=== PATIENT | male | born 1950 | race Caucasian/White ===

== ENCOUNTER 2016-09-02 15:41 | Inpatient (IN) | payer MEDICARE, OTHER ==
[~2016-09-02] VITALS: Ht 167.6 cm; Wt 62.1 kg
[2016-09-02] MEDS ORDERED: ENALAPRILAT 1.25 MG INJ IV ONE (16:00)
[2016-09-02] MEDS ORDERED: PIPER-TAZO 3.375 GM IV (PMX) 100 ML IVPB ONE (16:00)
[2016-09-02] MEDS ORDERED: NITROGLYCERIN (SL) 0.4 MG TAB SL ONE (16:00)
[2016-09-02] MEDS ORDERED: VANCOMYCIN 1 GM (PMX) 250 ML IVPB ONE (16:00)
[2016-09-02] MEDS ORDERED: ASPIRIN 81 MG TAB PO ONE (16:00)
[2016-09-02 16:36] LABS: ADD SCAN DIFF NO
[2016-09-02 16:38] LABS: ABNORMAL IP MESSAGE 1; HEMOGLOBIN 11.3 g/dl (14.0-18.0); MEAN CORPUSCULAR HGB CONC 32.3 g/dl (32.0-37.0); MEAN CORPUSCULAR VOLUME 92.8 fl (82.0-101.0); MEAN PLATELET VOLUME 9.8 fl (7.4-10.4); PLATELET COUNT 254 10^3/UL (140-415); RED BLOOD COUNT 3.77 10^6/ul (4.70-6.10); RED CELL DISTRIBUTION WIDTH 15.6 % (11.5-14.5); WHITE BLOOD COUNT 17.2 10^3/ul (4.8-10.8)
[2016-09-02 16:49] LABS: ALBUMIN 3.6 g/dl (3.3-4.9); INR 1.01; PROTIME 13.3 Sec (12.2-14.2)
[2016-09-02 16:50] LABS: POTASSIUM 3.6 mmol/L (3.5-5.1)
[2016-09-02 16:52] LABS: ALBUMIN/GLOBULIN RATIO 0.87; CREATININE 2.8 mg/dl (0.61-1.24); TOTAL PROTEIN 7.7 g/dl (6.1-8.1)
[2016-09-02 16:53] LABS: CALCIUM 9.2 mg/dl (8.4-10.2)
[2016-09-02 17:04] LABS: TROPONIN-I 0.038 ng/ml (0.00-0.12)
--- NOTE | 2016-09-02 17:07 | RADRPT ---
PROCEDURE: XR Chest. CLINICAL INDICATION: Shortness of breath. Sepsis. TECHNIQUE: Single frontal view. COMPARISON: None. FINDINGS: There is mild right basilar atelectasis. There is a moderate left pleural effusion and left basilar atelectasis. There is a density in the left midlung zone laterally measuring 7.1 x 4.0 cm in crani al caudal and transverse dimensions. The lungs are otherwise clear. The heart size is normal. There is calcification in the aorta consistent with atherosclerosis. There is no right pleural effusion. There is no pneumothorax. IMPRESSION: 1. Mild right basilar atelectasis. 2. Moderate left pleural effusion and left basilar atelectasis. 3. Density in the left midlung zone laterally which may be due to loculated fluid or a mass. Corre lation with CT scan of the chest should be considered. 4. Atherosclerosis. 5. Otherwise unremarkable study. RPTAT: QQ .Derek Gómez MD, MD Date Time Electronically viewed and signed by .Derek Gómez MD, on 09/02/2016 17:06 .R/
[2016-09-02 17:09] LABS: PARTIAL THROMBOPLASTIN TIME 121.2 Sec (25.0-35.0)
[2016-09-02 17:35] LABS: LYMPHOCYTES # 0.3 10^3/ul (0.8-2.9); MONOCYTE # 0.2 10^3/ul (0.3-0.9); NEUTROPHIL # 16.2 10^3/ul (1.6-7.5); PLATELET ESTIMATE PLT APPEAR ADEQUATE
[2016-09-02] MEDS ORDERED: CLON0.2T5 PO (17:35)
--- NOTE | 2016-09-02 17:46 | CONS ---
Date/Time of Note Date/Time of Note DATE: 09/02/16 TIME: 17:41 Assessment/Plan Assessment/Plan Chief Complaint/Hosp Course 66M w/ paraplegia and ESRD on HD and s/p LUE AVG and RIJ PC, now HD via LUE AVG w/o issues and has not used RIJ PC; now w/ possible sepsis and possible infected RIJ PC Plan: -Appreciate ED management -Will remove RIJ PC -Cont HD via LUE AVG -Cont IV abx -D/w Dr Trujillo and Dr. Lopez Thank you and please call with questions Problems: Consultation Date/Type/Reason Admit Date/Time Date of Consultation: Sep 02, 2016 Reason for Consultation Sepsis, possible infected RIJ PC Referring Provider: MALIA TRUJILLO MD Hx of Present Illness 66M w/ paraplegia and ESRD on HD via RIJ PC and s/p LUE AVG, both done in 2015 at outside instituition has been successfully dialyzed via LUE AVG for past couple of months but did not return to outpatient clinic for removal of PC. He now was sent to ER by HD center for persistent chills and possible sepsis. Here WBC 17. He is on chronic oxygen but now requiring BiPAP for increased SOB. His RIJ PC may be infected. He denies CP, N/V, changes in bowel habits. 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 Past Surgical History Permacath LUE AVG Social History Denies smoking, alcohol and drugs Smoking Status: Unknown if ever smoked Exam/Review of Systems Vital Signs Vitals Vital Signs Date Time Temp Pulse Resp B/P Pulse Ox O2 Delivery O2 Flow Rate FiO2 09/02/16 16:19 124 100 100 09/02/16 15:57 Simple Mask 2.0 09/02/16 15:47 99.5 20 156/134 Exam Gen: AAOx3, SOB on BiPAP Neck: supple, RIJ PC c/d/i, no evidence of overt infection at skin exit site Heart: tachycardic Lungs: Coarse w/ wheeze Extr: LUE AVG w/ good thrill throughout, no edema Results Result Diagram: 09/02/16 1615 Results 24 hrs Laboratory Tests Test 4/3/17 16:15 White Blood Count 17.2 H Red Blood Count 3.77 L Hemoglobin 11.3 L Hematocrit 35.0 L Mean Corpuscular Volume 92.8 Mean Corpuscular Hemoglobin 30.0 Mean Corpuscular Hemoglobin Concent 32.3 Red Cell Distribution Width 15.6 H Platelet Count 254 Mean Platelet Volume 9.8 Neutrophils % 94.0 H Band Neutrophils % 3.0 Lymphocytes % 2.0 L Monocytes % 1.0 Neutrophils # 16.2 H Lymphocytes # 0.3 L Monocytes # 0.2 L Platelet Estimate PLT APPEAR ADEQUATE Prothrombin Time 13.3 Prothrombin Time Ratio 1.0 INR International Normalized Ratio 1.01 Activated Partial Thromboplast Time 121.2 *H Sodium Level 139 Potassium Level 3.6 Chloride Level 97 Carbon Dioxide Level 26 Anion Gap 20 H Blood Urea Nitrogen 32 H Creatinine 2.80 H Glucose Level 113 Lactic Acid Level 1.8 Calcium Level 9.2 Total Bilirubin 0.0 L Direct Bilirubin 0.00 Indirect Bilirubin 0.0 Aspartate Amino Transf (AST/SGOT) 23 Alanine Aminotransferase (ALT/SGPT) 21 Alkaline Phosphatase 139 H Troponin I 0.038 Total Protein 7.7 Albumin 3.6 Globulin 4.10 H Albumin/Globulin Ratio 0.87 Lipase 107 Medications Medications Current Medications Vancomycin HCl (Vancocin) 250 ml @ 125 mls/hr ONCE ONCE IVPB ; Start 09/02/16 at 16:00; Stop 09/02/16 at 17:59 SHIRA FORD MD Sep 02, 2016 17:46
[2016-09-02] MEDS ORDERED: LIDOCAINE 1% (MDV) 20 ML INJ ONE (17:53)
[2016-09-02] MEDS ORDERED: LIDOCAINE 1% (MPF) 30 ML INJ INJ PRN (18:00)
--- NOTE | 2016-09-02 18:24 | ERA ---
ER Documentation Chief Complaint Date/Time DATE: 09/02/16 TIME: 18:09 Chief Complaint SOB AFTER 3.5 HRS OF DIALYSIS, ON OXYGEN AT HOME. HPI 66-year-old man brought in by EMS for shortness of breath and fever 1 day, symptoms got worse after hemodialysis. Patient states he has difficulty breathing and recent cough, denies chest pain, no vomiting or diarrhea, no abdominal pain. ROS All systems reviewed and are negative except as per history of present illness. Medications Home Meds Reported Medications Clonidine Hcl* (Clonidine Hcl*) 0.2 Mg Tablet, 0.2 MG PO BID Y for HTN, TAB 09/02/16 Allergies Allergies: Coded Allergies: baclofen (Unverified Allergy, Mild, HALLUCINATIONS, 09/02/16) PMhx/Soc End-stage kidney disease hemodialysis dependent, hypertension, congestive heart failure, diabetes mellitus, bilateral lower extremity paraplegia, anemia History of Surgery: Yes (TUMOR REMOVAL) Anesthesia Reaction: No Hx Neurological Disorder: No Hx Respiratory Disorders: Yes (OXYGEN DEPENDENT AT HOME) Hx Cardiac Disorders: Yes (HTN, CHF, MITRAL REGURGITATION) Hx Psychiatric Problems: No Hx Miscellaneous Medical Probl: Yes (DM, ESRD, PARAPLEGIA, IRON DEFICIENCY ANEMIA) Hx Alcohol Use: No Hx Substance Use: No Hx Tobacco Use: No Smoking Status: Unknown if ever smoked FmHx Family History: diabetes Physical Exam Vitals Vital Signs Date Time Temp Pulse Resp B/P Pulse Ox O2 Delivery O2 Flow Rate FiO2 09/02/16 16:19 124 100 100 09/02/16 15:57 Simple Mask 2.0 09/02/16 15:47 99.5 119 20 156/134 99 Physical Exam GENERAL: Well-developed, dyspneic, febrile HEENT: Dry mucous membranes, pink conjunctiva, no cervical spine tenderness or step-off deformities, no goiter, no jaundice or icterus, extraocular movements intact without pain. No submandibular induration, and no pharyngeal erythema NEURO: Alert and oriented 3, cranial nerves II through XII intact bilaterally, pupils equal round reactive to light, no focal deficits or facial asymmetry, bilateral lower extremity paralysis CARDIAC: Tachycardic and regular no murmurs rubs or gallops LUNGS: Crackles throughout with poor breath sounds bilaterally, tachypneic and dyspneic ABDOMEN: Soft nontender, no guarding, no rigidity, no rebound, no psoas sign no obturator sign. Normoactive bowel sounds SKIN: Warm and dry to touch, no abrasions, contusions, or hematomas, no lacerations, no ecchymosis, no target lesions, and without ulcers EXTREMITIES: No clubbing cyanosis or edema, calves are bilaterally symmetrical, no Homans sign, no popliteal cord sign. Distal pulses equal and bilateral PSYCH: Normal affect without agitation or irritability Result Diagram: 09/02/16 1615 09/02/16 1615 Results 24 hrs Laboratory Tests Test 09/02/16 16:15 White Blood Count 17.210^3/ul Red Blood Count 3.7710^6/ul Hemoglobin 11.3g/dl Hematocrit 35.0% Mean Corpuscular Volume 92.8fl Mean Corpuscular Hemoglobin 30.0pg Mean Corpuscular Hemoglobin Concent 32.3g/dl Red Cell Distribution Width 15.6% Platelet Count 09558^3/UL Mean Platelet Volume 9.8fl Neutrophils % 94.0% Band Neutrophils % 3.0% Lymphocytes % 2.0% Monocytes % 1.0% Neutrophils # 16.210^3/ul Lymphocytes # 0.310^3/ul Monocytes # 0.210^3/ul Platelet Estimate PLT APPEAR ADEQUATE Prothrombin Time 13.3Sec Prothrombin Time Ratio 1.0 INR International Normalized Ratio 1.01 Activated Partial Thromboplast Time 121.2Sec Sodium Level 139mmol/L Potassium Level 3.6mmol/L Chloride Level 97mmol/L Carbon Dioxide Level 26mmol/L Anion Gap 20 Blood Urea Nitrogen 32mg/dl Creatinine 2.80mg/dl Glucose Level 113mg/dl Lactic Acid Level 1.8mmol/L Calcium Level 9.2mg/dl Total Bilirubin 0.0mg/dl Direct Bilirubin 0.00mg/dl Indirect Bilirubin 0.0mg/dl Aspartate Amino Transf (AST/SGOT) 23IU/L Alanine Aminotransferase (ALT/SGPT) 21IU/L Alkaline Phosphatase 139IU/L Troponin I 0.038ng/ml Total Protein 7.7g/dl Albumin 3.6g/dl Globulin 4.10g/dl Albumin/Globulin Ratio 0.87 Lipase 107U/L Current Medications Medications (Trade) Dose Ordered Sig/Elder Route PRN Reason Start Time Stop Time Status Last Admin Dose Admin Aspirin (Aspirin) 162 mg ONCE ONCE PO 09/02/16 16:00 09/02/16 16:04 DC 09/02/16 16:48 Enalaprilat (Vasotec Iv) 1.25 mg ONCE ONCE IV 09/02/16 16:00 09/02/16 16:04 DC Nitroglycerin 2 tab 2 tab ONCE ONCE SL 09/02/16 16:00 09/02/16 16:04 DC 09/02/16 16:48 Vancomycin HCl 250 ml @ 125 mls/hr ONCE ONCE IVPB 09/02/16 16:00 09/02/16 17:59 DC Piperacillin Sod/ Tazobactam Sod (Zosyn 3.375gm/ 100 ml (Pmx)) 100 ml @ 200 mls/hr ONCE ONCE IVPB 09/02/16 16:00 09/02/16 16:29 DC 09/02/16 16:49 Lidocaine (Xylocaine 1% (Mpf)) 30 ml ONCE PRN INJ PAIN 09/02/16 18:00 Lidocaine (Xylocaine 1% (Mdv) 20 ml) 20 ml STK-MED ONCE .ROUTE 09/02/16 17:53 09/02/16 17:54 DC Procedures/MDM IV line was established patient was placed on monitor and storage bin tender rhythm strip revealed a sinus tachycardia at about 120 bpm with upright P and T waves. Patient was febrile and hypertensive as well. Blood cultures have been ordered results are pending I will follow-up EKG performed, read by me revealed a sinus tachycardia at 117 bpm, normal axis, narrow QRS complex, no concerning ST elevations or depressions noted. One view chest x-ray performed, read by me there is a hemodialysis catheter in the right subclavian and a large left pleural effusion and right middle lobe infiltrate overall concerning for bilateral pneumonia, no pneumothorax, no end of the diaphragm. Patient could not breathe and I immediately ordered BiPAP therapy which resulted in rapid improvement in symptoms although patient remains symptomatic and will require inpatient management. Impaired I administered aspirin 162 mg p.o. for cardioprotective measures, nitroglycerin 0.4 mg sublingual 2 for hypertension. I administered Pipracil and tazobactam 3.375 g IV and vancomycin 1 g IV. CBC reveals a white count of 17 and leukocytosis, electrolytes reveal chronic kidney injury with a BUN/creatinine of 32/2.8, liver function tests normal, troponin negative. Lactic acid low at 1.8. Patient's infectious symptoms have not stabilized and the patient is at risk of rapid decompensation. The patient will be admitted for careful hydration, antibiotic therapy, and infectious source control. Severe Sepsis Assessment: Infectious Source: Bilateral pneumonia End organ damage indicated by: Acute Resp Failure (sat < 92% w/o oxygen) Relationship Consultant > 2.0 Severe Sepsis Managment: Blood Cultures X 2 before broad spectrum antibiotics initiated within 3 hours of recognition. 30 ml/kg NS bolus not done as patient has end-stage kidney disease and just released received hemodialysis, all IV fluid administration will be deferred to nephrology Initial Lactate: 1.8 Repeat Lactate not indicated as initial < 2.0 Critical Care: Time: 50 minutes, this was time separate from other procedures Treatments/Evaluations: Emergent fluid management, while maintaining close respiratory support. Immediate broad spectrum antibiotic therapy. Simultaneous assessment for possible sources in order to direct therapy. Consideration for invasive and chemical support to prevent respiratory or cardiac collapse. Septic Shock Assessment (1 hour post 30 ml/kg fluid bolus): Hypotension (SBP < 90 or 40 mmHg drop, MAP < 65): No Lactic acid > 4.0 No Perfusion Reassessment for Septic Shock: Temp afebrile, Pulse 100, RR 20, BP 140/80 Heart Exam: Tachycardic Lung Exam: Positive crackles throughout Capillary Refill: Less than 2 second Peripheral Pulses: Radially present Skin: [place] and hot to touch Hypotensive Treatment (not required for isolated lactic acid elevation): Comfort Care: No Central LIne: Not indicated Vasopressor started: None I considered further perfusion assessment with CVP measurement, SCVO2, bedside ultrasound volume assessment, passive leg raise, trial of further fluid bolus. And preceded with IV antibiotics and BiPAP therapy Accepting Care Team: Current data and ongoing care discussed. Time: Time of admission Primary Provider: Hospital Consulting: Nephrology Outstanding Data: none Patient admitted to telemetry setting Departure Diagnosis: Primary Impression: Bilateral pneumonia Qualified Code: J18.9 - Pneumonia of both lower lobes due to infectious organism Additional Impressions: Sepsis Qualified Code: A41.9 - Sepsis, due to unspecified organism CHF (congestive heart failure) Qualified Code: I50.21 - Acute systolic congestive heart failure Hypertension Qualified Code: I10 - Essential hypertension End stage kidney disease Condition: Serious GRACE BATES MD Sep 02, 2016 18:19
--- NOTE | 2016-09-02 18:35 | OPR ---
Date/Time of Note Date/Time of Note DATE: 09/02/16 TIME: 18:28 Operative Report Procedure Date: Sep 02, 2016 Preoperative Diagnosis ESRD, spesis, possibly infected RIJ PC Postoperative Diagnosis Same Operation Performed Removal of RIJ Permacath Surgeon: SHIRA FORD MD Anesthesia: other (Local) Estimated Blood Loss: minimal Specimens RIJ Permacath tip for culture Complications: None Pt Condition Post Procedure: stable Disposition: other (Floor) Indications 66M w/ ESRD s/p LUE AVG 03/2016 along with Right IJ Permacath, LUE AVG successfully used for HD without issue; did not have permacath removal as planned previously; now presents with symptoms of sepsis. Discussed with model and pattern supervisor regarding possible catheter infection. Plan is to removal permacath. Indications, risks and benefits of procedure were discussed with patient and family, who agreed to proceed. Procedure Description The patient was properly identified in ER. The right chest was prepped in standard fashion. Lidocaine 1% was injected in the skin and subcutaneous tissues around the catheter. Using blunt dissection and gentle traction, the cuff was dissected free from surrounding scar tissue. There was no gross purulence. The catheter was then removed with the tip fully intact. The tip was sent for culture. Manual compression was applied for hemostasis. Dry dressings were then placed. The patient tolerated the procedure well without any issues. SHIRA FORD MD Sep 02, 2016 18:35
[2016-09-02 19:24] LABS: AADO2 Arterial 245.1 mmHg (7.0-24.0); Allen Test ACCEPTAB; Arterial Base Excess 6.2 mmol/L (-3.0-3); Arterial COHb 0.2 % (0.0-3.0); Arterial Fraction of Oxyhgb 98.7 % (93.0-99.0); Arterial HCO3 29.6 mmol/L (22.0-26.0); Arterial MetHb 0.4 % (0.0-1.5); Arterial Total Hemglobin 10.3 g/dl (12.0-18.0); Blood Gas IEPAP 18/5; MODE MASK - BIPAP
--- NOTE | 2016-09-02 19:52 | HP ---
Date/Time of Note Date/Time of Note DATE: 09/02/16 TIME: 19:51 Assessment/Plan VTE Prophylaxis VTE Prophylaxis Intervention: contraindicated (Paraplegic on HD) Assessment/Plan Assessment/Plan 1) Sepsis/Chills and Leukocytosis (WBCs = 17.7) - (Lactic Acid max 1.8), likely due to infected Permacath (as CXR and UA look good) which has been removed and sent for culture along with blood and urine cultures. - Admit to Telemetry - IV ABX - Permacath removed by Nephro - Continue HD per Nephro - Nephro,MALIA EID MD, consulted through ER - Thanks for your help. - Continue IV Abx 2) ESRD on HD 3) HTN 4) Paraplegia HPI/ROS Admit Date/Time Admit Date/Time 09/02/16 1858 Hx of Present Illness CC: 66M w/ paraplegia and ESRD on HD and s/p LUE AVG and RIJ PC, now HD via LUE AVG w/o issues and has not used RIJ PC; now w/ possible sepsis and possible infected RIJ PC HPI: This is a 66 year old male with ESRD since 03/2016 secondary to HTN, states he does not have DM.) who, during his regular dialysis treatment today, he became acutely SOB, along with shaking chills, sweating and phlegm. His oxygen sats dropped into the 80s and he was placed on O2 via mask with improvement in his sats, but unable to maintain, so was put on nasal BiPAP, and by the time I am called to see him, he has been off of BiPAP for almost an hour and is now maintaining his sats. He is a paraplegic x 19 years since a benign tumor was removed from his back. He has hypertensive kidney disease as the cause of his ESRD, on HD since 03/2016. He was supposed to have his Permacath removed since his AV fistula, (Left upper extremity) is ready, but he did not return to the outpatient clinic for removal. He was sent her from Dialysis for possible sepsis, and the Permacath was removed by Nephrology in the ER. No fever , chest pain, cough or abdominal pain. No urinary tract symptoms. Had pneumonia 3 to 4 months ago (only episode). ROS General: Admits: Chills, Sweating Denies: Fever, Poor Appetite, Generalized Body Aches Eyes: Admits: Denies: Blurry Vision, Double Vision HENT: Admits: Denies: Ear Pain/Pressure, Runny/Stuffy Nose, Sore Throat Cardiovascular: Admits: Leg Swelling Denies: Chest Pain, Palpitations Pulmonary: Admits: Shortness of Breath (see HPI), Phlegm Denies: Cough, Wheeze Gastrointestinal: Admits: Denies: Abdominal Pain, Nausea, Vomiting, Diarrhea, Blood in Stool, Black-Colored Stool Urogenital: Admits: Denies: Burning with Urination, Urinary Frequency, Blood in Urine Musculoskeletal: Admits: Denies: Joint Pain, Joint Swelling, Muscle Pain Neurological: Admits: Denies: Headache, Dizziness, Numbness, Tingling, Shooting Pains Integumentary: Admits: Denies: Rash, Itch Endocrine: Admits: Denies: Excessive Thirst, Excessive Hunger, Intolerant to Cold , Intolerant to Heat Psychiatric: Admits: Denies: Anxiety, Depression PMH/Family/Social Past Medical History CHF; HTN; ESRD on HD since 03/2016; Mitral Regurg; Iron Deficiency Anemia; Pneumonia (x 1) 05/2016 (3 to 4 months ago) Past Surgical History Permacath LUE AVG ; Spinal Tumor Removal (benign), 1997; Colonoscopy Social History Alcohol Use: none Smoking Status: Never smoker Drug Use: none Exam/Review of Systems Vital Signs Vitals Vital Signs Date Time Temp Pulse Resp B/P Pulse Ox O2 Delivery O2 Flow Rate FiO2 09/02/16 19:15 75 26 92/54 100 BIPAP 09/02/16 16:19 100 09/02/16 15:57 2.0 09/02/16 15:47 99.5 Exam Exam General: 66 year old male , alert and oriented, in no acute distress. VSS Eyes: Sclera White, EOMI HENT: Normocephalic/Atraumatic, External Ears/Nose Normal, Moist Mucus Membranes Neck: Supple, Trachea Midline Cardiovascular: Normal Rate, Normal Rhythm, Normal S1 and S2, No Murmur, No Extra Sounds, Radial pulse +2/4. No pedal edema. Pulmonary: Coarse breath sounds throughout, Normal Respiratory Effort, No Rales , Rhonchi or Wheezes Gastrointestinal: Normoactive Bowel Sounds, Soft, Non-Tender/Non-Distended, No Hepatosplenomegaly Appreciated, No Pulsatile Masses Urogenital: Deferred Musculoskeletal: Normal Muscle Bulk and Tone Neurological: CN II - XII Grossly Intact, Non-Focal, Speech Normal. Paraplegia. Integumentary: Normal Moisture and Temperature, Good Turgor, No Jaundice Psychiatric: Appropriate mood and affect. Good eye contact. Labs Result Diagram: 09/02/16 1615 09/02/16 1615 Medications Medications Current Medications Lidocaine (Xylocaine 1% (Mpf)) 30 ml ONCE PRN INJ PAIN; Start 09/02/16 at 18:00 Procedures Procedures Test 09/02/16 16:15 White Blood Count 17.2 H Red Blood Count 3.77 L Hemoglobin 11.3 L Hematocrit 35.0 L Mean Corpuscular Volume 92.8 Mean Corpuscular Hemoglobin 30.0 Mean Corpuscular Hemoglobin Concent 32.3 Red Cell Distribution Width 15.6 H Platelet Count 254 Mean Platelet Volume 9.8 Neutrophils % 94.0 H Band Neutrophils % 3.0 Lymphocytes % 2.0 L Monocytes % 1.0 Neutrophils # 16.2 H Lymphocytes # 0.3 L Monocytes # 0.2 L Platelet Estimate PLT APPEAR ADEQUATE Prothrombin Time 13.3 Prothrombin Time Ratio 1.0 INR International Normalized Ratio 1.01 Activated Partial Thromboplast Time 121.2 *H Sodium Level 139 Potassium Level 3.6 Chloride Level 97 Carbon Dioxide Level 26 Anion Gap 20 H Blood Urea Nitrogen 32 H Creatinine 2.80 H Glucose Level 113 Lactic Acid Level 1.8 Calcium Level 9.2 Total Bilirubin 0.0 L Direct Bilirubin 0.00 Indirect Bilirubin 0.0 Aspartate Amino Transf (AST/SGOT) 23 Alanine Aminotransferase (ALT/SGPT) 21 Alkaline Phosphatase 139 H Troponin I 0.038 Total Protein 7.7 Albumin 3.6 Globulin 4.10 H Albumin/Globulin Ratio 0.87 Lipase 107 RADIOLOGY: PROCEDURE: XR Chest. CLINICAL INDICATION: Shortness of breath. Sepsis. TECHNIQUE: Single frontal view. COMPARISON: None. IMPRESSION: 1. Mild right basilar atelectasis. 2. Moderate left pleural effusion and left basilar atelectasis. 3. Density in the left midlung zone laterally which may be due to loculated fluid or a mass. Correlation with CT scan of the chest should be considered. 4. Atherosclerosis. 5. Otherwise unremarkable study. KAYLA WILL DO Sep 02, 2016 19:52 Total Bilirubin 0.0 L Direct Bilirubin 0.00 Indirect Bilirubin 0.0 Aspartate Amino Transf (AST/SGOT) 23 Alanine Aminotransferase (ALT/SGPT) 21 Alkaline Phosphatase 139 H Troponin I 0.038 Total Protein 7.7 Albumin 3.6 Globulin 4.10 H Albumin/Globulin Ratio 0.87 Lipase 107 KAYLA WILL DO Sep 02, 2016 19:52
[2016-09-03] VITALS (8 sets, daily range): BP systolic 100–128; BP diastolic 56–68; PULSE 73–88; RESP 18–20; Ht 167.6 cm; Wt 62.1 kg
[2016-09-03] MEDS ORDERED: AMIKACIN IV PER PHARMACY XX SCH (13:30)
--- NOTE | 2016-09-03 13:48 | CONS ---
DATE OF ADMISSION: 09/03/2016 DATE OF CONSULTATION: 09/03/2016 TYPE OF CONSULTATION: Infectious Disease. REASON FOR CONSULTATION: Antibiotic management. HISTORY OF PRESENT ILLNESS: Iglesia Sands is a 66-year-old male with history of paraplegia and end- stage renal disease, comes in with possible infected right internal jugular PermCath. His past prob lems include: 1. End-stage renal disease since 03/2016. 2. Hypertension. 3. Paraplegia. 4. Status post PermCath placement. Acutely, the patient comes in with shortness of breath, shaking chills, sweats and sputum production . His O2 saturations dropped into the 80s. He was placed on oxygen via mask. He was put on nasal BiPAP. He is paraplegic for 19 years secondary to a benign tumor in the back. He was supposed to h ave his PermCath removed since his AV fistula in the left upper extremity is ready, but he did not r eturn to the outpatient clinic for its removal. He was sent here from dialysis for possible sepsis. The PermCath was removed by nephrology in the emergency room. The patient has a history of pneumo manuela 3 or 4 months ago. PAST MEDICAL HISTORY: Operations as outlined. FAMILY HISTORY: Noncontributory. SOCIAL HISTORY: He does not smoke, drink or abuse drugs. ALLERGIES: NONE TO PENICILLIN, SULFA OR FOODS. MEDICATIONS: Per chart. REVIEW OF SYSTEMS: As per HPI. PHYSICAL EXAMINATION: GENERAL: The patient is a well-developed, well-nourished male who is alert, responsive, in no acute distress. VITAL SIGNS: Stable. He is afebrile. SKIN: Without generalized rash. HEENT: Within normal limits. NECK: Supple. LYMPH NODES: None palpable. CHEST: Decreased breath sounds at the bases. HEART: Without murmur or gallop. ABDOMEN: Soft, nontender without organosplenomegaly or masses. EXTREMITIES: Without cyanosis, clubbing, or edema. RECTAL AND GENITAL: Deferred. NEUROLOGIC: No focal neurological abnormalities. ANCILLARY LABORATORY DATA: White count is 17.2, H and H 11.3 and 35, platelet count 254,000. BUN a nd creatinine 32/2.8, glucose of 113. Chest x-ray showed mild right basilar atelectasis, moderate left pleural effusion, left basilar atel ectasis, density in the left mid lung zone may be due to loculated fluid or mass, CT scan of the [address] st should be considered. Atherosclerosis, otherwise unremarkable study. Microbiology is growing gram-negative rods from 2 sets of blood cultures. PLAN: He was given vancomycin and Zosyn. I am going to repeat blood cultures x2 and give him 1 dos e of amikacin, pharmacy to dose after dialysis. I will dictate my findings to Dr. Trujillo and to [facility] hospitalist. Dictated By: FLAKO PARSON MD, JD/HERMILA Conf#: [id number] DID#: [id number]
[2016-09-03] MEDS: ALBUTEROL/IPRATROPIUM (NEB) 3 ML AMP HHN SCH ×2 (13:55→19:54)
[2016-09-03] MEDS ORDERED: ONDANSETRON 4 MG INJ IV PRN (14:00)
[2016-09-03] MEDS ORDERED: hydrALAzine 20 MG INJ IV PRN (14:00)
[2016-09-03] MEDS: PIPER-TAZO 2.25 GM (PMX) 50 ML IVPB SCH (15:25)
[2016-09-03] MEDS ORDERED: AMIKACIN 500 MG in SOD CHLORIDE 0.9% 100 ML IVPB SCH (15:30)
--- NOTE | 2016-09-03 15:42 | CONS ---
Date/Time of Note Date/Time of Note DATE: 09/03/16 TIME: 15:38 Assessment/Plan Assessment/Plan Additional Assessment/Plan Chest x-ray was reviewed from yesterday which is showing severe bilateral pneumonia more pronounced in the left lower lobe area. Assessment recommendations; next 1. Patient admitted for bilateral pneumonia possibly with empyema. 2. History of end-stage renal disease on hemodialysis. 3. History of paraplegia. Continue current antibiotics. Obtain a CT scan of chest without contrast. Further recommendations to be made once CT chest is done. Consultation Date/Type/Reason Admit Date/Time 09/02/161857 Date of Consultation: Sep 03, 2016 Type of Consultation: Pulmonary Reason for Consultation Pulmonary consultations requested for evaluation of pneumonia. History presenting; patient is a very pleasant 66-year-old male who was admitted yesterday [facility] with complaints of shortness of breath, chest congestion and low-grade fever. Upon evaluation chest x-ray was done which is showing significant bilateral pneumonia. The patient is feeling a little better since admission still complains of chest congestion shortness of breath and sputum production. Denies any further fever chills. Denies any chest pain. Any hemoptysis. He was fine until 3 or 4 days ago when the symptoms gradually started. Past medical history; next 1. Patient with history of end-stage renal disease on hemodialysis. 2. History of paraplegia due to spinal tumor. 3. History of pneumonia in April of last year. Medications; were reviewed. Allergies; are to baclofen. Social history; patient has no history of any smoking. He does have remote history of alcohol consumption. Family history; patient is he has 4 children. Various family members have history of diabetes, hypertension and coronary artery disease in the family. 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 Review of systems; denies any headache, visual changes. Any sinus symptoms, postnasal drip. Denies any chest pain. Complains of cough with production of sputum. Denies hemoptysis. Denies any further fever chills. Denies any abdominal pain, nausea vomiting. Has fair appetite. Denies any seizures. General exam; elderly male, currently in no distress awake and alert. Social History Alcohol Use: none Smoking Status: Never smoker Drug Use: none Exam/Review of Systems Vital Signs Vitals Vital Signs Date Time Temp Pulse Resp B/P Pulse Ox O2 Delivery O2 Flow Rate FiO2 09/03/16 13:55 83 22 97 Nasal Cannula 2.0 09/03/16 12:19 98.2 118/62 09/02/16 19:10 100 Exam HEENT exam is; supple neck, no JVD. No lymphadenopathy. Midline trachea. No thyromegaly. Pharynx is clear. Patient has fair dentition. Pupils are midsize and reactive to light. Chest exam is; diminished breath on lung bases bilaterally upper lobes are clear. S1-S2 audible, no murmurs. Regular rhythm. Abdomen examination; soft, nontender. No organomegaly. Bowel is audible. No scrotal or penile edema. Extremity exam is; patient has paraplegia. No peripheral edema. INTERMOD[employer] CUST[employer]ER SERVICE examination; cranial nerves are grossly intact, patient has paraplegia. Results Result Diagram: 09/02/16 1615 09/02/16 1615 Results 24 hrs Laboratory Tests Test 09/02/16 16:15 09/02/16 18:45 09/02/16 19:20 09/02/16 20:10 White Blood Count 17.2 H Red Blood Count 3.77 L Hemoglobin 11.3 L Hematocrit 35.0 L Mean Corpuscular Volume 92.8 Mean Corpuscular Hemoglobin 30.0 Mean Corpuscular Hemoglobin Concent 32.3 Red Cell Distribution Width 15.6 H Platelet Count 254 Mean Platelet Volume 9.8 Neutrophils % 94.0 H Band Neutrophils % 3.0 Lymphocytes % 2.0 L Monocytes % 1.0 Neutrophils # 16.2 H Lymphocytes # 0.3 L Monocytes # 0.2 L Platelet Estimate PLT APPEAR ADEQUATE Prothrombin Time 13.3 Prothrombin Time Ratio 1.0 INR International Normalized Ratio 1.01 Activated Partial Thromboplast Time 121.2 *H Sodium Level 139 Potassium Level 3.6 Chloride Level 97 Carbon Dioxide Level 26 Anion Gap 20 H Blood Urea Nitrogen 32 H Creatinine 2.80 H Glucose Level 113 Lactic Acid Level 1.8 1.2 1.5 Calcium Level 9.2 Total Bilirubin 0.0 L Direct Bilirubin 0.00 Indirect Bilirubin 0.0 Aspartate Amino Transf (AST/SGOT) 23 Alanine Aminotransferase (ALT/SGPT) 21 Alkaline Phosphatase 139 H Troponin I 0.038 Total Protein 7.7 Albumin 3.6 Globulin 4.10 H Albumin/Globulin Ratio 0.87 Lipase 107 Blood Gas Specimen Source Blood arterial Arterial Blood Date Drawn 09/02/2016 7:18:16 PM Arterial Blood pH (Temp corrected) 7.507 H Arterial Blood pCO2 (Temp correct) 38.2 Arterial Blood pO2 (Temp corrected) 429.7 H Arterial Blood HCO3 29.6 H Arterial Blood Base Excess 6.2 H Arterial Blood Oxygen Saturation 99.3 H Juan Test ACCEPTAB Arterial Blood Gas Puncture Site Right Radial Arterial Blood Carboxyhemoglobin 0.2 Arterial Blood Methemoglobin 0.4 Blood Gas A-a O2 Differential 245.1 H Oxyhemoglobin Percent 98.7 Total Hemoglobin 10.3 L Blood Gas Temperature 37.0 Blood Gas Respiration Rate 16.0 Blood Gas Actual Respiration Rate 32 Blood Gas Modality MASK - BIPAP FiO2 100.0 Blood Gas IPAP/EPAP Ratio 18/5 Blood Gas Notified Whom MG Blood Gas Notified Time 09/02/2016 7:23:56 PM Medications Medications Current Medications Lidocaine (Xylocaine 1% (Mpf)) 30 ml ONCE PRN INJ PAIN; Start 09/02/16 at 18:00 Amikacin Sulfate (Amikacin Iv Per Pharmacy) AMIKACIN PER PHARMACY NOTE XX ; Start 09/03/16 at 13:30 Ondansetron HCl (Zofran Inj) 4 mg Q6H PRN IV NAUSEA AND/OR VOMITING; Start 09/03 at 14:00 Morphine Sulfate (morphine) 2 mg Q4H PRN IV Pain; Start 09/03/16 at 14:00 Hydralazine HCl (Apresoline) 10 mg Q6H PRN IV SBP>160; Start 09/03/16 at 14:00 Heparin Sodium (Porcine) (Heparin (5000 Units/0.5 ml)) 5,000 unit BID SC ; Start 09/03/16 at 21:00 Famotidine 20 mg 20 mg Q24H PO ; Start 09/03/16 at 21:00 Piperacillin Sod/ Tazobactam Sod 50 ml @ 100 mls/hr Q8 IVPB Last administered on 09/03/16t 15:25; Admin Dose 100 MLS/HR; Start 09/03/16 at 14:21 Amikacin Sulfate/ Sodium Chloride (Amikacin/NS) 102 ml @ 102 mls/hr NOW IVPB ; Start 09/03/16 at 15:30; Stop 09/03/16 at 23:00 NELSON VICTOR Sep 03, 2016 15:42
[2016-09-03 16:22] LABS: ADD SCAN DIFF NO
[2016-09-03 16:36] LABS: BASOPHILS % 0.3 % (0.0-2.0); EOSINOPHILS # 0.1 10^3/ul (0.0-0.5); EOSINOPHILS % 0.4 % (0.0-7.0); HEMATOCRIT 29.5 % (42.0-52.0); HEMOGLOBIN 9.4 g/dl (14.0-18.0); LYMPHOCYTES # 0.7 10^3/ul (0.8-2.9); LYMPHOCYTES % 5.7 % (15.0-51.0); MEAN CORPUSCULAR HGB CONC 31.9 g/dl (32.0-37.0); MEAN CORPUSCULAR VOLUME 94.2 fl (82.0-101.0); MEAN PLATELET VOLUME 9.8 fl (7.4-10.4); MONOCYTE # 0.9 10^3/ul (0.3-0.9); MONOCYTES % 7.4 % (0.0-11.0); NEUTROPHIL # 10.3 10^3/ul (1.6-7.5); NEUTROPHILS % 85.7 % (39.0-77.0); PLATELET COUNT 255 10^3/UL (140-415); RED BLOOD COUNT 3.13 10^6/ul (4.70-6.10); RED CELL DISTRIBUTION WIDTH 15.8 % (11.5-14.5)
--- NOTE | 2016-09-03 16:42 | PN ---
DATE: 09/03/2016 SUBJECTIVE DATA: Complains of dyspnea. Complains of chest congestion. OBJECTIVE DATA: VITAL SIGNS: Temperature 98.2, pulse rate 80, respiratory rate 22, blood pressure 119/62, oxygen saturation 97% on low-flow O2. GENERAL: This is a 66-year-old male lying in bed in mild to moderate respiratory distress with oxygen via nasal cannula on. HEENT: Normocephalic and atraumatic. Eyes: Anicteric sclerae. Conjunctivae clear. ENT: Nasal septum is midline. Oral mucosa is dry. NECK: Supple. JVD noticed. RESPIRATORY: Bilaterally diminished breath sounds. Use of accessory muscles of respiration. Scattered rhonchi with occasional wheezing. CARDIAC: Regular rate and rhythm. S1, S2 heard. ABDOMEN: Soft, nontender and nondistended. Bowel sounds positive in all 4 quadrants. GENITOURINARY: No penoscrotal edema. EXTREMITIES: No cyanosis, no clubbing, no edema. Peripheral pulses palpable. NEUROLOGIC: The patient is awake, alert and oriented. Has paraplegia. LABORATORY AND DIAGNOSTIC DATA: WBC 17.2, hemoglobin 11.3, hematocrit 35.0, platelet count 254. Sodium 139, potassium 3.6, chloride 97, carbon dioxide 26, anion gap 20, BUN 32, creatinine 2.87, glucose 130, calcium 9.2. Blood culture x2 positive for gram-negative rods. ASSESSMENT AND PLAN: 1. Acute respiratory failure. Hypoxic. Most probably secondary to underlying healthcare-associated pneumonia as well as pulmonary vascular congestion. Continue supplemental oxygen. Continue inhaled bronchodilators. Pulmonary to evaluate the patient. 2. Health care associated pneumonia. Continue inhaled bronchodilators. Continue antibiotics. 3. Sepsis with underlying gram-negative bacteremia. Most probably secondary to underlying pneumonia versus from line sepsis from the right chest wall dialysis catheter that the patient had. Status post removal of dialysis catheter. Continue antibiotics as per infectious diseases. No evidence of any septic shock. 4. Essential hypertension. The patient will be started on p.r.n. antihypertensives. The patient's blood pressure has been slightly on the lower side. 5. End-stage renal disease on hemodialysis. Hemodialysis as per nephrology. The patient already has a left upper extremity AV fistula in place. 6. Paraplegia. Continue on daily catheterization as needed. 7. Fluid, electrolytes and nutrition. Renal diet. 8. Deep venous thrombosis prophylaxis. Subcutaneous heparin. 9. Gastrointestinal prophylaxis. Histamine 2 receptor blockers. PLAN: Continue inhaled bronchodilators. Continue supplemental oxygen. Obtain pulmonary consult. Obtain infectious disease consult. The plan of care was explained to the patient with the help of a catering sales manager. Case discussed with Dr. Henderson. SHARLA HENDERSON MD, AM/HERMILA Conf#: [id number] DID#: [id number] MTDD
[2016-09-03 17:04] LABS: POTASSIUM 3.3 mmol/L (3.5-5.1)
[2016-09-03 17:06] LABS: CREATININE 4.27 mg/dl (0.61-1.24)
[2016-09-03 17:07] LABS: CALCIUM 8.7 mg/dl (8.4-10.2); MAGNESIUM 2.3 mg/dl (1.7-2.5); PHOSPHORUS 4.5 mg/dl (2.5-4.9)
[2016-09-03 17:17] LABS: CK-MB 2.17 ng/ml (0.0-2.4)
[2016-09-03 17:18] LABS: TROPONIN-I 0.035 ng/ml (0.00-0.12)
[2016-09-03] MEDS ORDERED: POTASSIUM CHLORIDE 250 ML IVPB ONE (17:30)
[2016-09-03 17:34] LABS: ADD UMIC YES; URINE BILIRUBIN (Dip) NEGATIVE (NEGATIVE); URINE BLOOD (Dip) 3+ (NEGATIVE); URINE COLOR YELLOW (YELLOW); URINE GLUCOSE (Dip) NEGATIVE (NEGATIVE); URINE KETONES (Dip) NEGATIVE (NEGATIVE); URINE LEUKOCYTE ESTERASE (Dip) 2+ (NEGATIVE); URINE NITRITE (Dip) NEGATIVE (NEGATIVE); URINE TOTAL PROTEIN (Dip) 2+ (NEGATIVE); URINE UROBILINOGEN (Dip) 0.2 E.U./dL (0.1-1.0)
[2016-09-03 17:46] LABS: BACTERIA,URINE MANY; SQUAMOUS EPITHELIAL CELL,UR RARE; URINE RBCS 25-50 /HPF (0)
[2016-09-03] MEDS ORDERED: PIPER-TAZO 3.375 GM IV (PMX) 100 ML IVPB SCH (18:00)
--- NOTE | 2016-09-03 18:38 | RADRPT ---
Echocardiogram Report Patient Name: URBANO DUNN Gender: Male Date: 1950 Study Date: 03-Sep-2016 Director Music: [facility] Location: [id number] Ref. Physician: SHARLA MEZA Quality: Good Procedures: Transthoracic echocardiogram with complete 2D, M-Mode, and doppler examination. Indications: Evaluate Left Ventricular function. 2D/M Mode Doppler Measurement Value Normal Ranges Measurement Value Normal Ranges LVIDd 2D 4.7 3.5 - 5.6 cm AV Peak Victor M 1.4 m/sec LVIDs 2D 3.0 2.1 - 4.1 cm AV Peak PG 8.0 mmHg FS 2D 35.5 % LVOT Peak Victor M 1.3 m/sec LVPWd 2D 1.4 0.6 - 1.1 cm LVOT Peak PG 7.0 mmHg IVSd 2D 1.4 0.6 - 1.1 cm MV Peak Victor M 2.1 m/sec IVS/LVPW 2D 1.0 MV Peak PG 18.0 mmHg AoR Diam 2D 2.8 2.0 - 3.7 cm MV Mean Victor M 1.2 m/sec LA/Ao 2D 2 0 - 1 MV Mean PG 7.0 mmHg EDV 2D 106.0 cm3 MV VTI 58.1 cm ESV 2D 28.4 cm3 MR Peak PG 164.0 mmHg LA Dimen 2D 4.7 2.3 - 4.0 cm MR Peak Victor M 6.4 m/sec TR Peak Victor M 2.6 m/sec TR Peak PG 27.0 mmHg Findings Left Ventricle: Normal left ventricular systolic function. Normal left ventricular cavity size. Mild concentric left ventricular hypertrophy. Abnormal Diastolic Function. Right Ventricle: Normal right ventricular size. Normal right ventricular systolic function. Left Atrium: There is mild enlargement of left atrium. Right Atrium: The right atrium is normal in size. Mitral Valve: Moderate mitral valve regurgitation. Aortic Valve: Trace aortic valve regurgitation. Tricuspid Valve: Estimated peak PA systolic pressure 36 mmHg. There is mild tricuspid regurgitation. Pericardium: Normal pericardium with no significant pericardial effusion. Aorta: Normal aortic root. IVC: The IVC is not well visualized. Conclusions 1.Normal left ventricular systolic function. Normal left ventricular cavity size. Mild concentric left ventricular hypertrophy. Abnormal Diastolic Function. 2.Moderate mitral valve regurgitation. 3.Trace aortic valve regurgitation. 4.Estimated peak PA systolic pressure 36 mmHg. There is mild tricuspid regurgitation. Electronically Signed By: Tristan Real 03-Sep-2016 18:38:39 -0700 Patient Name: URBANO DUNN Study Date: 03-Sep-2016 [id number]
[2016-09-03] MEDS: FAMOTIDINE 20 MG TAB PO SCH (21:31)
[2016-09-03] MEDS: HEPARIN 5,000 UNIT/0.5 ML VIAL SC SCH (21:33)
[2016-09-03] MEDS: ALBUTEROL/IPRATROPIUM (NEB) 3 ML AMP HHN PRN (22:20)
--- NOTE | 2016-09-03 22:39 | CONS ---
Date/Time of Note Date/Time of Note DATE: 09/03/16 TIME: 22:30 Assessment/Plan Assessment/Plan Additional Assessment/Plan HD in AM AB Rx per ID Consultation Date/Type/Reason Admit Date/Time Sep 03, 2016 at 08:14 Initial Consult Date 09/03/16 Type of Consultation: renal Referring Provider: MALIA EID MD 24 HR Interval Summary Free Text/Dictation Pt is paraplegic & confined to bed Denies fever with chills Exam/Review of Systems Vital Signs Vitals Vital Signs Date Time Temp Pulse Resp B/P Pulse Ox O2 Delivery O2 Flow Rate FiO2 09/03/16 20:23 75 09/03/16 20:00 98.6 18 100/56 97 09/03/16 19:57 2.0 09/03/16 19:57 Nasal Cannula 09/02/16 19:10 100 Exam Constitutional: alert, oriented, well developed Psych: nl mood/affect, no complaints Head: atraumatic, normocephalic Eyes: EOMI, PERRL, nl conjunctiva, nl lids, nl sclera ENMT: nl external ears & nose, nl lips & teeth, nl nasal mucosa & septum Neck: non-tender, supple Respiratory: clear to auscultation, normal air movement, other (rt chest wall permacath removed already) Cardiovascular: nl pulses, regular rate and rhythm Gastrointestinal: nl liver, spleen, non-tender, soft Musculoskeletal: muscle weakness (both lower ext), nl extremities to inspection , nl gait and stance, other (Lt arm avf working) Extremities: normal pulses Neurological: 911 EMERGENCY DISPATCHER II-XII intact, nl mental status, nl speech, nl strength, other (Paraplegic) Skin: nl turgor, No rash or lesions Lymph: nl lymph nodes Results Result Diagram: 09/03/16 1540 09/03/16 1540 Results 24 hrs Laboratory Tests Test 09/03/16 14:45 09/03/16 15:40 Urine Color YELLOW Urine Clarity CLOUDY H Urine pH 6.5 Urine Specific [place] 1.010 Urine Ketones NEGATIVE Urine Nitrite NEGATIVE Urine Bilirubin NEGATIVE Urine Urobilinogen 0.2 E.U./dL Urine Leukocyte Esterase 2+ H Urine Microscopic RBC 25-50 Urine Microscopic WBC >200 Urine Squamous Epithelial Cells RARE Urine Bacteria MANY Urine Hemoglobin 3+ H Urine Glucose NEGATIVE Urine Total Protein 2+ H White Blood Count 12.0 #H Red Blood Count 3.13 L Hemoglobin 9.4 L Hematocrit 29.5 L Mean Corpuscular Volume 94.2 Mean Corpuscular Hemoglobin 30.0 Mean Corpuscular Hemoglobin Concent 31.9 L Red Cell Distribution Width 15.8 H Platelet Count 255 Mean Platelet Volume 9.8 Neutrophils % 85.7 H Lymphocytes % 5.7 L Monocytes % 7.4 Eosinophils % 0.4 Basophils % 0.3 Nucleated Red Blood Cells % 0.0 Neutrophils # 10.3 H Lymphocytes # 0.7 L Monocytes # 0.9 Eosinophils # 0.1 Basophils # 0.0 Nucleated Red Blood Cells # 0.0 Sodium Level 138 Potassium Level 3.3 L Chloride Level 98 Carbon Dioxide Level 25 Anion Gap 18 H Blood Urea Nitrogen 47 #H Creatinine 4.27 #H Glucose Level 124 Hemoglobin A1c 4.8 Calcium Level 8.7 Phosphorus Level 4.5 Magnesium Level 2.3 Creatine Kinase 139 Creatine Kinase Index 1.6 Creatinine Kinase MB (Mass) 2.17 Troponin I 0.035 Thyroid Stimulating Hormone (TSH) 0.660 Free Thyroxine 1.29 Medications Medications Current Medications Lidocaine (Xylocaine 1% (Mpf)) 30 ml ONCE PRN INJ PAIN; Start 09/02/16 at 18:00 Amikacin Sulfate (Amikacin Iv Per Pharmacy) AMIKACIN PER PHARMACY NOTE XX ; Start 09/03/16 at 13:30 Ondansetron HCl (Zofran Inj) 4 mg Q6H PRN IV NAUSEA AND/OR VOMITING; Start 09/03 at 14:00 Morphine Sulfate (morphine) 2 mg Q4H PRN IV Pain; Start 09/03/16 at 14:00 Hydralazine HCl (Apresoline) 10 mg Q6H PRN IV SBP>160; Start 09/03/16 at 14:00 Heparin Sodium (Porcine) (Heparin (5000 Units/0.5 ml)) 5,000 unit BID SC Last administered on 09/03/16 21:33; Admin Dose 5,000 UNIT; Start 09/03/16 at 21:00 Famotidine 20 mg 20 mg Q24H PO Last administered on 09/03/16 21:31; Admin Dose 20 MG; Start 09/03/16 at 21:00 Piperacillin Sod/ Tazobactam Sod 50 ml @ 100 mls/hr Q8 IVPB Last administered on 09/03/16 15:25; Admin Dose 100 MLS/HR; Start 09/03/16 at 14:21 Amikacin Sulfate/ Sodium Chloride (Amikacin/NS) 102 ml @ 102 mls/hr NOW IVPB Last administered on 09/03/16 17:27; Admin Dose 102 MLS/HR; Start 09/03/16 at 15: 30; Stop 09/03/16 at 23:00 TJ CLANCY MD Sep 03, 2016 22:39
[2016-09-04] VITALS (20 sets, daily range): BP systolic 91–122; BP diastolic 51–65; PULSE 68–96; RESP 18–20
[2016-09-04] MEDS: PIPER-TAZO 2.25 GM (PMX) 50 ML IVPB SCH ×4 (00:40→22:22)
--- NOTE | 2016-09-04 01:31 | RADRPT ---
PROCEDURE: CT Chest without contrast. CLINICAL INDICATION: Pneumonia. TECHNIQUE: CT scan of the chest without contrast was performed on a multidetector high-resolution CT scanner. Coronal and sagittal reformatted images were obtained from the axial source images. The total exam CTDI equals 10.26 mGy and the total exam DLP equals 356.32 mGy-cm. COMPARISON: Plain film chest dated 09/02/2016. FINDINGS: Left lateral and posterior empyema, measuring up to about 15 mm in thickness. Atelectasis versus pn eumonias in the left lung. Findings may represent round atelectasis. The mediastinum is unremarkable without evidence for mass or lymphadenopathy. The vascular structur es of the mediastinum are normal in course and caliber. Aortic vascular calcifications and coronary artery calcifications are present. The heart size is enlarged, with a small amount of nonspecific pericardial fluid. The axillary regions, subpectoral regions, and supraclavicular regions are all unremarkable. The steward rrounding chest wall is unremarkable. Imaging obtained through the upper abdomen reveals a small li deric cysts in the liver. Partially visualized abdominal viscera otherwise unremarkable. The surrou nding osseous structures are remarkable for degenerative spondylosis of the spine. No osteolytic or osteoblastic lesion is detected. IMPRESSION: 1. Left lateral and posterior empyema measuring up to 15 mm in thickness, with adjacent regions of pneumonia versus dense atelectasis. 2. Mild enlargement the heart, with small amount of nonspecific pericardial fluid. RPTAT: [facility] Physician Rosita Date Time Electronically viewed and signed by Physician Rosita on 09/04/2016 01:31 RS/
[2016-09-04 06:43] LABS: ADD SCAN DIFF NO
[2016-09-04 06:46] LABS: BASOPHILS % 0.2 % (0.0-2.0); EOSINOPHILS % 0.2 % (0.0-7.0); HEMATOCRIT 28.3 % (42.0-52.0); HEMOGLOBIN 8.6 g/dl (14.0-18.0); LYMPHOCYTES # 0.9 10^3/ul (0.8-2.9); LYMPHOCYTES % 7.6 % (15.0-51.0); MEAN CORPUSCULAR HEMOGLOBIN 29.4 pg (29.0-33.0); MEAN CORPUSCULAR HGB CONC 30.4 g/dl (32.0-37.0); MEAN CORPUSCULAR VOLUME 96.6 fl (82.0-101.0); MEAN PLATELET VOLUME 9.8 fl (7.4-10.4); MONOCYTE # 1.2 10^3/ul (0.3-0.9); MONOCYTES % 10.2 % (0.0-11.0); NEUTROPHIL # 9.8 10^3/ul (1.6-7.5); NEUTROPHILS % 81.4 % (39.0-77.0); PLATELET COUNT 227 10^3/UL (140-415); RED BLOOD COUNT 2.93 10^6/ul (4.70-6.10); RED CELL DISTRIBUTION WIDTH 15.9 % (11.5-14.5); WHITE BLOOD COUNT 12.1 10^3/ul (4.8-10.8)
[2016-09-04 06:59] LABS: POTASSIUM 4.1 mmol/L (3.5-5.1)
[2016-09-04 07:02] LABS: CREATININE 4.63 mg/dl (0.61-1.24); MAGNESIUM 2.4 mg/dl (1.7-2.5); PHOSPHORUS 4.8 mg/dl (2.5-4.9)
[2016-09-04 07:03] LABS: CALCIUM 8.2 mg/dl (8.4-10.2)
[2016-09-04 07:11] LABS: TROPONIN-I 0.044 ng/ml (0.00-0.12)
[2016-09-04] MEDS: ALBUTEROL/IPRATROPIUM (NEB) 3 ML AMP HHN SCH ×3 (08:00→19:52)
[2016-09-04] MEDS: HEPARIN 5,000 UNIT/0.5 ML VIAL SC SCH ×2 (11:00→20:08)
--- NOTE | 2016-09-04 11:39 | PN ---
Date/Time of Note Date/Time of Note DATE: 09/04/16 TIME: 11:38 Assessment/Plan VTE Prophylaxis VTE Prophylaxis Intervention: heparin Lines/Catheters IV Catheter Type [facility]from [facility] [facility] Urinary Cath still in place: No Assessment/Plan Chief Complaint/Hosp Course 1. Acute respiratory failure. Hypoxic. Most probably secondary to underlying healthcare-associated pneumonia as well as pulmonary vascular congestion. Continue supplemental oxygen. Continue inhaled bronchodilators. The patient being followed by Pulmonary. 2. Healthcare associated pneumonia with left lateral and posterior empyema. Continue antibiotics as per infectious diseases. Pulmonary following the patient. Will await further recommendations from pulmonology. 3. Sepsis with underlying gram-negative bacteremia. No evidence of septic shock. Continue antibiotics as per infectious diseases. 4. Essential hypertension. Low pressure well controlled. The patient will be continued on p.r.n. antihypertensives. 5. End-stage renal disease on hemodialysis. Hemodialysis as per nephrology. The patient already has a left upper extremity AV fistula in place. 6. Paraplegia. Continue daily catheterization as needed. 7. Fluid, electrolytes and nutrition. Renal diet. 8. Deep venous thrombosis prophylaxis. Subcutaneous heparin. 9. Gastrointestinal prophylaxis. Histamine 2 receptor blockers. PLAN: Continue inhaled bronchodilators. Continue supplemental oxygen. Continue antibiotics as per infectious diseases. Await further recommendations from consultants. Case discussed with Dr. Stratton. Problems: Subjective 24 Hr Interval Summary Free Text/Dictation Patient verbalizes that he is feeling better. Remains afebrile. Exam/Review of Systems Vital Signs Vitals Vital Signs Date Time Temp Pulse Resp B/P Pulse Ox O2 Delivery O2 Flow Rate FiO2 09/04/16 10:30 112/55 09/04/16 08:41 69 09/04/16 08:00 20 09/04/16 07:46 97.7 100 09/04/16 01:49 3.0 09/04/16 01:00 Nasal Cannula 09/03/16 22:20 100 Intake and Output 09/03/16 09/03/16 09/04/16 15:00 23:00 07:00 Intake Total 350 ml 950 ml Output Total 300 ml Balance 50 ml 950 ml Exam GENERAL: This is a 66-year-old male lying in bed in mild respiratory distress with oxygen via nasal cannula on. HEENT: Normocephalic and atraumatic. Eyes: Anicteric sclerae. Conjunctivae clear. ENT: Nasal septum is midline. Oral mucosa is dry. NECK: Supple. JVD noticed. RESPIRATORY: Bilaterally diminished breath sounds. Minimal use of accessory muscles of respiration. Scattered rhonchi with occasional wheezing. CARDIAC: Regular rate and rhythm. S1, S2 heard. ABDOMEN: Soft, nontender and nondistended. Bowel sounds positive in all 4 quadrants. GENITOURINARY: No penoscrotal edema. EXTREMITIES: No cyanosis, no clubbing, no edema. Peripheral pulses palpable. NEUROLOGIC: The patient is awake, alert and oriented. Has paraplegia. Results Result Diagram: 09/04/16 0615 09/04/16 0615 Results 24 hrs Laboratory Tests Test 09/03/16 14:45 09/03/16 15:40 09/04/16 06:15 Urine Color YELLOW Urine Clarity CLOUDY H Urine pH 6.5 Urine Specific [place] 1.010 Urine Ketones NEGATIVE Urine Nitrite NEGATIVE Urine Bilirubin NEGATIVE Urine Urobilinogen 0.2 E.U./dL Urine Leukocyte Esterase 2+ H Urine Microscopic RBC 25-50 Urine Microscopic WBC >200 Urine Squamous Epithelial Cells RARE Urine Bacteria MANY Urine Hemoglobin 3+ H Urine Glucose NEGATIVE Urine Total Protein 2+ H White Blood Count 12.0 #H 12.1 H Red Blood Count 3.13 L 2.93 L Hemoglobin 9.4 L 8.6 L Hematocrit 29.5 L 28.3 L Mean Corpuscular Volume 94.2 96.6 Mean Corpuscular Hemoglobin 30.0 29.4 Mean Corpuscular Hemoglobin Concent 31.9 L 30.4 L Red Cell Distribution Width 15.8 H 15.9 H Platelet Count 255 227 Mean Platelet Volume 9.8 9.8 Neutrophils % 85.7 H 81.4 H Lymphocytes % 5.7 L 7.6 L Monocytes % 7.4 10.2 Eosinophils % 0.4 0.2 Basophils % 0.3 0.2 Nucleated Red Blood Cells % 0.0 0.0 Neutrophils # 10.3 H 9.8 H Lymphocytes # 0.7 L 0.9 Monocytes # 0.9 1.2 H Eosinophils # 0.1 0.0 Basophils # 0.0 0.0 Nucleated Red Blood Cells # 0.0 0.0 Sodium Level 138 136 Potassium Level 3.3 L 4.1 Chloride Level 98 103 Carbon Dioxide Level 25 23 Anion Gap 18 H 14 Blood Urea Nitrogen 47 #H 56 H Creatinine 4.27 #H 4.63 H Glucose Level 124 109 Hemoglobin A1c 4.8 Calcium Level 8.7 8.2 L Phosphorus Level 4.5 4.8 Magnesium Level 2.3 2.4 Creatine Kinase 139 Creatine Kinase Index 1.6 Creatinine Kinase MB (Mass) 2.17 Troponin I 0.035 0.044 Thyroid Stimulating Hormone (TSH) 0.660 Free Thyroxine 1.29 Triglycerides Level 101 Cholesterol Level 80 L LDL Cholesterol, Calculated 34 HDL Cholesterol 26 L Cholesterol/HDL Ratio 3.0 Medications Medications Current Medications Lidocaine (Xylocaine 1% (Mpf)) 30 ml ONCE PRN INJ PAIN; Start 09/02/16 at 18:00 Amikacin Sulfate (Amikacin Iv Per Pharmacy) AMIKACIN PER PHARMACY NOTE XX ; Start 09/03/16 at 13:30 Ondansetron HCl (Zofran Inj) 4 mg Q6H PRN IV NAUSEA AND/OR VOMITING; Start 09/03 at 14:00 Morphine Sulfate (morphine) 2 mg Q4H PRN IV Pain; Start 09/03/16 at 14:00 Hydralazine HCl (Apresoline) 10 mg Q6H PRN IV SBP>160; Start 09/03/16 at 14:00 Heparin Sodium (Porcine) (Heparin (5000 Units/0.5 ml)) 5,000 unit BID SC Last administered on 09/04/16 11:00; Admin Dose 5,000 UNIT; Start 09/03/16 at 21:00 Famotidine 20 mg 20 mg Q24H PO Last administered on 09/03/16 21:31; Admin Dose 20 MG; Start 09/03/16 at 21:00 Piperacillin Sod/ Tazobactam Sod (Zosyn 2.25gm/ 50ml (Pmx)) 50 ml @ 100 mls/hr Q8 IVPB Last administered on 09/04/16 05:21; Admin Dose 100 MLS/HR; Start at 14:21 SHARLA MEZA NP Sep 04, 2016 11:39
--- NOTE | 2016-09-04 12:24 | RADRPT ---
PROCEDURE: CHEST 1VW CLINICAL INDICATION: Shortness of breath TECHNIQUE: Single frontal view of the chest was obtained COMPARISON: 09/02/2016 FINDINGS: Interval removal of tunnel dialysis catheter The cardiac size is normal. Aortic vascular calcifications are demonstrated. There is no pulmonary vascular congestion. Stable moderate loculated effusion seen in the left chest with associated atelectasis. Mild degenerative changes of the visualized osseous structures are visualized. IMPRESSION: 1. Removal of dialysis catheter. 2. Atherosclerosis. 3.Stable moderate loculated effusion seen in the left chest with associated atelectasis. RPTAT:PP .Bola Ellis MD, Date Time Electronically viewed and signed by .Bola Ellis MD, on 09/04/2016 12:23 .V/
[2016-09-04] MEDS: SOD CHLORIDE 0.9% IVPB SCH (15:10)
[2016-09-04] MEDS: AMIKACIN IVPB SCH (15:10)
--- NOTE | 2016-09-04 16:50 | PN ---
DATE: 09/04/2016 SUBJECTIVE: No events overnight. No fevers. The patient is alert, lying comfortably in bed. Chacorta es pain. LABORATORY: WBC today 12.1, H and H 8.6 and 28.3, platelets 227, neutrophils 81.4. INDWELLING: He has left upper extremity AV fistula. MICROBIOLOGY: Blood culture growing Klebsiella pneumoniae intermittently sensitive to Ancef. Urine culture also growing gram-negative rods. ANTIMICROBIALS: The patient is on: 1. Amikacin. 2. Zosyn. PHYSICAL EXAMINATION: GENERAL: This is a well-nourished, well-developed elderly man who is awake, in no distress. HEENT: Head atraumatic, normocephalic. Sclerae anicteric. Buccal mucosa dry. NECK: Supple, trachea midline. CHEST: Rise symmetrical. Breath sounds diminished at the bases. HEART: S1, S2. ABDOMEN: Soft, bowel tones present. EXTREMITIES: Without cyanosis. ASSESSMENT: 1. Klebsiella pneumoniae bacteremia, likely secondary to urinary tract infection. 2. Urinary tract infection. 3. Neurogenic bladder secondary to paraplegia. 4. End-stage renal disease, hemodialysis dependent. 5. Status post-acute respiratory failure. 6. Left lateral and posterior empyema with adjacent regions of pneumonia. PLAN: Remains stable on appropriate antimicrobials pending urine culture. He is being seen by pulm onary team and cardiology team. A 2D echo revealed no evidence of vegetations. We are going to rep eat blood cultures and follow recommendations of consultants. Dictated By: CELIA CRAWFORD [employer]AT BASKET MAKER for FLAKO ROBERTSON/HERMILA Conf#: [id number] DID#: [id number]
[2016-09-04] MEDS: FAMOTIDINE 20 MG TAB PO SCH (20:06)
--- NOTE | 2016-09-04 20:32 | CONS ---
Date/Time of Note Date/Time of Note DATE: 09/04/16 TIME: 20:31 Assessment/Plan Assessment/Plan Additional Assessment/Plan 1. Klebsiella pneumoniae bacteremia and urinary tract infection. 2. End-stage renal disease, hemodialysis dependent. 3. Left lateral and posterior empyema with adjacent regions of pneumonia. 4. Anemia, Chronic Disease, ESRD 5. Mineral Bone disease, ESRD S/p HD, Cont Maintenance HD schedule, MWF Renal Diet IV ABx dosed to ESRD DAVID with HD treatment. Consultation Date/Type/Reason Admit Date/Time Sep 03, 2016 at 08:14 Initial Consult Date 09/03/16 Type of Consultation: renal 24 HR Interval Summary Free Text/Dictation S/p HD no complication. Exam/Review of Systems Vital Signs Vitals Vital Signs Date Time Temp Pulse Resp B/P Pulse Ox O2 Delivery O2 Flow Rate FiO2 09/04/16 20:00 98.4 72 20 103/53 100 09/04/16 19:52 3.0 09/04/16 19:52 Nasal Cannula 09/03/16 22:20 100 Intake and Output 09/03/16 09/03/16 09/04/16 14:59 22:59 06:59 Intake Total 350 ml 950 ml Output Total 300 ml Balance 50 ml 950 ml Exam Constitutional: No distress ENMT: mucosa pink and moist Neck: No jvd Respiratory: crackles/rales, diminished breath sounds, No labored breathing Cardiovascular: regular rate and rhythm, No edema Gastrointestinal: non-tender, soft Results Result Diagram: 09/04/16 0615 09/04/16 0615 Results 24 hrs Laboratory Tests Test 09/04/16 06:15 White Blood Count 12.1 H Red Blood Count 2.93 L Hemoglobin 8.6 L Hematocrit 28.3 L Mean Corpuscular Volume 96.6 Mean Corpuscular Hemoglobin 29.4 Mean Corpuscular Hemoglobin Concent 30.4 L Red Cell Distribution Width 15.9 H Platelet Count 227 Mean Platelet Volume 9.8 Neutrophils % 81.4 H Lymphocytes % 7.6 L Monocytes % 10.2 Eosinophils % 0.2 Basophils % 0.2 Nucleated Red Blood Cells % 0.0 Neutrophils # 9.8 H Lymphocytes # 0.9 Monocytes # 1.2 H Eosinophils # 0.0 Basophils # 0.0 Nucleated Red Blood Cells # 0.0 Sodium Level 136 Potassium Level 4.1 Chloride Level 103 Carbon Dioxide Level 23 Anion Gap 14 Blood Urea Nitrogen 56 H Creatinine 4.63 H Glucose Level 109 Calcium Level 8.2 L Phosphorus Level 4.8 Magnesium Level 2.4 Troponin I 0.044 Triglycerides Level 101 Cholesterol Level 80 L LDL Cholesterol, Calculated 34 HDL Cholesterol 26 L Cholesterol/HDL Ratio 3.0 Medications Medications Current Medications Lidocaine (Xylocaine 1% (Mpf)) 30 ml ONCE PRN INJ PAIN; Start 09/02/16 at 18:00 Amikacin Sulfate (Amikacin Iv Per Pharmacy) AMIKACIN PER PHARMACY NOTE XX ; Start 09/03/16 at 13:30 Ondansetron HCl (Zofran Inj) 4 mg Q6H PRN IV NAUSEA AND/OR VOMITING; Start 09/03 at 14:00 Morphine Sulfate (morphine) 2 mg Q4H PRN IV Pain; Start 09/03/16 at 14:00 Hydralazine HCl (Apresoline) 10 mg Q6H PRN IV SBP>160; Start 09/03/16 at 14:00 Heparin Sodium (Porcine) (Heparin (5000 Units/0.5 ml)) 5,000 unit BID SC Last administered on 09/04/16 20:08; Admin Dose 5,000 UNIT; Start 09/03/16 at 21:00 Famotidine 20 mg 20 mg Q24H PO Last administered on 09/04/16 20:06; Admin Dose 20 MG; Start 09/03/16 at 21:00 Piperacillin Sod/ Tazobactam Sod (Zosyn 2.25gm/ 50ml (Pmx)) 50 ml @ 100 mls/hr Q8 IVPB Last administered on 09/04/16 14:06; Admin Dose 100 MLS/HR; Start at 14:21 Procedures Procedures PROCEDURE: CHEST 1VW CLINICAL INDICATION: Shortness of breath TECHNIQUE: Single frontal view of the chest was obtained COMPARISON: 09/02/2016 FINDINGS: Interval removal of tunnel dialysis catheter The cardiac size is normal. Aortic vascular calcifications are demonstrated. There is no pulmonary vascular congestion. Stable moderate loculated effusion seen in the left chest with associated atelectasis. Mild degenerative changes of the visualized osseous structures are visualized. IMPRESSION: 1. Removal of dialysis catheter. 2. Atherosclerosis. 3.Stable moderate loculated effusion seen in the left chest with associated atelectasis. RPTAT:PP .Bola Ellis MD, MD Date Time Electronically viewed and signed by .Bola Ellis MD, MD on 09/04/2016 12:23 MALIA EDI MD Sep 04, 2016 20:32
[2016-09-05] VITALS (12 sets, daily range): BP systolic 97–113; BP diastolic 54–64; PULSE 68–81; RESP 16–19
[2016-09-05] MEDS: PIPER-TAZO 2.25 GM (PMX) 50 ML IVPB SCH ×3 (05:16→21:38)
[2016-09-05 07:41] LABS: ADD SCAN DIFF NO
[2016-09-05 07:52] LABS: BASOPHILS % 0.5 % (0.0-2.0); EOSINOPHILS # 0.2 10^3/ul (0.0-0.5); EOSINOPHILS % 2.3 % (0.0-7.0); HEMOGLOBIN 9.9 g/dl (14.0-18.0); LYMPHOCYTES # 1.4 10^3/ul (0.8-2.9); LYMPHOCYTES % 16.3 % (15.0-51.0); MEAN CORPUSCULAR HEMOGLOBIN 29.7 pg (29.0-33.0); MEAN CORPUSCULAR HGB CONC 30.9 g/dl (32.0-37.0); MEAN CORPUSCULAR VOLUME 96.1 fl (82.0-101.0); MEAN PLATELET VOLUME 9.9 fl (7.4-10.4); MONOCYTE # 1.1 10^3/ul (0.3-0.9); MONOCYTES % 12.7 % (0.0-11.0); NEUTROPHIL # 5.9 10^3/ul (1.6-7.5); NEUTROPHILS % 67.7 % (39.0-77.0); PLATELET COUNT 278 10^3/UL (140-415); RED BLOOD COUNT 3.33 10^6/ul (4.70-6.10); RED CELL DISTRIBUTION WIDTH 15.6 % (11.5-14.5); WHITE BLOOD COUNT 8.7 10^3/ul (4.8-10.8)
[2016-09-05] MEDS: ALBUTEROL/IPRATROPIUM (NEB) 3 ML AMP HHN SCH ×3 (08:00→21:08)
[2016-09-05 08:04] LABS: MAGNESIUM 2.3 mg/dl (1.7-2.5); PHOSPHORUS 5.2 mg/dl (2.5-4.9)
[2016-09-05 08:11] LABS: CALCIUM 8.4 mg/dl (8.4-10.2); CREATININE 4.09 mg/dl (0.61-1.24); POTASSIUM 3.7 mmol/L (3.5-5.1)
[2016-09-05] MEDS: HEPARIN 5,000 UNIT/0.5 ML VIAL SC SCH ×2 (09:27→21:44)
--- NOTE | 2016-09-05 10:01 | CONS ---
Date/Time of Note Date/Time of Note DATE: 09/05/16 TIME: 10:01 Assessment/Plan Assessment/Plan Additional Assessment/Plan 1. Klebsiella pneumoniae bacteremia and urinary tract infection. 2. End-stage renal disease, hemodialysis dependent. 3. Left lateral and posterior empyema with adjacent regions of pneumonia. 4. Anemia, Chronic Disease, ESRD 5. Mineral Bone disease, ESRD Cont Maintenance HD schedule, MWF HD tomorrow UF as tolerated Renal Diet Resume Phos Binder Consultation Date/Type/Reason Admit Date/Time Sep 03, 2016 at 08:14 Initial Consult Date 09/03/16 Type of Consultation: renal Reason for Consultation esrd 24 HR Interval Summary Free Text/Dictation No new complaints, SOB improved. Last HD yesterday Exam/Review of Systems Vital Signs Vitals Vital Signs Date Time Temp Pulse Resp B/P Pulse Ox O2 Delivery O2 Flow Rate FiO2 09/05/16 08:37 3.0 09/05/16 08:37 72 16 Nasal Cannula 09/05/16 07:49 98.2 107/64 97 09/03/16 22:20 100 Intake and Output 09/04/16 09/04/16 09/05/16 15:00 23:00 07:00 Intake Total 500 ml 700 ml 650 ml Output Total 3500 ml Balance -3000 ml 700 ml 650 ml Exam Constitutional: No distress ENMT: mucosa pink and moist Neck: No jvd Respiratory: crackles/rales, No labored breathing, No wheezing Cardiovascular: regular rate and rhythm, No edema Gastrointestinal: non-tender Extremities: No pitting pedal edema Neurological: INVESTIGATION LIEUTENANT II-XII intact, nl mental status Skin: No diaphoresis Results Result Diagram: 09/05/16 0706 09/05/16 0706 Results 24 hrs Laboratory Tests Test 09/05/16 07:06 White Blood Count 8.7 # Red Blood Count 3.33 L Hemoglobin 9.9 L Hematocrit 32.0 L Mean Corpuscular Volume 96.1 Mean Corpuscular Hemoglobin 29.7 Mean Corpuscular Hemoglobin Concent 30.9 L Red Cell Distribution Width 15.6 H Platelet Count 278 # Mean Platelet Volume 9.9 Neutrophils % 67.7 Lymphocytes % 16.3 Monocytes % 12.7 H Eosinophils % 2.3 Basophils % 0.5 Nucleated Red Blood Cells % 0.0 Neutrophils # 5.9 Lymphocytes # 1.4 Monocytes # 1.1 H Eosinophils # 0.2 Basophils # 0.0 Nucleated Red Blood Cells # 0.0 Sodium Level 141 Potassium Level 3.7 Chloride Level 105 Carbon Dioxide Level 25 Anion Gap 15 Blood Urea Nitrogen 46 H Creatinine 4.09 H Glucose Level 94 Calcium Level 8.4 Phosphorus Level 5.2 H Magnesium Level 2.3 Medications Medications Current Medications Lidocaine (Xylocaine 1% (Mpf)) 30 ml ONCE PRN INJ PAIN; Start 09/02/16 at 18:00 Amikacin Sulfate (Amikacin Iv Per Pharmacy) AMIKACIN PER PHARMACY NOTE XX ; Start 09/03/16 at 13:30 Ondansetron HCl (Zofran Inj) 4 mg Q6H PRN IV NAUSEA AND/OR VOMITING; Start 09/03 at 14:00 Morphine Sulfate (morphine) 2 mg Q4H PRN IV Pain; Start 09/03/16 at 14:00 Hydralazine HCl (Apresoline) 10 mg Q6H PRN IV SBP>160; Start 09/03/16 at 14:00 Heparin Sodium (Porcine) (Heparin (5000 Units/0.5 ml)) 5,000 unit BID SC Last administered on 09/05/16 09:27; Admin Dose 5,000 UNIT; Start 09/03/16 at 21:00 Famotidine 20 mg 20 mg Q24H PO Last administered on 09/04/16 20:06; Admin Dose 20 MG; Start 09/03/16 at 21:00 Piperacillin Sod/ Tazobactam Sod (Zosyn 2.25gm/ 50ml (Pmx)) 50 ml @ 100 mls/hr Q8 IVPB Last administered on 09/05/16 05:16; Admin Dose 100 MLS/HR; Start at 14:21 MALIA EID MD Sep 05, 2016 10:01
[2016-09-05] MEDS: SEVELAMER CARBONATE 0.8 GM PKT PO SCH ×2 (12:47→18:13)
--- NOTE | 2016-09-05 12:52 | CONS ---
Date/Time of Note Date/Time of Note DATE: 09/05/16 TIME: 12:49 Consult Date/Type/Reason Admit Date/Time Sep 03, 2016 at 08:14 Initial Consult Date 09/03/16 Type of Consultation: pulmonary Subjective Patient stable this morning no new events Objective Vital Signs Date Time Temp Pulse Resp B/P Pulse Ox O2 Delivery O2 Flow Rate FiO2 09/05/16 12:06 98.3 77 18 113/64 98 09/05/16 08:37 3.0 09/05/16 08:37 Nasal Cannula 09/03/16 22:20 100 Intake and Output 09/04/16 09/04/16 09/05/16 15:00 23:00 07:00 Intake Total 500 ml 700 ml 650 ml Output Total 3500 ml Balance -3000 ml 700 ml 650 ml Exam GENERAL: Chronically ill appearing gentleman comfortable at rest VITAL SIGNS: per chart NECK: Supple. No JVD or lymphadenopathy. CARDIAC EXAM: S1, S2. No added sounds or murmurs. CHEST: Diminished air entry left base ABDOMEN: Soft, nontender. No guarding or rebound. EXTREMITIES: No cyanosis, clubbing or edema. NEUROLOGIC: Paraplegia Results/Medications Result Diagram: 09/05/16 0706 09/05/16 0706 Results 24 hrs Laboratory Tests Test 09/05/16 07:06 White Blood Count 8.7 # Red Blood Count 3.33 L Hemoglobin 9.9 L Hematocrit 32.0 L Mean Corpuscular Volume 96.1 Mean Corpuscular Hemoglobin 29.7 Mean Corpuscular Hemoglobin Concent 30.9 L Red Cell Distribution Width 15.6 H Platelet Count 278 # Mean Platelet Volume 9.9 Neutrophils % 67.7 Lymphocytes % 16.3 Monocytes % 12.7 H Eosinophils % 2.3 Basophils % 0.5 Nucleated Red Blood Cells % 0.0 Neutrophils # 5.9 Lymphocytes # 1.4 Monocytes # 1.1 H Eosinophils # 0.2 Basophils # 0.0 Nucleated Red Blood Cells # 0.0 Sodium Level 141 Potassium Level 3.7 Chloride Level 105 Carbon Dioxide Level 25 Anion Gap 15 Blood Urea Nitrogen 46 H Creatinine 4.09 H Glucose Level 94 Calcium Level 8.4 Phosphorus Level 5.2 H Magnesium Level 2.3 Medications Current Medications Lidocaine (Xylocaine 1% (Mpf)) 30 ml ONCE PRN INJ PAIN; Start 09/02/16 at 18:00 Amikacin Sulfate (Amikacin Iv Per Pharmacy) AMIKACIN PER PHARMACY NOTE XX ; Start 09/03/16 at 13:30 Ondansetron HCl (Zofran Inj) 4 mg Q6H PRN IV NAUSEA AND/OR VOMITING; Start 09/03 at 14:00 Morphine Sulfate (morphine) 2 mg Q4H PRN IV Pain; Start 09/03/16 at 14:00 Hydralazine HCl (Apresoline) 10 mg Q6H PRN IV SBP>160; Start 09/03/16 at 14:00 Heparin Sodium (Porcine) (Heparin (5000 Units/0.5 ml)) 5,000 unit BID SC Last administered on 09/05/16 09:27; Admin Dose 5,000 UNIT; Start 09/03/16 at 21:00 Famotidine 20 mg 20 mg Q24H PO Last administered on 09/04/16 20:06; Admin Dose 20 MG; Start 09/03/16 at 21:00 Piperacillin Sod/ Tazobactam Sod (Zosyn 2.25gm/ 50ml (Pmx)) 50 ml @ 100 mls/hr Q8 IVPB Last administered on 09/05/16 05:16; Admin Dose 100 MLS/HR; Start at 14:21 Epoetin Eligio (Epogen (Esrd)) 3,000 units MoWeFr@17 IV ; Start 09/06/16 at 17:00 Assessment/Plan Chief Complaint/Hosp Course Assessment 1. Possible healthcare associated pneumonia with empyema 2. End-stage renal failure on hemodialysis 3. History of paraplegia Plan 1. Continue current antibiotics improved leukocytosis noted 2. Continue hemodialysis per nephrology 3. Thoracic surgery evaluation for possible decortication Problems: SANDI HOLLEY MD, [facility] Sep 05, 2016 12:52
--- NOTE | 2016-09-05 16:06 | PN ---
DATE: 09/05/2016 SUBJECTIVE: No acute changes. The patient is alert, lying comfortably in bed. Denies pain, discom fort. No fevers. MICROBIOLOGY: Blood culture on admission grew Klebsiella pneumoniae. Repeat blood culture negative . Urine culture growing E. coli ESBL. ANTIMICROBIALS: The patient is on: 1. Amikacin. 2. Zosyn. PHYSICAL EXAMINATION: GENERAL: This is well-developed, elderly man who is in no distress. HEENT: Head atraumatic, normocephalic. Sclerae anicteric. Buccal mucosa pink. NECK: Supple, trachea midline. CHEST: Rise symmetrical. Breath sounds clear. HEART: S1, S2. ABDOMEN: Soft, bowel sounds present. EXTREMITIES: Without cyanosis. ASSESSMENT: 1. Status post bacteremia, the patient had an old catheter removed. 2. Urinary tract infection with urine culture growing Escherichia coli extended-spectrum beta-lacta irasema, susceptible to amikacin. 3. Healthcare-associated pneumonia with empyema, pulmonary on case. 4. End-stage renal disease, hemodialysis dependent. 5. Left upper extremity arteriovenous fistula. 6. Neurogenic bladder secondary to paraplegia. PLAN: The patient remains stable. Continue present care. Continue on current antibiotics. Follow recommendations of consultants. Dictated By: CELIA CRAWFORD CURTAIN INSPECTOR for FLAKO ROBERTSON/HERMILA Conf#: [id number] DID#: [id number]
--- NOTE | 2016-09-05 16:53 | PN ---
Date/Time of Note Date/Time of Note DATE: 09/05/16 TIME: 16:50 Assessment/Plan VTE Prophylaxis VTE Prophylaxis Intervention: heparin Lines/Catheters IV Catheter Type (from [facility]): [facility] Urinary Cath still in place: No Assessment/Plan Chief Complaint/Hosp Course 1. Acute respiratory failure. Hypoxic. Most probably secondary to underlying healthcare-associated pneumonia as well as pulmonary vascular congestion. Continue supplemental oxygen. Continue inhaled bronchodilators. The patient being followed by Pulmonary. 2. Healthcare associated pneumonia with left lateral and posterior empyema. Continue antibiotics as per infectious diseases. Pulmonary following the patient. Will await further recommendations from pulmonology. 3. Sepsis with underlying gram-negative bacteremia. No evidence of septic shock. Continue antibiotics as per infectious diseases. 4. Urinary tract infection with E. coli ESBL. Contact precautions. Antibiotics as per infectious diseases 5. Essential hypertension. Blood pressure pressure well controlled. The patient will be continued on p.r.n. antihypertensives. 6. End-stage renal disease on hemodialysis. Hemodialysis as per nephrology. The patient already has a left upper extremity AV fistula in place. 7. Paraplegia. Continue daily catheterization as needed. 8. Fluid, electrolytes and nutrition. Renal diet. 9. Deep venous thrombosis prophylaxis. Subcutaneous heparin. 10. Gastrointestinal prophylaxis. Histamine 2 receptor blockers. PLAN: Continue inhaled bronchodilators. Continue supplemental oxygen. Continue antibiotics as per infectious diseases. Thoracic surgery consult called for possible surgical intervention for empyema. The plan of care was explained to the patient with the help of a social services analyst. Case discussed with Dr. Stratton. Problems: Subjective 24 Hr Interval Summary Free Text/Dictation Dyspnea improved Exam/Review of Systems Vital Signs Vitals Vital Signs Date Time Temp Pulse Resp B/P Pulse Ox O2 Delivery O2 Flow Rate FiO2 09/05/16 16:00 81 09/05/16 15:36 98.1 16 109/59 99 09/05/16 14:51 3.0 09/05/16 14:51 Nasal Cannula 09/03/16 22:20 100 Intake and Output 09/04/16 09/04/16 09/05/16 15:00 23:00 07:00 Intake Total 500 ml 700 ml 650 ml Output Total 3500 ml Balance -3000 ml 700 ml 650 ml Exam GENERAL: This is a 66-year-old male lying in bed in mild respiratory distress with oxygen via nasal cannula on. HEENT: Normocephalic and atraumatic. Eyes: Anicteric sclerae. Conjunctivae clear. ENT: Nasal septum is midline. Oral mucosa is dry. NECK: Supple. No JVD noticed. RESPIRATORY: Bilaterally diminished breath sounds. Minimal use of accessory muscles of respiration. Scattered rhonchi with occasional wheezing. CARDIAC: Regular rate and rhythm. S1, S2 heard. ABDOMEN: Soft, nontender and nondistended. Bowel sounds positive in all 4 quadrants. GENITOURINARY: No penoscrotal edema. EXTREMITIES: No cyanosis, no clubbing, no edema. Peripheral pulses palpable. NEUROLOGIC: The patient is awake, alert and oriented. Has paraplegia. Results Result Diagram: 09/05/16 0706 09/05/16 0706 Results 24 hrs Laboratory Tests Test 09/05/16 07:06 White Blood Count 8.7 # Red Blood Count 3.33 L Hemoglobin 9.9 L Hematocrit 32.0 L Mean Corpuscular Volume 96.1 Mean Corpuscular Hemoglobin 29.7 Mean Corpuscular Hemoglobin Concent 30.9 L Red Cell Distribution Width 15.6 H Platelet Count 278 # Mean Platelet Volume 9.9 Neutrophils % 67.7 Lymphocytes % 16.3 Monocytes % 12.7 H Eosinophils % 2.3 Basophils % 0.5 Nucleated Red Blood Cells % 0.0 Neutrophils # 5.9 Lymphocytes # 1.4 Monocytes # 1.1 H Eosinophils # 0.2 Basophils # 0.0 Nucleated Red Blood Cells # 0.0 Sodium Level 141 Potassium Level 3.7 Chloride Level 105 Carbon Dioxide Level 25 Anion Gap 15 Blood Urea Nitrogen 46 H Creatinine 4.09 H Glucose Level 94 Calcium Level 8.4 Phosphorus Level 5.2 H Magnesium Level 2.3 Medications Medications Current Medications Lidocaine (Xylocaine 1% (Mpf)) 30 ml ONCE PRN INJ PAIN; Start 09/02/16 at 18:00 Amikacin Sulfate (Amikacin Iv Per Pharmacy) AMIKACIN PER PHARMACY NOTE XX ; Start 09/03/16 at 13:30 Ondansetron HCl (Zofran Inj) 4 mg Q6H PRN IV NAUSEA AND/OR VOMITING; Start 09/03 at 14:00 Morphine Sulfate (morphine) 2 mg Q4H PRN IV Pain; Start 09/03/16 at 14:00 Hydralazine HCl (Apresoline) 10 mg Q6H PRN IV SBP>160; Start 09/03/16 at 14:00 Heparin Sodium (Porcine) (Heparin (5000 Units/0.5 ml)) 5,000 unit BID SC Last administered on 09/05/16 09:27; Admin Dose 5,000 UNIT; Start 09/03/16 at 21:00 Famotidine 20 mg 20 mg Q24H PO Last administered on 09/04/16 20:06; Admin Dose 20 MG; Start 09/03/16 at 21:00 Piperacillin Sod/ Tazobactam Sod (Zosyn 2.25gm/ 50ml (Pmx)) 50 ml @ 100 mls/hr Q8 IVPB Last administered on 09/05/16 14:10; Admin Dose 100 MLS/HR; Start at 14:21 Epoetin Eligio (Epogen (Esrd)) 3,000 units MoWeFr@17 IV ; Start 09/06/16 at 17:00 SHARLA MEZA NP Sep 05, 2016 16:53
--- NOTE | 2016-09-05 20:45 | CONS ---
DATE OF ADMISSION: 09/03/2016 DATE OF CONSULTATION: REASON FOR CONSULTATION: Pleural effusion. HISTORY OF PRESENT ILLNESS: This is a 66-year-old male with history of end-stage renal disease seco ndary to hypertension. The patient is currently on dialysis per hemodialysis. Patient was admitted because of sepsis, chills, and leukocytosis. His workup has included a chest CT which showed left lateral and posterior fluid collection up to 15 mm thickness with adjacent regions of pneumonia vers us atelectasis. The patient's latest vital signs are temperature of 98.3, no tachycardia with heart rate of 81. Blood pressure is 109/59 and white count which is down to 8.7 with a hemoglobin of 9 a nd no left shift. PAST MEDICAL HISTORY: Significant for hypertension, hyperlipidemia, end-stage renal disease, anemia . PAST SURGICAL HISTORY: Dialysis access, spinal tumor removal, colonoscopy. ALLERGIES: NONE. SOCIAL HISTORY: No smoking, drinking or drug use. REVIEW OF SYSTEMS: No upper or lower GI bleeding, nausea, vomiting, constipation, diarrhea. No hem aturia or dysuria. No skin changes, rashes, moles. No chest pain, palpitation. Positive for shortn ess of breath. MEDICATIONS: List reviewed. PHYSICAL EXAMINATION: VITAL SIGNS: Blood pressure is 109/59. Pulse is 80, respirations 16. Saturation is 99% on 3 liter s of oxygen. Temperature is 98.3. CARDIOVASCULAR: Regular rate and rhythm, normal S1, S2. No murmurs, gallops or rubs. LUNGS: Clear to auscultation and palpation on the left and diminished breath sounds on the right. ABDOMEN: Soft, nontender, nondistended. EXTREMITIES: Warm. No clubbing, cyanosis, or edema. LABORATORY VALUES: Described as above. IMPRESSION: Right pleural effusion, possibly empyema, but the patient is clinically improving. Michael l continue antibiotics. Will need video-assisted thoracic surgery and decortication when cleared by cardiology. Will discuss with the referring physicians. Dictated By: FRANKY CORADO/HERMILA Conf#: [id number] DID#: [id number]
[2016-09-05] MEDS: FAMOTIDINE 20 MG TAB PO SCH (21:38)
[2016-09-06] VITALS (17 sets, daily range): BP systolic 102–125; BP diastolic 59–70; PULSE 65–89; RESP 16–19
[2016-09-06] MEDS: PIPER-TAZO 2.25 GM (PMX) 50 ML IVPB SCH ×3 (05:32→21:29)
[2016-09-06] MEDS: ALBUTEROL/IPRATROPIUM (NEB) 3 ML AMP HHN SCH ×3 (07:57→20:05)
[2016-09-06 08:18] LABS: ADD SCAN DIFF NO
[2016-09-06 08:26] LABS: BASOPHILS % 0.4 % (0.0-2.0); EOSINOPHILS # 0.3 10^3/ul (0.0-0.5); EOSINOPHILS % 2.8 % (0.0-7.0); HEMATOCRIT 31.4 % (42.0-52.0); HEMOGLOBIN 9.6 g/dl (14.0-18.0); LYMPHOCYTES # 1.5 10^3/ul (0.8-2.9); LYMPHOCYTES % 15.4 % (15.0-51.0); MEAN CORPUSCULAR HEMOGLOBIN 29.3 pg (29.0-33.0); MEAN CORPUSCULAR HGB CONC 30.6 g/dl (32.0-37.0); MEAN CORPUSCULAR VOLUME 95.7 fl (82.0-101.0); MEAN PLATELET VOLUME 9.5 fl (7.4-10.4); MONOCYTE # 0.6 10^3/ul (0.3-0.9); MONOCYTES % 6.6 % (0.0-11.0); NEUTROPHIL # 7.1 10^3/ul (1.6-7.5); NEUTROPHILS % 74.4 % (39.0-77.0); PLATELET COUNT 277 10^3/UL (140-415); RED BLOOD COUNT 3.28 10^6/ul (4.70-6.10); RED CELL DISTRIBUTION WIDTH 15.5 % (11.5-14.5); WHITE BLOOD COUNT 9.5 10^3/ul (4.8-10.8)
[2016-09-06] MEDS: SEVELAMER CARBONATE 0.8 GM PKT PO SCH ×3 (08:35→17:59)
[2016-09-06 08:46] LABS: CALCIUM 8.3 mg/dl (8.4-10.2); CREATININE 5.27 mg/dl (0.61-1.24); POTASSIUM 4.1 mmol/L (3.5-5.1)
[2016-09-06 08:51] LABS: MAGNESIUM 2.2 mg/dl (1.7-2.5); PHOSPHORUS 6.3 mg/dl (2.5-4.9)
[2016-09-06] MEDS: HEPARIN 5,000 UNIT/0.5 ML VIAL SC SCH ×2 (10:00→21:33)
--- NOTE | 2016-09-06 13:56 | CONS ---
Date/Time of Note Date/Time of Note DATE: 09/06/16 TIME: 13:56 Assessment/Plan Assessment/Plan Additional Assessment/Plan 1. Klebsiella pneumoniae bacteremia and urinary tract infection. 2. End-stage renal disease, hemodialysis dependent. 3. Left lateral and posterior empyema with adjacent regions of pneumonia. 4. Anemia, Chronic Disease, ESRD 5. Mineral Bone disease, ESRD Cont Maintenance HD schedule, MWF HD today UF as tolerated Renal Diet Resume Phos Binder Consultation Date/Type/Reason Admit Date/Time Sep 03, 2016 at 08:14 Initial Consult Date 09/03/16 Type of Consultation: Renal Reason for Consultation ESRD 24 HR Interval Summary Free Text/Dictation No new complaints Exam/Review of Systems Vital Signs Vitals Vital Signs Date Time Temp Pulse Resp B/P Pulse Ox O2 Delivery O2 Flow Rate FiO2 09/06/16 12:33 70 09/06/16 11:21 98.0 16 114/62 100 09/06/16 00:52 3.0 09/05/16 21:08 Nasal Cannula 09/03/16 22:20 100 Intake and Output 09/05/16 09/05/16 09/06/16 15:00 23:00 07:00 Intake Total 900 ml 450 ml Output Total 75 ml Balance 825 ml 450 ml Exam Constitutional: alert, oriented, No distress ENMT: mucosa pink and moist Neck: No jvd Respiratory: No labored breathing Cardiovascular: regular rate and rhythm, No edema Gastrointestinal: non-tender, soft Skin: No diaphoresis Results Result Diagram: 09/06/16 0730 09/06/16 0730 Results 24 hrs Laboratory Tests Test 09/06/16 07:30 White Blood Count 9.5 Red Blood Count 3.28 L Hemoglobin 9.6 L Hematocrit 31.4 L Mean Corpuscular Volume 95.7 Mean Corpuscular Hemoglobin 29.3 Mean Corpuscular Hemoglobin Concent 30.6 L Red Cell Distribution Width 15.5 H Platelet Count 277 Mean Platelet Volume 9.5 Neutrophils % 74.4 Lymphocytes % 15.4 Monocytes % 6.6 Eosinophils % 2.8 Basophils % 0.4 Nucleated Red Blood Cells % 0.0 Neutrophils # 7.1 Lymphocytes # 1.5 Monocytes # 0.6 Eosinophils # 0.3 Basophils # 0.0 Nucleated Red Blood Cells # 0.0 Sodium Level 136 Potassium Level 4.1 Chloride Level 102 Carbon Dioxide Level 22 Anion Gap 16 Blood Urea Nitrogen 67 H Creatinine 5.27 H Glucose Level 90 Calcium Level 8.3 L Phosphorus Level 6.3 H Magnesium Level 2.2 Medications Medications Current Medications Lidocaine (Xylocaine 1% (Mpf)) 30 ml ONCE PRN INJ PAIN; Start 09/02/16 at 18:00 Amikacin Sulfate (Amikacin Iv Per Pharmacy) AMIKACIN PER PHARMACY NOTE XX ; Start 09/03/16 at 13:30 Ondansetron HCl (Zofran Inj) 4 mg Q6H PRN IV NAUSEA AND/OR VOMITING; Start 09/03 at 14:00 Morphine Sulfate (morphine) 2 mg Q4H PRN IV Pain; Start 09/03/16 at 14:00 Hydralazine HCl (Apresoline) 10 mg Q6H PRN IV SBP>160; Start 09/03/16 at 14:00 Heparin Sodium (Porcine) (Heparin (5000 Units/0.5 ml)) 5,000 unit BID SC Last administered on 09/06/16 10:00; Admin Dose 5,000 UNIT; Start 09/03/16 at 21:00 Famotidine 20 mg 20 mg Q24H PO Last administered on 09/05/16 21:38; Admin Dose 20 MG; Start 09/03/16 at 21:00 Piperacillin Sod/ Tazobactam Sod (Zosyn 2.25gm/ 50ml (Pmx)) 50 ml @ 100 mls/hr Q8 IVPB Last administered on 09/06/16 05:32; Admin Dose 100 MLS/HR; Start at 14:21 Epoetin Eligio (Epogen (Esrd)) 3,000 units MoWeFr@17 IV ; Start 09/06/16 at 17:00 MALIA EID MD Sep 06, 2016 13:56
--- NOTE | 2016-09-06 14:15 | PN ---
Date/Time of Note Date/Time of Note DATE: 09/06/16 TIME: 14:09 Assessment/Plan VTE Prophylaxis VTE Prophylaxis Intervention: heparin Lines/Catheters IV Catheter Type (from [facility] Saline Lock Urinary Cath still in place: No Assessment/Plan Chief Complaint/Hosp Course 1. Acute respiratory failure. Hypoxic. Most probably secondary to underlying healthcare-associated pneumonia as well as pulmonary vascular congestion. Continue supplemental oxygen. Continue inhaled bronchodilators. The patient being followed by Pulmonary. 2. Healthcare associated pneumonia with left lateral and posterior empyema. Continue antibiotics as per infectious diseases. Pulmonary following the patient. Thoracic Surgery recommending VATS with pulmonary decortication if the patient is not improving with antibiotics. 3. Sepsis with underlying gram-negative bacteremia. No evidence of septic shock. Continue antibiotics as per infectious diseases. 4. Urinary tract infection with E. coli ESBL. Contact precautions. Antibiotics as per infectious diseases 5. Essential hypertension. Blood pressure pressure well controlled. The patient will be continued on p.r.n. antihypertensives. 6. End-stage renal disease on hemodialysis. Hemodialysis as per nephrology. The patient already has a left upper extremity AV fistula in place. 7. Paraplegia. Continue daily catheterization as needed. 8. Fluid, electrolytes and nutrition. Renal diet. 9. Deep venous thrombosis prophylaxis. Subcutaneous heparin. 10. Gastrointestinal prophylaxis. Histamine 2 receptor blockers. PLAN: Continue inhaled bronchodilators. Continue supplemental oxygen. Continue antibiotics as per infectious diseases. Thoracic surgery evaluate the patient and recommended a VATS with decortication if the patient is not clinically improved. Thoracic Surgery asked for cardiology clearance for any surgical procedure. Cardiology consult called. . Case discussed with Dr. Stratton. Problems: Subjective 24 Hr Interval Summary Free Text/Dictation "Feeling better." Exam/Review of Systems Vital Signs Vitals Vital Signs Date Time Temp Pulse Resp B/P Pulse Ox O2 Delivery O2 Flow Rate FiO2 09/06/16 12:33 70 09/06/16 11:21 98.0 16 114/62 100 09/06/16 00:52 3.0 09/05/16 21:08 Nasal Cannula 09/03/16 22:20 100 Intake and Output 09/05/16 09/05/16 09/06/16 15:00 23:00 07:00 Intake Total 900 ml 450 ml Output Total 75 ml Balance 825 ml 450 ml Exam GENERAL: This is a 66-year-old male lying in bed in mild respiratory distress with oxygen via nasal cannula on. HEENT: Normocephalic and atraumatic. Eyes: Anicteric sclerae. Conjunctivae clear. ENT: Nasal septum is midline. Oral mucosa is dry. NECK: Supple. No JVD noticed. RESPIRATORY: Bilaterally diminished breath sounds. No use of accessory muscles of respiration. Scattered rhonchi. No wheezing. CARDIAC: Regular rate and rhythm. S1, S2 heard. ABDOMEN: Soft, nontender and nondistended. Bowel sounds positive in all 4 quadrants. GENITOURINARY: No penoscrotal edema. EXTREMITIES: No cyanosis, no clubbing, no edema. Peripheral pulses palpable. NEUROLOGIC: The patient is awake, alert and oriented. Has paraplegia. Results Result Diagram: 09/06/16 0730 09/06/16 0730 Results 24 hrs Laboratory Tests Test 09/06/16 07:30 White Blood Count 9.5 Red Blood Count 3.28 L Hemoglobin 9.6 L Hematocrit 31.4 L Mean Corpuscular Volume 95.7 Mean Corpuscular Hemoglobin 29.3 Mean Corpuscular Hemoglobin Concent 30.6 L Red Cell Distribution Width 15.5 H Platelet Count 277 Mean Platelet Volume 9.5 Neutrophils % 74.4 Lymphocytes % 15.4 Monocytes % 6.6 Eosinophils % 2.8 Basophils % 0.4 Nucleated Red Blood Cells % 0.0 Neutrophils # 7.1 Lymphocytes # 1.5 Monocytes # 0.6 Eosinophils # 0.3 Basophils # 0.0 Nucleated Red Blood Cells # 0.0 Sodium Level 136 Potassium Level 4.1 Chloride Level 102 Carbon Dioxide Level 22 Anion Gap 16 Blood Urea Nitrogen 67 H Creatinine 5.27 H Glucose Level 90 Calcium Level 8.3 L Phosphorus Level 6.3 H Magnesium Level 2.2 Medications Medications Current Medications Lidocaine (Xylocaine 1% (Mpf)) 30 ml ONCE PRN INJ PAIN; Start 09/02/16 at 18:00 Amikacin Sulfate (Amikacin Iv Per Pharmacy) AMIKACIN PER PHARMACY NOTE XX ; Start 09/03/16 at 13:30 Ondansetron HCl (Zofran Inj) 4 mg Q6H PRN IV NAUSEA AND/OR VOMITING; Start 09/03 at 14:00 Morphine Sulfate (morphine) 2 mg Q4H PRN IV Pain; Start 09/03/16 at 14:00 Hydralazine HCl (Apresoline) 10 mg Q6H PRN IV SBP>160; Start 09/03/16 at 14:00 Heparin Sodium (Porcine) (Heparin (5000 Units/0.5 ml)) 5,000 unit BID SC Last administered on 09/06/16 10:00; Admin Dose 5,000 UNIT; Start 09/03/16 at 21:00 Famotidine 20 mg 20 mg Q24H PO Last administered on 09/05/16 21:38; Admin Dose 20 MG; Start 09/03/16 at 21:00 Piperacillin Sod/ Tazobactam Sod (Zosyn 2.25gm/ 50ml (Pmx)) 50 ml @ 100 mls/hr Q8 IVPB Last administered on 09/06/16 05:32; Admin Dose 100 MLS/HR; Start at 14:21 Epoetin Eligio (Epogen (Esrd)) 3,000 units MoWeFr@17 IV ; Start 09/06/16 at 17:00 SHARLA MEZA NP Sep 06, 2016 14:15
--- NOTE | 2016-09-06 14:37 | CONS ---
Date/Time of Note Date/Time of Note DATE: 09/06/16 TIME: 14:36 Consult Date/Type/Reason Admit Date/Time Sep 03, 2016 at 08:14 Initial Consult Date 09/03/16 Type of Consultation: pulmonary Subjective Patient appears comfortable this morning no new events no respiratory distress Objective Vital Signs Date Time Temp Pulse Resp B/P Pulse Ox O2 Delivery O2 Flow Rate FiO2 09/06/16 14:32 3.0 09/06/16 14:31 72 18 98 Nasal Cannula 09/06/16 11:21 98.0 114/62 09/03/16 22:20 100 Intake and Output 09/05/16 09/05/16 09/06/16 15:00 23:00 07:00 Intake Total 900 ml 450 ml Output Total 75 ml Balance 825 ml 450 ml Exam GENERAL: Elderly gentleman comfortable at rest VITAL SIGNS: per chart NECK: Supple. No JVD or lymphadenopathy. CARDIAC EXAM: S1, S2. No added sounds or murmurs. CHEST: Diminished air entry left lung ABDOMEN: Soft, nontender. No guarding or rebound. EXTREMITIES: No cyanosis, clubbing or edema. NEUROLOGIC: Paraplegia Results/Medications Result Diagram: 09/06/16 0730 09/06/16 0730 Results 24 hrs Laboratory Tests Test 09/06/16 07:30 White Blood Count 9.5 Red Blood Count 3.28 L Hemoglobin 9.6 L Hematocrit 31.4 L Mean Corpuscular Volume 95.7 Mean Corpuscular Hemoglobin 29.3 Mean Corpuscular Hemoglobin Concent 30.6 L Red Cell Distribution Width 15.5 H Platelet Count 277 Mean Platelet Volume 9.5 Neutrophils % 74.4 Lymphocytes % 15.4 Monocytes % 6.6 Eosinophils % 2.8 Basophils % 0.4 Nucleated Red Blood Cells % 0.0 Neutrophils # 7.1 Lymphocytes # 1.5 Monocytes # 0.6 Eosinophils # 0.3 Basophils # 0.0 Nucleated Red Blood Cells # 0.0 Sodium Level 136 Potassium Level 4.1 Chloride Level 102 Carbon Dioxide Level 22 Anion Gap 16 Blood Urea Nitrogen 67 H Creatinine 5.27 H Glucose Level 90 Calcium Level 8.3 L Phosphorus Level 6.3 H Magnesium Level 2.2 Medications Current Medications Lidocaine (Xylocaine 1% (Mpf)) 30 ml ONCE PRN INJ PAIN; Start 09/02/16 at 18:00 Amikacin Sulfate (Amikacin Iv Per Pharmacy) AMIKACIN PER PHARMACY NOTE XX ; Start 09/03/16 at 13:30 Ondansetron HCl (Zofran Inj) 4 mg Q6H PRN IV NAUSEA AND/OR VOMITING; Start 09/03 at 14:00 Morphine Sulfate (morphine) 2 mg Q4H PRN IV Pain; Start 09/03/16 at 14:00 Hydralazine HCl (Apresoline) 10 mg Q6H PRN IV SBP>160; Start 09/03/16 at 14:00 Heparin Sodium (Porcine) (Heparin (5000 Units/0.5 ml)) 5,000 unit BID SC Last administered on 09/06/16 10:00; Admin Dose 5,000 UNIT; Start 09/03/16 at 21:00 Famotidine 20 mg 20 mg Q24H PO Last administered on 09/05/16 21:38; Admin Dose 20 MG; Start 09/03/16 at 21:00 Piperacillin Sod/ Tazobactam Sod (Zosyn 2.25gm/ 50ml (Pmx)) 50 ml @ 100 mls/hr Q8 IVPB Last administered on 09/06/16 05:32; Admin Dose 100 MLS/HR; Start at 14:21 Epoetin Eligio (Epogen (Esrd)) 3,000 units MoWeFr@17 IV ; Start 09/06/16 at 17:00 Assessment/Plan Chief Complaint/Hosp Course Assessment 1. Possible healthcare associated pneumonia with empyema 2. End-stage renal failure on hemodialysis 3. History of paraplegia Plan 1. Continue current antibiotics improved leukocytosis noted 2. Continue hemodialysis per nephrology 3. Thoracic surgery recommendations noted pending cardiology clearance for decortication Problems: SANDI HOLLEY MD, [facility] Sep 06, 2016 14:37
--- NOTE | 2016-09-06 15:32 | CONS ---
Date/Time of Note Date/Time of Note DATE: 09/06/16 TIME: 15:31 Assessment/Plan Assessment/Plan Chief Complaint/Hosp Course SUBJECTIVE: No acute changes. The patient is alert, lying comfortably in bed. Denies pain, discomfort. No fevers. MICROBIOLOGY: Blood culture on admission grew Klebsiella pneumoniae. Repeat blood culture negative. Urine culture growing E. coli ESBL. ANTIMICROBIALS: 1. Amikacin. 2. Zosyn. PHYSICAL EXAMINATION: GENERAL: This is well-developed, elderly man who is in no distress. HEENT: Head atraumatic, normocephalic. Sclerae anicteric. Buccal mucosa pink. NECK: Supple, trachea midline. CHEST: Rise symmetrical. Breath sounds clear. HEART: S1, S2. ABDOMEN: Soft, bowel sounds present. EXTREMITIES: Without cyanosis. ASSESSMENT: 1. Status post bacteremia, the patient had an old catheter removed. 2. Urinary tract infection with urine culture growing Escherichia coli extended -spectrum beta-lactamase, susceptible to amikacin. 3. Healthcare-associated pneumonia with empyema, pulmonary on case. 4. End-stage renal disease, hemodialysis dependent. 5. Left upper extremity arteriovenous fistula. 6. Neurogenic bladder secondary to paraplegia. PLAN: The patient remains stable. Continue present care. Continue on current antibiotics. VATS once cardiology clearance obtained, pulmonary/CTS rec-s [facility] staff Problems: Consultation Date/Type/Reason Admit Date/Time Sep 03, 2016 at 08:14 Initial Consult Date 09/03/16 Type of Consultation: id Exam/Review of Systems Vital Signs Vitals Vital Signs Date Time Temp Pulse Resp B/P Pulse Ox O2 Delivery O2 Flow Rate FiO2 09/06/16 14:32 3.0 09/06/16 14:31 72 18 98 Nasal Cannula 09/06/16 11:21 98.0 114/62 09/03/16 22:20 100 Intake and Output 09/05/16 09/05/16 09/06/16 15:00 23:00 07:00 Intake Total 900 ml 450 ml Output Total 75 ml Balance 825 ml 450 ml Results Result Diagram: 09/06/16 0730 09/06/16 0730 Results 24 hrs Laboratory Tests Test 09/06/16 07:30 White Blood Count 9.5 Red Blood Count 3.28 L Hemoglobin 9.6 L Hematocrit 31.4 L Mean Corpuscular Volume 95.7 Mean Corpuscular Hemoglobin 29.3 Mean Corpuscular Hemoglobin Concent 30.6 L Red Cell Distribution Width 15.5 H Platelet Count 277 Mean Platelet Volume 9.5 Neutrophils % 74.4 Lymphocytes % 15.4 Monocytes % 6.6 Eosinophils % 2.8 Basophils % 0.4 Nucleated Red Blood Cells % 0.0 Neutrophils # 7.1 Lymphocytes # 1.5 Monocytes # 0.6 Eosinophils # 0.3 Basophils # 0.0 Nucleated Red Blood Cells # 0.0 Sodium Level 136 Potassium Level 4.1 Chloride Level 102 Carbon Dioxide Level 22 Anion Gap 16 Blood Urea Nitrogen 67 H Creatinine 5.27 H Glucose Level 90 Calcium Level 8.3 L Phosphorus Level 6.3 H Magnesium Level 2.2 Medications Medications Current Medications Lidocaine (Xylocaine 1% (Mpf)) 30 ml ONCE PRN INJ PAIN; Start 09/02/16 at 18:00 Amikacin Sulfate (Amikacin Iv Per Pharmacy) AMIKACIN PER PHARMACY NOTE XX ; Start 09/03/16 at 13:30 Ondansetron HCl (Zofran Inj) 4 mg Q6H PRN IV NAUSEA AND/OR VOMITING; Start 09/03 at 14:00 Morphine Sulfate (morphine) 2 mg Q4H PRN IV Pain; Start 09/03/16 at 14:00 Hydralazine HCl (Apresoline) 10 mg Q6H PRN IV SBP>160; Start 09/03/16 at 14:00 Heparin Sodium (Porcine) (Heparin (5000 Units/0.5 ml)) 5,000 unit BID SC Last administered on 09/06/16 10:00; Admin Dose 5,000 UNIT; Start 09/03/16 at 21:00 Famotidine 20 mg 20 mg Q24H PO Last administered on 09/05/16 21:38; Admin Dose 20 MG; Start 09/03/16 at 21:00 Piperacillin Sod/ Tazobactam Sod (Zosyn 2.25gm/ 50ml (Pmx)) 50 ml @ 100 mls/hr Q8 IVPB Last administered on 09/06/16 05:32; Admin Dose 100 MLS/HR; Start at 14:21 Epoetin Eligio (Epogen (Esrd)) 3,000 units MoWeFr@17 IV ; Start 4/7/17 at 17:00 CELIA CRAWFORD NP Sep 06, 2016 15:32
--- NOTE | 2016-09-06 17:20 | CONS ---
DATE OF ADMISSION: 09/03/2016 DATE OF CONSULTATION: 09/06/2016 CARDIAC CONSULTATION REASON FOR CONSULTATION: Preoperative evaluation prior to decortication and a video-assisted thoras copic surgery. REQUESTING PHYSICIAN: Dr. Riddhi Ron and Dr. Joon Crespo from the hospitalist service. HISTORY OF PRESENT ILLNESS: Mr. Sands is a 66-year-old male with history of end-stage renal diseas e on hemodialysis, hypertension, and paraplegia who initially presented with complaints of shortness of breath, shaking chills, and diaphoresis. The patient, upon arrival in the ER, was noted to be h ypoxic requiring BiPAP. The patient required admission to the hospital and was diagnosed with bilat eral pneumonia with underlying sepsis and gram-negative bacteremia positive UA. The patient's chest x-ray had revealed right basilar atelectasis, small left pleural effusion. The patient underwent a chest CT on 09/03/2016 revealing left lateral and posterior empyema measuring up to 6 mm in thickne ss with adjacent regions of pneumonia versus dense atelectasis. The patient's electrocardiogram had revealed sinus tachycardia, rate of 117, normal axis, normal intervals, with nonspecific ST-T abnor malities diffusely. The patient, since admit, has undergone hemodialysis with improvement in respir atory status. The patient was placed on broad spectrum antibiotics. The patient, as noted above, b y CT was diagnosed with empyema with surgery following with plans for VATS and decortication. Given these findings, cardiology consultation was requested. PAST MEDICAL HISTORY: As above in HPI. MEDICATIONS CURRENTLY IN HOSPITAL: 1. Amikacin. 2. Heparin 5000 subq b.i.d. 3. Pepcid 20 mg daily. 4. Zosyn IV q. 8. 5. DuoNeb. 6. Zofran p.r.n. 7. Morphine p.r.n. 8. Hydralazine IV push p.r.n. 9. Lidocaine p.r.n. ALLERGIES: Baclofen. SOCIAL HISTORY: No tobacco, ETOH, or illicit drug use. FAMILY HISTORY: No history of sudden cardiac or early CAD. REVIEW OF SYSTEMS: As above in HPI. CONSTITUTIONAL: No fevers, chills. PULMONARY: No current significant respiratory compromise. GASTROINTESTINAL: No vomiting. GENITOURINARY: End-stage renal disease. PSYCHIATRIC: No documented psych history. NEUROLOGIC: Paraplegia. PHYSICAL EXAMINATION: VITAL SIGNS: Temperature 98, blood pressure 114/62, pulse 64, respirations 16, saturation 100%. GENERAL: The patient is alert, awake, in no acute distress. NECK: JVP approximately 9 cm of water. CHEST: Fair air movement throughout. HEART: Regular rate and rhythm. Normal S1, S2, I/ systolic murmur, nondisplaced PMI. ABDOMEN: Positive bowel sounds, soft. EXTREMITIES: No edema, 1+ pulses bilaterally, posterior tibial. LABORATORIES: From today, white count 11.5, hemoglobin 9.6, platelet count 277. Sodium 136, potass ium 4.1, creatinine 5.2, BUN 67, LDL 34, HDL 26. INR of 1. UA positive. ECG: As above in HPI. No further electrocardiograms for my review at this time. IMPRESSION: 1. Preoperative evaluation prior to VATS procedure with, at this time, the patient having a EF done this admission revealing a preserved left ventricular ejection fraction and moderate mitral regurgi tation and having negative troponins x3 since admit. 2. Empyema. 3. End-stage renal disease on hemodialysis. 4. Bacteremia. 5. Urinary tract infection. RECOMMENDATIONS: 1. At this time, would check a followup EKG and additional troponin to ensure the patient has not h ad any recent coronary syndromes, and if these return without significant findings, at that time, th e patient will be without cardiac contraindication to proceeding to the OR for VATS procedure with d ecortication. The patient will be at moderate risk for cardiovascular complications. Postoperative ly, would follow closely for signs and symptoms of cardiovascular complications including but not li mited to the onset of chest pain, shortness of breath, uncontrolled cardiac arrhythmias, congestive heart failure. Additionally, postoperatively would check a 12-lead EKG to assess for any significan t abnormalities. 2. Would continue the patient's broad-spectrum antibiotics at this time and follow up all culture d amisha. 3. Continue the patient's hemodialysis for volume removal. Thank you for allowing me to take part in the care of this patient. I will continue to follow along very closely with you. Further recommendations will be made as the patient progresses through his inpatient hospital clinical course. Dictated By: TRISTEN ACEVEDO/HERMILA Conf#: [id number] DID#: [id number] CC: JOON CRESPO NP; RIDDHI RON MD;*[facility]*
[2016-09-06] MEDS: EPOETIN 3000 UNITS/1 ML INJ (ESRD) IV SCH (18:04)
[2016-09-06] MEDS: SOD CHLORIDE 0.9% IVPB SCH (18:08)
[2016-09-06] MEDS: AMIKACIN IVPB SCH (18:08)
[2016-09-06] MEDS: FAMOTIDINE 20 MG TAB PO SCH (21:29)
[2016-09-07] VITALS (12 sets, daily range): BP systolic 114–126; BP diastolic 60–63; PULSE 64–81; RESP 17–20
[2016-09-07] MEDS: PIPER-TAZO 2.25 GM (PMX) 50 ML IVPB SCH ×3 (06:07→21:15)
[2016-09-07 07:55] LABS: ADD SCAN DIFF NO; BASOPHIL # 0.1 10^3/ul (0.0-0.1); BASOPHILS % 0.6 % (0.0-2.0); EOSINOPHILS # 0.3 10^3/ul (0.0-0.5); EOSINOPHILS % 2.6 % (0.0-7.0); HEMATOCRIT 32.5 % (42.0-52.0); HEMOGLOBIN 9.9 g/dl (14.0-18.0); LYMPHOCYTES # 1.5 10^3/ul (0.8-2.9); LYMPHOCYTES % 14.2 % (15.0-51.0); MEAN CORPUSCULAR HEMOGLOBIN 29.3 pg (29.0-33.0); MEAN CORPUSCULAR HGB CONC 30.5 g/dl (32.0-37.0); MEAN CORPUSCULAR VOLUME 96.2 fl (82.0-101.0); MEAN PLATELET VOLUME 9.6 fl (7.4-10.4); MONOCYTE # 0.7 10^3/ul (0.3-0.9); MONOCYTES % 6.2 % (0.0-11.0); NEUTROPHIL # 8.2 10^3/ul (1.6-7.5); NEUTROPHILS % 75.8 % (39.0-77.0); PLATELET COUNT 306 10^3/UL (140-415); RED BLOOD COUNT 3.38 10^6/ul (4.70-6.10); RED CELL DISTRIBUTION WIDTH 15.3 % (11.5-14.5); WHITE BLOOD COUNT 10.8 10^3/ul (4.8-10.8)
[2016-09-07 07:58] LABS: POTASSIUM 3.5 mmol/L (3.5-5.1)
[2016-09-07 08:00] LABS: CREATININE 4.11 mg/dl (0.61-1.24)
[2016-09-07 08:01] LABS: CALCIUM 8.4 mg/dl (8.4-10.2)
[2016-09-07 08:03] LABS: MAGNESIUM 2.1 mg/dl (1.7-2.5); PHOSPHORUS 5.1 mg/dl (2.5-4.9)
[2016-09-07 08:05] LABS: CREATINE KINASE < 20 IU/L (23-200)
[2016-09-07 08:12] LABS: TROPONIN-I 0.016 ng/ml (0.00-0.12)
[2016-09-07 08:15] LABS: CK-MB 1.04 ng/ml (0.0-2.4)
[2016-09-07] MEDS: SEVELAMER CARBONATE 0.8 GM PKT PO SCH ×3 (08:31→17:48)
[2016-09-07] MEDS: HEPARIN 5,000 UNIT/0.5 ML VIAL SC SCH ×2 (08:32→21:07)
[2016-09-07] MEDS: ALBUTEROL/IPRATROPIUM (NEB) 3 ML AMP HHN SCH ×3 (09:10→19:34)
--- NOTE | 2016-09-07 11:37 | PN ---
Date/Time of Note Date/Time of Note DATE: 09/07/16 TIME: 11:35 Assessment/Plan VTE Prophylaxis VTE Prophylaxis Intervention: heparin Lines/Catheters IV [facility] Saline Lock Urinary Cath still in place: No Assessment/Plan Chief Complaint/Hosp Course 1. Acute respiratory failure. Hypoxic. Most probably secondary to underlying healthcare-associated pneumonia as well as pulmonary vascular congestion. Continue supplemental oxygen. Continue inhaled bronchodilators. The patient being followed by Pulmonary. 2. Healthcare associated pneumonia with left lateral and posterior empyema. Continue antibiotics as per infectious diseases. Pulmonary following the patient. Thoracic Surgery recommending VATS with pulmonary decortication if the patient is not improving with antibiotics. 3. Sepsis with underlying gram-negative bacteremia. No evidence of septic shock. Continue antibiotics as per infectious diseases. 4. Urinary tract infection with E. coli ESBL. Contact precautions. Antibiotics as per infectious diseases 5. Essential hypertension. Blood pressure pressure well controlled. The patient will be continued on p.r.n. antihypertensives. 6. End-stage renal disease on hemodialysis. Hemodialysis as per nephrology. The patient already has a left upper extremity AV fistula in place. 7. Paraplegia. Continue daily catheterization as needed. 8. Fluid, electrolytes and nutrition. Renal diet. 9. Deep venous thrombosis prophylaxis. Subcutaneous heparin. 10. Gastrointestinal prophylaxis. Histamine 2 receptor blockers. PLAN: Continue inhaled bronchodilators. Continue supplemental oxygen. Continue antibiotics as per infectious diseases. Thoracic surgery evaluated the patient and recommended a VATS with decortication if the patient is not clinically improved. Thoracic Surgery asked for cardiology clearance for any surgical procedure. Cardiology consult called. Water Supply Technician cleared the patient for any kind of surgical procedure. Case discussed with Dr. Stratton. Problems: Subjective 24 Hr Interval Summary Free Text/Dictation The patient remains afebrile. Exam/Review of Systems Vital Signs Vitals Vital Signs Date Time Temp Pulse Resp B/P Pulse Ox O2 Delivery O2 Flow Rate FiO2 09/07/16 08:45 64 09/07/16 08:20 Nasal Cannula 2.0 09/07/16 07:39 98.6 18 119/60 96 09/03/16 22:20 100 Intake and Output 09/06/16 09/06/16 09/07/16 15:00 23:00 07:00 Intake Total 1030 ml 350 ml Output Total 2400 ml Balance -1370 ml 350 ml Exam GENERAL: This is a 66-year-old male lying in bed in mild respiratory distress with oxygen via nasal cannula on. HEENT: Normocephalic and atraumatic. Eyes: Anicteric sclerae. Conjunctivae clear. ENT: Nasal septum is midline. Oral mucosa is dry. NECK: Supple. No JVD noticed. RESPIRATORY: Bilaterally diminished breath sounds. No use of accessory muscles of respiration. Scattered rhonchi. No wheezing. CARDIAC: Regular rate and rhythm. S1, S2 heard. ABDOMEN: Soft, nontender and nondistended. Bowel sounds positive in all 4 quadrants. GENITOURINARY: No penoscrotal edema. EXTREMITIES: No cyanosis, no clubbing, no edema. Peripheral pulses palpable. NEUROLOGIC: The patient is awake, alert and oriented. Has paraplegia. Results Result Diagram: 09/07/16 0500 09/07/16 0640 Results 24 hrs Laboratory Tests Test 09/07/16 05:00 09/07/16 06:40 White Blood Count 10.8 Red Blood Count 3.38 L Hemoglobin 9.9 L Hematocrit 32.5 L Mean Corpuscular Volume 96.2 Mean Corpuscular Hemoglobin 29.3 Mean Corpuscular Hemoglobin Concent 30.5 L Red Cell Distribution Width 15.3 H Platelet Count 306 Mean Platelet Volume 9.6 Neutrophils % 75.8 Lymphocytes % 14.2 L Monocytes % 6.2 Eosinophils % 2.6 Basophils % 0.6 Nucleated Red Blood Cells % 0.0 Neutrophils # 8.2 H Lymphocytes # 1.5 Monocytes # 0.7 Eosinophils # 0.3 Basophils # 0.1 Nucleated Red Blood Cells # 0.0 Sodium Level 143 Potassium Level 3.5 Chloride Level 105 Carbon Dioxide Level 22 Anion Gap 20 H Blood Urea Nitrogen 47 #H Creatinine 4.11 #H Glucose Level 91 Calcium Level 8.4 Phosphorus Level 5.1 H Magnesium Level 2.1 Creatine Kinase < 20 L Creatine Kinase Index Creatinine Kinase MB (Mass) 1.04 Troponin I 0.016 Medications Medications Current Medications Lidocaine (Xylocaine 1% (Mpf)) 30 ml ONCE PRN INJ PAIN; Start 09/02/16 at 18:00 Amikacin Sulfate (Amikacin Iv Per Pharmacy) AMIKACIN PER PHARMACY NOTE XX ; Start 09/03/16 at 13:30 Ondansetron HCl (Zofran Inj) 4 mg Q6H PRN IV NAUSEA AND/OR VOMITING; Start 09/03 at 14:00 Morphine Sulfate (morphine) 2 mg Q4H PRN IV Pain; Start 09/03/16 at 14:00 Hydralazine HCl (Apresoline) 10 mg Q6H PRN IV SBP>160; Start 09/03/16 at 14:00 Heparin Sodium (Porcine) (Heparin (5000 Units/0.5 ml)) 5,000 unit BID SC Last administered on 09/07/16 08:32; Admin Dose 5,000 UNIT; Start 09/03/16 at 21:00 Famotidine 20 mg 20 mg Q24H PO Last administered on 09/06/16 21:29; Admin Dose 20 MG; Start 09/03/16 at 21:00 Piperacillin Sod/ Tazobactam Sod (Zosyn 2.25gm/ 50ml (Pmx)) 50 ml @ 100 mls/hr Q8 IVPB Last administered on 09/07/16 06:07; Admin Dose 100 MLS/HR; Start at 14:21 Epoetin Eligio (Epogen (Esrd)) 3,000 units MoWeFr@17 IV Last administered on 18:04; Admin Dose 3,000 UNITS; Start 09/06/16 at 17:00 SHARLA MEZA NP Sep 07, 2016 11:37
--- NOTE | 2016-09-07 16:01 | CONS ---
Date/Time of Note Date/Time of Note DATE: 09/07/16 TIME: 16:01 Assessment/Plan Assessment/Plan Chief Complaint/Hosp Course ID PROGRESS NOTE CURRENT ABX=> Amikacin + Zosyn 24H INTERVAL SUMMARY * Resting comfortably => A/A/O, no fevers, no complaints "OK" PHYSICAL EXAMINATION: GENERAL: VSS, NAD, Afebrile HEENT: Unremarkable NECK: Supple, trachea midline. CHEST: Rise symmetrical, without dyspnea on observation HEART: Pulse RRR ABDOMEN: Soft EXTREMITIES: Warm ID ASSESSMENT 66 yo M w/hx of paraplegia admit with: 1. Status post bacteremia, the patient had an old catheter removed. * Blood culture on admission grew Klebsiella pneumoniae. Repeat blood culture negative. 2. Urinary tract infection with urine culture growing Escherichia coli extended -spectrum beta-lactamase, susceptible to amikacin. 3. Healthcare-associated pneumonia with empyema, pulmonary on case. 4. End-stage renal disease, hemodialysis dependent. 5. Left upper extremity arteriovenous fistula. 6. Neurogenic bladder secondary to paraplegia. MRSA Nares -> INVASIVES: PIV ABX ALLERGY: None to ABX CURRENT ABX: => Amikacin + Zosyn ID RECOMMENDATIONS 1. Continue current ABX => Pending VATS 2. Observe over the weekend on ABX -> Reassess by ID team next week Problems: Consultation Date/Type/Reason Admit Date/Time Sep 03, 2016 at 08:14 Initial Consult Date 09/03/16 Type of Consultation: id Exam/Review of Systems Vital Signs Vitals Vital Signs Date Time Temp Pulse Resp B/P Pulse Ox O2 Delivery O2 Flow Rate FiO2 09/07/16 12:23 81 09/07/16 11:45 98.8 18 123/60 100 09/07/16 08:20 Nasal Cannula 2.0 09/03/16 22:20 100 Intake and Output 09/06/16 09/06/16 09/07/16 15:00 23:00 07:00 Intake Total 1030 ml 350 ml Output Total 2400 ml Balance -1370 ml 350 ml Results Result Diagram: 09/07/16 0500 09/07/16 0640 Results 24 hrs Laboratory Tests Test 09/07/16 05:00 09/07/16 06:40 White Blood Count 10.8 Red Blood Count 3.38 L Hemoglobin 9.9 L Hematocrit 32.5 L Mean Corpuscular Volume 96.2 Mean Corpuscular Hemoglobin 29.3 Mean Corpuscular Hemoglobin Concent 30.5 L Red Cell Distribution Width 15.3 H Platelet Count 306 Mean Platelet Volume 9.6 Neutrophils % 75.8 Lymphocytes % 14.2 L Monocytes % 6.2 Eosinophils % 2.6 Basophils % 0.6 Nucleated Red Blood Cells % 0.0 Neutrophils # 8.2 H Lymphocytes # 1.5 Monocytes # 0.7 Eosinophils # 0.3 Basophils # 0.1 Nucleated Red Blood Cells # 0.0 Sodium Level 143 Potassium Level 3.5 Chloride Level 105 Carbon Dioxide Level 22 Anion Gap 20 H Blood Urea Nitrogen 47 #H Creatinine 4.11 #H Glucose Level 91 Calcium Level 8.4 Phosphorus Level 5.1 H Magnesium Level 2.1 Creatine Kinase < 20 L Creatine Kinase Index Creatinine Kinase MB (Mass) 1.04 Troponin I 0.016 Medications Medications Current Medications Lidocaine (Xylocaine 1% (Mpf)) 30 ml ONCE PRN INJ PAIN; Start 09/02/16 at 18:00 Amikacin Sulfate (Amikacin Iv Per Pharmacy) AMIKACIN PER PHARMACY NOTE XX ; Start 09/03/16 at 13:30 Ondansetron HCl (Zofran Inj) 4 mg Q6H PRN IV NAUSEA AND/OR VOMITING; Start 09/03 at 14:00 Morphine Sulfate (morphine) 2 mg Q4H PRN IV Pain; Start 09/03/16 at 14:00 Hydralazine HCl (Apresoline) 10 mg Q6H PRN IV SBP>160; Start 09/03/16 at 14:00 Heparin Sodium (Porcine) (Heparin (5000 Units/0.5 ml)) 5,000 unit BID SC Last administered on 09/07/16 08:32; Admin Dose 5,000 UNIT; Start 09/03/16 at 21:00 Famotidine 20 mg 20 mg Q24H PO Last administered on 09/06/16 21:29; Admin Dose 20 MG; Start 09/03/16 at 21:00 Piperacillin Sod/ Tazobactam Sod (Zosyn 2.25gm/ 50ml (Pmx)) 50 ml @ 100 mls/hr Q8 IVPB Last administered on 09/07/16 13:01; Admin Dose 100 MLS/HR; Start at 14:21 Epoetin Eligio (Epogen (Esrd)) 3,000 units MoWeFr@17 IV Last administered on t 18:04; Admin Dose 3,000 UNITS; Start 09/06/16 at 17:00 MAUDE WHITING NP Sep 07, 2016 16:01
--- NOTE | 2016-09-07 17:23 | CONS ---
Date/Time of Note Date/Time of Note DATE: 09/07/16 TIME: 17:19 Assessment/Plan Assessment/Plan Chief Complaint/Hosp Course IMPRESSION: 1. Preoperative evaluation prior to VATS procedure with, at this time, the patient having a EF done this admission revealing a preserved left ventricular ejection fraction and moderate mitral regurgitation and having negative troponins x3 since admit. Patient has no cardiac contraindication to proceeding to OR for VATS/decortication at this time at moderate risk. 2. Empyema. 3. End-stage renal disease on hemodialysis. 4. Bacteremia. 5. Urinary tract infection. 6. Paraplegia Recc: -Tele -Continue abx's -Follow volume status closely -check post-op ECG and follow closely for s/sx of CV complications Problems: Consultation Date/Type/Reason Admit Date/Time Sep 03, 2016 at 08:14 Initial Consult Date 09/03/16 Type of Consultation: Cardiology Reason for Consultation Pre-op Referring Provider: Jessica GRIJALVA Exam/Review of Systems Vital Signs Vitals Vital Signs Date Time Temp Pulse Resp B/P Pulse Ox O2 Delivery O2 Flow Rate FiO2 09/07/16 16:20 77 09/07/16 16:10 98.4 18 126/63 99 09/07/16 14:25 2.0 09/07/16 14:25 Nasal Cannula 09/03/16 22:20 100 Intake and Output 09/06/16 09/06/16 09/07/16 15:00 23:00 07:00 Intake Total 1030 ml 350 ml Output Total 2400 ml Balance -1370 ml 350 ml Exam Review of Systems: CONSTITUTIONAL: No fevers, chills. PULMONARY: No sob CARDIOVASCULAR: No chest pain/palpitations GASTROINTESTINAL: No nausea/vomiting. GENITOURINARY: No hematuria/dysuria. MUSCULOSKELETAL: No myagias/arthalgias. PSYCHIATRIC: The patient denies depression. NEUROLOGIC: No weakness Constitutional: alert Psych: no complaints Head: normocephalic ENMT: mucosa pink and moist Neck: jvd (8 cm water), supple Respiratory: diminished breath sounds (at bases/B) Cardiovascular: regular rate and rhythm Gastrointestinal: non-tender, soft Musculoskeletal: muscle tone (normal) Extremities: edema (none) Neurological: focal weakness Results Result Diagram: 09/07/16 0500 09/07/16 0640 Results 24 hrs Laboratory Tests Test 09/07/16 05:00 09/07/16 06:40 White Blood Count 10.8 Red Blood Count 3.38 L Hemoglobin 9.9 L Hematocrit 32.5 L Mean Corpuscular Volume 96.2 Mean Corpuscular Hemoglobin 29.3 Mean Corpuscular Hemoglobin Concent 30.5 L Red Cell Distribution Width 15.3 H Platelet Count 306 Mean Platelet Volume 9.6 Neutrophils % 75.8 Lymphocytes % 14.2 L Monocytes % 6.2 Eosinophils % 2.6 Basophils % 0.6 Nucleated Red Blood Cells % 0.0 Neutrophils # 8.2 H Lymphocytes # 1.5 Monocytes # 0.7 Eosinophils # 0.3 Basophils # 0.1 Nucleated Red Blood Cells # 0.0 Sodium Level 143 Potassium Level 3.5 Chloride Level 105 Carbon Dioxide Level 22 Anion Gap 20 H Blood Urea Nitrogen 47 #H Creatinine 4.11 #H Glucose Level 91 Calcium Level 8.4 Phosphorus Level 5.1 H Magnesium Level 2.1 Creatine Kinase < 20 L Creatine Kinase Index Creatinine Kinase MB (Mass) 1.04 Troponin I 0.016 Medications Medications Current Medications Lidocaine (Xylocaine 1% (Mpf)) 30 ml ONCE PRN INJ PAIN; Start 09/02/16 at 18:00 Amikacin Sulfate (Amikacin Iv Per Pharmacy) AMIKACIN PER PHARMACY NOTE XX ; Start 09/03/16 at 13:30 Ondansetron HCl (Zofran Inj) 4 mg Q6H PRN IV NAUSEA AND/OR VOMITING; Start 09/03 at 14:00 Morphine Sulfate (morphine) 2 mg Q4H PRN IV Pain; Start 09/03/16 at 14:00 Hydralazine HCl (Apresoline) 10 mg Q6H PRN IV SBP>160; Start 09/03/16 at 14:00 Heparin Sodium (Porcine) (Heparin (5000 Units/0.5 ml)) 5,000 unit BID SC Last administered on 09/07/16 08:32; Admin Dose 5,000 UNIT; Start 09/03/16 at 21:00 Famotidine 20 mg 20 mg Q24H PO Last administered on 09/06/16 21:29; Admin Dose 20 MG; Start 09/03/16 at 21:00 Piperacillin Sod/ Tazobactam Sod (Zosyn 2.25gm/ 50ml (Pmx)) 50 ml @ 100 mls/hr Q8 IVPB Last administered on 09/07/16 13:01; Admin Dose 100 MLS/HR; Start at 14:21 Epoetin Eligio (Epogen (Esrd)) 3,000 units MoWeFr@17 IV Last administered on 18:04; Admin Dose 3,000 UNITS; Start 09/06/16 at 17:00 TRISTEN SHAVER Sep 07, 2016 17:23
--- NOTE | 2016-09-07 17:43 | CONS ---
Date/Time of Note Date/Time of Note DATE: 09/07/16 TIME: 17:39 Consult Date/Type/Reason Admit Date/Time Sep 03, 2016 at 08:14 Initial Consult Date 09/03/16 Type of Consultation: Pulm Ordering Provider: Jessica GRIJALVA Subjective No events. Objective Vital Signs Date Time Temp Pulse Resp B/P Pulse Ox O2 Delivery O2 Flow Rate FiO2 09/07/16 16:20 77 09/07/16 16:10 98.4 18 126/63 99 09/07/16 14:25 2.0 09/07/16 14:25 Nasal Cannula 09/03/16 22:20 100 Intake and Output 09/06/16 09/06/16 09/07/16 15:00 23:00 07:00 Intake Total 1030 ml 350 ml Output Total 2400 ml Balance -1370 ml 350 ml Exam HEENT: Neck supple; no JVD; no LAD CVS: RRR, S1 and S2 CHEST: Decreased BS left base ABD: Soft, NT, + BS EXT: No c/c/e Results/Medications Result Diagram: 09/07/16 0500 09/07/16 0640 Results 24 hrs Laboratory Tests Test 09/07/16 05:00 09/07/16 06:40 White Blood Count 10.8 Red Blood Count 3.38 L Hemoglobin 9.9 L Hematocrit 32.5 L Mean Corpuscular Volume 96.2 Mean Corpuscular Hemoglobin 29.3 Mean Corpuscular Hemoglobin Concent 30.5 L Red Cell Distribution Width 15.3 H Platelet Count 306 Mean Platelet Volume 9.6 Neutrophils % 75.8 Lymphocytes % 14.2 L Monocytes % 6.2 Eosinophils % 2.6 Basophils % 0.6 Nucleated Red Blood Cells % 0.0 Neutrophils # 8.2 H Lymphocytes # 1.5 Monocytes # 0.7 Eosinophils # 0.3 Basophils # 0.1 Nucleated Red Blood Cells # 0.0 Sodium Level 143 Potassium Level 3.5 Chloride Level 105 Carbon Dioxide Level 22 Anion Gap 20 H Blood Urea Nitrogen 47 #H Creatinine 4.11 #H Glucose Level 91 Calcium Level 8.4 Phosphorus Level 5.1 H Magnesium Level 2.1 Creatine Kinase < 20 L Creatine Kinase Index Creatinine Kinase MB (Mass) 1.04 Troponin I 0.016 Medications Current Medications Lidocaine (Xylocaine 1% (Mpf)) 30 ml ONCE PRN INJ PAIN; Start 09/02/16 at 18:00 Amikacin Sulfate (Amikacin Iv Per Pharmacy) AMIKACIN PER PHARMACY NOTE XX ; Start 09/03/16 at 13:30 Ondansetron HCl (Zofran Inj) 4 mg Q6H PRN IV NAUSEA AND/OR VOMITING; Start 09/03 at 14:00 Morphine Sulfate (morphine) 2 mg Q4H PRN IV Pain; Start 09/03/16 at 14:00 Hydralazine HCl (Apresoline) 10 mg Q6H PRN IV SBP>160; Start 09/03/16 at 14:00 Heparin Sodium (Porcine) (Heparin (5000 Units/0.5 ml)) 5,000 unit BID SC Last administered on 09/07/16 08:32; Admin Dose 5,000 UNIT; Start 09/03/16 at 21:00 Famotidine 20 mg 20 mg Q24H PO Last administered on 09/06/16 21:29; Admin Dose 20 MG; Start 09/03/16 at 21:00 Piperacillin Sod/ Tazobactam Sod (Zosyn 2.25gm/ 50ml (Pmx)) 50 ml @ 100 mls/hr Q8 IVPB Last administered on 09/07/16 13:01; Admin Dose 100 MLS/HR; Start at 14:21 Epoetin Eligio (Epogen (Esrd)) 3,000 units MoWeFr@17 IV Last administered on 18:04; Admin Dose 3,000 UNITS; Start 09/06/16 at 17:00 Assessment/Plan Additional Assessment/Plan IMP: 1. Chronic Loculated Left Effusion: clinical improved and small in size RECS: 1. I would suggest against thoracoscopic decortication in view of the size and patients clinical stability and baseline limited functional status 2. Favor longer course of abx ATILIO GUY MD Sep 07, 2016 17:42
--- NOTE | 2016-09-07 19:24 | CONS ---
Date/Time of Note Date/Time of Note DATE: 09/07/16 TIME: 19:20 Assessment/Plan Assessment/Plan Chief Complaint/Hosp Course Pt on appropriate AB Rx for [facility] HD Scheduled for Problems: Additional Assessment/Plan Will schedule next HD On Friday Consultation Date/Type/Reason Admit Date/Time Sep 03, 2016 at 08:14 Initial Consult Date 09/03/16 Type of Consultation: renal Referring Provider: Jessica GRIJALVA 24 HR Interval Summary Free Text/Dictation Pt with paraplegia, confined to bed Constitutional: improved Exam/Review of Systems Vital Signs Vitals Vital Signs Date Time Temp Pulse Resp B/P Pulse Ox O2 Delivery O2 Flow Rate FiO2 09/07/16 16:20 77 09/07/16 16:10 98.4 18 126/63 99 09/07/16 14:25 2.0 09/07/16 14:25 Nasal Cannula 09/03/16 22:20 100 Intake and Output 09/06/16 09/06/16 09/07/16 15:00 23:00 07:00 Intake Total 1030 ml 350 ml Output Total 2400 ml Balance -1370 ml 350 ml Exam Constitutional: alert, oriented Psych: no complaints Head: normocephalic Eyes: nl conjunctiva ENMT: nl external ears & nose Neck: supple Respiratory: clear to auscultation Cardiovascular: regular rate and rhythm Gastrointestinal: soft Neurological: COAL CHEMIST II-XII intact, other (paraplegic) Results Result Diagram: 09/07/16 0500 09/07/16 0640 Results 24 hrs Laboratory Tests Test 09/07/16 05:00 09/07/16 06:40 White Blood Count 10.8 Red Blood Count 3.38 L Hemoglobin 9.9 L Hematocrit 32.5 L Mean Corpuscular Volume 96.2 Mean Corpuscular Hemoglobin 29.3 Mean Corpuscular Hemoglobin Concent 30.5 L Red Cell Distribution Width 15.3 H Platelet Count 306 Mean Platelet Volume 9.6 Neutrophils % 75.8 Lymphocytes % 14.2 L Monocytes % 6.2 Eosinophils % 2.6 Basophils % 0.6 Nucleated Red Blood Cells % 0.0 Neutrophils # 8.2 H Lymphocytes # 1.5 Monocytes # 0.7 Eosinophils # 0.3 Basophils # 0.1 Nucleated Red Blood Cells # 0.0 Sodium Level 143 Potassium Level 3.5 Chloride Level 105 Carbon Dioxide Level 22 Anion Gap 20 H Blood Urea Nitrogen 47 #H Creatinine 4.11 #H Glucose Level 91 Calcium Level 8.4 Phosphorus Level 5.1 H Magnesium Level 2.1 Creatine Kinase < 20 L Creatine Kinase Index Creatinine Kinase MB (Mass) 1.04 Troponin I 0.016 Medications Medications Current Medications Lidocaine (Xylocaine 1% (Mpf)) 30 ml ONCE PRN INJ PAIN; Start 09/02/16 at 18:00 Amikacin Sulfate (Amikacin Iv Per Pharmacy) AMIKACIN PER PHARMACY NOTE XX ; Start 09/03/16 at 13:30 Ondansetron HCl (Zofran Inj) 4 mg Q6H PRN IV NAUSEA AND/OR VOMITING; Start 09/03 at 14:00 Morphine Sulfate (morphine) 2 mg Q4H PRN IV Pain; Start 09/03/16 at 14:00 Hydralazine HCl (Apresoline) 10 mg Q6H PRN IV SBP>160; Start 09/03/16 at 14:00 Heparin Sodium (Porcine) (Heparin (5000 Units/0.5 ml)) 5,000 unit BID SC Last administered on 09/07/16 08:32; Admin Dose 5,000 UNIT; Start 09/03/16 at 21:00 Famotidine 20 mg 20 mg Q24H PO Last administered on 09/06/16 21:29; Admin Dose 20 MG; Start 09/03/16 at 21:00 Piperacillin Sod/ Tazobactam Sod (Zosyn 2.25gm/ 50ml (Pmx)) 50 ml @ 100 mls/hr Q8 IVPB Last administered on 09/07/16 13:01; Admin Dose 100 MLS/HR; Start at 14:21 Epoetin Eligio (Epogen (Esrd)) 3,000 units MoWeFr@17 IV Last administered on 18:04; Admin Dose 3,000 UNITS; Start 09/06/16 at 17:00 TJ CLANCY MD Sep 07, 2016 19:24
[2016-09-07] MEDS: FAMOTIDINE 20 MG TAB PO SCH (20:57)
[2016-09-08] VITALS (12 sets, daily range): BP systolic 124–145; BP diastolic 62–79; PULSE 73–85; RESP 18–20
[2016-09-08] MEDS: PIPER-TAZO 2.25 GM (PMX) 50 ML IVPB SCH ×3 (05:08→21:04)
[2016-09-08] MEDS: SEVELAMER CARBONATE 0.8 GM PKT PO SCH ×3 (08:35→17:17)
[2016-09-08] MEDS: HEPARIN 5,000 UNIT/0.5 ML VIAL SC SCH ×2 (08:36→21:04)
[2016-09-08] MEDS: ALBUTEROL/IPRATROPIUM (NEB) 3 ML AMP HHN SCH ×3 (08:44→20:36)
[2016-09-08] MEDS: FAMOTIDINE 20 MG TAB PO SCH ×2 (09:38→20:59)
[2016-09-08 10:30] LABS: ADD UMIC YES; URINE BILIRUBIN (Dip) NEGATIVE (NEGATIVE); URINE BLOOD (Dip) TRACE (NEGATIVE); URINE COLOR LT. YELLOW (YELLOW); URINE GLUCOSE (Dip) NEGATIVE (NEGATIVE); URINE KETONES (Dip) NEGATIVE (NEGATIVE); URINE LEUKOCYTE ESTERASE (Dip) 2+ (NEGATIVE); URINE NITRITE (Dip) NEGATIVE (NEGATIVE); URINE TOTAL PROTEIN (Dip) 1+ (NEGATIVE); URINE UROBILINOGEN (Dip) 0.2 E.U./dL (0.1-1.0)
--- NOTE | 2016-09-08 10:33 | PN ---
Date/Time of Note Date/Time of Note DATE: 09/08/16 TIME: 10:31 Assessment/Plan VTE Prophylaxis VTE Prophylaxis Intervention: heparin Lines/Catheters IV [facility] Saline Lock Urinary Cath still in place: No Assessment/Plan Chief Complaint/Hosp Course 1. Acute respiratory failure. Hypoxic. Most probably secondary to underlying healthcare-associated pneumonia as well as pulmonary vascular congestion. Continue supplemental oxygen. Continue inhaled bronchodilators. The patient being followed by Pulmonary. 2. Healthcare associated pneumonia with left lateral and posterior empyema. Continue antibiotics as per infectious diseases. Pulmonary following the patient. Thoracic Surgery recommending VATS with pulmonary decortication if the patient is not improving with antibiotics. 3. Sepsis with underlying gram-negative bacteremia. No evidence of septic shock. Continue antibiotics as per infectious diseases. 4. Urinary tract infection with E. coli ESBL. Contact precautions. Antibiotics as per infectious diseases 5. Essential hypertension. Blood pressure pressure well controlled. The patient will be continued on p.r.n. antihypertensives. 6. End-stage renal disease on hemodialysis. Hemodialysis as per nephrology. The patient already has a left upper extremity AV fistula in place. 7. Paraplegia. Continue daily catheterization as needed. 8. Fluid, electrolytes and nutrition. Renal diet. 9. Deep venous thrombosis prophylaxis. Subcutaneous heparin. 10. Gastrointestinal prophylaxis. Histamine 2 receptor blockers. PLAN: Continue inhaled bronchodilators. Continue supplemental oxygen. Continue antibiotics as per infectious diseases. Thoracic surgery evaluated the patient and recommended a VATS with decortication if the patient is not clinically improved. Thoracic Surgery asked for cardiology clearance for any surgical procedure. Cardiology consult called. [employer]ist cleared the patient for any kind of surgical procedure. Case discussed with Dr. Stratton. Problems: Subjective 24 Hr Interval Summary Free Text/Dictation The patient remains afebrile. Vital signs stable. Exam/Review of Systems Vital Signs Vitals Vital Signs Date Time Temp Pulse Resp B/P Pulse Ox O2 Delivery O2 Flow Rate FiO2 09/08/16 08:44 2.0 09/08/16 08:44 87 20 98 Nasal Cannula 09/08/16 07:40 97.7 130/69 Intake and Output 09/07/16 09/07/16 09/08/16 15:00 23:00 07:00 Intake Total 50 ml 890 ml 50 ml Balance 50 ml 890 ml 50 ml Exam GENERAL: This is a 66-year-old male lying in bed in mild respiratory distress with oxygen via nasal cannula on. HEENT: Normocephalic and atraumatic. Eyes: Anicteric sclerae. Conjunctivae clear. ENT: Nasal septum is midline. Oral mucosa is dry. NECK: Supple. No JVD noticed. RESPIRATORY: Bilaterally diminished breath sounds. No use of accessory muscles of respiration. Scattered rhonchi. No wheezing. CARDIAC: Regular rate and rhythm. S1, S2 heard. ABDOMEN: Soft, nontender and nondistended. Bowel sounds positive in all 4 quadrants. GENITOURINARY: No penoscrotal edema. EXTREMITIES: No cyanosis, no clubbing, no edema. Peripheral pulses palpable. NEUROLOGIC: The patient is awake, alert and oriented. Has paraplegia. Results Result Diagram: 09/07/16 0500 09/07/16 0640 Medications Medications Current Medications Lidocaine (Xylocaine 1% (Mpf)) 30 ml ONCE PRN INJ PAIN; Start 09/02/16 at 18:00 Amikacin Sulfate (Amikacin Iv Per Pharmacy) AMIKACIN PER PHARMACY NOTE XX ; Start 09/03/16 at 13:30 Ondansetron HCl (Zofran Inj) 4 mg Q6H PRN IV NAUSEA AND/OR VOMITING; Start 09/03 at 14:00 Morphine Sulfate (morphine) 2 mg Q4H PRN IV Pain; Start 09/03/16 at 14:00 Hydralazine HCl (Apresoline) 10 mg Q6H PRN IV SBP>160; Start 09/03/16 at 14:00 Heparin Sodium (Porcine) (Heparin (5000 Units/0.5 ml)) 5,000 unit BID SC Last administered on 09/08/16 08:36; Admin Dose 5,000 UNIT; Start 09/03/16 at 21:00 Famotidine 20 mg 20 mg Q24H PO Last administered on 09/08/16 09:38; Admin Dose 20 MG; Start 09/03/16 at 21:00 Piperacillin Sod/ Tazobactam Sod (Zosyn 2.25gm/ 50ml (Pmx)) 50 ml @ 100 mls/hr Q8 IVPB Last administered on 09/08/16 05:08; Admin Dose 100 MLS/HR; Start at 14:21 Epoetin Eligio (Epogen (Esrd)) 3,000 units MoWeFr@17 IV Last administered on t 18:04; Admin Dose 3,000 UNITS; Start 09/06/16 at 17:00 SHARLA MEZA NP Sep 08, 2016 10:33
[2016-09-08 10:42] LABS: SQUAMOUS EPITHELIAL CELL,UR FEW; URINE RBCS 0-2 /HPF (0)
--- NOTE | 2016-09-08 13:50 | CONS ---
Date/Time of Note Date/Time of Note DATE: 09/08/16 TIME: 13:45 Assessment/Plan Assessment/Plan Chief Complaint/Hosp Course ID PROGRESS NOTE CURRENT ABX=> Amikacin#6+ Zosyn 24H INTERVAL SUMMARY * Resting comfortably, no new issues, no complaints * He is completing ABX for ESBL UTI + GNR KP septicemia PHYSICAL EXAMINATION: GENERAL: VSS, NAD, Afebrile HEENT: Unremarkable NECK: Supple, trachea midline. CHEST: Rise symmetrical, without dyspnea on observation HEART: Pulse RRR ABDOMEN: Soft EXTREMITIES: Warm ID ASSESSMENT 66 yo M w/hx of spine/hip carcinoma w/ paraplegia admit with: 1. Status post bacteremia, the patient had an old catheter removed. * Blood culture on admission grew Klebsiella pneumoniae. Repeat blood culture negative. 2. Urinary tract infection with urine culture growing Escherichia coli extended -spectrum beta-lactamase, susceptible to amikacin. 3. Healthcare-associated pneumonia with empyema, pulmonary on case. 4. End-stage renal disease, hemodialysis dependent. 5. Left upper extremity arteriovenous fistula. 6. Neurogenic bladder MRSA Nares -> pending INVASIVES: PIV ABX ALLERGY: None to ABX CURRENT ABX: => Amikacin + Zosyn ID RECOMMENDATIONS 1. Continue current ABX => Pending VATS 2. Observe over the weekend on ABX -> Reassess by ID team next week Problems: Consultation Date/Type/Reason Admit Date/Time Sep 03, 2016 at 08:14 Initial Consult Date 09/03/16 Type of Consultation: ID Referring Provider: Jessica GRIJALVA Exam/Review of Systems Vital Signs Vitals Vital Signs Date Time Temp Pulse Resp B/P Pulse Ox O2 Delivery O2 Flow Rate FiO2 09/08/16 12:00 78 09/08/16 11:39 98.2 19 128/69 98 09/08/16 08:44 2.0 09/08/16 08:44 Nasal Cannula Intake and Output 09/07/16 09/07/16 09/08/16 15:00 23:00 07:00 Intake Total 50 ml 890 ml 50 ml Balance 50 ml 890 ml 50 ml Results Result Diagram: 09/07/16 0500 09/07/16 0640 Results 24 hrs Laboratory Tests Test 09/08/16 09:30 Urine Color LT. YELLOW Urine Clarity HAZY Urine pH 6.0 Urine Specific Elsa 1.010 Urine Ketones NEGATIVE Urine Nitrite NEGATIVE Urine Bilirubin NEGATIVE Urine Urobilinogen 0.2 E.U./dL Urine Leukocyte Esterase 2+ H Urine Microscopic RBC 0-2 Urine Microscopic WBC 10-25 Urine Squamous Epithelial Cells FEW Urine Hemoglobin TRACE Urine Glucose NEGATIVE Urine Total Protein 1+ H Medications Medications Current Medications Lidocaine (Xylocaine 1% (Mpf)) 30 ml ONCE PRN INJ PAIN; Start 09/02/16 at 18:00 Amikacin Sulfate (Amikacin Iv Per Pharmacy) AMIKACIN PER PHARMACY NOTE XX ; Start 09/03/16 at 13:30 Ondansetron HCl (Zofran Inj) 4 mg Q6H PRN IV NAUSEA AND/OR VOMITING; Start 09/03 at 14:00 Morphine Sulfate (morphine) 2 mg Q4H PRN IV Pain; Start 09/03/16 at 14:00 Hydralazine HCl (Apresoline) 10 mg Q6H PRN IV SBP>160; Start 09/03/16 at 14:00 Heparin Sodium (Porcine) (Heparin (5000 Units/0.5 ml)) 5,000 unit BID SC Last administered on 09/08/16 08:36; Admin Dose 5,000 UNIT; Start 09/03/16 at 21:00 Famotidine 20 mg 20 mg Q24H PO Last administered on 09/08/16 09:38; Admin Dose 20 MG; Start 09/03/16 at 21:00 Piperacillin Sod/ Tazobactam Sod (Zosyn 2.25gm/ 50ml (Pmx)) 50 ml @ 100 mls/hr Q8 IVPB Last administered on 09/08/16 13:18; Admin Dose 100 MLS/HR; Start at 14:21 Epoetin Eligio (Epogen (Esrd)) 3,000 units MoWeFr@17 IV Last administered on 18:04; Admin Dose 3,000 UNITS; Start 09/06/16 at 17:00 MAUDE WHITING NP Sep 08, 2016 13:50
--- NOTE | 2016-09-08 14:13 | PN ---
Date/Time of Note Date/Time of Note DATE: 09/08/16 TIME: 14:11 Assessment/Plan Lines/Catheters IV Catheter Type (from Nrs): Saline Lock Deutsch in Place (from Nrs): No Assessment/Plan Chief Complaint/Hosp Course IMPRESSION : Right pleural effusion, possibly empyema, but the patient is clinically improving. Will continue antibiotics. Will need video-assisted thoracic surgery and decortication .cleared by cardiology. Will discuss with the referring physicians. Problems: Subjective 24 Hr Interval Summary Constitutional: improved Pain Control: mild Exam/Review of Systems Vital Signs Vitals Vital Signs Date Time Temp Pulse Resp B/P Pulse Ox O2 Delivery O2 Flow Rate FiO2 09/08/16 12:00 78 09/08/16 11:39 98.2 19 128/69 98 09/08/16 08:44 2.0 09/08/16 08:44 Nasal Cannula Intake and Output 09/07/16 09/07/16 09/08/16 15:00 23:00 07:00 Intake Total 50 ml 890 ml 50 ml Balance 50 ml 890 ml 50 ml Exam Neck: non-tender, supple Respiratory: clear to auscultation, normal air movement Cardiovascular: nl pulses, regular rate and rhythm Gastrointestinal: nl liver, spleen, non-tender, soft Results Result Diagram: 09/07/16 0500 09/07/16 0640 MALEFRANKY NOEL MD Sep 08, 2016 14:12
--- NOTE | 2016-09-08 14:15 | PN ---
Date/Time of Note Date/Time of Note DATE: 09/08/16 TIME: 14:14 Assessment/Plan Lines/Catheters IV Catheter Type (from Nrsg): Saline Lock Deutsch in Place (from Nrsg): No Assessment/Plan Chief Complaint/Hosp Course Left pleural effusion, possibly empyema, but the patient is clinically improving. Will continue antibiotics. Will need Left video-assisted thoracic surgery and decortication Cleared by cardiology. Will discuss with the referring physicians. Problems: Subjective 24 Hr Interval Summary Constitutional: improved Pain Control: mild Exam/Review of Systems Vital Signs Vitals Vital Signs Date Time Temp Pulse Resp B/P Pulse Ox O2 Delivery O2 Flow Rate FiO2 09/08/16 12:00 78 09/08/16 11:39 98.2 19 128/69 98 09/08/16 08:44 2.0 09/08/16 08:44 Nasal Cannula Intake and Output 09/07/16 09/07/16 09/08/16 15:00 23:00 07:00 Intake Total 50 ml 890 ml 50 ml Balance 50 ml 890 ml 50 ml Exam ENMT: mucosa pink and moist, nl external ears & nose, nl lips & teeth, nl nasal mucosa & septum Neck: non-tender, supple Respiratory: clear to auscultation, normal air movement, No congested cough, No crackles/rales, No diminished breath sounds, No intercostal retraction, No labored breathing, No other, No respirations, No tactile fremitus, No wheezing Gastrointestinal: nl liver, spleen, non-tender, soft Results Result Diagram: 09/07/16 0500 09/07/16 0640 FRANKY PERES MD Sep 08, 2016 14:15
--- NOTE | 2016-09-08 14:47 | CONS ---
Date/Time of Note Date/Time of Note DATE: 09/08/16 TIME: 14:44 Consult Date/Type/Reason Admit Date/Time Sep 03, 2016 at 08:14 Initial Consult Date 09/03/16 Type of Consultation: Pulm Ordering Provider: Jessica GRIJALVA Subjective No events. Doing well. Objective Vital Signs Date Time Temp Pulse Resp B/P Pulse Ox O2 Delivery O2 Flow Rate FiO2 09/08/16 12:00 78 09/08/16 11:39 98.2 19 128/69 98 09/08/16 08:44 2.0 09/08/16 08:44 Nasal Cannula Intake and Output 09/07/16 09/07/16 09/08/16 15:00 23:00 07:00 Intake Total 50 ml 890 ml 50 ml Balance 50 ml 890 ml 50 ml Exam HEENT: Neck supple; no JVD; no LAD CVS: RRR, S1 and S2 CHEST: Decreased BS left base ABD: Soft, NT, + BS EXT: No c/c/e Results/Medications Result Diagram: 09/07/16 0500 09/07/16 0640 Results 24 hrs Laboratory Tests Test 09/08/16 09:30 Urine Color LT. YELLOW Urine Clarity HAZY Urine pH 6.0 Urine Specific [place] 1.010 Urine Ketones NEGATIVE Urine Nitrite NEGATIVE Urine Bilirubin NEGATIVE Urine Urobilinogen 0.2 E.U./dL Urine Leukocyte Esterase 2+ H Urine Microscopic RBC 0-2 Urine Microscopic WBC 10-25 Urine Squamous Epithelial Cells FEW Urine Hemoglobin TRACE Urine Glucose NEGATIVE Urine Total Protein 1+ H Medications Current Medications Lidocaine (Xylocaine 1% (Mpf)) 30 ml ONCE PRN INJ PAIN; Start 09/02/16 at 18:00 Amikacin Sulfate (Amikacin Iv Per Pharmacy) AMIKACIN PER PHARMACY NOTE XX ; Start 09/03/16 at 13:30 Ondansetron HCl (Zofran Inj) 4 mg Q6H PRN IV NAUSEA AND/OR VOMITING; Start 09/03 at 14:00 Morphine Sulfate (morphine) 2 mg Q4H PRN IV Pain; Start 09/03/16 at 14:00 Hydralazine HCl (Apresoline) 10 mg Q6H PRN IV SBP>160; Start 09/03/16 at 14:00 Heparin Sodium (Porcine) (Heparin (5000 Units/0.5 ml)) 5,000 unit BID SC Last administered on 09/08/16 08:36; Admin Dose 5,000 UNIT; Start 09/03/16 at 21:00 Famotidine 20 mg 20 mg Q24H PO Last administered on 09/08/16 09:38; Admin Dose 20 MG; Start 09/03/16 at 21:00 Piperacillin Sod/ Tazobactam Sod (Zosyn 2.25gm/ 50ml (Pmx)) 50 ml @ 100 mls/hr Q8 IVPB Last administered on 09/08/16 13:18; Admin Dose 100 MLS/HR; Start at 14:21 Epoetin Eligio (Epogen (Esrd)) 3,000 units MoWeFr@17 IV Last administered on 18:04; Admin Dose 3,000 UNITS; Start 09/06/16 at 17:00 Assessment/Plan Additional Assessment/Plan IMP: 1. Chronic Loculated Left Effusion: clinical improved and small in size RECS: 1. I would suggest against thoracoscopic decortication in view of the size of the effusion and patient's clinical stability and baseline limited functional status 2. 4 week course of abx ATILIO GUY MD Sep 08, 2016 14:47
--- NOTE | 2016-09-08 14:55 | CONS ---
Date/Time of Note Date/Time of Note DATE: 09/08/16 TIME: 14:52 Assessment/Plan Assessment/Plan Chief Complaint/Hosp Course IMPRESSION: 1. Preoperative evaluation prior to VATS procedure with, at this time, the patient having a EF done this admission revealing a preserved left ventricular ejection fraction and moderate mitral regurgitation and having negative troponins x3 since admit. Patient has no cardiac contraindication to proceeding to OR for VATS/decortication at this time at moderate risk. 2. Empyema. 3. End-stage renal disease on hemodialysis. 4. Bacteremia. 5. Urinary tract infection. 6. Paraplegia Recc: -Tele -Continue abx's -Follow volume status closely -check post-op ECG and follow closely for s/sx of CV complications Problems: Consultation Date/Type/Reason Admit Date/Time Sep 03, 2016 at 08:14 Initial Consult Date 09/03/16 Type of Consultation: Cardiology Reason for Consultation pre-op Referring Provider: Jessica GRIJALVA Exam/Review of Systems Vital Signs Vitals Vital Signs Date Time Temp Pulse Resp B/P Pulse Ox O2 Delivery O2 Flow Rate FiO2 09/08/16 12:00 78 09/08/16 11:39 98.2 19 128/69 98 09/08/16 08:44 2.0 09/08/16 08:44 Nasal Cannula Intake and Output 09/07/16 09/07/16 09/08/16 15:00 23:00 07:00 Intake Total 50 ml 890 ml 50 ml Balance 50 ml 890 ml 50 ml Exam Review of Systems: CONSTITUTIONAL: No fevers, chills. PULMONARY: No sob CARDIOVASCULAR: No chest pain/palpitations GASTROINTESTINAL: No nausea/vomiting. GENITOURINARY: No hematuria/dysuria. MUSCULOSKELETAL: No myagias/arthalgias. PSYCHIATRIC: The patient denies depression. NEUROLOGIC: No weakness Constitutional: alert Psych: no complaints Head: normocephalic ENMT: mucosa pink and moist Neck: jvd (8 cm water), supple Respiratory: diminished breath sounds (at bases/B) Cardiovascular: regular rate and rhythm Gastrointestinal: non-tender, soft Musculoskeletal: muscle tone (normal) Extremities: edema (none) Neurological: other (No focal deficits) Results Result Diagram: 09/07/16 0500 09/07/16 0640 Results 24 hrs Laboratory Tests Test 09/08/16 09:30 Urine Color LT. YELLOW Urine Clarity HAZY Urine pH 6.0 Urine Specific [place] 1.010 Urine Ketones NEGATIVE Urine Nitrite NEGATIVE Urine Bilirubin NEGATIVE Urine Urobilinogen 0.2 E.U./dL Urine Leukocyte Esterase 2+ H Urine Microscopic RBC 0-2 Urine Microscopic WBC 10-25 Urine Squamous Epithelial Cells FEW Urine Hemoglobin TRACE Urine Glucose NEGATIVE Urine Total Protein 1+ H Medications Medications Current Medications Lidocaine (Xylocaine 1% (Mpf)) 30 ml ONCE PRN INJ PAIN; Start 09/02/16 at 18:00 Amikacin Sulfate (Amikacin Iv Per Pharmacy) AMIKACIN PER PHARMACY NOTE XX ; Start 09/03/16 at 13:30 Ondansetron HCl (Zofran Inj) 4 mg Q6H PRN IV NAUSEA AND/OR VOMITING; Start 09/03 at 14:00 Morphine Sulfate (morphine) 2 mg Q4H PRN IV Pain; Start 09/03/16 at 14:00 Hydralazine HCl (Apresoline) 10 mg Q6H PRN IV SBP>160; Start 09/03/16 at 14:00 Heparin Sodium (Porcine) (Heparin (5000 Units/0.5 ml)) 5,000 unit BID SC Last administered on 09/08/16 08:36; Admin Dose 5,000 UNIT; Start 09/03/16 at 21:00 Famotidine 20 mg 20 mg Q24H PO Last administered on 09/08/16 09:38; Admin Dose 20 MG; Start 09/03/16 at 21:00 Piperacillin Sod/ Tazobactam Sod (Zosyn 2.25gm/ 50ml (Pmx)) 50 ml @ 100 mls/hr Q8 IVPB Last administered on 09/08/16 13:18; Admin Dose 100 MLS/HR; Start at 14:21 Epoetin Eligio (Epogen (Esrd)) 3,000 units MoWeFr@17 IV Last administered on 18:04; Admin Dose 3,000 UNITS; Start 09/06/16 at 17:00 TRISTEN SHAVER Sep 08, 2016 14:55
--- NOTE | 2016-09-08 19:33 | CONS ---
Date/Time of Note Date/Time of Note DATE: 09/08/16 TIME: 19:27 Assessment/Plan Assessment/Plan Chief Complaint/Hosp Course Pt on appropriate AB Rx for [facility]Inf HD Scheduled for Problems: Additional Assessment/Plan HD tomorrow, Rpt UA Cont'd Hospitalization Reason: encouraged for increasing mobility Consultation Date/Type/Reason Admit Date/Time Sep 03, 2016 at 08:14 Initial Consult Date 09/03/16 Type of Consultation: renal Referring Provider: Jessica GRIJALVA 24 HR Interval Summary Free Text/Dictation Pt is resting comfortably in bed Constitutional: no complaints Exam/Review of Systems Vital Signs Vitals Vital Signs Date Time Temp Pulse Resp B/P Pulse Ox O2 Delivery O2 Flow Rate FiO2 09/08/16 16:00 81 09/08/16 15:58 98.3 19 134/79 99 09/08/16 08:44 2.0 09/08/16 08:44 Nasal Cannula Intake and Output 09/07/16 09/07/16 09/08/16 15:00 23:00 07:00 Intake Total 50 ml 890 ml 50 ml Balance 50 ml 890 ml 50 ml Exam Constitutional: alert, oriented Psych: no complaints Head: normocephalic Eyes: PERRL ENMT: nl external ears & nose Neck: supple Respiratory: clear to auscultation Cardiovascular: regular rate and rhythm Gastrointestinal: soft Genitourinary - Male: nl penis Musculoskeletal: nl extremities to inspection Neurological: other (Paraplegic) Skin: nl turgor Results Hct, Chemistry stable Result Diagram: 09/07/16 0500 09/07/16 0640 Results 24 hrs Laboratory Tests Test 09/08/16 09:30 Urine Color LT. YELLOW Urine Clarity HAZY Urine pH 6.0 Urine Specific [place] 1.010 Urine Ketones NEGATIVE Urine Nitrite NEGATIVE Urine Bilirubin NEGATIVE Urine Urobilinogen 0.2 E.U./dL Urine Leukocyte Esterase 2+ H Urine Microscopic RBC 0-2 Urine Microscopic WBC 10-25 Urine Squamous Epithelial Cells FEW Urine Hemoglobin TRACE Urine Glucose NEGATIVE Urine Total Protein 1+ H Medications Medications Current Medications Lidocaine (Xylocaine 1% (Mpf)) 30 ml ONCE PRN INJ PAIN; Start 09/02/16 at 18:00 Amikacin Sulfate (Amikacin Iv Per Pharmacy) AMIKACIN PER PHARMACY NOTE XX ; Start 09/03/16 at 13:30 Ondansetron HCl (Zofran Inj) 4 mg Q6H PRN IV NAUSEA AND/OR VOMITING; Start 09/03 at 14:00 Morphine Sulfate (morphine) 2 mg Q4H PRN IV Pain; Start 09/03/16 at 14:00 Hydralazine HCl (Apresoline) 10 mg Q6H PRN IV SBP>160; Start 09/03/16 at 14:00 Heparin Sodium (Porcine) (Heparin (5000 Units/0.5 ml)) 5,000 unit BID SC Last administered on 09/08/16 08:36; Admin Dose 5,000 UNIT; Start 09/03/16 at 21:00 Famotidine 20 mg 20 mg Q24H PO Last administered on 09/08/16 09:38; Admin Dose 20 MG; Start 09/03/16 at 21:00 Piperacillin Sod/ Tazobactam Sod (Zosyn 2.25gm/ 50ml (Pmx)) 50 ml @ 100 mls/hr Q8 IVPB Last administered on 09/08/16 13:18; Admin Dose 100 MLS/HR; Start at 14:21 Epoetin Eligio (Epogen (Esrd)) 3,000 units MoWeFr@17 IV Last administered on 18:04; Admin Dose 3,000 UNITS; Start 09/06/16 at 17:00 TJ CLANCY MD Sep 08, 2016 19:33
[2016-09-09] VITALS (19 sets, daily range): BP systolic 116–146; BP diastolic 57–79; PULSE 72–86; RESP 16–18
[2016-09-09 07:18] LABS: ADD SCAN DIFF NO
[2016-09-09 07:21] LABS: HEMATOCRIT 28.3 % (42.0-52.0); HEMOGLOBIN 9.2 g/dl (14.0-18.0); MEAN CORPUSCULAR HEMOGLOBIN 29.7 pg (29.0-33.0); MEAN CORPUSCULAR HGB CONC 32.5 g/dl (32.0-37.0); MEAN CORPUSCULAR VOLUME 91.3 fl (82.0-101.0); MEAN PLATELET VOLUME 9.5 fl (7.4-10.4); PLATELET COUNT 365 10^3/UL (140-415); RED CELL DISTRIBUTION WIDTH 15.1 % (11.5-14.5)
[2016-09-09 07:48] LABS: CALCIUM 8.9 mg/dl (8.4-10.2); CREATININE 3.35 mg/dl (0.61-1.24)
[2016-09-09 07:49] LABS: MAGNESIUM 2.1 mg/dl (1.7-2.5); PHOSPHORUS 3.1 mg/dl (2.5-4.9)
[2016-09-09 07:52] LABS: POTASSIUM 2.9 mmol/L (3.5-5.1)
[2016-09-09] MEDS: SEVELAMER CARBONATE 0.8 GM PKT PO SCH ×3 (08:00→17:06)
[2016-09-09] MEDS: ALBUTEROL/IPRATROPIUM (NEB) 3 ML AMP HHN SCH ×3 (08:19→19:35)
[2016-09-09] MEDS: PIPER-TAZO 2.25 GM (PMX) 50 ML IVPB SCH ×3 (08:39→21:10)
[2016-09-09] MEDS: HEPARIN 5,000 UNIT/0.5 ML VIAL SC SCH ×2 (08:40→21:09)
[2016-09-09 10:48] LABS: EOSINOPHILS # 0.6 10^3/ul (0.0-0.5); LYMPHOCYTES # 0.9 10^3/ul (0.8-2.9); MONOCYTE # 0.1 10^3/ul (0.3-0.9); NEUTROPHIL # 9.4 10^3/ul (1.6-7.5)
[2016-09-09] MEDS: AMIKACIN IVPB SCH (14:22)
[2016-09-09] MEDS: SOD CHLORIDE 0.9% IVPB SCH (14:22)
--- NOTE | 2016-09-09 14:49 | CONS ---
Date/Time of Note Date/Time of Note DATE: 09/09/16 TIME: 14:48 Assessment/Plan Assessment/Plan Additional Assessment/Plan Assessment recommendations; next 1. Patient admitted with pneumonia and there appears to be significant left pleural thickening indicative of possible empyema. 2. End-stage renal disease on hemodialysis. 3. History of paraplegia. Continue current treatment. Patient will need to have decortication performed. Consultation Date/Type/Reason Admit Date/Time Sep 03, 2016 at 08:14 Initial Consult Date 09/03/16 Type of Consultation: Pulmonary Referring Provider: Jessica GRIJALVA 24 HR Interval Summary Free Text/Dictation Condition stable. Remains awake and alert. Has remained hemodynamically stable. General exam; elderly male, awake currently in no distress. Exam/Review of Systems Vital Signs Vitals Vital Signs Date Time Temp Pulse Resp B/P Pulse Ox O2 Delivery O2 Flow Rate FiO2 09/09/16 14:32 76 20 98 Nasal Cannula 2.0 09/09/16 11:52 97.8 140/68 Intake and Output 09/08/16 09/08/16 09/09/16 15:00 23:00 07:00 Intake Total 1300 ml 300 ml Output Total 800 ml 2800 ml Balance 500 ml -2500 ml Exam HEENT examined; supple neck, no JVD. No lymphadenopathy. Midline trachea. No thyromegaly. Chest examination NH: Minimally decreased breath sounds left lower lobe. S1-S2 audible, no murmurs. Regular rhythm. Abdomen examination; soft, nontender. No organomegaly. Bowel sounds audible. Extremity exam is; no peripheral edema. He has an AV shunt in the left arm. DIRECTOR OF PSYCHIATRY exam is; no focal deficit. Patient has stable paraplegia. Results Result Diagram: 09/09/16 0621 09/09/16 0948 Results 24 hrs Laboratory Tests Test 09/09/16 06:21 09/09/16 09:48 White Blood Count 11.0 H Red Blood Count 3.10 L Hemoglobin 9.2 L Hematocrit 28.3 L Mean Corpuscular Volume 91.3 Mean Corpuscular Hemoglobin 29.7 Mean Corpuscular Hemoglobin Concent 32.5 Red Cell Distribution Width 15.1 H Platelet Count 365 Mean Platelet Volume 9.5 Neutrophils % 85.0 H Lymphocytes % 8.0 L Reactive Lymphocytes % 1.0 Monocytes % 1.0 Eosinophils % 5.0 Neutrophils # 9.4 H Lymphocytes # 0.9 Monocytes # 0.1 L Eosinophils # 0.6 H Sodium Level 142 Potassium Level 2.9 *L 3.3 L Chloride Level 107 Carbon Dioxide Level 24 Anion Gap 14 Blood Urea Nitrogen 37 H Creatinine 3.35 H Glucose Level 131 # Calcium Level 8.9 Phosphorus Level 3.1 # Magnesium Level 2.1 Medications Medications Current Medications Lidocaine (Xylocaine 1% (Mpf)) 30 ml ONCE PRN INJ PAIN; Start 09/02/16 at 18:00 Amikacin Sulfate (Amikacin Iv Per Pharmacy) AMIKACIN PER PHARMACY NOTE XX ; Start 09/03/16 at 13:30 Ondansetron HCl (Zofran Inj) 4 mg Q6H PRN IV NAUSEA AND/OR VOMITING; Start 09/03 at 14:00 Morphine Sulfate (morphine) 2 mg Q4H PRN IV Pain; Start 09/03/16 at 14:00 Hydralazine HCl (Apresoline) 10 mg Q6H PRN IV SBP>160; Start 09/03/16 at 14:00 Heparin Sodium (Porcine) (Heparin (5000 Units/0.5 ml)) 5,000 unit BID SC Last administered on 09/09/16 08:40; Admin Dose 5,000 UNIT; Start 09/03/16 at 21:00 Famotidine 20 mg 20 mg Q24H PO Last administered on 09/08/16 20:59; Admin Dose 20 MG; Start 09/03/16 at 21:00 Piperacillin Sod/ Tazobactam Sod (Zosyn 2.25gm/ 50ml (Pmx)) 50 ml @ 100 mls/hr Q8 IVPB Last administered on 09/09/16 13:34; Admin Dose 100 MLS/HR; Start 09/03 at 14:21 Epoetin Eligio (Epogen (Esrd)) 3,000 units MoWeFr@17 IV Last administered on 18:04; Admin Dose 3,000 UNITS; Start 09/06/16 at 17:00 NELSON VICTOR Sep 09, 2016 14:49
--- NOTE | 2016-09-09 14:59 | PN ---
Date/Time of Note Date/Time of Note DATE: 09/09/16 TIME: 14:58 Assessment/Plan Lines/Catheters IV Catheter Type (from Nrs): Saline Lock Deutsch in Place (from Nrs): No Assessment/Plan Chief Complaint/Hosp Course Left pleural effusion, possibly empyema, but the patient is clinically improving. Will continue antibiotics. Will need Left video-assisted thoracic surgery and decortication Cleared by cardiology. Discussed with the daughter Plan for surgery if OR time is available today Problems: Subjective 24 Hr Interval Summary Constitutional: improved Pain Control: mild Exam/Review of Systems Vital Signs Vitals Vital Signs Date Time Temp Pulse Resp B/P Pulse Ox O2 Delivery O2 Flow Rate FiO2 09/09/16 14:32 76 20 98 Nasal Cannula 2.0 09/09/16 11:52 97.8 140/68 Intake and Output 09/08/16 09/08/16 09/09/16 15:00 23:00 07:00 Intake Total 1300 ml 300 ml Output Total 800 ml 2800 ml Balance 500 ml -2500 ml Exam Neck: non-tender, supple Respiratory: clear to auscultation, normal air movement Cardiovascular: nl pulses, regular rate and rhythm Gastrointestinal: nl liver, spleen, non-tender, soft Results Result Diagram: 09/09/16 0621 09/09/16 0948 FRANKY PERES MD Sep 09, 2016 14:59
--- NOTE | 2016-09-09 15:20 | CONS ---
Date/Time of Note Date/Time of Note DATE: 09/09/16 TIME: 15:18 Assessment/Plan Assessment/Plan Chief Complaint/Hosp Course IMPRESSION: 1. Preoperative evaluation prior to VATS procedure with, at this time, the patient having a EF done this admission revealing a preserved left ventricular ejection fraction and moderate mitral regurgitation and having negative troponins x3 since admit. Patient has no cardiac contraindication to proceeding to OR for VATS/decortication at this time at moderate risk. 2. Empyema. 3. End-stage renal disease on hemodialysis. 4. Bacteremia. 5. Urinary tract infection. 6. Paraplegia Recc: -Tele -Continue abx's -Follow volume status closely -check post-op ECG and follow closely for s/sx of CV complications Problems: Consultation Date/Type/Reason Admit Date/Time Sep 03, 2016 at 08:14 Initial Consult Date 09/03/16 Type of Consultation: Cardiology Reason for Consultation pre-op Referring Provider: Jessica GRIJALVA Exam/Review of Systems Vital Signs Vitals Vital Signs Date Time Temp Pulse Resp B/P Pulse Ox O2 Delivery O2 Flow Rate FiO2 09/09/16 14:32 76 20 98 Nasal Cannula 2.0 09/09/16 11:52 97.8 140/68 Intake and Output 09/08/16 09/08/16 09/09/16 15:00 23:00 07:00 Intake Total 1300 ml 300 ml Output Total 800 ml 2800 ml Balance 500 ml -2500 ml Exam Review of Systems: CONSTITUTIONAL: No fevers, chills. PULMONARY: No sob CARDIOVASCULAR: No chest pain/palpitations GASTROINTESTINAL: No nausea/vomiting. GENITOURINARY: No hematuria/dysuria. MUSCULOSKELETAL: No myagias/arthalgias. PSYCHIATRIC: The patient denies depression. NEUROLOGIC: No weakness Constitutional: alert Psych: no complaints Eyes: nl conjunctiva Neck: jvd (9 cm water), supple Respiratory: diminished breath sounds Cardiovascular: regular rate and rhythm Gastrointestinal: non-tender, soft Musculoskeletal: muscle tone (normal) Extremities: edema (none) Neurological: other (No focal deficits) Results Result Diagram: 09/09/16 0621 09/09/16 0948 Results 24 hrs Laboratory Tests Test 09/09/16 06:21 09/09/16 09:48 White Blood Count 11.0 H Red Blood Count 3.10 L Hemoglobin 9.2 L Hematocrit 28.3 L Mean Corpuscular Volume 91.3 Mean Corpuscular Hemoglobin 29.7 Mean Corpuscular Hemoglobin Concent 32.5 Red Cell Distribution Width 15.1 H Platelet Count 365 Mean Platelet Volume 9.5 Neutrophils % 85.0 H Lymphocytes % 8.0 L Reactive Lymphocytes % 1.0 Monocytes % 1.0 Eosinophils % 5.0 Neutrophils # 9.4 H Lymphocytes # 0.9 Monocytes # 0.1 L Eosinophils # 0.6 H Sodium Level 142 Potassium Level 2.9 *L 3.3 L Chloride Level 107 Carbon Dioxide Level 24 Anion Gap 14 Blood Urea Nitrogen 37 H Creatinine 3.35 H Glucose Level 131 # Calcium Level 8.9 Phosphorus Level 3.1 # Magnesium Level 2.1 Medications Medications Current Medications Lidocaine (Xylocaine 1% (Mpf)) 30 ml ONCE PRN INJ PAIN; Start 09/02/16 at 18:00 Amikacin Sulfate (Amikacin Iv Per Pharmacy) AMIKACIN PER PHARMACY NOTE XX ; Start 09/03/16 at 13:30 Ondansetron HCl (Zofran Inj) 4 mg Q6H PRN IV NAUSEA AND/OR VOMITING; Start 09/03 at 14:00 Morphine Sulfate (morphine) 2 mg Q4H PRN IV Pain; Start 09/03/16 at 14:00 Hydralazine HCl (Apresoline) 10 mg Q6H PRN IV SBP>160; Start 09/03/16 at 14:00 Heparin Sodium (Porcine) (Heparin (5000 Units/0.5 ml)) 5,000 unit BID SC Last administered on 09/09/16 08:40; Admin Dose 5,000 UNIT; Start 09/03/16 at 21:00 Famotidine 20 mg 20 mg Q24H PO Last administered on 09/08/16 20:59; Admin Dose 20 MG; Start 09/03/16 at 21:00 Piperacillin Sod/ Tazobactam Sod (Zosyn 2.25gm/ 50ml (Pmx)) 50 ml @ 100 mls/hr Q8 IVPB Last administered on 09/09/16 13:34; Admin Dose 100 MLS/HR; Start 09/03 at 14:21 Epoetin Eligio (Epogen (Esrd)) 3,000 units MoWeFr@17 IV Last administered on t 18:04; Admin Dose 3,000 UNITS; Start 09/06/16 at 17:00 TRISTEN SHAVER Sep 09, 2016 15:19
--- NOTE | 2016-09-09 15:46 | CONS ---
Date/Time of Note Date/Time of Note DATE: 09/09/16 TIME: 15:44 Assessment/Plan Assessment/Plan Chief Complaint/Hosp Course SUBJECTIVE: No acute changes. The patient is alert, denies pain, no fevers. MICROBIOLOGY: Blood culture on admission grew Klebsiella pneumoniae. Repeat blood culture negative. Urine culture growing E. coli ESBL. ANTIMICROBIALS: 1. Amikacin. 2. Zosyn. PHYSICAL EXAMINATION: GENERAL: This is well-developed, elderly man who is in no distress. HEENT: Head atraumatic, normocephalic. Sclerae anicteric. Buccal mucosa pink. NECK: Supple, trachea midline. CHEST: Rise symmetrical. Breath sounds clear. HEART: S1, S2. ABDOMEN: Soft, bowel sounds present. EXTREMITIES: Without cyanosis. ASSESSMENT: 1. Status post bacteremia, the patient had an old catheter removed. 2. Urinary tract infection with urine culture growing Escherichia coli extended -spectrum beta-lactamase, susceptible to amikacin. 3. Healthcare-associated pneumonia with chronic empyema==> clinically improving. 4. End-stage renal disease, hemodialysis dependent. 5. Left upper extremity arteriovenous fistula. 6. Neurogenic bladder secondary to paraplegia. PLAN: The patient remains stable. Continue present care, antibiotics, pending VATS. staff Problems: Consultation Date/Type/Reason Admit Date/Time Sep 03, 2016 at 08:14 Initial Consult Date 09/03/16 Type of Consultation: ID Referring Provider: Jessica GRIJALVA Exam/Review of Systems Vital Signs Vitals Vital Signs Date Time Temp Pulse Resp B/P Pulse Ox O2 Delivery O2 Flow Rate FiO2 09/09/16 14:32 76 20 98 Nasal Cannula 2.0 09/09/16 11:52 97.8 140/68 Intake and Output 09/08/16 09/08/16 09/09/16 15:00 23:00 07:00 Intake Total 1300 ml 300 ml Output Total 800 ml 2800 ml Balance 500 ml -2500 ml Results Result Diagram: 09/09/16 0621 09/09/16 0948 Results 24 hrs Laboratory Tests Test 09/09/16 06:21 09/09/16 09:48 White Blood Count 11.0 H Red Blood Count 3.10 L Hemoglobin 9.2 L Hematocrit 28.3 L Mean Corpuscular Volume 91.3 Mean Corpuscular Hemoglobin 29.7 Mean Corpuscular Hemoglobin Concent 32.5 Red Cell Distribution Width 15.1 H Platelet Count 365 Mean Platelet Volume 9.5 Neutrophils % 85.0 H Lymphocytes % 8.0 L Reactive Lymphocytes % 1.0 Monocytes % 1.0 Eosinophils % 5.0 Neutrophils # 9.4 H Lymphocytes # 0.9 Monocytes # 0.1 L Eosinophils # 0.6 H Sodium Level 142 Potassium Level 2.9 *L 3.3 L Chloride Level 107 Carbon Dioxide Level 24 Anion Gap 14 Blood Urea Nitrogen 37 H Creatinine 3.35 H Glucose Level 131 # Calcium Level 8.9 Phosphorus Level 3.1 # Magnesium Level 2.1 Medications Medications Current Medications Lidocaine (Xylocaine 1% (Mpf)) 30 ml ONCE PRN INJ PAIN; Start 09/02/16 at 18:00 Amikacin Sulfate (Amikacin Iv Per Pharmacy) AMIKACIN PER PHARMACY NOTE XX ; Start 09/03/16 at 13:30 Ondansetron HCl (Zofran Inj) 4 mg Q6H PRN IV NAUSEA AND/OR VOMITING; Start 09/03 at 14:00 Morphine Sulfate (morphine) 2 mg Q4H PRN IV Pain; Start 09/03/16 at 14:00 Hydralazine HCl (Apresoline) 10 mg Q6H PRN IV SBP>160; Start 09/03/16 at 14:00 Heparin Sodium (Porcine) (Heparin (5000 Units/0.5 ml)) 5,000 unit BID SC Last administered on 09/09/16 08:40; Admin Dose 5,000 UNIT; Start 09/03/16 at 21:00 Famotidine 20 mg 20 mg Q24H PO Last administered on 09/08/16 20:59; Admin Dose 20 MG; Start 09/03/16 at 21:00 Piperacillin Sod/ Tazobactam Sod (Zosyn 2.25gm/ 50ml (Pmx)) 50 ml @ 100 mls/hr Q8 IVPB Last administered on 09/09/16 13:34; Admin Dose 100 MLS/HR; Start 09/03 at 14:21 Epoetin Eligio (Epogen (Esrd)) 3,000 units MoWeFr@17 IV Last administered on 18:04; Admin Dose 3,000 UNITS; Start 09/06/16 at 17:00 ECLIA CRAWFORD NP Sep 09, 2016 15:45
--- NOTE | 2016-09-09 17:01 | PN ---
Date/Time of Note Date/Time of Note DATE: 09/09/16 TIME: 16:56 Assessment/Plan VTE Prophylaxis VTE Prophylaxis Intervention: LMWH (hold for surgery) Lines/Catheters IV [facility] (from [facility] Saline Lock Urinary Cath still in place: No Assessment/Plan Chief Complaint/Hosp Course Subjective: No distress chest pain Objective:vss Physical exam No pallor JVD Reg. Positive sm. No r/g Dimin bs. No tachypnea. BS+ nontender, nondistended, no r/r/g No edema Assessment and plan 1. Acute hypoxic respiratory failure. Stable cont O2 2. Empyema. For VATS. May proceed from medical standpoint 3. ESRD; stable cont dialysis 4. Line sepsis/Klebsiella. Improved blood cultures 5. Paraplegic status 6. Htn 7. 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 ESBL E coli cystitis 9. HCAP 10. Neurogenic bladder 11. Anemia Problems: Exam/Review of Systems Vital Signs Vitals Vital Signs Date Time Temp Pulse Resp B/P Pulse Ox O2 Delivery O2 Flow Rate FiO2 09/09/16 16:03 98.4 80 18 145/65 98 09/09/16 14:32 Nasal Cannula 2.0 Intake and Output 09/08/16 09/08/16 09/09/16 15:00 23:00 07:00 Intake Total 1300 ml 300 ml Output Total 800 ml 2800 ml Balance 500 ml -2500 ml Results Result Diagram: 09/09/16 0621 09/09/16 0948 Results 24 hrs Laboratory Tests Test 09/09/16 06:21 09/09/16 09:48 White Blood Count 11.0 H Red Blood Count 3.10 L Hemoglobin 9.2 L Hematocrit 28.3 L Mean Corpuscular Volume 91.3 Mean Corpuscular Hemoglobin 29.7 Mean Corpuscular Hemoglobin Concent 32.5 Red Cell Distribution Width 15.1 H Platelet Count 365 Mean Platelet Volume 9.5 Neutrophils % 85.0 H Lymphocytes % 8.0 L Reactive Lymphocytes % 1.0 Monocytes % 1.0 Eosinophils % 5.0 Neutrophils # 9.4 H Lymphocytes # 0.9 Monocytes # 0.1 L Eosinophils # 0.6 H Sodium Level 142 Potassium Level 2.9 *L 3.3 L Chloride Level 107 Carbon Dioxide Level 24 Anion Gap 14 Blood Urea Nitrogen 37 H Creatinine 3.35 H Glucose Level 131 # Calcium Level 8.9 Phosphorus Level 3.1 # Magnesium Level 2.1 Medications Medications Current Medications Lidocaine (Xylocaine 1% (Mpf)) 30 ml ONCE PRN INJ PAIN; Start 09/02/16 at 18:00 Amikacin Sulfate (Amikacin Iv Per Pharmacy) AMIKACIN PER PHARMACY NOTE XX ; Start 09/03/16 at 13:30 Ondansetron HCl (Zofran Inj) 4 mg Q6H PRN IV NAUSEA AND/OR VOMITING; Start 09/03 at 14:00 Morphine Sulfate (morphine) 2 mg Q4H PRN IV Pain; Start 09/03/16 at 14:00 Hydralazine HCl (Apresoline) 10 mg Q6H PRN IV SBP>160; Start 09/03/16 at 14:00 Heparin Sodium (Porcine) (Heparin (5000 Units/0.5 ml)) 5,000 unit BID SC Last administered on 09/09/16 08:40; Admin Dose 5,000 UNIT; Start 09/03/16 at 21:00 Famotidine 20 mg 20 mg Q24H PO Last administered on 09/08/16 20:59; Admin Dose 20 MG; Start 09/03/16 at 21:00 Piperacillin Sod/ Tazobactam Sod (Zosyn 2.25gm/ 50ml (Pmx)) 50 ml @ 100 mls/hr Q8 IVPB Last administered on 09/09/16 13:34; Admin Dose 100 MLS/HR; Start 09/03 at 14:21 Epoetin Eligio (Epogen (Esrd)) 3,000 units MoWeFr@17 IV Last administered on 18:04; Admin Dose 3,000 UNITS; Start 09/06/16 at 17:00 JAREK GUO MD Sep 09, 2016 17:01
[2016-09-09] MEDS: EPOETIN 3000 UNITS/1 ML INJ (ESRD) IV SCH (17:02)
[2016-09-09] MEDS ORDERED: GUAIFENESIN/DM 5ML CUP PO PRN (17:30)
[2016-09-09] MEDS ORDERED: POTASSIUM CHLORIDE 50 ML IVPB ONE (17:30)
[2016-09-09] MEDS: FAMOTIDINE 20 MG TAB PO SCH (21:14)
--- NOTE | 2016-09-09 22:34 | PN ---
DATE: 09/09/2016 Pt was seen at 1100 AM in the room. The patient has been admitted with urosepsis and has been on antibiotic therapy with the help of ID. The patient has been afebrile and white count has remained normal. The patient is lying comfortably in bed and denies any other complaints. Additional problem is the development of empyema for which he's being followed by ID & surgery. The patient has been on appropriate antibiotic therapy and is confined to bed because of paraplegia. I spoke to daughter at bedside. Exam reveals stable Vital Signs & pt lying comfortably. PLAN: The patient was dialyzed today. I will leave the rest of the plans under the care of the primary care physician. Will continue epo for anemia. Dictated By: TJ CLANCY MD SD/NTS Conf#: [id number] DID#: [id number] CC: KAYLA WILL MD;*EndCC* MTDD
[2016-09-10] VITALS (12 sets, daily range): BP systolic 99–155; BP diastolic 50–84; PULSE 70–80; RESP 18–52
[2016-09-10] MEDS: PIPER-TAZO 2.25 GM (PMX) 50 ML IVPB SCH ×3 (05:20→21:46)
[2016-09-10 06:56] LABS: ADD SCAN DIFF NO
[2016-09-10 07:00] LABS: BASOPHIL # 0.1 10^3/ul (0.0-0.1); BASOPHILS % 0.5 % (0.0-2.0); EOSINOPHILS # 0.3 10^3/ul (0.0-0.5); EOSINOPHILS % 2.3 % (0.0-7.0); HEMATOCRIT 30.4 % (42.0-52.0); HEMOGLOBIN 9.4 g/dl (14.0-18.0); LYMPHOCYTES # 1.6 10^3/ul (0.8-2.9); LYMPHOCYTES % 14.2 % (15.0-51.0); MEAN CORPUSCULAR HEMOGLOBIN 29.6 pg (29.0-33.0); MEAN CORPUSCULAR HGB CONC 30.9 g/dl (32.0-37.0); MEAN CORPUSCULAR VOLUME 95.6 fl (82.0-101.0); MEAN PLATELET VOLUME 9.5 fl (7.4-10.4); MONOCYTE # 0.8 10^3/ul (0.3-0.9); MONOCYTES % 6.7 % (0.0-11.0); NEUTROPHIL # 8.7 10^3/ul (1.6-7.5); NEUTROPHILS % 75.5 % (39.0-77.0); PLATELET COUNT 368 10^3/UL (140-415); RED BLOOD COUNT 3.18 10^6/ul (4.70-6.10); RED CELL DISTRIBUTION WIDTH 15.6 % (11.5-14.5); WHITE BLOOD COUNT 11.5 10^3/ul (4.8-10.8)
[2016-09-10 07:19] LABS: INR 1.25; PROTIME 15.8 Sec (12.2-14.2); PT RATIO 1.2
[2016-09-10 07:25] LABS: ALBUMIN/GLOBULIN RATIO 0.83; BILIRUBIN,INDIRECT 0.1 mg/dl (0-1.1); BILIRUBIN,TOTAL 0.1 mg/dl (0.2-1.3); CALCIUM 8.7 mg/dl (8.4-10.2); CREATININE 4.9 mg/dl (0.61-1.24); MAGNESIUM 2.3 mg/dl (1.7-2.5); PHOSPHORUS 5.5 mg/dl (2.5-4.9); POTASSIUM 3.9 mmol/L (3.5-5.1); TOTAL PROTEIN 6.6 g/dl (6.1-8.1)
[2016-09-10] MEDS: ALBUTEROL/IPRATROPIUM (NEB) 3 ML AMP HHN SCH ×4 (08:00→23:52)
[2016-09-10] MEDS: SEVELAMER CARBONATE 0.8 GM PKT PO SCH ×3 (08:48→17:17)
[2016-09-10] MEDS: HEPARIN 5,000 UNIT/0.5 ML VIAL SC SCH (08:55)
--- NOTE | 2016-09-10 10:13 | RADRPT ---
Vent Rate: 76 bpm RR Interval: 0 msec TN Interval: 142 msec QRS Duration: 86 msec QT Interval: 404 msec QTC Interval: 454 msec P-R-T [place]: 50 - 43 - 62 degrees Normal sinus rhythm Normal ECG Electronically Signed By: Pratik Carter [id number]
--- NOTE | 2016-09-10 10:30 | CONS ---
Date/Time of Note Date/Time of Note DATE: 09/10/16 TIME: 10:30 Assessment/Plan Assessment/Plan Additional Assessment/Plan 1. Klebsiella pneumoniae bacteremia and urinary tract infection. 2. End-stage renal disease, hemodialysis dependent. 3. Left lateral and posterior empyema with adjacent regions of pneumonia. 4. Anemia, Chronic Disease, ESRD 5. Mineral Bone disease, ESRD Cont Maintenance HD schedule, MWF S/p HD yesterday Plan for VATs tomorrow Will cont to closely follow along with you Consultation Date/Type/Reason Admit Date/Time Sep 03, 2016 at 08:14 Initial Consult Date 09/03/16 Type of Consultation: Renal Referring Provider: Jessica GRIJALVA 24 HR Interval Summary Free Text/Dictation S/p HD yesterday Exam/Review of Systems Vital Signs Vitals Vital Signs Date Time Temp Pulse Resp B/P Pulse Ox O2 Delivery O2 Flow Rate FiO2 09/10/16 08:37 70 09/10/16 08:15 Nasal Cannula 2.0 09/10/16 07:41 97.9 18 118/68 98 Intake and Output 09/09/16 09/09/16 09/10/16 15:00 23:00 07:00 Intake Total 50 ml 250 ml 290 ml Output Total 2500 ml Balance 50 ml -2250 ml 290 ml Exam Constitutional: No distress ENMT: mucosa pink and moist Neck: No jvd Respiratory: diminished breath sounds, No labored breathing Cardiovascular: regular rate and rhythm, No edema Results Result Diagram: 09/10/16 0620 09/10/16 0620 Results 24 hrs Laboratory Tests Test 09/10/16 06:20 White Blood Count 11.5 H Red Blood Count 3.18 L Hemoglobin 9.4 L Hematocrit 30.4 L Mean Corpuscular Volume 95.6 Mean Corpuscular Hemoglobin 29.6 Mean Corpuscular Hemoglobin Concent 30.9 L Red Cell Distribution Width 15.6 H Platelet Count 368 Mean Platelet Volume 9.5 Neutrophils % 75.5 Lymphocytes % 14.2 L Monocytes % 6.7 Eosinophils % 2.3 Basophils % 0.5 Nucleated Red Blood Cells % 0.0 Neutrophils # 8.7 H Lymphocytes # 1.6 Monocytes # 0.8 Eosinophils # 0.3 Basophils # 0.1 Nucleated Red Blood Cells # 0.0 Prothrombin Time 15.8 H Prothrombin Time Ratio 1.2 INR International Normalized Ratio 1.25 Sodium Level 141 Potassium Level 3.9 Chloride Level 104 Carbon Dioxide Level 26 Anion Gap 15 Blood Urea Nitrogen 48 #H Creatinine 4.90 #H Glucose Level 107 Calcium Level 8.7 Phosphorus Level 5.5 #H Magnesium Level 2.3 Total Bilirubin 0.1 L Direct Bilirubin 0.00 Indirect Bilirubin 0.1 Aspartate Amino Transf (AST/SGOT) 24 Alanine Aminotransferase (ALT/SGPT) 43 Alkaline Phosphatase 103 Total Protein 6.6 Albumin 3.0 L Globulin 3.60 H Albumin/Globulin Ratio 0.83 Medications Medications Current Medications Lidocaine (Xylocaine 1% (Mpf)) 30 ml ONCE PRN INJ PAIN; Start 09/02/16 at 18:00 Amikacin Sulfate (Amikacin Iv Per Pharmacy) AMIKACIN PER PHARMACY NOTE XX ; Start 09/03/16 at 13:30 Ondansetron HCl (Zofran Inj) 4 mg Q6H PRN IV NAUSEA AND/OR VOMITING; Start 09/03 at 14:00 Morphine Sulfate (morphine) 2 mg Q4H PRN IV Pain; Start 09/03/16 at 14:00 Hydralazine HCl (Apresoline) 10 mg Q6H PRN IV SBP>160; Start 09/03/16 at 14:00 Heparin Sodium (Porcine) (Heparin (5000 Units/0.5 ml)) 5,000 unit BID SC Last administered on 09/10/16 08:55; Admin Dose 5,000 UNIT; Start 09/03/16 at 21:00 Famotidine 20 mg 20 mg Q24H PO Last administered on 09/09/16 21:14; Admin Dose 20 MG; Start 09/03/16 at 21:00 Piperacillin Sod/ Tazobactam Sod (Zosyn 2.25gm/ 50ml (Pmx)) 50 ml @ 100 mls/hr Q8 IVPB Last administered on 09/10/16 05:20; Admin Dose 100 MLS/HR; Start 09/03 at 14:21 Epoetin Eligio (Epogen (Esrd)) 3,000 units MoWeFr@17 IV Last administered on 09/09 17:02; Admin Dose 3,000 UNITS; Start 09/06/16 at 17:00 Guaifenesin/ Dextromethorphan (Robitussin Dm Liquid Cup) 10 ml Q4H PRN PO COUGH ; Start 09/09/16 at 17:30 MALIA EID MD Sep 10, 2016 10:30
--- NOTE | 2016-09-10 12:01 | CONS ---
Date/Time of Note Date/Time of Note DATE: 09/10/16 TIME: 11:58 Assessment/Plan Assessment/Plan Additional Assessment/Plan Assessment recommendations; 1. Patient admitted for left-sided pneumonia with significant pleural involvement indicative of underlying empyema. 2. Chronic renal failure, on hemodialysis. 3. History of paraplegia. Continue current treatment. Obtain follow-up chest x-ray. Once the chest x- rays obtained I will review it and make further recommendations regarding the need for possible decortication. Consultation Date/Type/Reason Admit Date/Time Sep 03, 2016 at 08:14 Initial Consult Date 09/03/16 Type of Consultation: Pulmonary Referring Provider: Jessica GRIJALVA 24 HR Interval Summary Free Text/Dictation Patient condition stable. Denies any shortness of breath, chest pain, fever, chills. Denies any sputum production. General exam; elderly male, awake alert currently in no distress. Exam/Review of Systems Vital Signs Vitals Vital Signs Date Time Temp Pulse Resp B/P Pulse Ox O2 Delivery O2 Flow Rate FiO2 09/10/16 08:37 70 09/10/16 08:15 Nasal Cannula 2.0 09/10/16 07:41 97.9 18 118/68 98 Intake and Output 09/09/16 09/09/16 09/10/16 15:00 23:00 07:00 Intake Total 50 ml 250 ml 290 ml Output Total 2500 ml Balance 50 ml -2250 ml 290 ml Exam HEENT examination; supple neck, no JVD. No lymphadenopathy. Midline trachea. No thyromegaly. No neck masses. Pupils are small bilaterally. Chest examination; decreased breath sounds left lung, right lung is clear to auscultation. S1-S2 audible, no murmurs. Regular rhythm. Abdomen examination; soft, nondistended, nontender. No organomegaly. Bowel sounds audible. Extremity examination; no peripheral edema. VICE CHAIRMAN examination; patient has stable paraplegia. Results Result Diagram: 09/10/16 0620 09/10/16 0620 Results 24 hrs Laboratory Tests Test 09/10/16 06:20 White Blood Count 11.5 H Red Blood Count 3.18 L Hemoglobin 9.4 L Hematocrit 30.4 L Mean Corpuscular Volume 95.6 Mean Corpuscular Hemoglobin 29.6 Mean Corpuscular Hemoglobin Concent 30.9 L Red Cell Distribution Width 15.6 H Platelet Count 368 Mean Platelet Volume 9.5 Neutrophils % 75.5 Lymphocytes % 14.2 L Monocytes % 6.7 Eosinophils % 2.3 Basophils % 0.5 Nucleated Red Blood Cells % 0.0 Neutrophils # 8.7 H Lymphocytes # 1.6 Monocytes # 0.8 Eosinophils # 0.3 Basophils # 0.1 Nucleated Red Blood Cells # 0.0 Prothrombin Time 15.8 H Prothrombin Time Ratio 1.2 INR International Normalized Ratio 1.25 Sodium Level 141 Potassium Level 3.9 Chloride Level 104 Carbon Dioxide Level 26 Anion Gap 15 Blood Urea Nitrogen 48 #H Creatinine 4.90 #H Glucose Level 107 Calcium Level 8.7 Phosphorus Level 5.5 #H Magnesium Level 2.3 Total Bilirubin 0.1 L Direct Bilirubin 0.00 Indirect Bilirubin 0.1 Aspartate Amino Transf (AST/SGOT) 24 Alanine Aminotransferase (ALT/SGPT) 43 Alkaline Phosphatase 103 Total Protein 6.6 Albumin 3.0 L Globulin 3.60 H Albumin/Globulin Ratio 0.83 Medications Medications Current Medications Lidocaine (Xylocaine 1% (Mpf)) 30 ml ONCE PRN INJ PAIN; Start 09/02/16 at 18:00 Amikacin Sulfate (Amikacin Iv Per Pharmacy) AMIKACIN PER PHARMACY NOTE XX ; Start 09/03/16 at 13:30 Ondansetron HCl (Zofran Inj) 4 mg Q6H PRN IV NAUSEA AND/OR VOMITING; Start 09/03 at 14:00 Morphine Sulfate (morphine) 2 mg Q4H PRN IV Pain; Start 09/03/16 at 14:00 Hydralazine HCl (Apresoline) 10 mg Q6H PRN IV SBP>160; Start 09/03/16 at 14:00 Heparin Sodium (Porcine) (Heparin (5000 Units/0.5 ml)) 5,000 unit BID SC Last administered on 09/10/16 08:55; Admin Dose 5,000 UNIT; Start 09/03/16 at 21:00 Famotidine 20 mg 20 mg Q24H PO Last administered on 09/09/16 21:14; Admin Dose 20 MG; Start 09/03/16 at 21:00 Piperacillin Sod/ Tazobactam Sod (Zosyn 2.25gm/ 50ml (Pmx)) 50 ml @ 100 mls/hr Q8 IVPB Last administered on 09/10/16 05:20; Admin Dose 100 MLS/HR; Start 09/03 at 14:21 Epoetin Eligio (Epogen (Esrd)) 3,000 units MoWeFr@17 IV Last administered on 09/09 17:02; Admin Dose 3,000 UNITS; Start 09/06/16 at 17:00 Guaifenesin/ Dextromethorphan (Robitussin Dm Liquid Cup) 10 ml Q4H PRN PO COUGH ; Start 09/09/16 at 17:30 NELSON VICTOR Sep 10, 2016 12:00
--- NOTE | 2016-09-10 13:30 | PN ---
Date/Time of Note Date/Time of Note DATE: 09/10/16 TIME: 13:29 Assessment/Plan Lines/Catheters IV Catheter Type (from Nrsg): Saline Lock Deutsch in Place (from Nrsg): No Assessment/Plan Chief Complaint/Hosp Course Left pleural effusion, possibly empyema, but the patient is clinically improving. Will continue antibiotics. Will need Left video-assisted thoracic surgery and decortication Cleared by cardiology. Discussed with the daughter Plan for surgery tomorrow Problems: Subjective 24 Hr Interval Summary Constitutional: improved Pain Control: mild Exam/Review of Systems Vital Signs Vitals Vital Signs Date Time Temp Pulse Resp B/P Pulse Ox O2 Delivery O2 Flow Rate FiO2 09/10/16 13:09 2.0 09/10/16 12:23 75 09/10/16 12:01 98.2 18 122/57 94 09/10/16 08:15 Nasal Cannula Intake and Output 09/09/16 09/09/16 09/10/16 15:00 23:00 07:00 Intake Total 50 ml 250 ml 290 ml Output Total 2500 ml Balance 50 ml -2250 ml 290 ml Exam ENMT: mucosa pink and moist, nl external ears & nose, nl lips & teeth, nl nasal mucosa & septum Neck: non-tender, supple Respiratory: clear to auscultation, normal air movement Cardiovascular: nl pulses, regular rate and rhythm Results Result Diagram: 09/10/1661909/10/16619 FRANKY PERES MD Sep 10, 2016 13:30
--- NOTE | 2016-09-10 14:04 | CONS ---
Date/Time of Note Date/Time of Note DATE: 09/10/16 TIME: 14:03 Assessment/Plan Assessment/Plan Chief Complaint/Hosp Course SUBJECTIVE: No acute changes, no fevers. MICROBIOLOGY: Blood culture on admission grew Klebsiella pneumoniae. Repeat blood culture negative. Urine culture growing E. coli ESBL. ANTIMICROBIALS: 1. Amikacin. 2. Zosyn. PHYSICAL EXAMINATION: GENERAL: This is well-developed, elderly man who is in no distress. HEENT: Head atraumatic, normocephalic. Sclerae anicteric. Buccal mucosa pink. NECK: Supple, trachea midline. CHEST: Rise symmetrical. Breath sounds clear. HEART: S1, S2. ABDOMEN: Soft, bowel sounds present. EXTREMITIES: Without cyanosis. ASSESSMENT: 1. Status post bacteremia, the patient had an old catheter removed. 2. Urinary tract infection with urine culture growing Escherichia coli extended -spectrum beta-lactamase, susceptible to amikacin. 3. Healthcare-associated pneumonia with chronic empyema==> clinically improving. 4. End-stage renal disease, hemodialysis dependent. 5. Left upper extremity arteriovenous fistula. 6. Neurogenic bladder secondary to paraplegia. PLAN: The patient remains stable. Continue present care, antibiotics, f/u pulmonary/CTS rec-s, pending VATS. DW staff Problems: Consultation Date/Type/Reason Admit Date/Time Sep 03, 2016 at 08:14 Initial Consult Date 09/03/16 Type of Consultation: id Referring Provider: Jessica GRIJALVA Exam/Review of Systems Vital Signs Vitals Vital Signs Date Time Temp Pulse Resp B/P Pulse Ox O2 Delivery O2 Flow Rate FiO2 09/10/16 13:09 2.0 09/10/16 12:23 75 09/10/16 12:01 98.2 18 122/57 94 09/10/16 08:15 Nasal Cannula Intake and Output 09/09/16 09/09/16 09/10/16 15:00 23:00 07:00 Intake Total 50 ml 250 ml 290 ml Output Total 2500 ml Balance 50 ml -2250 ml 290 ml Results Result Diagram: 09/10/16 0620 09/10/16 0620 Results 24 hrs Laboratory Tests Test 09/10/16 06:20 White Blood Count 11.5 H Red Blood Count 3.18 L Hemoglobin 9.4 L Hematocrit 30.4 L Mean Corpuscular Volume 95.6 Mean Corpuscular Hemoglobin 29.6 Mean Corpuscular Hemoglobin Concent 30.9 L Red Cell Distribution Width 15.6 H Platelet Count 368 Mean Platelet Volume 9.5 Neutrophils % 75.5 Lymphocytes % 14.2 L Monocytes % 6.7 Eosinophils % 2.3 Basophils % 0.5 Nucleated Red Blood Cells % 0.0 Neutrophils # 8.7 H Lymphocytes # 1.6 Monocytes # 0.8 Eosinophils # 0.3 Basophils # 0.1 Nucleated Red Blood Cells # 0.0 Prothrombin Time 15.8 H Prothrombin Time Ratio 1.2 INR International Normalized Ratio 1.25 Sodium Level 141 Potassium Level 3.9 Chloride Level 104 Carbon Dioxide Level 26 Anion Gap 15 Blood Urea Nitrogen 48 #H Creatinine 4.90 #H Glucose Level 107 Calcium Level 8.7 Phosphorus Level 5.5 #H Magnesium Level 2.3 Total Bilirubin 0.1 L Direct Bilirubin 0.00 Indirect Bilirubin 0.1 Aspartate Amino Transf (AST/SGOT) 24 Alanine Aminotransferase (ALT/SGPT) 43 Alkaline Phosphatase 103 Total Protein 6.6 Albumin 3.0 L Globulin 3.60 H Albumin/Globulin Ratio 0.83 Medications Medications Current Medications Lidocaine (Xylocaine 1% (Mpf)) 30 ml ONCE PRN INJ PAIN; Start 09/02/16 at 18:00 Amikacin Sulfate (Amikacin Iv Per Pharmacy) AMIKACIN PER PHARMACY NOTE XX ; Start 09/03/16 at 13:30 Ondansetron HCl (Zofran Inj) 4 mg Q6H PRN IV NAUSEA AND/OR VOMITING; Start 09/03 at 14:00 Morphine Sulfate (morphine) 2 mg Q4H PRN IV Pain; Start 09/03/16 at 14:00 Hydralazine HCl (Apresoline) 10 mg Q6H PRN IV SBP>160; Start 09/03/16 at 14:00 Heparin Sodium (Porcine) (Heparin (5000 Units/0.5 ml)) 5,000 unit BID SC Last administered on 09/10/16 08:55; Admin Dose 5,000 UNIT; Start 09/03/16 at 21:00 Famotidine 20 mg 20 mg Q24H PO Last administered on 09/09/16 21:14; Admin Dose 20 MG; Start 09/03/16 at 21:00 Piperacillin Sod/ Tazobactam Sod (Zosyn 2.25gm/ 50ml (Pmx)) 50 ml @ 100 mls/hr Q8 IVPB Last administered on 09/10/16 13:08; Admin Dose 100 MLS/HR; Start 09/03 at 14:21 Epoetin Eligio (Epogen (Esrd)) 3,000 units MoWeFr@17 IV Last administered on 09/09 17:02; Admin Dose 3,000 UNITS; Start 09/06/16 at 17:00 Guaifenesin/ Dextromethorphan (Robitussin Dm Liquid Cup) 10 ml Q4H PRN PO COUGH ; Start 09/09/16 at 17:30 CELIA CRAWFORD TRAINING PROJECT MANAGER Sep 10, 2016 14:04
--- NOTE | 2016-09-10 14:12 | RADRPT ---
PROCEDURE: XR Chest. CLINICAL INDICATION: Shortness of breath. TECHNIQUE: Single frontal view. COMPARISON: 09/04/2016. FINDINGS: There is mild right basilar atelectasis and a small right pleural effusion, new when compared with t he prior study. Moderate left basilar atelectasis and moderate laterally loculated left pleural eff usion are unchanged. The heart size is normal. There is calcification in the aorta consistent with atherosclerosis. There is no pneumothorax. IMPRESSION: 1. New mild right basilar atelectasis and small right pleural effusion. 2. No change in left basilar atelectasis and laterally loculated left moderate pleural effusion. RPTAT: QQ .Derek Gómez MD, MD Date Time Electronically viewed and signed by .Derek Gómez MD, on 09/10/2016 14:11 .R/
--- NOTE | 2016-09-10 15:53 | PN ---
Date/Time of Note Date/Time of Note DATE: 09/10/16 TIME: 15:52 Assessment/Plan VTE Prophylaxis VTE Prophylaxis Intervention: contraindicated VTE Contraindication Reason: bleeding (Bleeding risk) Lines/Catheters IV Catheter Type (from Nrs): Saline Lock Urinary Cath still in place: No Assessment/Plan Chief Complaint/Hosp Course S 09/09 no distress chest pain 09/10 no distress chest pain or dyspnea. O:vss PE No pallor JVD Reg. sm+. No r/g Dimin bs. No tachypnea. BS+ nt, nd, no r/r/g No edema A/P 1. Acute hypoxic respiratory failure. Stable cont O2 2. Empyema. For VATS. May proceed from medical standpoint 3. ESRD; stable cont dialysis 4. Line sepsis/Klebsiella. Improved blood cultures 5. Paraplegic status 6. Htn 7. 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 ESBL E coli cystitis 9. HCAP 10. Neurogenic bladder 11. Anemia Problems: Exam/Review of Systems Vital Signs Vitals Vital Signs Date Time Temp Pulse Resp B/P Pulse Ox O2 Delivery O2 Flow Rate FiO2 09/10/16 13:09 2.0 09/10/16 12:23 75 09/10/16 12:01 98.2 18 122/57 94 09/10/16 08:15 Nasal Cannula Intake and Output 09/09/16 09/09/16 09/10/16 15:00 23:00 07:00 Intake Total 50 ml 250 ml 290 ml Output Total 2500 ml Balance 50 ml -2250 ml 290 ml Results Result Diagram: 09/10/16 0620 09/10/16 0620 Results 24 hrs Laboratory Tests Test 09/10/16 06:20 White Blood Count 11.5 H Red Blood Count 3.18 L Hemoglobin 9.4 L Hematocrit 30.4 L Mean Corpuscular Volume 95.6 Mean Corpuscular Hemoglobin 29.6 Mean Corpuscular Hemoglobin Concent 30.9 L Red Cell Distribution Width 15.6 H Platelet Count 368 Mean Platelet Volume 9.5 Neutrophils % 75.5 Lymphocytes % 14.2 L Monocytes % 6.7 Eosinophils % 2.3 Basophils % 0.5 Nucleated Red Blood Cells % 0.0 Neutrophils # 8.7 H Lymphocytes # 1.6 Monocytes # 0.8 Eosinophils # 0.3 Basophils # 0.1 Nucleated Red Blood Cells # 0.0 Prothrombin Time 15.8 H Prothrombin Time Ratio 1.2 INR International Normalized Ratio 1.25 Sodium Level 141 Potassium Level 3.9 Chloride Level 104 Carbon Dioxide Level 26 Anion Gap 15 Blood Urea Nitrogen 48 #H Creatinine 4.90 #H Glucose Level 107 Calcium Level 8.7 Phosphorus Level 5.5 #H Magnesium Level 2.3 Total Bilirubin 0.1 L Direct Bilirubin 0.00 Indirect Bilirubin 0.1 Aspartate Amino Transf (AST/SGOT) 24 Alanine Aminotransferase (ALT/SGPT) 43 Alkaline Phosphatase 103 Total Protein 6.6 Albumin 3.0 L Globulin 3.60 H Albumin/Globulin Ratio 0.83 Medications Medications Current Medications Lidocaine (Xylocaine 1% (Mpf)) 30 ml ONCE PRN INJ PAIN; Start 09/02/16 at 18:00 Amikacin Sulfate (Amikacin Iv Per Pharmacy) AMIKACIN PER PHARMACY NOTE XX ; Start 09/03/16 at 13:30 Ondansetron HCl (Zofran Inj) 4 mg Q6H PRN IV NAUSEA AND/OR VOMITING; Start 09/03 at 14:00 Morphine Sulfate (morphine) 2 mg Q4H PRN IV Pain; Start 09/03/16 at 14:00 Hydralazine HCl (Apresoline) 10 mg Q6H PRN IV SBP>160; Start 09/03/16 at 14:00 Heparin Sodium (Porcine) (Heparin (5000 Units/0.5 ml)) 5,000 unit BID SC Last administered on 09/10/16 08:55; Admin Dose 5,000 UNIT; Start 09/03/16 at 21:00 Famotidine 20 mg 20 mg Q24H PO Last administered on 09/09/16 21:14; Admin Dose 20 MG; Start 09/03/16 at 21:00 Piperacillin Sod/ Tazobactam Sod (Zosyn 2.25gm/ 50ml (Pmx)) 50 ml @ 100 mls/hr Q8 IVPB Last administered on 09/10/16 13:08; Admin Dose 100 MLS/HR; Start 09/03 at 14:21 Epoetin Eligio (Epogen (Esrd)) 3,000 units MoWeFr@17 IV Last administered on 09/09 17:02; Admin Dose 3,000 UNITS; Start 09/06/16 at 17:00 Guaifenesin/ Dextromethorphan (Robitussin Dm Liquid Cup) 10 ml Q4H PRN PO COUGH ; Start 09/09/16 at 17:30 JAREK GUO MD Sep 10, 2016 15:53
--- NOTE | 2016-09-10 15:59 | CONS ---
Date/Time of Note Date/Time of Note DATE: 09/10/16 TIME: 15:57 Assessment/Plan Assessment/Plan Additional Assessment/Plan 1. Preoperative evaluation prior to VATS procedure with, at this time, the patient having a EF done this admission revealing a preserved left ventricular ejection fraction and moderate mitral regurgitation and having negative troponins x3 since admit. Patient has no cardiac contraindication to proceeding to OR for VATS/decortication at this time at moderate risk- pre-op done per DR. Guerra. 2. Empyema - on anti-bx 3. End-stage renal disease on hemodialysis - Rx with HD as needed 4. Bacteremia. 5. Urinary tract infection. 6. Paraplegia - con't skin care. Consultation Date/Type/Reason Admit Date/Time Sep 03, 2016 at 08:14 Initial Consult Date 09/03/16 Type of Consultation: id Referring Provider: Jessica GRIJALVA 24 HR Interval Summary Free Text/Dictation No acute change- no significant ectopy on tele. Medications reviewed. ROS: No fever, no chills, no nausea, no vomiting, no diarrhea/constipation No recent weight changes No chest pain, no PND, no orthopnea No dizziness, blurred vision No thirst, no heat or cold intolerance Exam/Review of Systems Vital Signs Vitals Vital Signs Date Time Temp Pulse Resp B/P Pulse Ox O2 Delivery O2 Flow Rate FiO2 09/10/16 13:09 2.0 09/10/16 12:23 75 09/10/16 12:01 98.2 18 122/57 94 09/10/16 08:15 Nasal Cannula Intake and Output 09/09/16 09/09/16 09/10/16 15:00 23:00 07:00 Intake Total 50 ml 250 ml 290 ml Output Total 2500 ml Balance 50 ml -2250 ml 290 ml Exam General: WN/WD/NAD, AOx 1-2 HEENT: Unicetric/atraumatic/EOMI (follow commands) NECK: JVD elevated, no thyromegaly Lymph: no lymphadenopathy HEART: regular with no S3, II/ systolic murmur at apex LUNGS: Coarse sounds ABD: soft, NT, ND, +BS : Intact Neuro: non focal SKIN: chronic changes EXT: trace edema Results Result Diagram: 09/10/1661909/10/16 0620 Results 24 hrs Laboratory Tests Test 09/10/16 06:20 White Blood Count 11.5 H Red Blood Count 3.18 L Hemoglobin 9.4 L Hematocrit 30.4 L Mean Corpuscular Volume 95.6 Mean Corpuscular Hemoglobin 29.6 Mean Corpuscular Hemoglobin Concent 30.9 L Red Cell Distribution Width 15.6 H Platelet Count 368 Mean Platelet Volume 9.5 Neutrophils % 75.5 Lymphocytes % 14.2 L Monocytes % 6.7 Eosinophils % 2.3 Basophils % 0.5 Nucleated Red Blood Cells % 0.0 Neutrophils # 8.7 H Lymphocytes # 1.6 Monocytes # 0.8 Eosinophils # 0.3 Basophils # 0.1 Nucleated Red Blood Cells # 0.0 Prothrombin Time 15.8 H Prothrombin Time Ratio 1.2 INR International Normalized Ratio 1.25 Sodium Level 141 Potassium Level 3.9 Chloride Level 104 Carbon Dioxide Level 26 Anion Gap 15 Blood Urea Nitrogen 48 #H Creatinine 4.90 #H Glucose Level 107 Calcium Level 8.7 Phosphorus Level 5.5 #H Magnesium Level 2.3 Total Bilirubin 0.1 L Direct Bilirubin 0.00 Indirect Bilirubin 0.1 Aspartate Amino Transf (AST/SGOT) 24 Alanine Aminotransferase (ALT/SGPT) 43 Alkaline Phosphatase 103 Total Protein 6.6 Albumin 3.0 L Globulin 3.60 H Albumin/Globulin Ratio 0.83 Medications Medications Current Medications Lidocaine (Xylocaine 1% (Mpf)) 30 ml ONCE PRN INJ PAIN; Start 09/02/16 at 18:00 Amikacin Sulfate (Amikacin Iv Per Pharmacy) AMIKACIN PER PHARMACY NOTE XX ; Start 09/03/16 at 13:30 Ondansetron HCl (Zofran Inj) 4 mg Q6H PRN IV NAUSEA AND/OR VOMITING; Start 09/03 at 14:00 Morphine Sulfate (morphine) 2 mg Q4H PRN IV Pain; Start 09/03/16 at 14:00 Hydralazine HCl (Apresoline) 10 mg Q6H PRN IV SBP>160; Start 09/03/16 at 14:00 Famotidine 20 mg 20 mg Q24H PO Last administered on 09/09/16t 21:14; Admin Dose 20 MG; Start 09/03/16 at 21:00 Piperacillin Sod/ Tazobactam Sod (Zosyn 2.25gm/ 50ml (Pmx)) 50 ml @ 100 mls/hr Q8 IVPB Last administered on 09/10/16 13:08; Admin Dose 100 MLS/HR; Start 09/03 at 14:21 Epoetin Eligio (Epogen (Esrd)) 3,000 units MoWeFr@17 IV Last administered on 09/09 17:02; Admin Dose 3,000 UNITS; Start 09/06/16 at 17:00 Guaifenesin/ Dextromethorphan (Robitussin Dm Liquid Cup) 10 ml Q4H PRN PO COUGH ; Start 09/09/16 at 17:30 Acetaminophen/ Hydrocodone Bitart ([place] ()) 1 tab Q4H PRN PO PAIN; Start 09/10/16 at 16:00 SHAHID LACEY MD Sep 10, 2016 15:59
[2016-09-10] MEDS ORDERED: BISACODYL (EC) 5 MG TAB PO PRN (16:00)
[2016-09-10] MEDS ORDERED: HYDROCODONE/APAP (10/325) TAB PO PRN (16:00)
[2016-09-10] MEDS: FAMOTIDINE 20 MG TAB PO SCH (21:46)
[2016-09-11] VITALS (63 sets, daily range): BP systolic 86–156; BP diastolic 21–75; PULSE 66–88; RESP 16–37
[2016-09-11] MEDS: ALBUTEROL/IPRATROPIUM (NEB) 3 ML AMP HHN PRN (04:39)
[2016-09-11] MEDS: PIPER-TAZO 2.25 GM (PMX) 50 ML IVPB SCH ×3 (05:40→21:25)
[2016-09-11 06:35] LABS: ADD SCAN DIFF NO
[2016-09-11 06:40] LABS: HEMATOCRIT 30.6 % (42.0-52.0); HEMOGLOBIN 9.3 g/dl (14.0-18.0); MEAN CORPUSCULAR HEMOGLOBIN 29.2 pg (29.0-33.0); MEAN CORPUSCULAR HGB CONC 30.4 g/dl (32.0-37.0); MEAN CORPUSCULAR VOLUME 95.9 fl (82.0-101.0); MEAN PLATELET VOLUME 9.6 fl (7.4-10.4); PLATELET COUNT 423 10^3/UL (140-415); RED BLOOD COUNT 3.19 10^6/ul (4.70-6.10); RED CELL DISTRIBUTION WIDTH 15.7 % (11.5-14.5); WHITE BLOOD COUNT 13.4 10^3/ul (4.8-10.8)
[2016-09-11 06:47] LABS: PHOSPHORUS 5.8 mg/dl (2.5-4.9)
[2016-09-11 06:48] LABS: MAGNESIUM 2.2 mg/dl (1.7-2.5)
[2016-09-11 06:49] LABS: POTASSIUM 3.7 mmol/L (3.5-5.1)
[2016-09-11 06:52] LABS: CREATININE 5.86 mg/dl (0.61-1.24)
[2016-09-11 06:53] LABS: CALCIUM 9.1 mg/dl (8.4-10.2)
[2016-09-11] MEDS: SEVELAMER CARBONATE 0.8 GM PKT PO SCH ×3 (08:00→20:44)
[2016-09-11] MEDS: ALBUTEROL/IPRATROPIUM (NEB) 3 ML AMP HHN SCH ×3 (08:24→23:12)
[2016-09-11] MEDS ORDERED: MINERAL OIL LIGHT 10 ML VIAL ONE (09:13)
[2016-09-11 10:04] LABS: EOSINOPHILS # 0.4 10^3/ul (0.0-0.5); LYMPHOCYTES # 1.3 10^3/ul (0.8-2.9); MONOCYTE # 0.7 10^3/ul (0.3-0.9)
[2016-09-11] MEDS ORDERED: LIDOCAINE 0.5% (MDV) 50 ML INJ ONE (11:43)
[2016-09-11] MEDS ORDERED: BUPIVACAINE 0.5%/EPI (SDV) 30 ML INJ ONE (11:43)
[2016-09-11] MEDS ORDERED: ETOMIDATE 20 MG INJ ONE (11:57)
--- NOTE | 2016-09-11 12:19 | PN ---
Date/Time of Note Date/Time of Note DATE: 09/11/16 TIME: : Assessment/Plan VTE Prophylaxis VTE Prophylaxis Intervention: contraindicated (Bleeding risk) Lines/Catheters IV Catheter Type (from Nrs): [facility] Urinary Cath still in place: No Assessment/Plan Chief Complaint/Hosp Course S 09/09 no distress chest pain 09/10 no distress chest pain or dyspnea. 09/11 stable no distress. Positive dyspnea chills. No chest pain. Dialysis 3 L removed. O:vss PE No pallor JVD Reg. sm+. No r/g Dimin bs. No tachypnea. BS+ nt, nd, no r/r/g No edema A/P 1. Ac hypoxic respiratory failure. Stable cont O2 2. Empyema. For VATS. May proceed from medical standpoint 3. ESRD; stable cont dialysis 4. Line sepsis/Klebsiella. Improved blood cultures 5. Paraplegic status. Disposition? Home vs snf. 6. Htn 7. 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 ESBL E coli cystitis 9. HCAP 10. Neurogenic bladder 11. Anemia Problems: Exam/Review of Systems Vital Signs Vitals Vital Signs Date Time Temp Pulse Resp B/P Pulse Ox O2 Delivery O2 Flow Rate FiO2 09/11/16 11:38 97.7 76 18 112/55 100 09/11/16 08:26 3.0 09/11/16 08:26 Nasal Cannula Intake and Output 09/10/16 09/10/16 09/11/16 15:00 23:00 07:00 Intake Total 770 ml 100 ml Output Total 700 ml 0 ml Balance 70 ml 100 ml Results Result Diagram: 09/11/16 0545 09/11/16 0548 Results 24 hrs Laboratory Tests Test 09/11/16 04:40 09/11/16 05:10 09/11/16 05:45 09/11/16 05:48 Bedside Glucose 126 Phosphorus Level 5.8 H Magnesium Level 2.2 White Blood Count 13.4 H Red Blood Count 3.19 L Hemoglobin 9.3 L Hematocrit 30.6 L Mean Corpuscular Volume 95.9 Mean Corpuscular Hemoglobin 29.2 Mean Corpuscular Hemoglobin Concent 30.4 L Red Cell Distribution Width 15.7 H Platelet Count 423 H Mean Platelet Volume 9.6 Neutrophils % 82.0 H Lymphocytes % 10.0 L Monocytes % 5.0 Eosinophils % 3.0 Neutrophils # 11.0 H Lymphocytes # 1.3 Monocytes # 0.7 Eosinophils # 0.4 Large Platelets OCCASIONAL Sodium Level 142 Potassium Level 3.7 Chloride Level 102 Carbon Dioxide Level 22 Anion Gap 22 #H Blood Urea Nitrogen 56 H Creatinine 5.86 H Glucose Level 117 Calcium Level 9.1 Medications Medications Current Medications Lidocaine (Xylocaine 1% (Mpf)) 30 ml ONCE PRN INJ PAIN; Start 09/02/16 at 18:00 Amikacin Sulfate (Amikacin Iv Per Pharmacy) AMIKACIN PER PHARMACY NOTE XX ; Start 09/03/16 at 13:30 Ondansetron HCl (Zofran Inj) 4 mg Q6H PRN IV NAUSEA AND/OR VOMITING; Start 09/03 at 14:00 Morphine Sulfate (morphine) 2 mg Q4H PRN IV Pain; Start 09/03/16 at 14:00 Hydralazine HCl (Apresoline) 10 mg Q6H PRN IV SBP>160; Start 09/03/16 at 14:00 Famotidine 20 mg 20 mg Q24H PO Last administered on 09/10/16 21:46; Admin Dose 20 MG; Start 09/03/16 at 21:00 Piperacillin Sod/ Tazobactam Sod (Zosyn 2.25gm/ 50ml (Pmx)) 50 ml @ 100 mls/hr Q8 IVPB Last administered on 09/11/16 05:40; Admin Dose 100 MLS/HR; Start 09/03 at 14:21 Epoetin Eligio (Epogen (Esrd)) 3,000 units MoWeFr@17 IV Last administered on 09/09 17:02; Admin Dose 3,000 UNITS; Start 09/06/16 at 17:00 Guaifenesin/ Dextromethorphan (Robitussin Dm Liquid Cup) 10 ml Q4H PRN PO COUGH ; Start 09/09/16 at 17:30 Acetaminophen/ Hydrocodone Bitart ([place] (10/325)) 1 tab Q4H PRN PO PAIN; Start 09/10/16 at 16:00 Bisacodyl (Dulcolax) 10 mg DAILY PRN PO CONSTIPATION; Start 09/10/16 at 16:00 JAREK GUO MD Sep 11, 2016 12:19
[2016-09-11] MEDS ORDERED: SEVOFLURANE 15 MIN ONE (12:30)
[2016-09-11] MEDS ORDERED: ROCURONIUM 50 MG INJ ONE (12:30)
[2016-09-11] MEDS ORDERED: PROPOFOL 200 MG INJ ONE (12:30)
[2016-09-11] MEDS ORDERED: LIDOCAINE 2% (SDV) 5 ML INJ ONE (12:30)
--- NOTE | 2016-09-11 14:15 | CONS ---
Date/Time of Note Date/Time of Note DATE: 09/11/16 TIME: 14:14 Assessment/Plan Assessment/Plan Chief Complaint/Hosp Course IMPRESSION: 1. Preoperative evaluation prior to VATS procedure with, at this time, the patient having a EF done this admission revealing a preserved left ventricular ejection fraction and moderate mitral regurgitation and having negative troponins x 3 since admit. Patient has no cardiac contraindication to proceeding to OR for VATS/decortication at this time at moderate risk. 2. Empyema. 3. End-stage renal disease on hemodialysis. 4. Bacteremia. 5. Urinary tract infection. 6. Paraplegia Recc: -Tele -To OR today for VATS/decortication -Continue abx's -Follow volume status closely -check post-op ECG and follow closely for s/sx of CV complications Problems: Consultation Date/Type/Reason Admit Date/Time Sep 03, 2016 at 08:14 Initial Consult Date 09/03/16 Type of Consultation: Cardiology Reason for Consultation Pre-op Referring Provider: Jessica GRIJALVA Exam/Review of Systems Vital Signs Vitals Vital Signs Date Time Temp Pulse Resp B/P Pulse Ox O2 Delivery O2 Flow Rate FiO2 09/11/16 12:18 72 09/11/16 11:38 97.7 18 112/55 100 09/11/16 08:26 3.0 09/11/16 08:26 Nasal Cannula Intake and Output 09/10/16 09/10/16 09/11/16 15:00 23:00 07:00 Intake Total 770 ml 100 ml Output Total 700 ml 0 ml Balance 70 ml 100 ml Exam Review of Systems: CONSTITUTIONAL: No fevers, chills. PULMONARY: No sob CARDIOVASCULAR: No chest pain/palpitations GASTROINTESTINAL: No nausea/vomiting. GENITOURINARY: No hematuria/dysuria. MUSCULOSKELETAL: No myagias/arthalgias. PSYCHIATRIC: The patient denies depression. NEUROLOGIC: No weakness Constitutional: alert Psych: no complaints Head: normocephalic ENMT: mucosa pink and moist Neck: jvd (9 cm water), supple Respiratory: diminished breath sounds (at bases/B) Cardiovascular: regular rate and rhythm Gastrointestinal: non-tender, soft Musculoskeletal: muscle tone (normal) Extremities: edema (none) Neurological: other (No focal deficits) Results Result Diagram: 09/11/16 0545 09/11/16 0548 Results 24 hrs Laboratory Tests Test 09/11/16 04:40 09/11/16 05:10 09/11/16 05:45 09/11/16 05:48 Bedside Glucose 126 Phosphorus Level 5.8 H Magnesium Level 2.2 White Blood Count 13.4 H Red Blood Count 3.19 L Hemoglobin 9.3 L Hematocrit 30.6 L Mean Corpuscular Volume 95.9 Mean Corpuscular Hemoglobin 29.2 Mean Corpuscular Hemoglobin Concent 30.4 L Red Cell Distribution Width 15.7 H Platelet Count 423 H Mean Platelet Volume 9.6 Neutrophils % 82.0 H Lymphocytes % 10.0 L Monocytes % 5.0 Eosinophils % 3.0 Neutrophils # 11.0 H Lymphocytes # 1.3 Monocytes # 0.7 Eosinophils # 0.4 Large Platelets OCCASIONAL Sodium Level 142 Potassium Level 3.7 Chloride Level 102 Carbon Dioxide Level 22 Anion Gap 22 #H Blood Urea Nitrogen 56 H Creatinine 5.86 H Glucose Level 117 Calcium Level 9.1 Medications Medications Current Medications Lidocaine (Xylocaine 1% (Mpf)) 30 ml ONCE PRN INJ PAIN; Start 09/02/16 at 18:00 Amikacin Sulfate (Amikacin Iv Per Pharmacy) AMIKACIN PER PHARMACY NOTE XX ; Start 09/03/16 at 13:30 Ondansetron HCl (Zofran Inj) 4 mg Q6H PRN IV NAUSEA AND/OR VOMITING; Start 09/03 at 14:00 Morphine Sulfate (morphine) 2 mg Q4H PRN IV Pain; Start 09/03/16 at 14:00 Hydralazine HCl (Apresoline) 10 mg Q6H PRN IV SBP>160; Start 09/03/16 at 14:00 Famotidine 20 mg 20 mg Q24H PO Last administered on 09/10/16 21:46; Admin Dose 20 MG; Start 09/03/16 at 21:00 Piperacillin Sod/ Tazobactam Sod (Zosyn 2.25gm/ 50ml (Pmx)) 50 ml @ 100 mls/hr Q8 IVPB Last administered on 09/11/16 05:40; Admin Dose 100 MLS/HR; Start 09/03 at 14:21 Epoetin Eligio (Epogen (Esrd)) 3,000 units MoWeFr@17 IV Last administered on 09/09t 17:02; Admin Dose 3,000 UNITS; Start 09/06/16 at 17:00 Guaifenesin/ Dextromethorphan (Robitussin Dm Liquid Cup) 10 ml Q4H PRN PO COUGH ; Start 09/09/16 at 17:30 Acetaminophen/ Hydrocodone Bitart ([place] ()) 1 tab Q4H PRN PO PAIN; Start 09/10/16 at 16:00 Bisacodyl (Dulcolax) 10 mg DAILY PRN PO CONSTIPATION; Start 09/10/16 at 16:00 TRISTEN SHAVER Sep 11, 2016 14:15
[2016-09-11] MEDS ORDERED: THROMBIN 5000 UNIT VIAL ONE (14:20)
--- NOTE | 2016-09-11 15:07 | CONS ---
Date/Time of Note Date/Time of Note DATE: 09/11/16 TIME: 15:06 Assessment/Plan Assessment/Plan Chief Complaint/Hosp Course SUBJECTIVE: No acute changes. MICROBIOLOGY: Blood culture on admission grew Klebsiella pneumoniae. Repeat blood culture negative. Urine culture growing E. coli ESBL. ANTIMICROBIALS: 1. Amikacin. 2. Zosyn. PHYSICAL EXAMINATION: GENERAL: This is well-developed, elderly man who is in no distress. HEENT: Head atraumatic, normocephalic. Sclerae anicteric. Buccal mucosa pink. NECK: Supple, trachea midline. CHEST: Rise symmetrical. Breath sounds clear. HEART: S1, S2. ABDOMEN: Soft, bowel sounds present. EXTREMITIES: Without cyanosis. ASSESSMENT: 1. Status post bacteremia===> old catheter removed. 2. Urinary tract infection with urine culture growing Escherichia coli extended -spectrum beta-lactamase, susceptible to amikacin. 3. Healthcare-associated pneumonia with chronic empyema==> clinically improving. 4. End-stage renal disease, hemodialysis dependent. 5. Left upper extremity arteriovenous fistula. 6. Neurogenic bladder secondary to paraplegia. PLAN: The patient remains stable. Continue present care, antibiotics, f/u pulmonary/CTS rec-s, pending VATS. DW staff Problems: Consultation Date/Type/Reason Admit Date/Time Sep 03, 2016 at 08:14 Initial Consult Date 09/03/16 Type of Consultation: id Referring Provider: Jessica GRIJALVA Exam/Review of Systems Vital Signs Vitals Vital Signs Date Time Temp Pulse Resp B/P Pulse Ox O2 Delivery O2 Flow Rate FiO2 09/11/16 12:18 72 09/11/16 11:38 97.7 18 112/55 100 09/11/16 08:26 3.0 09/11/16 08:26 Nasal Cannula Intake and Output 09/10/16 09/10/16 09/11/16 15:00 23:00 07:00 Intake Total 770 ml 100 ml Output Total 700 ml 0 ml Balance 70 ml 100 ml Results Result Diagram: 09/11/16 0545 09/11/16 0548 Results 24 hrs Laboratory Tests Test 09/11/16 04:40 09/11/16 05:10 09/11/16 05:45 09/11/16 05:48 Bedside Glucose 126 Phosphorus Level 5.8 H Magnesium Level 2.2 White Blood Count 13.4 H Red Blood Count 3.19 L Hemoglobin 9.3 L Hematocrit 30.6 L Mean Corpuscular Volume 95.9 Mean Corpuscular Hemoglobin 29.2 Mean Corpuscular Hemoglobin Concent 30.4 L Red Cell Distribution Width 15.7 H Platelet Count 423 H Mean Platelet Volume 9.6 Neutrophils % 82.0 H Lymphocytes % 10.0 L Monocytes % 5.0 Eosinophils % 3.0 Neutrophils # 11.0 H Lymphocytes # 1.3 Monocytes # 0.7 Eosinophils # 0.4 Large Platelets OCCASIONAL Sodium Level 142 Potassium Level 3.7 Chloride Level 102 Carbon Dioxide Level 22 Anion Gap 22 #H Blood Urea Nitrogen 56 H Creatinine 5.86 H Glucose Level 117 Calcium Level 9.1 Medications Medications Current Medications Lidocaine (Xylocaine 1% (Mpf)) 30 ml ONCE PRN INJ PAIN; Start 09/02/16 at 18:00 Amikacin Sulfate (Amikacin Iv Per Pharmacy) AMIKACIN PER PHARMACY NOTE XX ; Start 09/03/16 at 13:30 Ondansetron HCl (Zofran Inj) 4 mg Q6H PRN IV NAUSEA AND/OR VOMITING; Start 09/03 at 14:00 Morphine Sulfate (morphine) 2 mg Q4H PRN IV Pain; Start 09/03/16 at 14:00 Hydralazine HCl (Apresoline) 10 mg Q6H PRN IV SBP>160; Start 09/03/16 at 14:00 Famotidine 20 mg 20 mg Q24H PO Last administered on 09/10/16 21:46; Admin Dose 20 MG; Start 09/03/16 at 21:00 Piperacillin Sod/ Tazobactam Sod (Zosyn 2.25gm/ 50ml (Pmx)) 50 ml @ 100 mls/hr Q8 IVPB Last administered on 09/11/16 05:40; Admin Dose 100 MLS/HR; Start 09/03 at 14:21 Epoetin Eligio (Epogen (Esrd)) 3,000 units MoWeFr@17 IV Last administered on 09/09 17:02; Admin Dose 3,000 UNITS; Start 09/06/16 at 17:00 Guaifenesin/ Dextromethorphan (Robitussin Dm Liquid Cup) 10 ml Q4H PRN PO COUGH ; Start 09/09/16 at 17:30 Acetaminophen/ Hydrocodone Bitart ([place] ()) 1 tab Q4H PRN PO PAIN; Start 09/10/16 at 16:00 Bisacodyl (Dulcolax) 10 mg DAILY PRN PO CONSTIPATION; Start 09/10/16 at 16:00 CELIA CRAWFORD NP Sep 11, 2016 15:07
[2016-09-11] MEDS ORDERED: MIDAZOLAM 1 MG/ML 2 ML INJ ONE (15:25)
[2016-09-11] MEDS ORDERED: MEPERIDINE 25 MG INJ IV PRN (15:30)
[2016-09-11] MEDS ORDERED: HYDROmorphONE (0.2 MG/ML) 10ML SYG IV PRN ×3 (15:30)
[2016-09-11] MEDS ORDERED: FENTAnyl 50 MCG/ML VIAL IV PRN ×3 (15:30)
[2016-09-11] MEDS ORDERED: LABETALOL HCL 20MG INJ IV PRN (15:30)
[2016-09-11] MEDS ORDERED: EPHEDrine SULFATE 50 MG/5 ML SYG IV PRN (15:30)
[2016-09-11] MEDS ORDERED: ONDANSETRON 4 MG INJ IV PRN ×2 (15:30→16:00)
[2016-09-11] MEDS ORDERED: hydrALAzine 20 MG INJ IV PRN (15:30)
[2016-09-11] MEDS ORDERED: HYDROmorphONE 0.2 MG/ML PCA ONE (15:34)
[2016-09-11] MEDS ORDERED: HYDROmorphONE (0.2 MG/ML) 10ML SYG IV ONE (15:46)
[2016-09-11] MEDS ORDERED: FENTAnyl 50 MCG/ML VIAL ONE (15:46)
[2016-09-11] MEDS ORDERED: NALOXONE (0.4 MG/ML) INJ IV PRN (16:00)
[2016-09-11] MEDS: HYDROmorphONE 0.2 MG/ML PCA IV SCH (16:12)
--- NOTE | 2016-09-11 16:15 | RADRPT ---
PROCEDURE: XR Chest. CLINICAL INDICATION: Shortness of breath. Left chest tube placement. TECHNIQUE: Single frontal view. COMPARISON: 09/10/2016. FINDINGS: There are to new left chest tubes. Left lateral skin [place] are also noted. There is consolidatio n throughout most of the left lung, worse than seen previously. The right lung is clear. The heart size is normal. There is calcification in the aorta consistent with atherosclerosis. There is no pneumothorax. IMPRESSION: 1. Postoperative changes of the left hemithorax with 2 chest tubes and lateral skin [place]. 2. Worse consolidation throughout most of the left lung. 3. Atherosclerosis. 4. Clear right lung. RPTAT: QQ .Derek Gómez MD, MD Date Time Electronically viewed and signed by .Derek Gómez MD, on 09/11/2016 16:15 .R/
--- NOTE | 2016-09-11 16:54 | CONS ---
Date/Time of Note Date/Time of Note DATE: 09/11/16 TIME: 16:53 Assessment/Plan Assessment/Plan Additional Assessment/Plan 1. Klebsiella pneumoniae bacteremia and urinary tract infection. 2. End-stage renal disease, hemodialysis dependent. 3. Left lateral and posterior empyema with adjacent regions of pneumonia. 4. Anemia, Chronic Disease, ESRD 5. Mineral Bone disease, ESRD Cont Maintenance HD schedule, MWF S/p HD this am VATS procedure Will cont to closely follow along with you Consultation Date/Type/Reason Admit Date/Time Sep 03, 2016 at 08:14 Initial Consult Date 09/03/16 Type of Consultation: Renal Referring Provider: Jessica GRIJALVA 24 HR Interval Summary Free Text/Dictation S/p HD today, Pt went for VATS procedure Exam/Review of Systems Vital Signs Vitals Vital Signs Date Time Temp Pulse Resp B/P Pulse Ox O2 Delivery O2 Flow Rate FiO2 09/11/16 16:34 68 17 132/57 100 Nasal Cannula 2.0 09/11/16 15:29 98.2 Intake and Output 09/10/16 09/10/16 09/11/16 15:00 23:00 07:00 Intake Total 770 ml 100 ml Output Total 700 ml 0 ml Balance 70 ml 100 ml Exam Constitutional: distress Eyes: EOMI ENMT: mucosa pink and moist Cardiovascular: No edema Neurological: No lethargic Results Result Diagram: 09/11/16 0545 09/11/16 0548 Results 24 hrs Laboratory Tests Test 09/11/16 04:40 09/11/16 05:10 09/11/16 05:45 09/11/16 05:48 Bedside Glucose 126 Phosphorus Level 5.8 H Magnesium Level 2.2 White Blood Count 13.4 H Red Blood Count 3.19 L Hemoglobin 9.3 L Hematocrit 30.6 L Mean Corpuscular Volume 95.9 Mean Corpuscular Hemoglobin 29.2 Mean Corpuscular Hemoglobin Concent 30.4 L Red Cell Distribution Width 15.7 H Platelet Count 423 H Mean Platelet Volume 9.6 Neutrophils % 82.0 H Lymphocytes % 10.0 L Monocytes % 5.0 Eosinophils % 3.0 Neutrophils # 11.0 H Lymphocytes # 1.3 Monocytes # 0.7 Eosinophils # 0.4 Large Platelets OCCASIONAL Sodium Level 142 Potassium Level 3.7 Chloride Level 102 Carbon Dioxide Level 22 Anion Gap 22 #H Blood Urea Nitrogen 56 H Creatinine 5.86 H Glucose Level 117 Calcium Level 9.1 Medications Medications Current Medications Lidocaine (Xylocaine 1% (Mpf)) 30 ml ONCE PRN INJ PAIN; Start 09/02/16 at 18:00 Amikacin Sulfate (Amikacin Iv Per Pharmacy) AMIKACIN PER PHARMACY NOTE XX ; Start 09/03/16 at 13:30 Ondansetron HCl (Zofran Inj) 4 mg Q6H PRN IV NAUSEA AND/OR VOMITING; Start 09/03 at 14:00 Morphine Sulfate (morphine) 2 mg Q4H PRN IV Pain; Start 09/03/16 at 14:00 Hydralazine HCl (Apresoline) 10 mg Q6H PRN IV SBP>160; Start 09/03/16 at 14:00 Famotidine 20 mg 20 mg Q24H PO Last administered on 09/10/16 21:46; Admin Dose 20 MG; Start 09/03/16 at 21:00 Piperacillin Sod/ Tazobactam Sod (Zosyn 2.25gm/ 50ml (Pmx)) 50 ml @ 100 mls/hr Q8 IVPB Last administered on 09/11/16 05:40; Admin Dose 100 MLS/HR; Start 09/03 at 14:21 Epoetin Eligio (Epogen (Esrd)) 3,000 units MoWeFr@17 IV Last administered on 09/09 17:02; Admin Dose 3,000 UNITS; Start 09/06/16 at 17:00 Guaifenesin/ Dextromethorphan (Robitussin Dm Liquid Cup) 10 ml Q4H PRN PO COUGH ; Start 09/09/16 at 17:30 Acetaminophen/ Hydrocodone Bitart ([place] (10/325)) 1 tab Q4H PRN PO PAIN; Start 09/10/16 at 16:00 Bisacodyl (Dulcolax) 10 mg DAILY PRN PO CONSTIPATION; Start 09/10/16 at 16:00 Naloxone HCl (Narcan) 0.2 mg PRN PRN IV DECREASED REPIRATORY RATE; Start at 16:00 Hydromorphone HCl (Dilaudid HEARING AIDE TECHNICIAN) Q4PCA IV Last administered on 09/11/16 16:12 ; Admin Dose 6 MG; Start 09/11/16 at 16:00 Ondansetron HCl (Zofran Inj) 4 mg Q6H PRN IV NAUSEA AND/OR VOMITING; Start 05/18 at 16:00 MALIA EID MD Sep 11, 2016 16:54
[2016-09-11 17:58] LABS: ADD SCAN DIFF NO
[2016-09-11 18:00] LABS: BASOPHIL # 0.1 10^3/ul (0.0-0.1); BASOPHILS % 0.3 % (0.0-2.0); EOSINOPHILS # 0.1 10^3/ul (0.0-0.5); EOSINOPHILS % 0.7 % (0.0-7.0); HEMATOCRIT 30.7 % (42.0-52.0); HEMOGLOBIN 9.6 g/dl (14.0-18.0); LYMPHOCYTES # 1.1 10^3/ul (0.8-2.9); LYMPHOCYTES % 5.9 % (15.0-51.0); MEAN CORPUSCULAR HEMOGLOBIN 30.1 pg (29.0-33.0); MEAN CORPUSCULAR HGB CONC 31.3 g/dl (32.0-37.0); MEAN CORPUSCULAR VOLUME 96.2 fl (82.0-101.0); MEAN PLATELET VOLUME 8.8 fl (7.4-10.4); MONOCYTE # 0.7 10^3/ul (0.3-0.9); MONOCYTES % 3.6 % (0.0-11.0); NEUTROPHIL # 16.7 10^3/ul (1.6-7.5); NEUTROPHILS % 89.1 % (39.0-77.0); PLATELET COUNT 366 10^3/UL (140-415); RED BLOOD COUNT 3.19 10^6/ul (4.70-6.10); RED CELL DISTRIBUTION WIDTH 15.6 % (11.5-14.5); WHITE BLOOD COUNT 18.7 10^3/ul (4.8-10.8)
[2016-09-11 18:15] LABS: CALCIUM 8.4 mg/dl (8.4-10.2); CREATININE 2.9 mg/dl (0.61-1.24); POTASSIUM 3.9 mmol/L (3.5-5.1)
[2016-09-11] MEDS: EPOETIN 3000 UNITS/1 ML INJ (ESRD) IV SCH (20:42)
[2016-09-11] MEDS: FAMOTIDINE 20 MG TAB PO SCH (21:00)
--- NOTE | 2016-09-11 21:00 | OPR ---
DATE OF OPERATION: PREOPERATIVE DIAGNOSIS: Left pleural effusion. POSTOPERATIVE DIAGNOSIS: Left pleural effusion. OPERATION PERFORMED: 1. Left thoracotomy, total pulmonary decortication. 2. Left diagnostic video-assisted thoracic surgery. 3. Bronchoscopy. SURGEON: Franky Ramirez MD ANESTHESIA: General. CONSENT: Risks, benefits, complications, alternative therapies explained to the patient and the [facility] gualberto, consent obtained. OPERATIVE TECHNIQUE: The patient was placed in supine position, prepped and draped in usual sterile fashion. Bronchoscopy was done. No evidence of any endobronchial lesions was noted. The patient was placed in right lateral decubitus position and prepped and draped in usual sterile fashion. A 1 cm incision was made in the 8th intercostal space mid axillary line. Incision was taken down to th e subcutaneous tissue which was then opened using electrocautery. A 12 mm trocar was advanced into the pleural cavity. Large amounts of very thick dense adhesions were noted and I decided to proceed with a thoracotomy. A 10 cm incision was made in the 8th intercostal space, mid axillary line anterolaterally. Incision was taken down to subcutaneous tissue. It was a muscle sparing incision. The serratus anterior mu scles were and 7th intercostal space was entered. Chest retractor was placed. Very thick peel almost to a centimeter in height was noted to be encasing the entire lung, most of it anterola terally and at the diaphragm very meticulously the peel was removed. Multiple air leaks were noted which were sealed using Tisseel. After the lung was completely decorticated, it completely expanded . Two chest tubes were placed, 36 straight and 36 right angle, were brought out through a lower sta b wound, secured to skin using 2-0 silk sutures. The wound was irrigated using antibiotic solution. The ribs were reapproximated using a #2 Vicryl suture x4. Left anterior muscle was reapprox imated using #1 Vicryl suture in running fashion. Subcutaneous tissues were irrigated again and zelalem sed in 2 layers of 2-0 Vicryl suture for subcutaneous, and [place] for the skin. Patient tolerated the procedure well. Dictated By: FRANKY CORADO/HERMILA Conf#: [id number] DID#: [id number]
[2016-09-11 23:50] LABS: HEMOGLOBIN 9.9 g/dl (14.0-18.0)
[2016-09-12] VITALS (35 sets, daily range): BP systolic 92–130; BP diastolic 27–65; PULSE 79–92; RESP 13–36
[2016-09-12] MEDS: PIPER-TAZO 2.25 GM (PMX) 50 ML IVPB SCH ×2 (05:55→14:03)
[2016-09-12 05:58] LABS: ADD SCAN DIFF NO
[2016-09-12 06:01] LABS: BASOPHIL # 0.1 10^3/ul (0.0-0.1); BASOPHILS % 0.3 % (0.0-2.0); EOSINOPHILS # 0.1 10^3/ul (0.0-0.5); EOSINOPHILS % 0.3 % (0.0-7.0); HEMOGLOBIN 9.5 g/dl (14.0-18.0); LYMPHOCYTES # 0.8 10^3/ul (0.8-2.9); LYMPHOCYTES % 3.6 % (15.0-51.0); MEAN CORPUSCULAR HEMOGLOBIN 29.6 pg (29.0-33.0); MEAN CORPUSCULAR HGB CONC 30.6 g/dl (32.0-37.0); MEAN CORPUSCULAR VOLUME 96.6 fl (82.0-101.0); MEAN PLATELET VOLUME 9.6 fl (7.4-10.4); MONOCYTES % 4.9 % (0.0-11.0); NEUTROPHILS % 90.3 % (39.0-77.0); PLATELET COUNT 363 10^3/UL (140-415); RED BLOOD COUNT 3.21 10^6/ul (4.70-6.10)
[2016-09-12 06:08] LABS: INR 1.23; PROTIME 15.6 Sec (12.2-14.2); PT RATIO 1.2
[2016-09-12 06:09] LABS: PARTIAL THROMBOPLASTIN TIME 40.7 Sec (25.0-35.0)
[2016-09-12 06:11] LABS: ALBUMIN 2.8 g/dl (3.3-4.9); ALBUMIN/GLOBULIN RATIO 0.82; BILIRUBIN,INDIRECT 0.1 mg/dl (0-1.1); BILIRUBIN,TOTAL 0.1 mg/dl (0.2-1.3); CALCIUM 8.5 mg/dl (8.4-10.2); CREATININE 3.58 mg/dl (0.61-1.24); POTASSIUM 5.2 mmol/L (3.5-5.1); TOTAL PROTEIN 6.2 g/dl (6.1-8.1)
[2016-09-12] MEDS: ALBUTEROL/IPRATROPIUM (NEB) 3 ML AMP HHN SCH ×3 (08:30→23:50)
[2016-09-12] MEDS: SEVELAMER CARBONATE 0.8 GM PKT PO SCH ×3 (08:51→18:44)
--- NOTE | 2016-09-12 09:49 | CONS ---
Date/Time of Note Date/Time of Note DATE: 09/12/16 TIME: 09:47 Assessment/Plan Assessment/Plan Additional Assessment/Plan Assessment recommendations; 1. Patient admitted for left-sided empyema status post VATS procedure yesterday with decortication. 2. History of hypertension. 3. End-stage renal disease on hemodialysis. Continue current treatment. Consultation Date/Type/Reason Admit Date/Time Sep 03, 2016 at 08:14 Initial Consult Date 09/03/16 Type of Consultation: Pulmonary/critical care Referring Provider: Jessica GRIJALVA 24 HR Interval Summary Free Text/Dictation Patient condition is stable. Underwent left decortication yesterday. Had been transferred to ICU for observation. Complains of left-sided chest pain with deep breathing. But denies any shortness of breath. Any cough or sputum production. Any fever chills. General exam; elderly male, awake alert currently in no distress. Exam/Review of Systems Vital Signs Vitals Vital Signs Date Time Temp Pulse Resp B/P Pulse Ox O2 Delivery O2 Flow Rate FiO2 09/12/16 08:32 82 20 100 Nasal Cannula 4.0 09/12/16 08:30 123/53 09/12/16 08:00 99.1 Intake and Output 09/11/16 09/11/16 09/12/16 15:00 23:00 07:00 Intake Total 850 ml 1150 ml 220 ml Output Total 3800 ml 300 ml 165 ml Balance -2950 ml 850 ml 55 ml Exam HEENT exam is; supple neck, no JVD. No lymphadenopathy. Midline trachea. No thyromegaly. Patient does have multiple carious teeth. Chest exam; right lung is clear to auscultation with diminished breath sound left lung. Left-sided chest tube in place. S1-S2 audible, no murmurs. Regular rhythm. Abdomen examination; soft, nontender. No organomegaly. Bowel sounds audible. Extremity exam; no peripheral edema. SHOE STOCK ASSOCIATE examination; no focal deficit. Results Result Diagram: 09/12/16 0509/12/16 0522 Results 24 hrs Laboratory Tests Test 09/11/16 17:50 09/11/16 23:28 09/12/16 05:22 White Blood Count 18.7 #H 21.0 H Red Blood Count 3.19 L 3.21 L Hemoglobin 9.6 L 9.9 L 9.5 L Hematocrit 30.7 L 31.0 L 31.0 L Mean Corpuscular Volume 96.2 96.6 Mean Corpuscular Hemoglobin 30.1 29.6 Mean Corpuscular Hemoglobin Concent 31.3 L 30.6 L Red Cell Distribution Width 15.6 H 16.0 H Platelet Count 366 363 Mean Platelet Volume 8.8 9.6 Neutrophils % 89.1 H 90.3 H Lymphocytes % 5.9 L 3.6 L Monocytes % 3.6 4.9 Eosinophils % 0.7 0.3 Basophils % 0.3 0.3 Nucleated Red Blood Cells % 0.0 0.0 Neutrophils # 16.7 H 19.0 H Lymphocytes # 1.1 0.8 Monocytes # 0.7 1.0 H Eosinophils # 0.1 0.1 Basophils # 0.1 0.1 Nucleated Red Blood Cells # 0.0 0.0 Sodium Level 145 H 138 Potassium Level 3.9 5.2 H Chloride Level 112 H 107 Carbon Dioxide Level 26 24 Anion Gap 11 # 12 Blood Urea Nitrogen 23 #H 30 H Creatinine 2.90 #H 3.58 H Glucose Level 108 102 Calcium Level 8.4 8.5 Prothrombin Time 15.6 H Prothrombin Time Ratio 1.2 INR International Normalized Ratio 1.23 Activated Partial Thromboplast Time 40.7 H Total Bilirubin 0.1 L Direct Bilirubin 0.00 Indirect Bilirubin 0.1 Aspartate Amino Transf (AST/SGOT) 24 Alanine Aminotransferase (ALT/SGPT) 33 Alkaline Phosphatase 80 Total Protein 6.2 Albumin 2.8 L Globulin 3.40 H Albumin/Globulin Ratio 0.82 Medications Medications Current Medications Lidocaine (Xylocaine 1% (Mpf)) 30 ml ONCE PRN INJ PAIN; Start 09/02/16 at 18:00 Amikacin Sulfate (Amikacin Iv Per Pharmacy) AMIKACIN PER PHARMACY NOTE XX ; Start 09/03/16 at 13:30 Ondansetron HCl (Zofran Inj) 4 mg Q6H PRN IV NAUSEA AND/OR VOMITING; Start 09/03 at 14:00 Morphine Sulfate (morphine) 2 mg Q4H PRN IV Pain; Start 09/03/16 at 14:00 Hydralazine HCl (Apresoline) 10 mg Q6H PRN IV SBP>160; Start 09/03/16 at 14:00 Famotidine 20 mg 20 mg Q24H PO Last administered on 09/10/16 21:46; Admin Dose 20 MG; Start 09/03/16 at 21:00 Piperacillin Sod/ Tazobactam Sod (Zosyn 2.25gm/ 50ml (Pmx)) 50 ml @ 100 mls/hr Q8 IVPB Last administered on 09/12/16 05:55; Admin Dose 100 MLS/HR; Start 09/03 at 14:21 Epoetin Eligio (Epogen (Esrd)) 3,000 units MoWeFr@17 IV Last administered on 09/09 17:02; Admin Dose 3,000 UNITS; Start 09/06/16 at 17:00 Guaifenesin/ Dextromethorphan (Robitussin Dm Liquid Cup) 10 ml Q4H PRN PO COUGH ; Start 09/09/16 at 17:30 Acetaminophen/ Hydrocodone Bitart ([place] (10/325)) 1 tab Q4H PRN PO PAIN; Start 09/10/16 at 16:00 Bisacodyl (Dulcolax) 10 mg DAILY PRN PO CONSTIPATION; Start 09/10/16 at 16:00 Naloxone HCl (Narcan) 0.2 mg PRN PRN IV DECREASED REPIRATORY RATE; Start at 16:00 Hydromorphone HCl (Dilaudid RECONCILIATION SPECIALIST) Q4PCA IV Last administered on 09/11/16 16:12 ; Admin Dose 6 MG; Start 09/11/16 at 16:00 Ondansetron HCl (Zofran Inj) 4 mg Q6H PRN IV NAUSEA AND/OR VOMITING; Start 05/18 at 16:00 NELSON VICTOR Sep 12, 2016 09:49
--- NOTE | 2016-09-12 12:21 | CONS ---
Date/Time of Note Date/Time of Note DATE: 09/12/16 TIME: 12:19 Assessment/Plan Assessment/Plan Chief Complaint/Hosp Course IMPRESSION: 1. Preoperative evaluation prior to VATS procedure with, at this time, the patient having a EF done this admission revealing a preserved left ventricular ejection fraction and moderate mitral regurgitation and having negative troponins x 3 since admit. Patient has no cardiac contraindication to proceeding to OR for VATS/decortication at this time at moderate risk. Now POD# 1 s/p VATS/decortication 2. Empyema. 3. End-stage renal disease on hemodialysis. 4. Bacteremia. 5. Urinary tract infection. 6. Paraplegia Recc: -Tele -To OR today for VATS/decortication -Continue abx's -Follow volume status closely -Pain control Problems: Consultation Date/Type/Reason Admit Date/Time Sep 03, 2016 at 08:14 Initial Consult Date 09/03/16 Type of Consultation: Cardiology Reason for Consultation HTN Referring Provider: Jessica GRIJALVA Exam/Review of Systems Vital Signs Vitals Vital Signs Date Time Temp Pulse Resp B/P Pulse Ox O2 Delivery O2 Flow Rate FiO2 09/12/16 11:30 86 28 108/51 100 09/12/16 11:00 Nasal Cannula 2.0 09/12/16 08:00 99.1 Intake and Output 09/11/16 09/11/16 09/12/16 15:00 23:00 07:00 Intake Total 850 ml 1150 ml 220 ml Output Total 3800 ml 300 ml 165 ml Balance -2950 ml 850 ml 55 ml Exam Review of Systems: CONSTITUTIONAL: No fevers, chills. PULMONARY: No sob CARDIOVASCULAR: pain in chest GASTROINTESTINAL: No nausea/vomiting. GENITOURINARY: No hematuria/dysuria. MUSCULOSKELETAL: No myagias/arthalgias. PSYCHIATRIC: The patient denies depression. NEUROLOGIC: No weakness Constitutional: alert, oriented Psych: no complaints Head: normocephalic ENMT: mucosa pink and moist Neck: jvd, supple Respiratory: diminished breath sounds Cardiovascular: regular rate and rhythm Gastrointestinal: non-tender, soft Musculoskeletal: muscle tone (normal) Extremities: edema (none) Results Result Diagram: 09/12/16 0522 09/12/16 05 Results 24 hrs Laboratory Tests Test 4/12/17 17:50 09/11/16 23:28 09/12/16 05:22 White Blood Count 18.7 #H 21.0 H Red Blood Count 3.19 L 3.21 L Hemoglobin 9.6 L 9.9 L 9.5 L Hematocrit 30.7 L 31.0 L 31.0 L Mean Corpuscular Volume 96.2 96.6 Mean Corpuscular Hemoglobin 30.1 29.6 Mean Corpuscular Hemoglobin Concent 31.3 L 30.6 L Red Cell Distribution Width 15.6 H 16.0 H Platelet Count 366 363 Mean Platelet Volume 8.8 9.6 Neutrophils % 89.1 H 90.3 H Lymphocytes % 5.9 L 3.6 L Monocytes % 3.6 4.9 Eosinophils % 0.7 0.3 Basophils % 0.3 0.3 Nucleated Red Blood Cells % 0.0 0.0 Neutrophils # 16.7 H 19.0 H Lymphocytes # 1.1 0.8 Monocytes # 0.7 1.0 H Eosinophils # 0.1 0.1 Basophils # 0.1 0.1 Nucleated Red Blood Cells # 0.0 0.0 Sodium Level 145 H 138 Potassium Level 3.9 5.2 H Chloride Level 112 H 107 Carbon Dioxide Level 26 24 Anion Gap 11 # 12 Blood Urea Nitrogen 23 #H 30 H Creatinine 2.90 #H 3.58 H Glucose Level 108 102 Calcium Level 8.4 8.5 Prothrombin Time 15.6 H Prothrombin Time Ratio 1.2 INR International Normalized Ratio 1.23 Activated Partial Thromboplast Time 40.7 H Total Bilirubin 0.1 L Direct Bilirubin 0.00 Indirect Bilirubin 0.1 Aspartate Amino Transf (AST/SGOT) 24 Alanine Aminotransferase (ALT/SGPT) 33 Alkaline Phosphatase 80 Total Protein 6.2 Albumin 2.8 L Globulin 3.40 H Albumin/Globulin Ratio 0.82 Medications Medications Current Medications Amikacin Sulfate (Amikacin Iv Per Pharmacy) AMIKACIN PER PHARMACY NOTE XX ; Start 09/03/16 at 13:30 Ondansetron HCl (Zofran Inj) 4 mg Q6H PRN IV NAUSEA AND/OR VOMITING; Start 09/03 at 14:00 Morphine Sulfate (morphine) 2 mg Q4H PRN IV Pain; Start 09/03/16 at 14:00 Hydralazine HCl (Apresoline) 10 mg Q6H PRN IV SBP>160; Start 09/03/16 at 14:00 Famotidine 20 mg 20 mg Q24H PO Last administered on 09/10/16 21:46; Admin Dose 20 MG; Start 09/03/16 at 21:00 Piperacillin Sod/ Tazobactam Sod (Zosyn 2.25gm/ 50ml (Pmx)) 50 ml @ 100 mls/hr Q8 IVPB Last administered on 09/12/16 05:55; Admin Dose 100 MLS/HR; Start 09/03 at 14:21 Epoetin Eligio (Epogen (Esrd)) 3,000 units MoWeFr@17 IV Last administered on 09/09 17:02; Admin Dose 3,000 UNITS; Start 09/06/16 at 17:00 Guaifenesin/ Dextromethorphan (Robitussin Dm Liquid Cup) 10 ml Q4H PRN PO COUGH ; Start 09/09/16 at 17:30 Acetaminophen/ Hydrocodone Bitart ([place] (10/325)) 1 tab Q4H PRN PO PAIN; Start 09/10/16 at 16:00 Bisacodyl (Dulcolax) 10 mg DAILY PRN PO CONSTIPATION; Start 09/10/16 at 16:00 Naloxone HCl (Narcan) 0.2 mg PRN PRN IV DECREASED REPIRATORY RATE; Start at 16:00 Hydromorphone HCl (Dilaudid HIDE INSPECTOR) Q4PCA IV Last administered on 09/11/16 16:12 ; Admin Dose 6 MG; Start 09/11/16 at 16:00 Ondansetron HCl (Zofran Inj) 4 mg Q6H PRN IV NAUSEA AND/OR VOMITING; Start 05/18 at 16:00 TRISTEN SHAVER Sep 12, 2016 12:21
--- NOTE | 2016-09-12 14:00 | PN ---
Date/Time of Note Date/Time of Note DATE: 09/12/16 TIME: 13:58 Assessment/Plan VTE Prophylaxis VTE Prophylaxis Intervention: LMWH Lines/Catheters IV Catheter Type (from Nrs): Peripheral IV Urinary Cath still in place: No Assessment/Plan Chief Complaint/Hosp Course S 09/09 no distress chest pain 09/10 no distress chest pain or dyspnea. 09/11 stable no distress. Positive dyspnea chills. No chest pain. Dialysis/ 3L removed. 09/12 sp vats/ transfused. pleuritic pain. O:vss PE No pallor/ JVD Reg. sm+. No r/g Dimin bs. No tachypnea. BS+ nt, nd, no r/r/g No edema A/P 1. Ac hypoxic resp failure. Stable cont O2 2. Empyema; Sp VATS. 3. ESRD; stable cont dialysis 4. Line sepsis/Klebsiella. Improved blood cultures 5. Paraplegic status. Disposition? Home vs snf. 6. Htn 7. 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 ESBL E coli cystitis 9. HCAP 10. Neurogenic bladder 11. Anemia Problems: Exam/Review of Systems Vital Signs Vitals Vital Signs Date Time Temp Pulse Resp B/P Pulse Ox O2 Delivery O2 Flow Rate FiO2 09/12/16 13:00 81 18 99/27 100 Nasal Cannula 2.0 09/12/16 12:00 99.0 Intake and Output 09/11/16 09/11/16 09/12/16 15:00 23:00 07:00 Intake Total 850 ml 1150 ml 270 ml Output Total 3800 ml 300 ml 165 ml Balance -2950 ml 850 ml 105 ml Results Result Diagram: 09/12/16 0509/12/16 05 Results 24 hrs Laboratory Tests Test 09/11/16 17:50 09/11/16 23:28 09/12/16 05:22 White Blood Count 18.7 #H 21.0 H Red Blood Count 3.19 L 3.21 L Hemoglobin 9.6 L 9.9 L 9.5 L Hematocrit 30.7 L 31.0 L 31.0 L Mean Corpuscular Volume 96.2 96.6 Mean Corpuscular Hemoglobin 30.1 29.6 Mean Corpuscular Hemoglobin Concent 31.3 L 30.6 L Red Cell Distribution Width 15.6 H 16.0 H Platelet Count 366 363 Mean Platelet Volume 8.8 9.6 Neutrophils % 89.1 H 90.3 H Lymphocytes % 5.9 L 3.6 L Monocytes % 3.6 4.9 Eosinophils % 0.7 0.3 Basophils % 0.3 0.3 Nucleated Red Blood Cells % 0.0 0.0 Neutrophils # 16.7 H 19.0 H Lymphocytes # 1.1 0.8 Monocytes # 0.7 1.0 H Eosinophils # 0.1 0.1 Basophils # 0.1 0.1 Nucleated Red Blood Cells # 0.0 0.0 Sodium Level 145 H 138 Potassium Level 3.9 5.2 H Chloride Level 112 H 107 Carbon Dioxide Level 26 24 Anion Gap 11 # 12 Blood Urea Nitrogen 23 #H 30 H Creatinine 2.90 #H 3.58 H Glucose Level 108 102 Calcium Level 8.4 8.5 Prothrombin Time 15.6 H Prothrombin Time Ratio 1.2 INR International Normalized Ratio 1.23 Activated Partial Thromboplast Time 40.7 H Total Bilirubin 0.1 L Direct Bilirubin 0.00 Indirect Bilirubin 0.1 Aspartate Amino Transf (AST/SGOT) 24 Alanine Aminotransferase (ALT/SGPT) 33 Alkaline Phosphatase 80 Total Protein 6.2 Albumin 2.8 L Globulin 3.40 H Albumin/Globulin Ratio 0.82 Medications Medications Current Medications Amikacin Sulfate (Amikacin Iv Per Pharmacy) AMIKACIN PER PHARMACY NOTE XX ; Start 09/03/16 at 13:30 Ondansetron HCl (Zofran Inj) 4 mg Q6H PRN IV NAUSEA AND/OR VOMITING; Start 09/03 at 14:00 Morphine Sulfate (morphine) 2 mg Q4H PRN IV Pain; Start 09/03/16 at 14:00 Hydralazine HCl (Apresoline) 10 mg Q6H PRN IV SBP>160; Start 09/03/16 at 14:00 Famotidine 20 mg 20 mg Q24H PO Last administered on 09/10/16 21:46; Admin Dose 20 MG; Start 09/03/16 at 21:00 Piperacillin Sod/ Tazobactam Sod (Zosyn 2.25gm/ 50ml (Pmx)) 50 ml @ 100 mls/hr Q8 IVPB Last administered on 09/12/16 05:55; Admin Dose 100 MLS/HR; Start 09/03 at 14:21 Epoetin Eilgio (Epogen (Esrd)) 3,000 units MoWeFr@17 IV Last administered on 09/09 17:02; Admin Dose 3,000 UNITS; Start 09/06/16 at 17:00 Guaifenesin/ Dextromethorphan (Robitussin Dm Liquid Cup) 10 ml Q4H PRN PO COUGH ; Start 09/09/16 at 17:30 Acetaminophen/ Hydrocodone Bitart ([place] ()) 1 tab Q4H PRN PO PAIN; Start 09/10/16 at 16:00 Bisacodyl (Dulcolax) 10 mg DAILY PRN PO CONSTIPATION; Start 09/10/16 at 16:00 Naloxone HCl (Narcan) 0.2 mg PRN PRN IV DECREASED REPIRATORY RATE; Start at 16:00 Hydromorphone HCl (Dilaudid [employer]) Q4PCA IV Last administered on 09/11/16 16:12 ; Admin Dose 6 MG; Start 09/11/16 at 16:00 Ondansetron HCl (Zofran Inj) 4 mg Q6H PRN IV NAUSEA AND/OR VOMITING; Start 05/18 at 16:00 JAREK GUO MD Sep 12, 2016 14:00
--- NOTE | 2016-09-12 14:07 | PN ---
DATE: 09/12/2016 SUBJECTIVE: The patient had a VATS yesterday, was transferred to ICU. He is alert, complaining of pain, but in no distress. Afebrile. Family at bedside. VITAL SIGNS: Temperature 99, pulse 81, respirations 18, blood pressure 99/27, saturation 100 on 2 l iters. WBC 21, H and H 9.5 and 31, platelets 363, neutrophils 90.3, BUN 30, creatinine 3.58. INDWELLINGS: Left upper extremity AV fistula, chest tube. ANTIMICROBIALS: The patient is on: 1. Amikacin. 2. Zosyn. PHYSICAL EXAMINATION: GENERAL: Well-developed, paraplegic, elderly man who is awake, in no distress. HEENT: Head atraumatic, normocephalic. Sclerae anicteric. Buccal mucosa dry. NECK: Supple. Trachea midline. CHEST: Rise symmetrical. Breath sounds diminished to bases. HEART: S1, S2. ABDOMEN: Soft. Bowel tones present. EXTREMITIES: Without cyanosis. Bilateral lower extremities wasted. SKIN: No jaundice, no cyanosis. ASSESSMENT: 1. Systemic inflammatory response syndrome with reactive leukocytosis. 2. Loculated pleural effusion status post left thoracotomy with total pulmonary decortication on . 3. End-stage renal disease, hemodialysis dependent. 4. Status post Klebsiella pneumoniae bacteremia and Escherichia coli extended-spectrum beta-lactama se urinary tract infection. 5. Neurogenic bladder. PLAN: The patient remains stable postoperatively. We will continue him on current antimicrobials, await for intraoperative cultures. Follow up pulmonary, cardiothoracic surgery, . Dictated By: CELIA CRAWFORD PLANNING ADVISOR for FLAKO ROBERTSON/HERMILA Conf#: [id number] DID#: [id number]
[2016-09-12] MEDS: SOD CHLORIDE 0.9% IVPB SCH (15:12)
[2016-09-12] MEDS: AMIKACIN IVPB SCH (15:12)
[2016-09-12] MEDS ORDERED: GUAIFENESIN/DM 5ML CUP PO PRN (16:00)
--- NOTE | 2016-09-12 16:36 | OPPN ---
Date/Time of Note Date/Time of Note DATE: 09/12/16 TIME: 16:35 Post-Anesthesia Notes Post-Anesthesia Note Last documented vital signs Vital Signs Date Time Temp Pulse Resp B/P Pulse Ox O2 Delivery O2 Flow Rate FiO2 09/12/16 16:18 Nasal Cannula 2.0 09/12/16 16:14 83 09/12/16 16:00 18 100 09/12/16 15:00 101/34 09/12/16 12:00 99.0 Activity: WNL Respiratory function: WNL Cardiovascular function: WNL Mental status: Baseline Pain reasonably controlled: Yes Hydration appropriate: Yes Nausea/Vomiting absent: Yes AMRIT BAKER Sep 12, 2016 16:36
[2016-09-12] MEDS: HYDROmorphONE 0.2 MG/ML PCA IV SCH (17:45)
--- NOTE | 2016-09-12 19:55 | CONS ---
Date/Time of Note Date/Time of Note DATE: 09/12/16 TIME: 19:46 Assessment/Plan Assessment/Plan Chief Complaint/Hosp Course Pt on appropriate AB Rx for [facility]Inf HD Scheduled for Problems: Additional Assessment/Plan Paraplegic Cont'd Hospitalization Reason: Continue hd MWF Consultation Date/Type/Reason Admit Date/Time Sep 03, 2016 at 08:14 Initial Consult Date 09/03/16 Type of Consultation: renal Referring Provider: Jessica GRIJALVA 24 HR Interval Summary Free Text/Dictation Daughter at bedside Exam/Review of Systems Vital Signs Vitals Vital Signs Date Time Temp Pulse Resp B/P Pulse Ox O2 Delivery O2 Flow Rate FiO2 09/12/16 19:27 18 09/12/16 16:51 98.5 82 103/54 100 09/12/16 16:18 Nasal Cannula 2.0 Intake and Output 09/11/16 09/11/16 09/12/16 14:59 22:59 06:59 Intake Total 850 ml 1150 ml 220 ml Output Total 3800 ml 300 ml 165 ml Balance -2950 ml 850 ml 55 ml Exam Constitutional: alert, oriented, well developed Psych: nl mood/affect, no complaints Head: atraumatic, normocephalic Eyes: EOMI, PERRL, nl conjunctiva, nl lids, nl sclera ENMT: nl external ears & nose, nl lips & teeth, nl nasal mucosa & septum Neck: non-tender, supple Respiratory: clear to auscultation, normal air movement, other (Pt has chest tube in place) Cardiovascular: nl pulses, regular rate and rhythm Gastrointestinal: nl liver, spleen, non-tender, soft Musculoskeletal: nl extremities to inspection, nl gait and stance, other (avf lt arm) Extremities: normal pulses Neurological: NURSES ASSISTANT II-XII intact, nl mental status, nl speech, nl strength Skin: nl turgor, No rash or lesions Lymph: nl lymph nodes Results Result Diagram: 09/12/1652109/12/16 05 Results 24 hrs Laboratory Tests Test 09/11/16 23:28 09/12/16 05:22 Hemoglobin 9.9 L 9.5 L Hematocrit 31.0 L 31.0 L White Blood Count 21.0 H Red Blood Count 3.21 L Mean Corpuscular Volume 96.6 Mean Corpuscular Hemoglobin 29.6 Mean Corpuscular Hemoglobin Concent 30.6 L Red Cell Distribution Width 16.0 H Platelet Count 363 Mean Platelet Volume 9.6 Neutrophils % 90.3 H Lymphocytes % 3.6 L Monocytes % 4.9 Eosinophils % 0.3 Basophils % 0.3 Nucleated Red Blood Cells % 0.0 Neutrophils # 19.0 H Lymphocytes # 0.8 Monocytes # 1.0 H Eosinophils # 0.1 Basophils # 0.1 Nucleated Red Blood Cells # 0.0 Prothrombin Time 15.6 H Prothrombin Time Ratio 1.2 INR International Normalized Ratio 1.23 Activated Partial Thromboplast Time 40.7 H Sodium Level 138 Potassium Level 5.2 H Chloride Level 107 Carbon Dioxide Level 24 Anion Gap 12 Blood Urea Nitrogen 30 H Creatinine 3.58 H Glucose Level 102 Calcium Level 8.5 Total Bilirubin 0.1 L Direct Bilirubin 0.00 Indirect Bilirubin 0.1 Aspartate Amino Transf (AST/SGOT) 24 Alanine Aminotransferase (ALT/SGPT) 33 Alkaline Phosphatase 80 Total Protein 6.2 Albumin 2.8 L Globulin 3.40 H Albumin/Globulin Ratio 0.82 Medications Medications Current Medications Amikacin Sulfate (Amikacin Iv Per Pharmacy) AMIKACIN PER PHARMACY NOTE XX ; Start 09/03/16 at 13:30 Ondansetron HCl (Zofran Inj) 4 mg Q6H PRN IV NAUSEA AND/OR VOMITING; Start 09/03 at 14:00 Morphine Sulfate (morphine) 2 mg Q4H PRN IV Pain; Start 09/03/16 at 14:00 Hydralazine HCl (Apresoline) 10 mg Q6H PRN IV SBP>160; Start 09/03/16 at 14:00 Famotidine 20 mg 20 mg Q24H PO Last administered on 09/10/16 21:46; Admin Dose 20 MG; Start 09/03/16 at 21:00 Piperacillin Sod/ Tazobactam Sod (Zosyn 2.25gm/ 50ml (Pmx)) 50 ml @ 100 mls/hr Q8 IVPB Last administered on 09/12/16 14:03; Admin Dose 100 MLS/HR; Start 09/03 at 14:21 Epoetin Eligio (Epogen (Esrd)) 3,000 units MoWeFr@17 IV Last administered on 09/09 17:02; Admin Dose 3,000 UNITS; Start 09/06/16 at 17:00 Guaifenesin/ Dextromethorphan (Robitussin Dm Liquid Cup) 10 ml Q4H PRN PO COUGH ; Start 09/09/16 at 17:30 Acetaminophen/ Hydrocodone Bitart ([place] (10325)) 1 tab Q4H PRN PO PAIN; Start 09/10/16 at 16:00 Bisacodyl (Dulcolax) 10 mg DAILY PRN PO CONSTIPATION; Start 09/10/16 at 16:00 Naloxone HCl (Narcan) 0.2 mg PRN PRN IV DECREASED REPIRATORY RATE; Start at 16:00 Hydromorphone HCl (Dilaudid STRATEGIC PLANNING DIRECTOR) Q4PCA IV Last administered on 09/12/16t 17:45 ; Admin Dose 6 MG; Start 09/11/16 at 16:00 Ondansetron HCl (Zofran Inj) 4 mg Q6H PRN IV NAUSEA AND/OR VOMITING; Start 05/18 at 16:00 TJ CLANCY MD Sep 12, 2016 19:55
--- NOTE | 2016-09-12 20:29 | PN ---
Date/Time of Note Date/Time of Note DATE: 09/12/16 TIME: 20:28 Assessment/Plan Lines/Catheters IV Catheter Type (from Nrsg): Peripheral IV Deutsch in Place (from Nrsg): No Assessment/Plan Chief Complaint/Hosp Course Left pleural effusion, possibly empyema, but the patient is clinically improving. Will continue antibiotics. SP Left video-assisted thoracic surgery and decortication will continue CT sxn Discussed with the daughter Problems: Subjective 24 Hr Interval Summary Constitutional: improved Pain Control: mild Exam/Review of Systems Vital Signs Vitals Vital Signs Date Time Temp Pulse Resp B/P Pulse Ox O2 Delivery O2 Flow Rate FiO2 09/12/16 20:26 86 09/12/16 20:20 98.8 20 122/65 99 09/12/16 19:41 Nasal Cannula 2.0 Intake and Output 09/11/16 09/11/16 09/12/16 15:00 23:00 07:00 Intake Total 850 ml 1150 ml 270 ml Output Total 3800 ml 300 ml 165 ml Balance -2950 ml 850 ml 105 ml Exam ENMT: mucosa pink and moist, nl external ears & nose, nl lips & teeth, nl nasal mucosa & septum Neck: non-tender, supple Respiratory: clear to auscultation, normal air movement Cardiovascular: nl pulses, regular rate and rhythm Gastrointestinal: nl liver, spleen, non-tender, soft Results Result Diagram: 09/12/16 0522 09/12/16 0522 FRANKY PERES MD Sep 12, 2016 20:29
[2016-09-12] MEDS: FAMOTIDINE 20 MG TAB PO SCH (21:36)
[2016-09-13] VITALS (21 sets, daily range): BP systolic 83–127; BP diastolic 45–75; PULSE 74–108; RESP 15–20
[2016-09-13] MEDS: PIPER-TAZO 2.25 GM (PMX) 50 ML IVPB SCH ×3 (00:07→16:06)
[2016-09-13] MEDS ORDERED: HYDROmorphONE 1 MG/ML SYG IV ONE (00:54)
[2016-09-13] MEDS ORDERED: FUROSEMIDE 20 MG INJ ONE (05:44)
[2016-09-13] MEDS: ALBUTEROL/IPRATROPIUM (NEB) 3 ML AMP HHN PRN (05:46)
[2016-09-13] MEDS ORDERED: FUROSEMIDE 20 MG INJ IV ONE (06:00)
[2016-09-13] MEDS: ALBUTEROL/IPRATROPIUM (NEB) 3 ML AMP HHN SCH ×2 (08:21→16:33)
--- NOTE | 2016-09-13 08:57 | RADRPT ---
PROCEDURE: XR Abdomen. CLINICAL INDICATION: Pain. Shortness of breath TECHNIQUE: Single AP view of the abdomen is available for review. COMPARISON: Chest radiograph from 09/11/2016.. FINDINGS: There is opacification of the left lower hemithorax with several chest tubes present save similar to the previous chest radiograph. Abdominal gas pattern demonstrates a moderate amount of gas and sto ol throughout the colon. No definite free air is seen. IMPRESSION: 1. Moderate scattered fecal residue. 2. Opacification of the left lung base with several chest tubes present similar in appearance to th e chest radiograph from 09/11/2016 RPTAT: [facility] Physician Alaina Date Time Electronically viewed and signed by Physician Alaina on 09/13/2016 08:57 /
[2016-09-13] MEDS: SEVELAMER CARBONATE 0.8 GM PKT PO SCH ×3 (09:10→17:42)
[2016-09-13] MEDS: HYDROmorphONE 0.2 MG/ML PCA IV SCH ×2 (09:38→23:05)
[2016-09-13 10:07] LABS: ADD SCAN DIFF NO
[2016-09-13 10:10] LABS: ABNORMAL IP MESSAGE 1; HEMATOCRIT 26.7 % (42.0-52.0); HEMOGLOBIN 8.2 g/dl (14.0-18.0); MEAN CORPUSCULAR HEMOGLOBIN 29.8 pg (29.0-33.0); MEAN CORPUSCULAR HGB CONC 30.7 g/dl (32.0-37.0); MEAN CORPUSCULAR VOLUME 97.1 fl (82.0-101.0); MEAN PLATELET VOLUME 9.4 fl (7.4-10.4); PLATELET COUNT 320 10^3/UL (140-415); RED BLOOD COUNT 2.75 10^6/ul (4.70-6.10); RED CELL DISTRIBUTION WIDTH 15.9 % (11.5-14.5); WHITE BLOOD COUNT 19.9 10^3/ul (4.8-10.8)
[2016-09-13 10:29] LABS: POTASSIUM 4.8 mmol/L (3.5-5.1)
[2016-09-13 10:33] LABS: CALCIUM 8.3 mg/dl (8.4-10.2)
[2016-09-13 10:43] LABS: CREATININE 4.37 mg/dl (0.61-1.24)
[2016-09-13 11:11] LABS: LYMPHOCYTES # 0.6 10^3/ul (0.8-2.9); NEUTROPHIL # 18.3 10^3/ul (1.6-7.5)
--- NOTE | 2016-09-13 11:38 | CONS ---
Date/Time of Note Date/Time of Note DATE: 09/13/16 TIME: 11:36 Assessment/Plan Assessment/Plan Additional Assessment/Plan Recommendations; next 1. Patient admitted for left-sided empyema status post VATS surgery. 2. Hypertension. 3. History of renal failure, on hemodialysis. 4. Episode of shortness of breath this morning possibly related to fluid overload. Improved after dialysis has been initiated. Continue current treatment. Will obtain a chest x-ray. Consultation Date/Type/Reason Admit Date/Time Sep 03, 2016 at 08:14 Initial Consult Date 09/03/16 Type of Consultation: renal pulmonary Referring Provider: Jessica GRIJALVA 24 HR Interval Summary Free Text/Dictation And had an episode of shortness of breath this morning responded very to initiation of dialysis. He is feeling much better. Denies any cough, wheezing. Any chest pain. Any fever chills. General exam; elderly male, awake currently in no distress, getting hemodialysis at bedside. Exam/Review of Systems Vital Signs Vitals Vital Signs Date Time Temp Pulse Resp B/P Pulse Ox O2 Delivery O2 Flow Rate FiO2 09/13/16 11:05 Nasal Cannula 6.0 09/13/16 10:58 74 09/13/16 09:42 20 09/13/16 08:22 100 09/13/16 08:22 100 09/13/16 08:15 97.7 121/57 Intake and Output 09/12/16 09/12/16 09/13/16 15:00 23:00 07:00 Intake Total 970 ml 100 ml Output Total 90 ml 30 ml Balance 880 ml 70 ml Exam HEENT examination; supple neck, no JVD. No lymphadenopathy. Midline trachea. No thyromegaly. Pharynx is clear. Patient has fair dentition. Chest exam; diminished breath sound left lung. Left-sided chest tube in place. Right lung is clear to auscultation. S1-S2 audible, no murmurs. Regular rhythm. Abdomen exam is; soft, nontender. No organomegaly. Bowel sounds audible. Extremity exam is; no peripheral edema. LITHOGRAPH OPERATOR examination; no focal deficit. Results Result Diagram: 09/13/16 0940 09/13/16 0940 Results 24 hrs Laboratory Tests Test 09/13/16 09:40 White Blood Count 19.9 H Red Blood Count 2.75 L Hemoglobin 8.2 L Hematocrit 26.7 L Mean Corpuscular Volume 97.1 Mean Corpuscular Hemoglobin 29.8 Mean Corpuscular Hemoglobin Concent 30.7 L Red Cell Distribution Width 15.9 H Platelet Count 320 Mean Platelet Volume 9.4 Neutrophils % 92.0 H Lymphocytes % 3.0 L Monocytes % 5.0 Neutrophils # 18.3 H Lymphocytes # 0.6 L Monocytes # 1.0 H Sodium Level 132 L Potassium Level 4.8 Chloride Level 95 #L Carbon Dioxide Level 25 Anion Gap 17 H Blood Urea Nitrogen 40 H Creatinine 4.37 H Glucose Level 123 Calcium Level 8.3 L Phosphorus Level 7.0 H Magnesium Level 2.0 Medications Medications Current Medications Amikacin Sulfate (Amikacin Iv Per Pharmacy) AMIKACIN PER PHARMACY NOTE XX ; Start 09/03/16 at 13:30 Ondansetron HCl (Zofran Inj) 4 mg Q6H PRN IV NAUSEA AND/OR VOMITING; Start 09/03 at 14:00 Morphine Sulfate (morphine) 2 mg Q4H PRN IV Pain; Start 09/03/16 at 14:00 Hydralazine HCl (Apresoline) 10 mg Q6H PRN IV SBP>160; Start 09/03/16 at 14:00 Famotidine 20 mg 20 mg Q24H PO Last administered on 09/12/16 21:36; Admin Dose 20 MG; Start 09/03/16 at 21:00 Piperacillin Sod/ Tazobactam Sod (Zosyn 2.25gm/ 50ml (Pmx)) 50 ml @ 100 mls/hr Q8 IVPB Last administered on 09/13/16 06:29; Admin Dose 100 MLS/HR; Start 09/03 at 14:21 Epoetin Eligio (Epogen (Esrd)) 3,000 units MoWeFr@17 IV Last administered on 09/09 17:02; Admin Dose 3,000 UNITS; Start 09/06/16 at 17:00 Guaifenesin/ Dextromethorphan (Robitussin Dm Liquid Cup) 10 ml Q4H PRN PO COUGH Last administered on 09/13/16 00:07; Admin Dose 10 ML; Start 09/09/16 at 17:30 Acetaminophen/ Hydrocodone Bitart ([place] (10325)) 1 tab Q4H PRN PO PAIN; Start 09/10/16 at 16:00 Bisacodyl (Dulcolax) 10 mg DAILY PRN PO CONSTIPATION Last administered on 21:36; Admin Dose 10 MG; Start 09/10/16 at 16:00 Naloxone HCl (Narcan) 0.2 mg PRN PRN IV DECREASED REPIRATORY RATE; Start at 16:00 Hydromorphone HCl (Dilaudid EATING DISORDER SPECIALIST) Q4PCA IV Last administered on 09/13/16 09:38 ; Admin Dose 6 MG; Start 09/11/16 at 16:00 Ondansetron HCl (Zofran Inj) 4 mg Q6H PRN IV NAUSEA AND/OR VOMITING; Start 05/18 at 16:00 NELSON VICTOR Sep 13, 2016 11:38
--- NOTE | 2016-09-13 13:13 | PN ---
Date/Time of Note Date/Time of Note DATE: 09/13/16 TIME: 13:10 Assessment/Plan VTE Prophylaxis VTE Prophylaxis Intervention: LMWH Lines/Catheters IV Catheter Type (from Nrs): Peripheral IV Urinary Cath still in place: No Assessment/Plan Chief Complaint/Hosp Course S 09/09 no distress chest pain 09/10 no distress chest pain or dyspnea. 09/11 stable no distress. Positive dyspnea chills. No chest pain. Dialysis/ 3L removed. 09/12 sp vats/ transfused. pleuritic pain. 09/13 intermittent dyspnea. ams earlier? non focal. no arrhythmia. sp HD. O:vss PE No pallor/ JVD/ droop Reg. sm+. No r/g Dimin bs. lt ct -c/d/i BS+ nt, nd, no r/r/g No edema. +hypotonia Nonfocal A/P 1. Ac hypoxic resp failure. Stable taper O2 2. Empyema; Sp VATS. Rx pain/ c tube therapy 3. ESRD; HD 4. Line sepsis/[place]. Resolved 5. Paraplegic status. Disposition? Home vs snf. 6. Htn 7. 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 ESBL E coli cystitis 9. HCAP 10. Neurogenic bladder 11. Anemia 12. Ac encephalopathy? follow/ watch for hypoxia/ oversedation. Problems: Exam/Review of Systems Vital Signs Vitals Vital Signs Date Time Temp Pulse Resp B/P Pulse Ox O2 Delivery O2 Flow Rate FiO2 09/13/16 13:00 18 09/13/16 12:18 79 09/13/16 12:09 98.2 127/75 99 09/13/16 11:05 Nasal Cannula 6.0 09/13/16 08:22 100 Intake and Output 09/12/16 09/12/16 09/13/16 15:00 23:00 07:00 Intake Total 970 ml 100 ml Output Total 90 ml 30 ml Balance 880 ml 70 ml Results Result Diagram: 09/13/16 0940 09/13/16 0940 Results 24 hrs Laboratory Tests Test 09/13/16 09:40 White Blood Count 19.9 H Red Blood Count 2.75 L Hemoglobin 8.2 L Hematocrit 26.7 L Mean Corpuscular Volume 97.1 Mean Corpuscular Hemoglobin 29.8 Mean Corpuscular Hemoglobin Concent 30.7 L Red Cell Distribution Width 15.9 H Platelet Count 320 Mean Platelet Volume 9.4 Neutrophils % 92.0 H Lymphocytes % 3.0 L Monocytes % 5.0 Neutrophils # 18.3 H Lymphocytes # 0.6 L Monocytes # 1.0 H Sodium Level 132 L Potassium Level 4.8 Chloride Level 95 #L Carbon Dioxide Level 25 Anion Gap 17 H Blood Urea Nitrogen 40 H Creatinine 4.37 H Glucose Level 123 Calcium Level 8.3 L Phosphorus Level 7.0 H Magnesium Level 2.0 Medications Medications Current Medications Amikacin Sulfate (Amikacin Iv Per Pharmacy) AMIKACIN PER PHARMACY NOTE XX ; Start 09/03/16 at 13:30 Ondansetron HCl (Zofran Inj) 4 mg Q6H PRN IV NAUSEA AND/OR VOMITING; Start 09/03 at 14:00 Morphine Sulfate (morphine) 2 mg Q4H PRN IV Pain; Start 09/03/16 at 14:00 Hydralazine HCl (Apresoline) 10 mg Q6H PRN IV SBP>160; Start 09/03/16 at 14:00 Famotidine 20 mg 20 mg Q24H PO Last administered on 09/12/16 21:36; Admin Dose 20 MG; Start 09/03/16 at 21:00 Piperacillin Sod/ Tazobactam Sod (Zosyn 2.25gm/ 50ml (Pmx)) 50 ml @ 100 mls/hr Q8 IVPB Last administered on 09/13/16 06:29; Admin Dose 100 MLS/HR; Start 09/03 at 14:21 Epoetin Eligio (Epogen (Esrd)) 3,000 units MoWeFr@17 IV Last administered on 09/09 17:02; Admin Dose 3,000 UNITS; Start 09/06/16 at 17:00 Guaifenesin/ Dextromethorphan (Robitussin Dm Liquid Cup) 10 ml Q4H PRN PO COUGH Last administered on 09/13/16 00:07; Admin Dose 10 ML; Start 09/09/16 at 17:30 Acetaminophen/ Hydrocodone Bitart ([place] (10/325)) 1 tab Q4H PRN PO PAIN; Start 09/10/16 at 16:00 Bisacodyl (Dulcolax) 10 mg DAILY PRN PO CONSTIPATION Last administered on 21:36; Admin Dose 10 MG; Start 09/10/16 at 16:00 Naloxone HCl (Narcan) 0.2 mg PRN PRN IV DECREASED REPIRATORY RATE; Start at 16:00 Hydromorphone HCl (Dilaudid CROP SCOUT) Q4PCA IV Last administered on 09/13/16 09:38 ; Admin Dose 6 MG; Start 09/11/16 at 16:00 Ondansetron HCl (Zofran Inj) 4 mg Q6H PRN IV NAUSEA AND/OR VOMITING; Start 05/18 at 16:00 JAREK GUO MD Sep 13, 2016 13:13
[2016-09-13] MEDS ORDERED: BISACODYL 10 MG SUPP PR PRN (13:30)
[2016-09-13] MEDS ORDERED: BISACODYL (EC) 5 MG TAB PO ONE (13:30)
--- NOTE | 2016-09-13 15:31 | RADRPT ---
PROCEDURE: XR Chest. CLINICAL INDICATION: Shortness of breath. TECHNIQUE: Single frontal view. COMPARISON: None. FINDINGS: There are two left chest tubes. Left lateral skin [place] are once again noted. There is consolidati on throughout most of the left lung, unchanged. The right lung is clear. The heart size is normal. There is calcification in the aorta consistent with atherosclerosis. There is no pneumothorax. IMPRESSION: 1. Postoperative changes of the left hemithorax with 2 chest tubes and lateral skin [place]. 2. Consolidation throughout most of the left lung, unchanged. 3. Atherosclerosis. 4. Clear right lung. RPTAT: QQ .Derek Gómez MD, MD Date Time Electronically viewed and signed by .Derek Gómez MD, MD on 09/13/2016 15:31 .R/
[2016-09-13] MEDS: SOD CHLORIDE 0.9% IVPB SCH (15:38)
[2016-09-13] MEDS: AMIKACIN IVPB SCH (15:38)
--- NOTE | 2016-09-13 16:31 | PN ---
DATE: 09/13/2016 SUBJECTIVE: No acute changes. The patient was transferred to telemetry, looks comfortable, in no d istress, no fevers. WBC today 19.9, platelets 320, neutrophils 92. MICROBIOLOGY: Intraoperative cultures preliminary negative. Anaerobic culture was negative. ANTIMICROBIALS: The patient is on: 1. Zosyn. 2. Amikacin. INDWELLINGS: AV fistula and chest tube. PHYSICAL EXAMINATION: GENERAL: This is an ill-appearing, elderly man in no distress. HEENT: Head atraumatic, normocephalic. Sclerae anicteric. Buccal mucosa dry. NECK: Supple, midline. CHEST: Rise symmetrical. Breath sounds diminished to bases. HEART: S1, S2. ABDOMEN: Distended, soft. Bowel tones hypoactive. EXTREMITIES: Without cyanosis. ASSESSMENT: 1. Status post video-assisted thoracotomy with total pulmonary decortication on 09/11/2016. 2. Status post urinary tract infection and bacteremia. 3. End-stage renal disease, hemodialysis dependent. 4. Neurogenic bladder. 5. Persistent leukocytosis, likely reactive. PLAN: The patient remains stable postoperatively. We are going to discontinue Zosyn. Keep him on amikacin and follow recommendations of consultants. Dictated By: CELIA CRAWFORD DENTAL CHAIR ASSEMBLER for FLAKO ROBERTSON/NTS Conf#: [id number] DID#: [id number]
--- NOTE | 2016-09-13 16:54 | CONS ---
Date/Time of Note Date/Time of Note DATE: 09/13/16 TIME: 16:51 Assessment/Plan Assessment/Plan Chief Complaint/Hosp Course IMPRESSION: 1. Preoperative evaluation prior to VATS procedure with, at this time, the patient having a EF done this admission revealing a preserved left ventricular ejection fraction and moderate mitral regurgitation and having negative troponins x 3 since admit. Patient has no cardiac contraindication to proceeding to OR for VATS/decortication at this time at moderate risk. Now POD# 2 s/p VATS/decortication 2. Empyema. 3. End-stage renal disease on hemodialysis. 4. Bacteremia. 5. Urinary tract infection. 6. Paraplegia 7.Hyponatremia 8.Leukocytosis Recc: -Tele -Continue abx's and f/u cx data -Follow volume status closely with HD for removal -Pain control -Pulmonary toilet Problems: Consultation Date/Type/Reason Admit Date/Time Sep 03, 2016 at 08:14 Initial Consult Date 09/03/16 Type of Consultation: Cardiology Referring Provider: Jessica GRIJALVA Exam/Review of Systems Vital Signs Vitals Vital Signs Date Time Temp Pulse Resp B/P Pulse Ox O2 Delivery O2 Flow Rate FiO2 09/13/16 16:38 78 09/13/16 16:34 16 09/13/16 16:33 100 4.0 09/13/16 16:33 Nasal Cannula 09/13/16 16:09 98.2 116/58 09/13/16 08:22 100 Intake and Output 09/12/16 09/12/16 09/13/16 15:00 23:00 07:00 Intake Total 970 ml 100 ml Output Total 90 ml 30 ml Balance 880 ml 70 ml Exam Review of Systems: CONSTITUTIONAL: No fevers, chills. PULMONARY: positive sob CARDIOVASCULAR: No chest pain/palpitations GASTROINTESTINAL: No nausea/vomiting. GENITOURINARY: No hematuria/dysuria. MUSCULOSKELETAL: No myagias/arthalgias. PSYCHIATRIC: The patient denies depression. NEUROLOGIC: paraplegic Constitutional: alert Psych: no complaints Head: normocephalic ENMT: mucosa pink and moist Neck: jvd (9 cm water), supple Respiratory: diminished breath sounds (at bases/b) Cardiovascular: regular rate and rhythm Gastrointestinal: non-tender, soft Musculoskeletal: muscle tone (normal) Extremities: edema (none) Results Result Diagram: 09/13/16 0940 09/13/16 0940 Results 24 hrs Laboratory Tests Test 09/13/16 09:40 White Blood Count 19.9 H Red Blood Count 2.75 L Hemoglobin 8.2 L Hematocrit 26.7 L Mean Corpuscular Volume 97.1 Mean Corpuscular Hemoglobin 29.8 Mean Corpuscular Hemoglobin Concent 30.7 L Red Cell Distribution Width 15.9 H Platelet Count 320 Mean Platelet Volume 9.4 Neutrophils % 92.0 H Lymphocytes % 3.0 L Monocytes % 5.0 Neutrophils # 18.3 H Lymphocytes # 0.6 L Monocytes # 1.0 H Sodium Level 132 L Potassium Level 4.8 Chloride Level 95 #L Carbon Dioxide Level 25 Anion Gap 17 H Blood Urea Nitrogen 40 H Creatinine 4.37 H Glucose Level 123 Calcium Level 8.3 L Phosphorus Level 7.0 H Magnesium Level 2.0 Medications Medications Current Medications Amikacin Sulfate (Amikacin Iv Per Pharmacy) AMIKACIN PER PHARMACY NOTE XX ; Start 09/03/16 at 13:30 Ondansetron HCl (Zofran Inj) 4 mg Q6H PRN IV NAUSEA AND/OR VOMITING; Start 09/03 at 14:00 Morphine Sulfate (morphine) 2 mg Q4H PRN IV Pain; Start 09/03/16 at 14:00 Hydralazine HCl (Apresoline) 10 mg Q6H PRN IV SBP>160; Start 09/03/16 at 14:00 Famotidine (Pepcid) 20 mg Q24H PO Last administered on 09/12/16 21:36; Admin Dose 20 MG; Start 09/03/16 at 21:00 Epoetin Eligio (Epogen (Esrd)) 3,000 units MoWeFr@17 IV Last administered on 09/09 17:02; Admin Dose 3,000 UNITS; Start 09/06/16 at 17:00 Guaifenesin/ Dextromethorphan (Robitussin Dm Liquid Cup) 10 ml Q4H PRN PO COUGH Last administered on 09/13/16 00:07; Admin Dose 10 ML; Start 09/09/16 at 17:30 Acetaminophen/ Hydrocodone Bitart ([place] (10/325)) 1 tab Q4H PRN PO PAIN; Start 09/10/16 at 16:00 Bisacodyl (Dulcolax) 10 mg DAILY PRN PO CONSTIPATION Last administered on 21:36; Admin Dose 10 MG; Start 09/10/16 at 16:00 Naloxone HCl (Narcan) 0.2 mg PRN PRN IV DECREASED REPIRATORY RATE; Start at 16:00 Hydromorphone HCl (Dilaudid SURGEON PARTNER) Q4PCA IV Last administered on 09/13/16 09:38 ; Admin Dose 6 MG; Start 09/11/16 at 16:00 Ondansetron HCl (Zofran Inj) 4 mg Q6H PRN IV NAUSEA AND/OR VOMITING; Start 05/18 at 16:00 Lactobacillus Acidophilus/ Rhamnosus (Culturelle) 1 cap BID PO ; Start 09/14/16 at 09:00 Senna/Docusate Sodium (Senokot-S) 2 tab HS PO ; Start 09/13/16 at 21:00 Bisacodyl (Dulcolax Supp) 10 mg Q48H PRN [place] CONSTIPATION; Start 09/13/16 at 13: 30 TRISTEN SHAVER Sep 13, 2016 16:54
[2016-09-13] MEDS: EPOETIN 3000 UNITS/1 ML INJ (ESRD) IV SCH (17:42)
--- NOTE | 2016-09-13 20:33 | PN ---
Date/Time of Note Date/Time of Note DATE: 09/13/16 TIME: 20:31 Assessment/Plan Lines/Catheters IV Catheter Type (from Nrsg): Peripheral IV Deutsch in Place (from Nrsg): No Assessment/Plan Chief Complaint/Hosp Course Left pleural effusion, possibly empyema, but the patient is clinically improving. Will continue antibiotics. SP Left video-assisted thoracic surgery and decortication CT 80cc will continue CT sxn Discussed with the daughter Problems: Subjective 24 Hr Interval Summary Constitutional: improved Pain Control: mild Exam/Review of Systems Vital Signs Vitals Vital Signs Date Time Temp Pulse Resp B/P Pulse Ox O2 Delivery O2 Flow Rate FiO2 09/13/16 20:26 81 09/13/16 16:34 16 09/13/16 16:33 100 4.0 09/13/16 16:33 Nasal Cannula 09/13/16 16:09 98.2 116/58 09/13/16 08:22 100 Intake and Output 09/12/16 09/12/16 09/13/16 15:00 23:00 07:00 Intake Total 970 ml 100 ml Output Total 90 ml 30 ml Balance 880 ml 70 ml Exam Eyes: EOMI, nl conjunctiva, nl lids, nl sclera ENMT: No intubated, No mucosa pink and moist, No nl external ears & nose, No nl lips & teeth, No nl nasal mucosa & septum, No other, No tympanic membranes Neck: non-tender, supple Respiratory: clear to auscultation, normal air movement Cardiovascular: nl pulses, regular rate and rhythm Results Result Diagram: 09/13/16 0940 09/13/16 0940 FRANKY PERES MD Sep 13, 2016 20:33
--- NOTE | 2016-09-13 20:58 | RADRPT ---
Vent Rate: 82 bpm RR Interval: 0 msec PA Interval: 146 msec QRS Duration: 86 msec QT Interval: 378 msec QTC Interval: 441 msec P-R-T [place]: 37 - 38 - 63 degrees Normal sinus rhythm Normal ECG Electronically Signed By: Saurabh Jackson [id number]
[2016-09-13] MEDS: SENNA/DOCUSATE NA (8.6MG/50MG) TAB PO SCH (21:10)
[2016-09-13] MEDS: FAMOTIDINE 20 MG TAB PO SCH (21:10)
--- NOTE | 2016-09-13 21:16 | CONS ---
Date/Time of Note Date/Time of Note DATE: 09/13/16 TIME: 21:15 Assessment/Plan Assessment/Plan Chief Complaint/Hosp Course Pt on appropriate AB Rx for [facility] HD Scheduled for Problems: (1) Sepsis Status: Acute Comment: ON AB Rx Qualifiers: Sepsis type: sepsis due to unspecified organism Qualified Code: A41.9 - Sepsis, due to unspecified organism (2) Hypertension Status: Acute Comment: BP is stable Qualifiers: Hypertension type: essential hypertension Qualified Code: I10 - Essential hypertension (3) Obstructive uropathy (4) BPH (benign prostatic hyperplasia) Comment: Pt being followed by Additional Assessment/Plan Will monitor WBC & hct closely Transfuse blood if needed Consultation Date/Type/Reason Admit Date/Time Sep 03, 2016 at 08:14 Initial Consult Date 09/03/16 Type of Consultation: renal Referring Provider: Jessica GRIJALVA Exam/Review of Systems Vital Signs Vitals Vital Signs Date Time Temp Pulse Resp B/P Pulse Ox O2 Delivery O2 Flow Rate FiO2 09/13/16 20:26 81 09/13/16 20:00 97.6 15 91/50 100 09/13/16 16:33 4.0 09/13/16 16:33 Nasal Cannula 09/13/16 08:22 100 Intake and Output 09/12/16 09/12/16 09/13/16 15:00 23:00 07:00 Intake Total 970 ml 100 ml Output Total 90 ml 30 ml Balance 880 ml 70 ml Exam Pt remains confined to bed. Daughter at bedside Constitutional: alert, oriented Psych: no complaints Head: normocephalic Eyes: PERRL, nl conjunctiva ENMT: nl external ears & nose Respiratory: diminished breath sounds, other (Chest tube in place) Cardiovascular: regular rate and rhythm Genitourinary - Male: nl penis Musculoskeletal: other (paraplegic) Neurological: other (Hx of paraplegia) Results Hbg trending down, may have to addjust epo dose Result Diagram: 09/13/16 0940 09/13/16 0940 Results 24 hrs Laboratory Tests Test 09/13/16 09:40 White Blood Count 19.9 H Red Blood Count 2.75 L Hemoglobin 8.2 L Hematocrit 26.7 L Mean Corpuscular Volume 97.1 Mean Corpuscular Hemoglobin 29.8 Mean Corpuscular Hemoglobin Concent 30.7 L Red Cell Distribution Width 15.9 H Platelet Count 320 Mean Platelet Volume 9.4 Neutrophils % 92.0 H Lymphocytes % 3.0 L Monocytes % 5.0 Neutrophils # 18.3 H Lymphocytes # 0.6 L Monocytes # 1.0 H Sodium Level 132 L Potassium Level 4.8 Chloride Level 95 #L Carbon Dioxide Level 25 Anion Gap 17 H Blood Urea Nitrogen 40 H Creatinine 4.37 H Glucose Level 123 Calcium Level 8.3 L Phosphorus Level 7.0 H Magnesium Level 2.0 Medications Medications Current Medications Amikacin Sulfate (Amikacin Iv Per Pharmacy) AMIKACIN PER PHARMACY NOTE XX ; Start 09/03/16 at 13:30 Ondansetron HCl (Zofran Inj) 4 mg Q6H PRN IV NAUSEA AND/OR VOMITING; Start 09/03 at 14:00 Morphine Sulfate (morphine) 2 mg Q4H PRN IV Pain; Start 09/03/16 at 14:00 Hydralazine HCl (Apresoline) 10 mg Q6H PRN IV SBP>160; Start 09/03/16 at 14:00 Famotidine (Pepcid) 20 mg Q24H PO Last administered on 09/13/16 21:10; Admin Dose 20 MG; Start 09/03/16 at 21:00 Epoetin Eligio (Epogen (Esrd)) 3,000 units MoWeFr@17 IV Last administered on 09/13 17:42; Admin Dose 3,000 UNITS; Start 09/06/16 at 17:00 Guaifenesin/ Dextromethorphan (Robitussin Dm Liquid Cup) 10 ml Q4H PRN PO COUGH Last administered on 09/13/16 00:07; Admin Dose 10 ML; Start 09/09/16 at 17:30 Acetaminophen/ Hydrocodone Bitart ([place] (10/325)) 1 tab Q4H PRN PO PAIN; Start 09/10/16 at 16:00 Bisacodyl (Dulcolax) 10 mg DAILY PRN PO CONSTIPATION Last administered on 21:36; Admin Dose 10 MG; Start 09/10/16 at 16:00 Naloxone HCl (Narcan) 0.2 mg PRN PRN IV DECREASED REPIRATORY RATE; Start at 16:00 Hydromorphone HCl (Dilaudid SHERIFF'S DETECTIVE) Q4PCA IV Last administered on 09/13/16 09:38 ; Admin Dose 6 MG; Start 09/11/16 at 16:00 Ondansetron HCl (Zofran Inj) 4 mg Q6H PRN IV NAUSEA AND/OR VOMITING; Start 05/18 at 16:00 Lactobacillus Acidophilus/ Rhamnosus (Culturelle) 1 cap BID PO ; Start 09/14/16 at 09:00 Senna/Docusate Sodium (Senokot-S) 2 tab HS PO Last administered on 09/13/16 21 :10; Admin Dose 2 TAB; Start 09/13/16 at 21:00 Bisacodyl (Dulcolax Supp) 10 mg Q48H PRN [place] CONSTIPATION; Start 09/13/16 at 13: 30 TJ CLANCY MD Sep 13, 2016 21:15
[2016-09-14] VITALS (12 sets, daily range): BP systolic 85–134; BP diastolic 45–65; PULSE 74–87; RESP 15–20
[2016-09-14] MEDS: ALBUTEROL/IPRATROPIUM (NEB) 3 ML AMP HHN SCH ×3 (01:22→16:31)
[2016-09-14] MEDS: LACTOBACILLUS RHAMNOSUS CAP PO SCH ×2 (08:35→21:27)
[2016-09-14] MEDS: SEVELAMER CARBONATE 0.8 GM PKT PO SCH ×3 (08:35→17:18)
[2016-09-14] MEDS ORDERED: EPOETIN 2000 UNITS/1 ML INJ (ESRD) IV SCH (09:00)
[2016-09-14] MEDS ORDERED: EPOETIN 3000 UNITS/1 ML INJ (ESRD) IV SCH (09:00)
[2016-09-14 09:38] LABS: ADD SCAN DIFF NO
[2016-09-14 09:43] LABS: BASOPHIL # 0.1 10^3/ul (0.0-0.1); BASOPHILS % 0.3 % (0.0-2.0); EOSINOPHILS # 0.2 10^3/ul (0.0-0.5); EOSINOPHILS % 1.2 % (0.0-7.0); HEMATOCRIT 27.5 % (42.0-52.0); HEMOGLOBIN 8.3 g/dl (14.0-18.0); LYMPHOCYTES # 0.9 10^3/ul (0.8-2.9); LYMPHOCYTES % 5.1 % (15.0-51.0); MEAN CORPUSCULAR HEMOGLOBIN 29.9 pg (29.0-33.0); MEAN CORPUSCULAR HGB CONC 30.2 g/dl (32.0-37.0); MEAN CORPUSCULAR VOLUME 98.9 fl (82.0-101.0); MEAN PLATELET VOLUME 9.6 fl (7.4-10.4); MONOCYTE # 0.9 10^3/ul (0.3-0.9); MONOCYTES % 5.1 % (0.0-11.0); NEUTROPHIL # 14.9 10^3/ul (1.6-7.5); NEUTROPHILS % 87.8 % (39.0-77.0); PLATELET COUNT 332 10^3/UL (140-415); RED BLOOD COUNT 2.78 10^6/ul (4.70-6.10); RED CELL DISTRIBUTION WIDTH 15.6 % (11.5-14.5); WHITE BLOOD COUNT 16.9 10^3/ul (4.8-10.8)
[2016-09-14 09:58] LABS: CALCIUM 8.3 mg/dl (8.4-10.2); PHOSPHORUS 7.1 mg/dl (2.5-4.9); POTASSIUM 4.9 mmol/L (3.5-5.1)
--- NOTE | 2016-09-14 10:01 | PN ---
Date/Time of Note Date/Time of Note DATE: 09/14/16 TIME: 09:59 Assessment/Plan VTE Prophylaxis VTE Prophylaxis Intervention: other Assessment/Plan Assessment/Plan dditional Assessment/Plan 1. Klebsiella pneumoniae bacteremia and urinary tract infection. 2. End-stage renal disease, hemodialysis dependent. 3. Left lateral and posterior empyema with adjacent regions of pneumonia. 4. Anemia, Chronic Disease, ESRD 5. Mineral Bone disease, ESRD [id number] hd yesterday done cont plan Subjective 24 Hr Interval Summary Respiratory: no complaints Cardiovascular: no complaints Gastrointestinal: no complaints Exam/Review of Systems Vital Signs Vitals Vital Signs Date Time Temp Pulse Resp B/P Pulse Ox O2 Delivery O2 Flow Rate FiO2 09/14/16 08:57 87 09/14/16 08:03 98.0 16 112/56 100 09/14/16 07:29 3.0 09/14/16 07:29 Nasal Cannula 09/13/16 08:22 100 Intake and Output 09/13/16 09/13/16 09/14/16 15:00 23:00 07:00 Intake Total 900 ml 250 ml 200 ml Output Total 2760 ml 500 ml 120 ml Balance -1860 ml -250 ml 80 ml Exam Constitutional: alert, oriented Eyes: nl conjunctiva Neck: supple Respiratory: clear to auscultation Cardiovascular: regular rate and rhythm Gastrointestinal: soft Results Result Diagram: 09/14/16 0858 09/13/16 0940 Results 24 hrs Laboratory Tests Test 09/14/16 08:58 White Blood Count 16.9 H Red Blood Count 2.78 L Hemoglobin 8.3 L Hematocrit 27.5 L Mean Corpuscular Volume 98.9 Mean Corpuscular Hemoglobin 29.9 Mean Corpuscular Hemoglobin Concent 30.2 L Red Cell Distribution Width 15.6 H Platelet Count 332 Mean Platelet Volume 9.6 Neutrophils % 87.8 H Lymphocytes % 5.1 L Monocytes % 5.1 Eosinophils % 1.2 Basophils % 0.3 Nucleated Red Blood Cells % 0.0 Neutrophils # 14.9 H Lymphocytes # 0.9 Monocytes # 0.9 Eosinophils # 0.2 Basophils # 0.1 Nucleated Red Blood Cells # 0.0 Medications Medications Current Medications Amikacin Sulfate (Amikacin Iv Per Pharmacy) AMIKACIN PER PHARMACY NOTE XX ; Start 09/03/16 at 13:30 Ondansetron HCl (Zofran Inj) 4 mg Q6H PRN IV NAUSEA AND/OR VOMITING; Start 09/03 at 14:00 Morphine Sulfate (morphine) 2 mg Q4H PRN IV Pain; Start 09/03/16 at 14:00 Hydralazine HCl (Apresoline) 10 mg Q6H PRN IV SBP>160; Start 09/03/16 at 14:00 Famotidine (Pepcid) 20 mg Q24H PO Last administered on 09/13/16 21:10; Admin Dose 20 MG; Start 09/03/16 at 21:00 Guaifenesin/ Dextromethorphan (Robitussin Dm Liquid Cup) 10 ml Q4H PRN PO COUGH Last administered on 09/13/16 00:07; Admin Dose 10 ML; Start 09/09/16 at 17:30 Acetaminophen/ Hydrocodone Bitart ([place] (10/325)) 1 tab Q4H PRN PO PAIN; Start 09/10/16 at 16:00 Bisacodyl (Dulcolax) 10 mg DAILY PRN PO CONSTIPATION Last administered on 21:36; Admin Dose 10 MG; Start 09/10/16 at 16:00 Naloxone HCl (Narcan) 0.2 mg PRN PRN IV DECREASED REPIRATORY RATE; Start at 16:00 Hydromorphone HCl (Dilaudid RN INTERN) Q4PCA IV Last administered on 09/13/16 23:05 ; Admin Dose 6 MG; Start 09/11/16 at 16:00 Ondansetron HCl (Zofran Inj) 4 mg Q6H PRN IV NAUSEA AND/OR VOMITING; Start 05/18 at 16:00 Lactobacillus Acidophilus/ Rhamnosus (Culturelle) 1 cap BID PO Last administered on 09/14/16 08:35; Admin Dose 1 CAP; Start 09/14/16 at 09:00 Senna/Docusate Sodium (Senokot-S) 2 tab HS PO Last administered on 09/13/16 21 :10; Admin Dose 2 TAB; Start 09/13/16 at 21:00 Bisacodyl (Dulcolax Supp) 10 mg Q48H PRN [place] CONSTIPATION; Start 09/13/16 at 13: 30 Epoetin Eligio (Epogen (Esrd)) 3,000 units MoWeFr@17 IV ; Start 09/14/16 at 09:00 Epoetin Eligio (Epogen (Esrd)) 2,000 units MoWeFr@17 IV ; Start 09/14/16 at 09:00 DAVI DUBOIS MD Sep 14, 2016 10:01
[2016-09-14 10:12] LABS: CREATININE 3.75 mg/dl (0.61-1.24)
--- NOTE | 2016-09-14 10:45 | CONS ---
Date/Time of Note Date/Time of Note DATE: 09/14/16 TIME: 10:45 Consultation Date/Type/Reason Admit Date/Time Sep 03, 2016 at 08:14 Initial Consult Date 09/03/16 Type of Consultation: Pulmonary Referring Provider: Jessica GRIJALVA 24 HR Interval Summary Free Text/Dictation Progress note dictated. Exam/Review of Systems Vital Signs Vitals Vital Signs Date Time Temp Pulse Resp B/P Pulse Ox O2 Delivery O2 Flow Rate FiO2 09/14/16 10:21 Nasal Cannula 2.0 09/14/16 08:57 87 09/14/16 08:03 98.0 16 112/56 100 09/13/16 08:22 100 Intake and Output 09/13/16 09/13/16 09/14/16 15:00 23:00 07:00 Intake Total 900 ml 250 ml 200 ml Output Total 2760 ml 500 ml 120 ml Balance -1860 ml -250 ml 80 ml Results Result Diagram: 09/14/16 0858 09/14/16 0855 Results 24 hrs Laboratory Tests Test 09/14/16 08:55 09/14/16 08:58 Sodium Level 128 L Potassium Level 4.9 Chloride Level 91 L Carbon Dioxide Level 26 Anion Gap 16 Blood Urea Nitrogen 32 H Creatinine 3.75 H Glucose Level 83 # Calcium Level 8.3 L Phosphorus Level 7.1 H Magnesium Level 2.0 White Blood Count 16.9 H Red Blood Count 2.78 L Hemoglobin 8.3 L Hematocrit 27.5 L Mean Corpuscular Volume 98.9 Mean Corpuscular Hemoglobin 29.9 Mean Corpuscular Hemoglobin Concent 30.2 L Red Cell Distribution Width 15.6 H Platelet Count 332 Mean Platelet Volume 9.6 Neutrophils % 87.8 H Lymphocytes % 5.1 L Monocytes % 5.1 Eosinophils % 1.2 Basophils % 0.3 Nucleated Red Blood Cells % 0.0 Neutrophils # 14.9 H Lymphocytes # 0.9 Monocytes # 0.9 Eosinophils # 0.2 Basophils # 0.1 Nucleated Red Blood Cells # 0.0 Medications Medications Current Medications Amikacin Sulfate (Amikacin Iv Per Pharmacy) AMIKACIN PER PHARMACY NOTE XX ; Start 09/03/16 at 13:30 Ondansetron HCl (Zofran Inj) 4 mg Q6H PRN IV NAUSEA AND/OR VOMITING; Start 09/03 at 14:00 Morphine Sulfate (morphine) 2 mg Q4H PRN IV Pain; Start 09/03/16 at 14:00 Hydralazine HCl (Apresoline) 10 mg Q6H PRN IV SBP>160; Start 09/03/16 at 14:00 Famotidine (Pepcid) 20 mg Q24H PO Last administered on 09/13/16 21:10; Admin Dose 20 MG; Start 09/03/16 at 21:00 Guaifenesin/ Dextromethorphan (Robitussin Dm Liquid Cup) 10 ml Q4H PRN PO COUGH Last administered on 09/13/16 00:07; Admin Dose 10 ML; Start 09/09/16 at 17:30 Acetaminophen/ Hydrocodone Bitart ([place] (10325)) 1 tab Q4H PRN PO PAIN; Start 09/10/16 at 16:00 Bisacodyl (Dulcolax) 10 mg DAILY PRN PO CONSTIPATION Last administered on 21:36; Admin Dose 10 MG; Start 09/10/16 at 16:00 Naloxone HCl (Narcan) 0.2 mg PRN PRN IV DECREASED REPIRATORY RATE; Start at 16:00 Hydromorphone HCl (Dilaudid EDGE DYER) Q4PCA IV Last administered on 09/13/16 23:05 ; Admin Dose 6 MG; Start 09/11/16 at 16:00 Ondansetron HCl (Zofran Inj) 4 mg Q6H PRN IV NAUSEA AND/OR VOMITING; Start 05/18 at 16:00 Lactobacillus Acidophilus/ Rhamnosus (Culturelle) 1 cap BID PO Last administered on 09/14/16 08:35; Admin Dose 1 CAP; Start 09/14/16 at 09:00 Senna/Docusate Sodium (Senokot-S) 2 tab HS PO Last administered on 09/13/16 21 :10; Admin Dose 2 TAB; Start 09/13/16 at 21:00 Bisacodyl (Dulcolax Supp) 10 mg Q48H PRN [place] CONSTIPATION; Start 09/13/16 at 13: 30 Epoetin Eligio (Epogen (Esrd)) 3,000 units MoWeFr@17 IV ; Start 09/14/16 at 09:00 Epoetin Eligio (Epogen (Esrd)) 2,000 units MoWeFr@17 IV ; Start 09/14/16 at 09:00 NELSON VICTOR Sep 14, 2016 10:45
--- NOTE | 2016-09-14 13:32 | PN ---
Date/Time of Note Date/Time of Note DATE: 09/14/16 TIME: 13:32 Assessment/Plan Assessment/Plan Chief Complaint/Hosp Course Left pleural effusion, possibly empyema, but the patient is clinically improving. Will continue antibiotics. SP Left video-assisted thoracic surgery and decortication CT 110cc will continue CT sxn Discussed with the daughter Problems: Subjective 24 Hr Interval Summary Constitutional: improved Pain Control: mild Exam/Review of Systems Vital Signs Vitals Vital Signs Date Time Temp Pulse Resp B/P Pulse Ox O2 Delivery O2 Flow Rate FiO2 09/14/16 12:02 82 09/14/16 12:00 18 09/14/16 11:32 98.3 116/51 100 09/14/16 10:21 Nasal Cannula 2.0 09/13/16 08:22 100 Intake and Output 09/13/16 09/13/16 09/14/16 15:00 23:00 07:00 Intake Total 900 ml 250 ml 200 ml Output Total 2760 ml 500 ml 120 ml Balance -1860 ml -250 ml 80 ml Exam Neck: non-tender, supple Respiratory: clear to auscultation, normal air movement Cardiovascular: nl pulses, regular rate and rhythm Results Result Diagram: 09/14/16 0858 09/14/16 0855 FRANKY PERES MD Sep 14, 2016 13:32
--- NOTE | 2016-09-14 14:33 | PN ---
Date/Time of Note Date/Time of Note DATE: 09/14/16 TIME: 14:31 Assessment/Plan VTE Prophylaxis VTE Prophylaxis Intervention: contraindicated (Chest tube chest) Assessment/Plan Chief Complaint/Hosp Course S 09/09 no distress chest pain 09/10 no distress chest pain or dyspnea. 09/11 stable no distress. Positive dyspnea chills. No chest pain. Dialysis/ 3L removed. 09/12 sp vats/ transfused. pleuritic pain. 09/13 intermittent dyspnea. ams earlier? non focal. no arrhythmia. sp HD. 09/14 no distress. No fever dyspnea. Less pain. Positive BM. O:vss PE No pallor/ JVD Reg. sm+. No r/g Dimin bs. No tachypnea. lt ct -c/d/i BS+ nt, nd, no r/r/g No edema. +hypotonia Nonfocal A/P 1. Ac hypoxic resp failure. Stable taper O2 2. Empyema; Sp VATS. Rx pain/ c tube therapy 3. ESRD; HD 4. Line sepsis/[place]. Resolved 5. Paraplegic status. Disposition? Home vs snf. 6. Htn 7. 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 ESBL E coli cystitis 9. HCAP; finish antibiotic 10. Neurogenic bladder 11. Anemia 12. Ac encephalopathy? follow/ watch for hypoxia/ oversedation. Stable. 13. Hyponatremia. Appreciate nephrology assistance 14. Possible constipation Problems: Exam/Review of Systems Vital Signs Vitals Vital Signs Date Time Temp Pulse Resp B/P Pulse Ox O2 Delivery O2 Flow Rate FiO2 09/14/16 12:02 82 09/14/16 12:00 18 09/14/16 11:32 98.3 116/51 100 09/14/16 10:21 Nasal Cannula 2.0 09/13/16 08:22 100 Intake and Output 09/13/16 09/13/16 09/14/16 15:00 23:00 07:00 Intake Total 900 ml 250 ml 200 ml Output Total 2760 ml 500 ml 120 ml Balance -1860 ml -250 ml 80 ml Results Result Diagram: 09/14/16 0858 09/14/16 0855 Results 24 hrs Laboratory Tests Test 09/14/16 08:55 09/14/16 08:58 Sodium Level 128 L Potassium Level 4.9 Chloride Level 91 L Carbon Dioxide Level 26 Anion Gap 16 Blood Urea Nitrogen 32 H Creatinine 3.75 H Glucose Level 83 # Calcium Level 8.3 L Phosphorus Level 7.1 H Magnesium Level 2.0 White Blood Count 16.9 H Red Blood Count 2.78 L Hemoglobin 8.3 L Hematocrit 27.5 L Mean Corpuscular Volume 98.9 Mean Corpuscular Hemoglobin 29.9 Mean Corpuscular Hemoglobin Concent 30.2 L Red Cell Distribution Width 15.6 H Platelet Count 332 Mean Platelet Volume 9.6 Neutrophils % 87.8 H Lymphocytes % 5.1 L Monocytes % 5.1 Eosinophils % 1.2 Basophils % 0.3 Nucleated Red Blood Cells % 0.0 Neutrophils # 14.9 H Lymphocytes # 0.9 Monocytes # 0.9 Eosinophils # 0.2 Basophils # 0.1 Nucleated Red Blood Cells # 0.0 Medications Medications Current Medications Amikacin Sulfate (Amikacin Iv Per Pharmacy) AMIKACIN PER PHARMACY NOTE XX ; Start 09/03/16 at 13:30 Ondansetron HCl (Zofran Inj) 4 mg Q6H PRN IV NAUSEA AND/OR VOMITING; Start 09/03 at 14:00 Morphine Sulfate (morphine) 2 mg Q4H PRN IV Pain; Start 09/03/16 at 14:00 Hydralazine HCl (Apresoline) 10 mg Q6H PRN IV SBP>160; Start 09/03/16 at 14:00 Famotidine (Pepcid) 20 mg Q24H PO Last administered on 09/13/16 21:10; Admin Dose 20 MG; Start 09/03/16 at 21:00 Guaifenesin/ Dextromethorphan (Robitussin Dm Liquid Cup) 10 ml Q4H PRN PO COUGH Last administered on 09/13/16 00:07; Admin Dose 10 ML; Start 09/09/16 at 17:30 Acetaminophen/ Hydrocodone Bitart ([place] (10/325)) 1 tab Q4H PRN PO PAIN; Start 09/10/16 at 16:00 Bisacodyl (Dulcolax) 10 mg DAILY PRN PO CONSTIPATION Last administered on 21:36; Admin Dose 10 MG; Start 09/10/16 at 16:00 Naloxone HCl (Narcan) 0.2 mg PRN PRN IV DECREASED REPIRATORY RATE; Start at 16:00 Hydromorphone HCl (Dilaudid [employer]) Q4PCA IV Last administered on 09/13/16 23:05 ; Admin Dose 6 MG; Start 09/11/16 at 16:00 Lactobacillus Acidophilus/ Rhamnosus (Culturelle) 1 cap BID PO Last administered on 09/14/16 08:35; Admin Dose 1 CAP; Start 09/14/16 at 09:00 Senna/Docusate Sodium (Senokot-S) 2 tab HS PO Last administered on 09/13/16 21 :10; Admin Dose 2 TAB; Start 09/13/16 at 21:00 Bisacodyl (Dulcolax Supp) 10 mg Q48H PRN [place] CONSTIPATION; Start 09/13/16 at 13: 30 Epoetin Eligio (Epogen (Esrd)) 3,000 units MoWeFr@17 IV Last administered on 09/14 12:16; Admin Dose 3,000 UNITS; Start 09/14/16 at 09:00 Epoetin Eligio (Epogen (Esrd)) 2,000 units MoWeFr@17 IV Last administered on 09/14 12:15; Admin Dose 2,000 UNITS; Start 09/14/16 at 09:00 JAREK GUO MD Sep 14, 2016 14:32
[2016-09-14] MEDS: MAGNESIUM HYDROXIDE 30ML CUP PO SCH ×2 (14:59→21:27)
[2016-09-14] MEDS ORDERED: MINERAL OIL 133 ML ENEMA PR PRN (15:00)
--- NOTE | 2016-09-14 20:05 | CONS ---
Date/Time of Note Date/Time of Note DATE: 09/14/16 TIME: 20:04 Assessment/Plan Assessment/Plan Chief Complaint/Hosp Course SUBJECTIVE: No acute changes. Alert, c/o cough, looks comfortable, no fevers. MICROBIOLOGY: Intraoperative cultures preliminary negative. Anaerobic culture was negative. ANTIMICROBIALS: Amikacin. INDWELLINGS: AV fistula and chest tube. PHYSICAL EXAMINATION: GENERAL: This is an ill-appearing, elderly man in no distress. HEENT: Head atraumatic, normocephalic. Sclerae anicteric. Buccal mucosa dry. NECK: Supple, midline. CHEST: Rise symmetrical. Breath sounds diminished to bases. HEART: S1, S2. ABDOMEN: Distended, soft. Bowel tones hypoactive. EXTREMITIES: Without cyanosis. ASSESSMENT: 1. Status post video-assisted thoracotomy with total pulmonary decortication on 09/11/2016. 2. Status post urinary tract infection and bacteremia. 3. End-stage renal disease, hemodialysis dependent. 4. Neurogenic bladder. 5. Persistent leukocytosis, likely reactive. PLAN: The patient remains stable. Continue present care/abx, follow recommendations of consultants. DW staff Problems: Consultation Date/Type/Reason Admit Date/Time Sep 03, 2016 at 08:14 Initial Consult Date 09/03/16 Type of Consultation: ID Referring Provider: Jessica GRIJALVA Exam/Review of Systems Vital Signs Vitals Vital Signs Date Time Temp Pulse Resp B/P Pulse Ox O2 Delivery O2 Flow Rate FiO2 09/14/16 16:31 72 18 98 Nasal Cannula 3.0 09/14/16 15:54 97.4 134/53 09/13/16 08:22 100 Intake and Output 09/13/16 09/13/16 09/14/16 15:00 23:00 07:00 Intake Total 900 ml 250 ml 200 ml Output Total 2760 ml 500 ml 120 ml Balance -1860 ml -250 ml 80 ml Results Result Diagram: 09/14/16 0858 09/14/16 0855 Results 24 hrs Laboratory Tests Test 09/14/16 08:55 09/14/16 08:58 Sodium Level 128 L Potassium Level 4.9 Chloride Level 91 L Carbon Dioxide Level 26 Anion Gap 16 Blood Urea Nitrogen 32 H Creatinine 3.75 H Glucose Level 83 # Calcium Level 8.3 L Phosphorus Level 7.1 H Magnesium Level 2.0 White Blood Count 16.9 H Red Blood Count 2.78 L Hemoglobin 8.3 L Hematocrit 27.5 L Mean Corpuscular Volume 98.9 Mean Corpuscular Hemoglobin 29.9 Mean Corpuscular Hemoglobin Concent 30.2 L Red Cell Distribution Width 15.6 H Platelet Count 332 Mean Platelet Volume 9.6 Neutrophils % 87.8 H Lymphocytes % 5.1 L Monocytes % 5.1 Eosinophils % 1.2 Basophils % 0.3 Nucleated Red Blood Cells % 0.0 Neutrophils # 14.9 H Lymphocytes # 0.9 Monocytes # 0.9 Eosinophils # 0.2 Basophils # 0.1 Nucleated Red Blood Cells # 0.0 Medications Medications Current Medications Amikacin Sulfate (Amikacin Iv Per Pharmacy) AMIKACIN PER PHARMACY NOTE XX ; Start 09/03/16 at 13:30 Ondansetron HCl (Zofran Inj) 4 mg Q6H PRN IV NAUSEA AND/OR VOMITING; Start 09/03 at 14:00 Morphine Sulfate (morphine) 2 mg Q4H PRN IV Pain; Start 09/03/16 at 14:00 Hydralazine HCl (Apresoline) 10 mg Q6H PRN IV SBP>160; Start 09/03/16 at 14:00 Famotidine (Pepcid) 20 mg Q24H PO Last administered on 09/13/16 21:10; Admin Dose 20 MG; Start 09/03/16 at 21:00 Guaifenesin/ Dextromethorphan (Robitussin Dm Liquid Cup) 10 ml Q4H PRN PO COUGH Last administered on 09/13/16 00:07; Admin Dose 10 ML; Start 09/09/16 at 17:30 Acetaminophen/ Hydrocodone Bitart ([place] (10/325)) 1 tab Q4H PRN PO PAIN; Start 09/10/16 at 16:00 Bisacodyl (Dulcolax) 10 mg DAILY PRN PO CONSTIPATION Last administered on 21:36; Admin Dose 10 MG; Start 09/10/16 at 16:00 Naloxone HCl (Narcan) 0.2 mg PRN PRN IV DECREASED REPIRATORY RATE; Start at 16:00 Lactobacillus Acidophilus/ Rhamnosus (Culturelle) 1 cap BID PO Last administered on 09/14/16 08:35; Admin Dose 1 CAP; Start 09/14/16 at 09:00 Senna/Docusate Sodium (Senokot-S) 2 tab HS PO Last administered on 09/13/16 21 :10; Admin Dose 2 TAB; Start 09/13/16 at 21:00 Bisacodyl (Dulcolax Supp) 10 mg Q48H PRN [place] CONSTIPATION; Start 09/13/16 at 13: 30 Epoetin Eligio (Epogen (Esrd)) 3,000 units MoWeFr@17 IV Last administered on 09/14 12:16; Admin Dose 3,000 UNITS; Start 09/14/16 at 09:00 Epoetin Eligio (Epogen (Esrd)) 2,000 units MoWeFr@17 IV Last administered on 09/14 12:15; Admin Dose 2,000 UNITS; Start 09/14/16 at 09:00 Magnesium Hydroxide (Milk Of Mag) 30 ml BID PO Last administered on 09/14/16 14:59; Admin Dose 30 ML; Start 09/14/16 at 15:00 Mineral Oil (Fleet Mineral Oil Enema) 133 ml NOW PRN [place] CONSTIPATION; Start at 15:00; Stop 09/14/16 at 23:00 CELIA CRAWFORD NP Sep 14, 2016 20:05
--- NOTE | 2016-09-14 20:45 | RADRPT ---
PROCEDURE: Portable chest x-ray. CLINICAL INDICATION: Pneumothorax. TECHNIQUE: Portable AP view of the chest. COMPARISON: 09/04/2016. FINDINGS: New left-sided chest tubes are visualized. There is near complete opacification of the left hemitho rax, new since the prior examination. No mediastinal shift is noted. Mild right basilar atelectasis is noted. The cardiac silhouette is partially obscured. There is no pneumothorax. IMPRESSION: 1. New left-sided chest tubes in place. 2. No pneumothorax. 3. Near complete opacification left hemithorax, new since the prior examination. There is no media stinal shift. These findings probably represent a large left pleural effusion. RPTAT: HTAR .Pepito Graves MD, MD Date Time Electronically viewed and signed by .Pepito Graves MD, on 09/14/2016 20:45 .R/
[2016-09-14] MEDS: FAMOTIDINE 20 MG TAB PO SCH (21:27)
[2016-09-14] MEDS: SENNA/DOCUSATE NA (8.6MG/50MG) TAB PO SCH (21:27)
[2016-09-15] VITALS (14 sets, daily range): BP systolic 111–132; BP diastolic 55–66; PULSE 77–89; RESP 16–20
[2016-09-15] MEDS: ALBUTEROL/IPRATROPIUM (NEB) 3 ML AMP HHN SCH ×3 (00:33→17:02)
[2016-09-15 07:36] LABS: ADD SCAN DIFF NO
[2016-09-15 07:41] LABS: BASOPHILS % 0.2 % (0.0-2.0); EOSINOPHILS # 0.2 10^3/ul (0.0-0.5); EOSINOPHILS % 1.4 % (0.0-7.0); HEMATOCRIT 23.8 % (42.0-52.0); HEMOGLOBIN 7.5 g/dl (14.0-18.0); LYMPHOCYTES # 0.9 10^3/ul (0.8-2.9); LYMPHOCYTES % 7.1 % (15.0-51.0); MEAN CORPUSCULAR HEMOGLOBIN 30.6 pg (29.0-33.0); MEAN CORPUSCULAR HGB CONC 31.5 g/dl (32.0-37.0); MEAN CORPUSCULAR VOLUME 97.1 fl (82.0-101.0); MEAN PLATELET VOLUME 9.6 fl (7.4-10.4); MONOCYTE # 0.9 10^3/ul (0.3-0.9); MONOCYTES % 6.7 % (0.0-11.0); NEUTROPHIL # 10.7 10^3/ul (1.6-7.5); NEUTROPHILS % 84.2 % (39.0-77.0); PLATELET COUNT 352 10^3/UL (140-415); RED BLOOD COUNT 2.45 10^6/ul (4.70-6.10); WHITE BLOOD COUNT 12.7 10^3/ul (4.8-10.8)
[2016-09-15 08:11] LABS: CALCIUM 7.9 mg/dl (8.4-10.2); MAGNESIUM 2.4 mg/dl (1.7-2.5); PHOSPHORUS 6.6 mg/dl (2.5-4.9)
[2016-09-15 08:20] LABS: CREATININE 4.64 mg/dl (0.61-1.24)
[2016-09-15] MEDS: SEVELAMER CARBONATE 0.8 GM PKT PO SCH ×3 (08:30→17:34)
[2016-09-15] MEDS: MAGNESIUM HYDROXIDE 30ML CUP PO SCH ×2 (08:30→21:10)
[2016-09-15] MEDS: LACTOBACILLUS RHAMNOSUS CAP PO SCH ×2 (08:30→21:10)
--- NOTE | 2016-09-15 10:33 | PN ---
Date/Time of Note Date/Time of Note DATE: 09/15/16 TIME: 10:32 Assessment/Plan VTE Prophylaxis VTE Prophylaxis Intervention: other Lines/Catheters Urinary Cath still in place: No Assessment/Plan Assessment/Plan Assessment/Plan dditional Assessment/Plan 1. Klebsiella pneumoniae bacteremia and urinary tract infection. 2. End-stage renal disease, hemodialysis dependent. 3. Left lateral and posterior empyema with adjacent regions of pneumonia. 4. Anemia, Chronic Disease, ESRD 5. Mineral Bone disease, ESRD [id number] hd yesterday done cont plan [id number] hd am cont plan Subjective 24 Hr Interval Summary Constitutional: no complaints ENT: no complaints Respiratory: no complaints Cardiovascular: no complaints Musculoskeletal: no complaints Exam/Review of Systems Vital Signs Vitals Vital Signs Date Time Temp Pulse Resp B/P Pulse Ox O2 Delivery O2 Flow Rate FiO2 09/15/16 09:36 2.0 09/15/16 09:36 70 16 99 Nasal Cannula 09/15/16 07:26 98.0 111/55 09/13/16 08:22 100 Intake and Output 09/14/16 09/14/16 09/15/16 15:00 23:00 07:00 Intake Total 400 ml 250 ml Output Total 20 ml Balance 380 ml 250 ml Exam Constitutional: alert, oriented Head: normocephalic Neck: supple Respiratory: clear to auscultation Cardiovascular: regular rate and rhythm Gastrointestinal: soft Extremities: normal pulses Results Result Diagram: 09/15/16 0612 09/15/16 0612 Results 24 hrs Laboratory Tests Test 09/15/16 06:12 White Blood Count 12.7 #H Red Blood Count 2.45 L Hemoglobin 7.5 L Hematocrit 23.8 L Mean Corpuscular Volume 97.1 Mean Corpuscular Hemoglobin 30.6 Mean Corpuscular Hemoglobin Concent 31.5 L Red Cell Distribution Width 15.0 H Platelet Count 352 Mean Platelet Volume 9.6 Neutrophils % 84.2 H Lymphocytes % 7.1 L Monocytes % 6.7 Eosinophils % 1.4 Basophils % 0.2 Nucleated Red Blood Cells % 0.0 Neutrophils # 10.7 H Lymphocytes # 0.9 Monocytes # 0.9 Eosinophils # 0.2 Basophils # 0.0 Nucleated Red Blood Cells # 0.0 Sodium Level 127 L Potassium Level 4.0 Chloride Level 88 L Carbon Dioxide Level 27 Anion Gap 16 Blood Urea Nitrogen 42 H Creatinine 4.64 H Glucose Level 87 Calcium Level 7.9 L Phosphorus Level 6.6 H Magnesium Level 2.4 Medications Medications Current Medications Amikacin Sulfate (Amikacin Iv Per Pharmacy) AMIKACIN PER PHARMACY NOTE XX ; Start 09/03/16 at 13:30 Ondansetron HCl (Zofran Inj) 4 mg Q6H PRN IV NAUSEA AND/OR VOMITING; Start 09/03 at 14:00 Morphine Sulfate (morphine) 2 mg Q4H PRN IV Pain; Start 09/03/16 at 14:00 Hydralazine HCl (Apresoline) 10 mg Q6H PRN IV SBP>160; Start 09/03/16 at 14:00 Famotidine (Pepcid) 20 mg Q24H PO Last administered on 09/14/16 21:27; Admin Dose 20 MG; Start 09/03/16 at 21:00 Guaifenesin/ Dextromethorphan (Robitussin Dm Liquid Cup) 10 ml Q4H PRN PO COUGH Last administered on 09/13/16 00:07; Admin Dose 10 ML; Start 09/09/16 at 17:30 Acetaminophen/ Hydrocodone Bitart ([place] (10/325)) 1 tab Q4H PRN PO PAIN; Start 09/10/16 at 16:00 Bisacodyl (Dulcolax) 10 mg DAILY PRN PO CONSTIPATION Last administered on 21:36; Admin Dose 10 MG; Start 09/10/16 at 16:00 Naloxone HCl (Narcan) 0.2 mg PRN PRN IV DECREASED REPIRATORY RATE; Start at 16:00 Lactobacillus Acidophilus/ Rhamnosus (Culturelle) 1 cap BID PO Last administered on 09/15/16 08:30; Admin Dose 1 CAP; Start 09/14/16 at 09:00 Senna/Docusate Sodium (Senokot-S) 2 tab HS PO Last administered on 09/14/16 21 :27; Admin Dose 2 TAB; Start 09/13/16 at 21:00 Bisacodyl (Dulcolax Supp) 10 mg Q48H PRN [place] CONSTIPATION; Start 09/13/16 at 13: 30 Epoetin Eligio (Epogen (Esrd)) 3,000 units MoWeFr@17 IV Last administered on 09/14 12:16; Admin Dose 3,000 UNITS; Start 09/14/16 at 09:00 Epoetin Eligio (Epogen (Esrd)) 2,000 units MoWeFr@17 IV Last administered on 09/14 12:15; Admin Dose 2,000 UNITS; Start 09/14/16 at 09:00 Magnesium Hydroxide (Milk Of Mag) 30 ml BID PO Last administered on 09/15/16 08:30; Admin Dose 30 ML; Start 09/14/16 at 15:00 DAVI DUBOIS MD Sep 15, 2016 10:33
--- NOTE | 2016-09-15 10:56 | PN ---
Date/Time of Note Date/Time of Note DATE: 09/15/16 TIME: 10:53 Assessment/Plan Lines/Catheters IV Catheter Type (from Nrs): Saline Lock Deutsch in Place (from Nrs): No Assessment/Plan Chief Complaint/Hosp Course Left pleural effusion, possibly empyema, but the patient is clinically improving. Will continue antibiotics. SP Left video-assisted thoracic surgery and decortication CT minimal CXR with opacification of the left side will repeat CXR will continue CT sxn Discussed with the daughter Problems: Subjective 24 Hr Interval Summary Constitutional: improved Pain Control: mild Exam/Review of Systems Vital Signs Vitals Vital Signs Date Time Temp Pulse Resp B/P Pulse Ox O2 Delivery O2 Flow Rate FiO2 09/15/16 09:36 2.0 09/15/16 09:36 70 16 99 Nasal Cannula 09/15/16 07:26 98.0 111/55 09/13/16 08:22 100 Intake and Output 09/14/16 09/14/16 09/15/16 15:00 23:00 07:00 Intake Total 400 ml 250 ml Output Total 20 ml Balance 380 ml 250 ml Exam ENMT: mucosa pink and moist, nl external ears & nose, nl lips & teeth, nl nasal mucosa & septum Neck: non-tender, supple Cardiovascular: nl pulses, regular rate and rhythm Results Result Diagram: 09/15/1661109/15/16611 FRANKY PERES MD Sep 15, 2016 10:56
--- NOTE | 2016-09-15 11:03 | CONS ---
Date/Time of Note Date/Time of Note DATE: 09/15/16 TIME: 10:59 Assessment/Plan Assessment/Plan Additional Assessment/Plan 1. POD#4 s/p VATS/decortication 2. Empyema. 3. End-stage renal disease on hemodialysis. 4. Bacteremia. 5. Urinary tract infection. 6. Paraplegia 7. Hyponatremia Hemodynamically stable Chest tube in place Continue antibiotics Continue HD as scheduled Pain management as scheduled Started on Mucinex Consultation Date/Type/Reason Admit Date/Time Sep 03, 2016 at 08:14 Constitutional: no complaints ENT: no complaints Respiratory: no complaints Cardiovascular: no complaints Gastrointestinal: no complaints Musculoskeletal: no complaints Psychological: no complaints Social History Alcohol Use: none Smoking Status: Never smoker Drug Use: none Exam/Review of Systems Vital Signs Vitals Vital Signs Date Time Temp Pulse Resp B/P Pulse Ox O2 Delivery O2 Flow Rate FiO2 09/15/16 09:36 2.0 09/15/16 09:36 70 16 99 Nasal Cannula 09/15/16 07:26 98.0 111/55 09/13/16 08:22 100 Intake and Output 09/14/16 09/14/16 09/15/16 15:00 23:00 07:00 Intake Total 400 ml 250 ml Output Total 20 ml Balance 380 ml 250 ml Exam Constitutional: alert, oriented Head: atraumatic, normocephalic Neck: non-tender, supple Respiratory: diminished breath sounds (chest tube in place) Cardiovascular: regular rate and rhythm Gastrointestinal: nl liver, spleen, non-tender, soft Extremities: normal pulses Results Result Diagram: 09/15/16 0612 09/15/16 0612 Results 24 hrs Laboratory Tests Test 09/15/16 06:12 White Blood Count 12.7 #H Red Blood Count 2.45 L Hemoglobin 7.5 L Hematocrit 23.8 L Mean Corpuscular Volume 97.1 Mean Corpuscular Hemoglobin 30.6 Mean Corpuscular Hemoglobin Concent 31.5 L Red Cell Distribution Width 15.0 H Platelet Count 352 Mean Platelet Volume 9.6 Neutrophils % 84.2 H Lymphocytes % 7.1 L Monocytes % 6.7 Eosinophils % 1.4 Basophils % 0.2 Nucleated Red Blood Cells % 0.0 Neutrophils # 10.7 H Lymphocytes # 0.9 Monocytes # 0.9 Eosinophils # 0.2 Basophils # 0.0 Nucleated Red Blood Cells # 0.0 Sodium Level 127 L Potassium Level 4.0 Chloride Level 88 L Carbon Dioxide Level 27 Anion Gap 16 Blood Urea Nitrogen 42 H Creatinine 4.64 H Glucose Level 87 Calcium Level 7.9 L Phosphorus Level 6.6 H Magnesium Level 2.4 Medications Medications Current Medications Amikacin Sulfate (Amikacin Iv Per Pharmacy) AMIKACIN PER PHARMACY NOTE XX ; Start 09/03/16 at 13:30 Ondansetron HCl (Zofran Inj) 4 mg Q6H PRN IV NAUSEA AND/OR VOMITING; Start 09/03 at 14:00 Morphine Sulfate (morphine) 2 mg Q4H PRN IV Pain; Start 09/03/16 at 14:00 Hydralazine HCl (Apresoline) 10 mg Q6H PRN IV SBP>160; Start 09/03/16 at 14:00 Famotidine (Pepcid) 20 mg Q24H PO Last administered on 09/14/16 21:27; Admin Dose 20 MG; Start 09/03/16 at 21:00 Guaifenesin/ Dextromethorphan (Robitussin Dm Liquid Cup) 10 ml Q4H PRN PO COUGH Last administered on 09/13/16 00:07; Admin Dose 10 ML; Start 09/09/16 at 17:30 Acetaminophen/ Hydrocodone Bitart ([place] (10/325)) 1 tab Q4H PRN PO PAIN; Start 09/10/16 at 16:00 Bisacodyl (Dulcolax) 10 mg DAILY PRN PO CONSTIPATION Last administered on 21:36; Admin Dose 10 MG; Start 09/10/16 at 16:00 Naloxone HCl (Narcan) 0.2 mg PRN PRN IV DECREASED REPIRATORY RATE; Start at 16:00 Lactobacillus Acidophilus/ Rhamnosus (Culturelle) 1 cap BID PO Last administered on 09/15/16 08:30; Admin Dose 1 CAP; Start 09/14/16 at 09:00 Senna/Docusate Sodium (Senokot-S) 2 tab HS PO Last administered on 09/14/16 21 :27; Admin Dose 2 TAB; Start 09/13/16 at 21:00 Bisacodyl (Dulcolax Supp) 10 mg Q48H PRN [place] CONSTIPATION; Start 09/13/16 at 13: 30 Epoetin Eligio (Epogen (Esrd)) 3,000 units MoWeFr@17 IV Last administered on 09/14 12:16; Admin Dose 3,000 UNITS; Start 09/14/16 at 09:00 Epoetin Eligio (Epogen (Esrd)) 2,000 units MoWeFr@17 IV Last administered on 09/14 12:15; Admin Dose 2,000 UNITS; Start 09/14/16 at 09:00 Magnesium Hydroxide (Milk Of Mag) 30 ml BID PO Last administered on 09/15/16 08:30; Admin Dose 30 ML; Start 09/14/16 at 15:00 AURA ZURITA M.D. Sep 15, 2016 11:03
--- NOTE | 2016-09-15 11:43 | RADRPT ---
PROCEDURE: XR Chest. CLINICAL INDICATION: Shortness of breath. TECHNIQUE: Single frontal view. COMPARISON: 09/14/2016. FINDINGS: There is mild right basilar atelectasis. 2 left chest tubes are noted and there is complete opacifi cation of the left hemithorax, unchanged. The heart size cannot be determined. There is no right pleural effusion. There is no pneumothorax. IMPRESSION: 1. No change from 09/14/2016. RPTAT: QQ .Derek Gómez MD, Date Time Electronically viewed and signed by .Derek Gómez MD, MD on 09/15/2016 11:43 .R/
[2016-09-15] MEDS: GUAIFENESIN LA 600 MG TABSR PO SCH ×2 (12:24→21:11)
--- NOTE | 2016-09-15 14:50 | CONS ---
Date/Time of Note Date/Time of Note DATE: 09/15/16 TIME: 14:48 Assessment/Plan Assessment/Plan Additional Assessment/Plan Assessment recommendations; 1. Patient admitted with left-sided empyema status post VATS procedure. 2. End-stage renal disease on hemodialysis. 3. History of hypertension diabetes. Continue current treatment. Consultation Date/Type/Reason Admit Date/Time Sep 15, 2: 50 pm Initial Consult Date 09/03/16 Type of Consultation: Pulmonary Referring Provider: Jessica GRIJALVA 24 HR Interval Summary Free Text/Dictation This is a redo of the note which was dictated yesterday however for some reason dictation did not get through. Patient condition is stable. Complains of very minimal shortness of breath. Denies any chest pain. General exam; elderly male, awake alert currently in no distress. Exam/Review of Systems Vital Signs Vitals Vital Signs Date Time Temp Pulse Resp B/P Pulse Ox O2 Delivery O2 Flow Rate FiO2 09/15/16 12:04 79 09/15/16 11:47 98.0 16 119/59 98 09/15/16 09:36 2.0 09/15/16 09:36 Nasal Cannula 09/13/16 08:22 100 Intake and Output 09/14/16 09/14/16 09/15/16 15:00 23:00 07:00 Intake Total 400 ml 250 ml Output Total 20 ml Balance 380 ml 250 ml Exam HEENT exam is; supple neck, no JVD. No lymphadenopathy. Midline trachea. No thyromegaly. Pharynx is clear. Chest exam; diminished breath sound left lung. There is a left-sided chest tube in place. S1-S2 audible, no murmurs. Regular rhythm. Abdomen exam; soft, nontender. No organomegaly. Bowel sounds audible. Extremity exam; no peripheral edema. 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 Results Result Diagram: 09/15/16 0612 09/15/16 06 Results 24 hrs Laboratory Tests Test 09/15/16 06:12 White Blood Count 12.7 #H Red Blood Count 2.45 L Hemoglobin 7.5 L Hematocrit 23.8 L Mean Corpuscular Volume 97.1 Mean Corpuscular Hemoglobin 30.6 Mean Corpuscular Hemoglobin Concent 31.5 L Red Cell Distribution Width 15.0 H Platelet Count 352 Mean Platelet Volume 9.6 Neutrophils % 84.2 H Lymphocytes % 7.1 L Monocytes % 6.7 Eosinophils % 1.4 Basophils % 0.2 Nucleated Red Blood Cells % 0.0 Neutrophils # 10.7 H Lymphocytes # 0.9 Monocytes # 0.9 Eosinophils # 0.2 Basophils # 0.0 Nucleated Red Blood Cells # 0.0 Sodium Level 127 L Potassium Level 4.0 Chloride Level 88 L Carbon Dioxide Level 27 Anion Gap 16 Blood Urea Nitrogen 42 H Creatinine 4.64 H Glucose Level 87 Calcium Level 7.9 L Phosphorus Level 6.6 H Magnesium Level 2.4 Medications Medications Current Medications Amikacin Sulfate (Amikacin Iv Per Pharmacy) AMIKACIN PER PHARMACY NOTE XX ; Start 09/03/16 at 13:30 Ondansetron HCl (Zofran Inj) 4 mg Q6H PRN IV NAUSEA AND/OR VOMITING; Start 09/03 at 14:00 Morphine Sulfate (morphine) 2 mg Q4H PRN IV Pain; Start 09/03/16 at 14:00 Hydralazine HCl (Apresoline) 10 mg Q6H PRN IV SBP>160; Start 09/03/16 at 14:00 Famotidine (Pepcid) 20 mg Q24H PO Last administered on 09/14/16 21:27; Admin Dose 20 MG; Start 09/03/16 at 21:00 Guaifenesin/ Dextromethorphan (Robitussin Dm Liquid Cup) 10 ml Q4H PRN PO COUGH Last administered on 09/13/16 00:07; Admin Dose 10 ML; Start 09/09/16 at 17:30 Acetaminophen/ Hydrocodone Bitart ([place] (10/325)) 1 tab Q4H PRN PO PAIN; Start 09/10/16 at 16:00 Bisacodyl (Dulcolax) 10 mg DAILY PRN PO CONSTIPATION Last administered on 21:36; Admin Dose 10 MG; Start 09/10/16 at 16:00 Naloxone HCl (Narcan) 0.2 mg PRN PRN IV DECREASED REPIRATORY RATE; Start at 16:00 Lactobacillus Acidophilus/ Rhamnosus (Culturelle) 1 cap BID PO Last administered on 09/15/16 08:30; Admin Dose 1 CAP; Start 09/14/16 at 09:00 Senna/Docusate Sodium (Senokot-S) 2 tab HS PO Last administered on 09/14/16 21 :27; Admin Dose 2 TAB; Start 09/13/16 at 21:00 Bisacodyl (Dulcolax Supp) [address] [place] CONSTIPATION; Start 09/13/16 at 13: 30 Epoetin Eligio (Epogen (Esrd)) 3,000 units MoWeFr@17 IV Last administered on 09/14 12:16; Admin Dose 3,000 UNITS; Start 09/14/16 at 09:00 Epoetin Eligio (Epogen (Esrd)) 2,000 units MoWeFr@17 IV Last administered on 09/14 12:15; Admin Dose 2,000 UNITS; Start 09/14/16 at 09:00 Magnesium Hydroxide (Milk Of Mag) 30 ml BID PO Last administered on 09/15/16 08:30; Admin Dose 30 ML; Start 09/14/16 at 15:00 Guaifenesin (Mucinex) 600 mg BID PO Last administered on 09/15/16 12:24; Admin Dose 600 MG; Start 09/15/16 at 11:30 NELSON VICTOR Sep 15, 2016 14:50
--- NOTE | 2016-09-15 14:53 | CONS ---
Date/Time of Note Date/Time of Note DATE: 09/15/16 TIME: 14:51 Assessment/Plan Assessment/Plan Additional Assessment/Plan Assessment recommendations; 1. Patient admitted for left-sided empyema status post VATS. 2. End-stage renal disease on hemodialysis. 3. History of hypertension. 4. History of paraplegia. Continue current treatment. Consultation Date/Type/Reason Admit Date/Time Sep 03, 2016 at 08:14 Initial Consult Date 09/03/16 Type of Consultation: Pulmonary Referring Provider: Jessica GRIJALVA 24 HR Interval Summary Free Text/Dictation Patient is doing fairly well. Denies any chest pain, fever, cough, chills. Complains of very minimal chest pain at left chest tube insertion site. General exam; elderly male, awake alert currently in no distress. Exam/Review of Systems Vital Signs Vitals Vital Signs Date Time Temp Pulse Resp B/P Pulse Ox O2 Delivery O2 Flow Rate FiO2 09/15/16 12:04 79 09/15/16 11:47 98.0 16 119/59 98 09/15/16 09:36 2.0 09/15/16 09:36 Nasal Cannula 09/13/16 08:22 100 Intake and Output 09/14/16 09/14/16 09/15/16 15:00 23:00 07:00 Intake Total 400 ml 250 ml Output Total 20 ml Balance 380 ml 250 ml Exam HEENT exam; supple neck, no JVD. No lymphadenopathy. Midline trachea. No thyromegaly. Pupils are small bilaterally. No neck masses. Chest exam is; crackles left upper lobe and left lower lobe. Right lung is clear to auscultation. S1-S2 audible, no murmurs. Regular rhythm. There is a left-sided chest tube in place. Abdomen exam is; soft, no organomegaly. Bowel sounds audible. Nontender. Extremity exam; no peripheral edema. RN FORENSIC exam is; patient has stable paraplegia. Results Result Diagram: 09/15/16 0612 09/15/16 0612 Results 24 hrs Laboratory Tests Test 09/15/16 06:12 White Blood Count 12.7 #H Red Blood Count 2.45 L Hemoglobin 7.5 L Hematocrit 23.8 L Mean Corpuscular Volume 97.1 Mean Corpuscular Hemoglobin 30.6 Mean Corpuscular Hemoglobin Concent 31.5 L Red Cell Distribution Width 15.0 H Platelet Count 352 Mean Platelet Volume 9.6 Neutrophils % 84.2 H Lymphocytes % 7.1 L Monocytes % 6.7 Eosinophils % 1.4 Basophils % 0.2 Nucleated Red Blood Cells % 0.0 Neutrophils # 10.7 H Lymphocytes # 0.9 Monocytes # 0.9 Eosinophils # 0.2 Basophils # 0.0 Nucleated Red Blood Cells # 0.0 Sodium Level 127 L Potassium Level 4.0 Chloride Level 88 L Carbon Dioxide Level 27 Anion Gap 16 Blood Urea Nitrogen 42 H Creatinine 4.64 H Glucose Level 87 Calcium Level 7.9 L Phosphorus Level 6.6 H Magnesium Level 2.4 Medications Medications Current Medications Amikacin Sulfate (Amikacin Iv Per Pharmacy) AMIKACIN PER PHARMACY NOTE XX ; Start 09/03/16 at 13:30 Ondansetron HCl (Zofran Inj) 4 mg Q6H PRN IV NAUSEA AND/OR VOMITING; Start 09/03 at 14:00 Morphine Sulfate (morphine) 2 mg Q4H PRN IV Pain; Start 09/03/16 at 14:00 Hydralazine HCl (Apresoline) 10 mg Q6H PRN IV SBP>160; Start 09/03/16 at 14:00 Famotidine (Pepcid) 20 mg Q24H PO Last administered on 09/14/16 21:27; Admin Dose 20 MG; Start 09/03/16 at 21:00 Guaifenesin/ Dextromethorphan (Robitussin Dm Liquid Cup) 10 ml Q4H PRN PO COUGH Last administered on 09/13/16 00:07; Admin Dose 10 ML; Start 09/09/16 at 17:30 Acetaminophen/ Hydrocodone Bitart ([place] (10/325)) 1 tab Q4H PRN PO PAIN; Start 09/10/16 at 16:00 Bisacodyl (Dulcolax) 10 mg DAILY PRN PO CONSTIPATION Last administered on 21:36; Admin Dose 10 MG; Start 09/10/16 at 16:00 Naloxone HCl (Narcan) 0.2 mg PRN PRN IV DECREASED REPIRATORY RATE; Start at 16:00 Lactobacillus Acidophilus/ Rhamnosus (Culturelle) 1 cap BID PO Last administered on 09/15/16 08:30; Admin Dose 1 CAP; Start 09/14/16 at 09:00 Senna/Docusate Sodium (Senokot-S) 2 tab HS PO Last administered on 09/14/16 21 :27; Admin Dose 2 TAB; Start 09/13/16 at 21:00 Bisacodyl (Dulcolax Supp) 10 mg Q48H PRN [place] CONSTIPATION; Start 09/13/16 at 13: 30 Epoetin Eligio (Epogen (Esrd)) 3,000 units MoWeFr@17 IV Last administered on 09/14 12:16; Admin Dose 3,000 UNITS; Start 09/14/16 at 09:00 Epoetin Eligio (Epogen (Esrd)) 2,000 units MoWeFr@17 IV Last administered on 09/14 12:15; Admin Dose 2,000 UNITS; Start 09/14/16 at 09:00 Magnesium Hydroxide (Milk Of Mag) 30 ml BID PO Last administered on 09/15/16 08:30; Admin Dose 30 ML; Start 09/14/16 at 15:00 Guaifenesin (Mucinex) 600 mg BID PO Last administered on 09/15/16 12:24; Admin Dose 600 MG; Start 09/15/16 at 11:30 NELSON VICTOR Sep 15, 2016 14:53
--- NOTE | 2016-09-15 15:01 | PN ---
Date/Time of Note Date/Time of Note DATE: 09/15/16 TIME: 14:58 Assessment/Plan VTE Prophylaxis VTE Prophylaxis Intervention: contraindicated (chest tube) Lines/Catheters IV Catheter Type (from Nrsg): Saline Lock Urinary Cath still in place: No Assessment/Plan Chief Complaint/Hosp Course S 09/09 no distress chest pain 09/10 no distress chest pain or dyspnea. 09/11 stable no distress. Positive dyspnea chills. No chest pain. Dialysis/ 3L removed. 09/12 sp vats/ transfused. pleuritic pain. 09/13 intermittent dyspnea. ams earlier? non focal. no arrhythmia. sp HD. 09/14 no distress. No fever dyspnea. Less pain. Positive BM. updated family- potential need for snf ~friday. 09/15 shortness of breath. denies new chest pain/n/v/diaphoresis. concern of ctube address/ cxr ok. O:vss PE No pallor/ JVD Reg. sm+. No r/g Dimin bs. No tachypnea. lt ct -c/d/i BS+ nt, nd, no r/r/g No edema. +hypotonia Nonfocal A/P 1. Ac hypoxic resp failure. Stable taper O2 2. Empyema; Sp VATS. Rx pain/ c tube therapy 3. ESRD; HD 4. Line sepsis/Klebsiella. Resolved 5. Paraplegic status. Disposition? Home vs snf.family requesting snf. 6. Htn 7. 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 ESBL E coli cystitis 9. HCAP; finish antibiotic 10. Neurogenic bladder 11. Anemia 12. Ac encephalopathy? follow/ watch for hypoxia/ oversedation. Stable. 13. Hyponatremia. Appreciate nephrology assistance 14. Possible constipation Problems: Exam/Review of Systems Vital Signs Vitals Vital Signs Date Time Temp Pulse Resp B/P Pulse Ox O2 Delivery O2 Flow Rate FiO2 09/15/16 12:04 79 09/15/16 11:47 98.0 16 119/59 98 09/15/16 09:36 2.0 09/15/16 09:36 Nasal Cannula 09/13/16 08:22 100 Intake and Output 09/14/16 09/14/16 09/15/16 15:00 23:00 07:00 Intake Total 400 ml 250 ml Output Total 20 ml Balance 380 ml 250 ml Results Result Diagram: 09/15/16 0612 09/15/16 0612 Results 24 hrs Laboratory Tests Test 09/15/16 06:12 White Blood Count 12.7 #H Red Blood Count 2.45 L Hemoglobin 7.5 L Hematocrit 23.8 L Mean Corpuscular Volume 97.1 Mean Corpuscular Hemoglobin 30.6 Mean Corpuscular Hemoglobin Concent 31.5 L Red Cell Distribution Width 15.0 H Platelet Count 352 Mean Platelet Volume 9.6 Neutrophils % 84.2 H Lymphocytes % 7.1 L Monocytes % 6.7 Eosinophils % 1.4 Basophils % 0.2 Nucleated Red Blood Cells % 0.0 Neutrophils # 10.7 H Lymphocytes # 0.9 Monocytes # 0.9 Eosinophils # 0.2 Basophils # 0.0 Nucleated Red Blood Cells # 0.0 Sodium Level 127 L Potassium Level 4.0 Chloride Level 88 L Carbon Dioxide Level 27 Anion Gap 16 Blood Urea Nitrogen 42 H Creatinine 4.64 H Glucose Level 87 Calcium Level 7.9 L Phosphorus Level 6.6 H Magnesium Level 2.4 Medications Medications Current Medications Amikacin Sulfate (Amikacin Iv Per Pharmacy) AMIKACIN PER PHARMACY NOTE XX ; Start 09/03/16 at 13:30 Ondansetron HCl (Zofran Inj) 4 mg Q6H PRN IV NAUSEA AND/OR VOMITING; Start 09/03 at 14:00 Morphine Sulfate (morphine) 2 mg Q4H PRN IV Pain; Start 09/03/16 at 14:00 Hydralazine HCl (Apresoline) 10 mg Q6H PRN IV SBP>160; Start 09/03/16 at 14:00 Famotidine (Pepcid) 20 mg Q24H PO Last administered on 09/14/16 21:27; Admin Dose 20 MG; Start 09/03/16 at 21:00 Guaifenesin/ Dextromethorphan (Robitussin Dm Liquid Cup) 10 ml Q4H PRN PO COUGH Last administered on 09/13/16 00:07; Admin Dose 10 ML; Start 09/09/16 at 17:30 Acetaminophen/ Hydrocodone Bitart ([place] (10/325)) 1 tab Q4H PRN PO PAIN; Start 09/10/16 at 16:00 Bisacodyl (Dulcolax) 10 mg DAILY PRN PO CONSTIPATION Last administered on 21:36; Admin Dose 10 MG; Start 09/10/16 at 16:00 Naloxone HCl (Narcan) 0.2 mg PRN PRN IV DECREASED REPIRATORY RATE; Start at 16:00 Lactobacillus Acidophilus/ Rhamnosus (Culturelle) 1 cap BID PO Last administered on 09/15/16 08:30; Admin Dose 1 CAP; Start 09/14/16 at 09:00 Senna/Docusate Sodium (Senokot-S) 2 tab HS PO Last administered on 09/14/16 21 :27; Admin Dose 2 TAB; Start 09/13/16 at 21:00 Bisacodyl (Dulcolax Supp) 10 mg Q48H PRN [place] CONSTIPATION; Start 09/13/16 at 13: 30 Epoetin Eligio (Epogen (Esrd)) 3,000 units MoWeFr@17 IV Last administered on 09/14 12:16; Admin Dose 3,000 UNITS; Start 09/14/16 at 09:00 Epoetin Eligio (Epogen (Esrd)) 2,000 units MoWeFr@17 IV Last administered on 09/14 12:15; Admin Dose 2,000 UNITS; Start 09/14/16 at 09:00 Magnesium Hydroxide (Milk Of Mag) 30 ml BID PO Last administered on 09/15/16 08:30; Admin Dose 30 ML; Start 09/14/16 at 15:00 Guaifenesin (Mucinex) 600 mg BID PO Last administered on 09/15/16 12:24; Admin Dose 600 MG; Start 09/15/16 at 11:30 JAREK GUO MD Sep 15, 2016 15:01
--- NOTE | 2016-09-15 16:40 | RADRPT ---
PROCEDURE: US bilateral lower extremity veins. CLINICAL INDICATION: Bilateral leg pain and swelling. Hip dysplasia. TECHNIQUE: Multiple longitudinal and transverse images of the bilateral lower extremity veins were obtained with valencia scale and color Doppler imaging. The common femoral vein, femoral vein, and popl iteal vein were evaluated. 2D grayscale measurements with compression sonography, color Doppler, and pulsed Doppler with augmentation. COMPARISON: No prior studies are available for comparison. FINDINGS: The bilateral common femoral, femoral and popliteal veins are normally compressible throughout. Col or flow demonstrates normal filling of the vessels. Normal waveforms are visualized and there is no rmal response to augmentation. IMPRESSION: 1. No evidence of deep vein thrombosis involving either lower extremity. RPTAT: QQ .Derek Gómez MD, MD Date Time Electronically viewed and signed by .Derek Gómez MD, MD on 09/15/2016 16:40 .R/
--- NOTE | 2016-09-15 19:59 | CONS ---
Date/Time of Note Date/Time of Note DATE: 09/15/16 TIME: 19:58 Assessment/Plan Assessment/Plan Chief Complaint/Hosp Course SUBJECTIVE: No acute changes. Alert, no SOB, looks comfortable, no fevers. MICROBIOLOGY: Intraoperative cultures preliminary negative. Anaerobic culture was negative. ANTIMICROBIALS: Amikacin. INDWELLINGS: AV fistula and chest tube. PHYSICAL EXAMINATION: GENERAL: This is an ill-appearing, elderly man in no distress. HEENT: Head atraumatic, normocephalic. Sclerae anicteric. Buccal mucosa dry. NECK: Supple, midline. CHEST: Rise symmetrical. Breath sounds diminished to bases. HEART: S1, S2. ABDOMEN: Distended, soft. Bowel tones hypoactive. EXTREMITIES: Without cyanosis. ASSESSMENT: 1. Status post video-assisted thoracotomy with total pulmonary decortication on 09/11/2016. 2. Status post urinary tract infection and bacteremia. 3. End-stage renal disease, hemodialysis dependent. 4. Neurogenic bladder. 5. Persistent leukocytosis, likely reactive. PLAN: The patient remains stable. Will add oral Levaquin, continue present care /abx, follow recommendations of consultants. DW staff Problems: Consultation Date/Type/Reason Admit Date/Time Sep 03, 2016 at 08:14 Initial Consult Date 09/03/16 Type of Consultation: ID Referring Provider: Jessica GRIJALVA Exam/Review of Systems Vital Signs Vitals Vital Signs Date Time Temp Pulse Resp B/P Pulse Ox O2 Delivery O2 Flow Rate FiO2 09/15/16 17:02 77 18 Nasal Cannula 2.0 09/15/16 15:40 98.3 118/59 98 09/13/16 08:22 100 Intake and Output 09/14/16 09/14/16 09/15/16 15:00 23:00 07:00 Intake Total 400 ml 250 ml Output Total 20 ml Balance 380 ml 250 ml Results Result Diagram: 09/15/1612 09/15/16 0612 Results 24 hrs Laboratory Tests Test 09/15/16 06:12 White Blood Count 12.7 #H Red Blood Count 2.45 L Hemoglobin 7.5 L Hematocrit 23.8 L Mean Corpuscular Volume 97.1 Mean Corpuscular Hemoglobin 30.6 Mean Corpuscular Hemoglobin Concent 31.5 L Red Cell Distribution Width 15.0 H Platelet Count 352 Mean Platelet Volume 9.6 Neutrophils % 84.2 H Lymphocytes % 7.1 L Monocytes % 6.7 Eosinophils % 1.4 Basophils % 0.2 Nucleated Red Blood Cells % 0.0 Neutrophils # 10.7 H Lymphocytes # 0.9 Monocytes # 0.9 Eosinophils # 0.2 Basophils # 0.0 Nucleated Red Blood Cells # 0.0 Sodium Level 127 L Potassium Level 4.0 Chloride Level 88 L Carbon Dioxide Level 27 Anion Gap 16 Blood Urea Nitrogen 42 H Creatinine 4.64 H Glucose Level 87 Calcium Level 7.9 L Phosphorus Level 6.6 H Magnesium Level 2.4 Medications Medications Current Medications Amikacin Sulfate (Amikacin Iv Per Pharmacy) AMIKACIN PER PHARMACY NOTE XX ; Start 09/03/16 at 13:30 Ondansetron HCl (Zofran Inj) 4 mg Q6H PRN IV NAUSEA AND/OR VOMITING; Start 09/03 at 14:00 Morphine Sulfate (morphine) 2 mg Q4H PRN IV Pain; Start 09/03/16 at 14:00 Hydralazine HCl (Apresoline) 10 mg Q6H PRN IV SBP>160; Start 09/03/16 at 14:00 Famotidine (Pepcid) 20 mg Q24H PO Last administered on 09/14/16 21:27; Admin Dose 20 MG; Start 09/03/16 at 21:00 Guaifenesin/ Dextromethorphan (Robitussin Dm Liquid Cup) 10 ml Q4H PRN PO COUGH Last administered on 09/13/16 00:07; Admin Dose 10 ML; Start 09/09/16 at 17:30 Acetaminophen/ Hydrocodone Bitart ([place] (10/325)) 1 tab Q4H PRN PO PAIN; Start 09/10/16 at 16:00 Bisacodyl (Dulcolax) 10 mg DAILY PRN PO CONSTIPATION Last administered on 21:36; Admin Dose 10 MG; Start 09/10/16 at 16:00 Naloxone HCl (Narcan) 0.2 mg PRN PRN IV DECREASED REPIRATORY RATE; Start at 16:00 Lactobacillus Acidophilus/ Rhamnosus (Culturelle) 1 cap BID PO Last administered on 09/15/16 08:30; Admin Dose 1 CAP; Start 09/14/16 at 09:00 Senna/Docusate Sodium (Senokot-S) 2 tab HS PO Last administered on 09/14/16 21 :27; Admin Dose 2 TAB; Start 09/13/16 at 21:00 Bisacodyl (Dulcolax Supp) 10 mg Q48H PRN [place] CONSTIPATION; Start 09/13/16 at 13: 30 Epoetin Eligio (Epogen (Esrd)) 3,000 units MoWeFr@17 IV Last administered on 09/14 12:16; Admin Dose 3,000 UNITS; Start 09/14/16 at 09:00 Epoetin Eligio (Epogen (Esrd)) 2,000 units MoWeFr@17 IV Last administered on 09/14 12:15; Admin Dose 2,000 UNITS; Start 09/14/16 at 09:00 Magnesium Hydroxide (Milk Of Mag) 30 ml BID PO Last administered on 09/15/16 08:30; Admin Dose 30 ML; Start 09/14/16 at 15:00 Guaifenesin (Mucinex) 600 mg BID PO Last administered on 09/15/16 12:24; Admin Dose 600 MG; Start 09/15/16 at 11:30 CELIA CRAWFORD NP Sep 15, 2016 19:59
[2016-09-15] MEDS ORDERED: LEVOFLOXACIN 500 MG TAB PO SCH (20:00)
[2016-09-15] MEDS: FAMOTIDINE 20 MG TAB PO SCH (21:11)
[2016-09-15] MEDS: SENNA/DOCUSATE NA (8.6MG/50MG) TAB PO SCH (21:11)
[2016-09-15] MEDS: LORAZEPAM 2 MG INJ IV PRN (21:52)
[2016-09-15] MEDS: ALBUTEROL/IPRATROPIUM (NEB) 3 ML AMP HHN PRN (22:05)
[2016-09-15 23:16] LABS: AADO2 Arterial 143.1 mmHg (7.0-24.0); Allen Test ACCEPTAB; Arterial Base Excess -0.9 mmol/L (-3.0-3); Arterial COHb 0 % (0.0-3.0); Arterial Fraction of Oxyhgb 97.7 % (93.0-99.0); Arterial HCO3 24.7 mmol/L (22.0-26.0); Arterial MetHb 0.4 % (0.0-1.5); Arterial Total Hemglobin 8.6 g/dl (12.0-18.0); Blood Gas IEPAP 15/5; MODE MASK - BIPAP
[2016-09-16] VITALS (32 sets, daily range): BP systolic 86–149; BP diastolic 49–82; PULSE 70–100; RESP 17–32
[2016-09-16] MEDS: LORAZEPAM 2 MG INJ IV PRN ×2 (00:23→05:24)
[2016-09-16] MEDS: ALBUTEROL/IPRATROPIUM (NEB) 3 ML AMP HHN SCH ×3 (00:34→16:04)
--- NOTE | 2016-09-16 07:13 | CONS ---
Date/Time of Note Date/Time of Note DATE: 09/16/16 TIME: 06:50 Assessment/Plan Assessment/Plan Chief Complaint/Hosp Course Awaiting HD this AM, Increase EPO Will need UF & poss B Tx if hct not improving Will leave pulm management to PMD Problems: Consultation Date/Type/Reason Admit Date/Time Sep 03, 2016 at 08:14 Initial Consult Date 09/03/16 Type of Consultation: renal Referring Provider: Jessica GRIJALVA 24 HR Interval Summary Subjective hx not possible: pt critical Exam/Review of Systems Vital Signs Vitals Vital Signs Date Time Temp Pulse Resp B/P Pulse Ox O2 Delivery O2 Flow Rate FiO2 09/16/16 05:34 77 100 40 09/16/16 04:26 98.6 18 139/69 09/15/16 23:45 2.0 09/15/16 21:00 Non Rebreather Mask Intake and Output 09/15/16 09/15/16 09/16/16 15:00 23:00 07:00 Intake Total 400 ml 350 ml Balance 400 ml 350 ml Exam Constitutional: distress Psych: anxiety Head: normocephalic Eyes: PERRL ENMT: other (has bipap on) Neck: jvd, supple Respiratory: crackles/rales Cardiovascular: murmurs/extra sounds, other (chest tube in place), regular rate and rhythm Extremities: other (AVF Bruit +) Skin: other (pale) Results Hct 24%, Na 127: may be dilutional CXR shows complete opacification lt side Result Diagram: 09/15/16 0612 09/15/16 0612 Results 24 hrs Laboratory Tests Test 09/15/16 22:45 Blood Gas Specimen Source Blood arterial Arterial Blood Date Drawn 09/15/2016 11:00:15 PM Arterial Blood pH (Temp corrected) 7.357 Arterial Blood pCO2 (Temp correct) 45.0 Arterial Blood pO2 (Temp corrected) 126.6 H Arterial Blood HCO3 24.7 Arterial Blood Base Excess -0.9 Arterial Blood Oxygen Saturation 98.1 H Juan Test ACCEPTAB Arterial Blood Gas Puncture Site Right Radial Arterial Blood Carboxyhemoglobin 0 Arterial Blood Methemoglobin 0.4 Blood Gas A-a O2 Differential 143.1 H Oxyhemoglobin Percent 97.7 Total Hemoglobin 8.6 L Blood Gas Temperature 37.0 Blood Gas Respiration Rate 18.0 Blood Gas Actual Respiration Rate 37 Blood Gas Modality MASK - BIPAP FiO2 45.0 Blood Gas IPAP/EPAP Ratio 15/5 Blood Gas Critical Value Read Back DO, K R.N Blood Gas Notified Whom MM Blood Gas Notified Time 09/15/2016 11:16:30 PM Medications Medications Current Medications Amikacin Sulfate (Amikacin Iv Per Pharmacy) AMIKACIN PER PHARMACY NOTE XX ; Start 09/03/16 at 13:30 Ondansetron HCl (Zofran Inj) 4 mg Q6H PRN IV NAUSEA AND/OR VOMITING; Start 09/03 at 14:00 Morphine Sulfate (morphine) 2 mg Q4H PRN IV Pain; Start 09/03/16 at 14:00 Hydralazine HCl (Apresoline) 10 mg Q6H PRN IV SBP>160; Start 09/03/16 at 14:00 Famotidine (Pepcid) 20 mg Q24H PO Last administered on 09/15/16 21:11; Admin Dose 20 MG; Start 09/03/16 at 21:00 Guaifenesin/ Dextromethorphan (Robitussin Dm Liquid Cup) 10 ml Q4H PRN PO COUGH Last administered on 09/13/16 00:07; Admin Dose 10 ML; Start 09/09/16 at 17:30 Acetaminophen/ Hydrocodone Bitart ([place] (10/325)) 1 tab Q4H PRN PO PAIN; Start 09/10/16 at 16:00 Bisacodyl (Dulcolax) 10 mg DAILY PRN PO CONSTIPATION Last administered on 21:36; Admin Dose 10 MG; Start 09/10/16 at 16:00 Naloxone HCl (Narcan) 0.2 mg PRN PRN IV DECREASED REPIRATORY RATE; Start at 16:00 Lactobacillus Acidophilus/ Rhamnosus (Culturelle) 1 cap BID PO Last administered on 09/15/16 21:10; Admin Dose 1 CAP; Start 09/14/16 at 09:00 Senna/Docusate Sodium (Senokot-S) 2 tab HS PO Last administered on 09/15/16 21 :11; Admin Dose 2 TAB; Start 09/13/16 at 21:00 Bisacodyl (Dulcolax Supp) 10 mg Q48H PRN [place] CONSTIPATION; Start 09/13/16 at 13: 30 Epoetin Eligio (Epogen (Esrd)) 3,000 units MoWeFr@17 IV Last administered on 09/14 12:16; Admin Dose 3,000 UNITS; Start 09/14/16 at 09:00 Magnesium Hydroxide (Milk Of Mag) 30 ml BID PO Last administered on 09/15/16 21:10; Admin Dose 30 ML; Start 09/14/16 at 15:00 Guaifenesin (Mucinex) 600 mg BID PO Last administered on 09/15/16 21:11; Admin Dose 600 MG; Start 09/15/16 at 11:30 Levofloxacin (Levaquin) 500 mg Q48H PO Last administered on 09/15/16 21:10; Admin Dose 500 MG; Start 09/15/16 at 20:00 Lorazepam (Ativan) 1 mg Q3 PRN IV ANXIETY Last administered on 09/16/16 05:24 ; Admin Dose 1 MG; Start 09/15/16 at 22:00 Epoetin Eligio (Epogen (Esrd)) 10,000 units MoWeFr@17 IV ; Start 09/16/16 at 17:00 TJ CLANCY MD Sep 16, 2016 07:00
[2016-09-16 07:37] LABS: ADD SCAN DIFF NO
[2016-09-16 07:46] LABS: BASOPHILS % 0.2 % (0.0-2.0); EOSINOPHILS # 0.2 10^3/ul (0.0-0.5); EOSINOPHILS % 1.7 % (0.0-7.0); HEMATOCRIT 25.1 % (42.0-52.0); HEMOGLOBIN 7.8 g/dl (14.0-18.0); LYMPHOCYTES # 1.1 10^3/ul (0.8-2.9); LYMPHOCYTES % 10.9 % (15.0-51.0); MEAN CORPUSCULAR HGB CONC 31.1 g/dl (32.0-37.0); MEAN CORPUSCULAR VOLUME 96.5 fl (82.0-101.0); MEAN PLATELET VOLUME 9.6 fl (7.4-10.4); MONOCYTE # 0.8 10^3/ul (0.3-0.9); NEUTROPHIL # 8.1 10^3/ul (1.6-7.5); NEUTROPHILS % 78.8 % (39.0-77.0); PLATELET COUNT 365 10^3/UL (140-415); RED CELL DISTRIBUTION WIDTH 14.7 % (11.5-14.5); WHITE BLOOD COUNT 10.2 10^3/ul (4.8-10.8)
[2016-09-16] MEDS: SEVELAMER CARBONATE 0.8 GM PKT PO SCH ×3 (08:00→18:05)
[2016-09-16 08:10] LABS: ALBUMIN 2.7 g/dl (3.3-4.9); ALBUMIN/GLOBULIN RATIO 0.79; CALCIUM 7.9 mg/dl (8.4-10.2); PHOSPHORUS 6.8 mg/dl (2.5-4.9); POTASSIUM 4.9 mmol/L (3.5-5.1); TOTAL PROTEIN 6.1 g/dl (6.1-8.1)
[2016-09-16 08:14] LABS: TROPONIN-I 0.022 ng/ml (0.00-0.12)
[2016-09-16 08:20] LABS: CREATININE 5.3 mg/dl (0.61-1.24)
[2016-09-16] MEDS: GUAIFENESIN LA 600 MG TABSR PO SCH ×2 (09:00→21:00)
[2016-09-16] MEDS: MAGNESIUM HYDROXIDE 30ML CUP PO SCH ×2 (09:00→21:00)
[2016-09-16] MEDS: LACTOBACILLUS RHAMNOSUS CAP PO SCH ×2 (09:00→21:00)
--- NOTE | 2016-09-16 09:13 | PN ---
DATE: 09/14/2016 PULMONARY PROGRESS NOTE SUBJECTIVE: Mr. Lui condition is stable today. The patient is denying any significant shortness of breath. Still complains of left-sided chest pain. Denies any cough, chest congestion, fever, chills. PHYSICAL EXAMINATION: GENERAL: Elderly male, awake, alert, currently in no distress. VITAL SIGNS: Temperature is 98 degree Fahrenheit, heart rate is 80 per minute, blood pressure is 112/56, respiratory rate is 18 per minute, O2 saturation 99% on 2 liter nasal cannula. HEENT/NECK: Supple neck. No JVD, no lymphadenopathy, midline trachea, no thyromegaly. Pharynx is clear. No neck bruits. CHEST: DICTATION ENDS HERE Dictated By: NELSON VICTOR MD AQ/NTS Conf#: [id number] DID#: [id number] redictated MTDD
[2016-09-16 10:02] LABS: AADO2 Arterial 150.2 mmHg (7.0-24.0); Allen Test ACCEPTAB; Arterial Base Excess -0.2 mmol/L (-3.0-3); Arterial COHb 0.3 % (0.0-3.0); Arterial HCO3 26.1 mmol/L (22.0-26.0); Arterial MetHb 0.4 % (0.0-1.5); Arterial Total Hemglobin 10.2 g/dl (12.0-18.0); Blood Gas IEPAP 15/5; MODE MASK - BIPAP
--- NOTE | 2016-09-16 10:13 | PN ---
Date/Time of Note Date/Time of Note DATE: 09/16/16 TIME: 10:12 Assessment/Plan VTE Prophylaxis VTE Prophylaxis Intervention: heparin Lines/Catheters IV [facility]from [facility] Urinary Cath still in place: No Assessment/Plan Chief Complaint/Hosp Course 1. Acute respiratory failure. Hypoxic. Most probably secondary to underlying healthcare-associated pneumonia as well as pulmonary vascular congestion. Continue supplemental oxygen. Continue inhaled bronchodilators. The patient being followed by Pulmonary. 2. Healthcare associated pneumonia with left lateral and posterior empyema. Continue antibiotics as per infectious diseases. Pulmonary following the patient. S/P VATS with left thoracotomy and total pulmonary decortication on . 3. Sepsis with underlying gram-negative bacteremia. No evidence of septic shock. Continue antibiotics as per infectious diseases. 4. Essential hypertension. Blood pressure well controlled. The patient will be continued on p.r.n. antihypertensives. 5. End-stage renal disease on hemodialysis. Hemodialysis as per nephrology. The patient already has a left upper extremity AV fistula in place. 6. Paraplegia. Continue daily catheterization as needed. 7. Normocytic, normochromic anemia. Most probably secondary to underlying ESRD. Continue Epogen. 8. Hyponatremia. Monitor. Nephrology following. 9. Fluid, electrolytes and nutrition. Renal diet. 10. Deep venous thrombosis prophylaxis. Subcutaneous heparin. 11. Gastrointestinal prophylaxis. Histamine 2 receptor blockers. PLAN: Continue NIPPV. Transfer the patient to ICU for close observation. Case discussed with Dr. Stratton. Problems: Subjective 24 Hr Interval Summary Free Text/Dictation Patient has been on BiPAP and using accessory muscles of respiration. Patient was also been somnolent today. Exam/Review of Systems Vital Signs Vitals Vital Signs Date Time Temp Pulse Resp B/P Pulse Ox O2 Delivery O2 Flow Rate FiO2 09/16/16 08:16 75 34 97 40 09/16/16 07:34 97.9 132/72 09/15/16 23:45 2.0 09/15/16 21:00 Non Rebreather Mask Intake and Output 09/15/16 09/15/16 09/16/16 15:00 23:00 07:00 Intake Total 400 ml 350 ml Balance 400 ml 350 ml Exam GENERAL: This is a 66-year-old male lying in bed in moderate to severe respiratory distress with oxygen via BiPAP mask on. HEENT: Normocephalic and atraumatic. Eyes: Anicteric sclerae. Conjunctivae clear. ENT: Nasal septum is midline. Oral mucosa is dry. NECK: Supple. No JVD noticed. RESPIRATORY: Bilaterally diminished breath sounds. Use of accessory muscles of respiration. Scattered rhonchi. No wheezing. Left sided chest tube in place. CARDIAC: Regular rate and rhythm. S1, S2 heard. ABDOMEN: Soft, nontender and nondistended. Bowel sounds positive in all 4 quadrants. GENITOURINARY: No penoscrotal edema. EXTREMITIES: No cyanosis, no clubbing, no edema. Peripheral pulses palpable. NEUROLOGIC: The patient is somnolent. Has paraplegia. Results Result Diagram: 09/16/16 0655 09/16/16 0655 Results 24 hrs Laboratory Tests Test 09/15/16 22:45 09/16/16 06:55 09/16/16 09:41 Blood Gas Specimen Source Blood arterial Blood arterial Arterial Blood Date Drawn 09/15/2016 11:00:15 PM 09/16/2016 9:56:01 AM Arterial Blood pH (Temp corrected) 7.357 7.332 L Arterial Blood pCO2 (Temp correct) 45.0 50.4 H Arterial Blood pO2 (Temp corrected) 126.6 H 77.0 L Arterial Blood HCO3 24.7 26.1 H Arterial Blood Base Excess -0.9 -0.2 Arterial Blood Oxygen Saturation 98.1 H 93.7 L Juan Test ACCEPTAB ACCEPTAB Arterial Blood Gas Puncture Site Right Radial Right Radial Arterial Blood Carboxyhemoglobin 0 0.3 Arterial Blood Methemoglobin 0.4 0.4 Blood Gas A-a O2 Differential 143.1 H 150.2 H Oxyhemoglobin Percent 97.7 93.0 Total Hemoglobin 8.6 L 10.2 L Blood Gas Temperature 37.0 37.0 Blood Gas Respiration Rate 18.0 18.0 Blood Gas Actual Respiration Rate 37 32 Blood Gas Modality MASK - BIPAP MASK - BIPAP FiO2 45.0 40.0 Blood Gas IPAP/EPAP Ratio 14/10 14/10 Blood Gas Critical Value Read Back Marina WILDE RCici Blood Gas Notified Whom ADRIEL AGUIRRE RCP Blood Gas Notified Time 09/15/2016 11:16:30 PM 09/16/2016 10:01:59 AM White Blood Count 10.2 Red Blood Count 2.60 L Hemoglobin 7.8 L Hematocrit 25.1 L Mean Corpuscular Volume 96.5 Mean Corpuscular Hemoglobin 30.0 Mean Corpuscular Hemoglobin Concent 31.1 L Red Cell Distribution Width 14.7 H Platelet Count 365 Mean Platelet Volume 9.6 Neutrophils % 78.8 H Lymphocytes % 10.9 L Monocytes % 8.0 Eosinophils % 1.7 Basophils % 0.2 Nucleated Red Blood Cells % 0.0 Neutrophils # 8.1 H Lymphocytes # 1.1 Monocytes # 0.8 Eosinophils # 0.2 Basophils # 0.0 Nucleated Red Blood Cells # 0.0 Sodium Level 124 L Potassium Level 4.9 Chloride Level 89 L Carbon Dioxide Level 25 Anion Gap 15 Blood Urea Nitrogen 51 H Creatinine 5.30 H Glucose Level 85 Calcium Level 7.9 L Phosphorus Level 6.8 H Magnesium Level 3.0 H Total Bilirubin 0.0 L Direct Bilirubin 0.00 Indirect Bilirubin 0.0 Aspartate Amino Transf (AST/SGOT) 15 Alanine Aminotransferase (ALT/SGPT) 28 Alkaline Phosphatase 107 Troponin I 0.022 Total Protein 6.1 Albumin 2.7 L Globulin 3.40 H Albumin/Globulin Ratio 0.79 Medications Medications Current Medications Amikacin Sulfate (Amikacin Iv Per Pharmacy) AMIKACIN PER PHARMACY NOTE XX ; Start 09/03/16 at 13:30 Ondansetron HCl (Zofran Inj) 4 mg Q6H PRN IV NAUSEA AND/OR VOMITING; Start 09/03 at 14:00 Morphine Sulfate (morphine) 2 mg Q4H PRN IV Pain; Start 09/03/16 at 14:00 Hydralazine HCl (Apresoline) 10 mg Q6H PRN IV SBP>160; Start 09/03/16 at 14:00 Famotidine (Pepcid) 20 mg Q24H PO Last administered on 09/15/16t 21:11; Admin Dose 20 MG; Start 09/03/16 at 21:00 Guaifenesin/ Dextromethorphan (Robitussin Dm Liquid Cup) 10 ml Q4H PRN PO COUGH Last administered on 09/13/16 00:07; Admin Dose 10 ML; Start 09/09/16 at 17:30 Acetaminophen/ Hydrocodone Bitart ([place] (10/325)) 1 tab Q4H PRN PO PAIN; Start 09/10/16 at 16:00 Bisacodyl (Dulcolax) 10 mg DAILY PRN PO CONSTIPATION Last administered on 21:36; Admin Dose 10 MG; Start 09/10/16 at 16:00 Naloxone HCl (Narcan) 0.2 mg PRN PRN IV DECREASED REPIRATORY RATE; Start at 16:00 Lactobacillus Acidophilus/ Rhamnosus (Culturelle) 1 cap BID PO Last administered on 09/15/16 21:10; Admin Dose 1 CAP; Start 09/14/16 at 09:00 Senna/Docusate Sodium (Senokot-S) 2 tab HS PO Last administered on 09/15/16 21 :11; Admin Dose 2 TAB; Start 09/13/16 at 21:00 Bisacodyl (Dulcolax Supp) 10 mg Q48H PRN [place] CONSTIPATION; Start 09/13/16 at 13: 30 Epoetin Eligio (Epogen (Esrd)) 3,000 units MoWeFr@17 IV Last administered on 09/14 12:16; Admin Dose 3,000 UNITS; Start 09/14/16 at 09:00 Magnesium Hydroxide (Milk Of Mag) 30 ml BID PO Last administered on 09/15/16 21:10; Admin Dose 30 ML; Start 09/14/16 at 15:00 Guaifenesin (Mucinex) 600 mg BID PO Last administered on 09/15/16 21:11; Admin Dose 600 MG; Start 09/15/16 at 11:30 Levofloxacin (Levaquin) 500 mg Q48H PO Last administered on 09/15/16 21:10; Admin Dose 500 MG; Start 09/15/16 at 20:00 Lorazepam (Ativan) 1 mg Q3 PRN IV ANXIETY Last administered on 09/16/16 05:24 ; Admin Dose 1 MG; Start 09/15/16 at 22:00 Epoetin Eligio (Epogen (Esrd)) 10,000 units MoWeFr@17 IV ; Start 09/16/16 at 17:00 SHARLA MEZA NP Sep 16, 2016 10:13
--- NOTE | 2016-09-16 10:18 | RADRPT ---
PROCEDURE: XR Chest. CLINICAL INDICATION: severe resp distress TECHNIQUE: Single frontal view of the chest was obtained. COMPARISON: Chest x-ray from 09/14/2016 FINDINGS: There has been interval placement of an enteric tube which project past the diaphragm. The cardiac silhouette is again partially obscured by near - complete opacification of the left susan thorax which has mildly improved since the prior chest x-ray from 09/14/2016. 2 left-sided chest tubes are again noted. There is stable mild prominence of interstitial markings on the right, likely due to congestive dawson ges. IMPRESSION: Mildly improved aeration of the left upper lung zone with near - complete opacification of the left hemithorax. 2 left-sided chest tubes are again noted. Interval placement of an enteric tube which projects passing diaphragm is likely in the stomach. Stable mild congestive changes are noted in the right lung. RPTAT: EE Physician Alix Date Time Electronically viewed and signed by Slade Ludwig Physician on 09/16/2016 10:17 /
--- NOTE | 2016-09-16 15:33 | CONS ---
Date/Time of Note Date/Time of Note DATE: 09/16/16 TIME: 15:32 Consult Date/Type/Reason Admit Date/Time Sep 03, 2016 at 08:14 Initial Consult Date 09/03/16 Type of Consultation: pulmonary Ordering Provider: Jessica GRIJALVA Subjective Patient had significant respiratory distress this morning requiring suctioning as he is unable to clear secretions Continues supplemental O2 Continues chest tube drainage Objective Vital Signs Date Time Temp Pulse Resp B/P Pulse Ox O2 Delivery O2 Flow Rate FiO2 09/16/16 12:45 85 18 09/16/16 11:55 95 40 09/16/16 11:52 98.0 124/66 09/15/16 23:45 2.0 09/15/16 21:00 Non Rebreather Mask Intake and Output 09/15/16 09/15/16 09/16/16 15:00 23:00 07:00 Intake Total 400 ml 350 ml Balance 400 ml 350 ml Exam GENERAL: Chronically ill appearing gentleman comfortable at rest VITAL SIGNS: per chart NECK: Supple. No JVD or lymphadenopathy. CARDIAC EXAM: S1, S2. No added sounds or murmurs. CHEST: Diminished air entry left lung ABDOMEN: Soft, nontender. No guarding or rebound. EXTREMITIES: No cyanosis, clubbing or edema. NEUROLOGIC: Generalized weakness. Results/Medications Result Diagram: 09/16/16 0655 09/16/16 0655 Results 24 hrs Laboratory Tests Test 09/15/16 22:45 09/16/16 06:55 09/16/16 09:41 Blood Gas Specimen Source Blood arterial Blood arterial Arterial Blood Date Drawn 09/15/2016 11:00:15 PM 09/16/2016 9:56:01 AM Arterial Blood pH (Temp corrected) 7.357 7.332 L Arterial Blood pCO2 (Temp correct) 45.0 50.4 H Arterial Blood pO2 (Temp corrected) 126.6 H 77.0 L Arterial Blood HCO3 24.7 26.1 H Arterial Blood Base Excess -0.9 -0.2 Arterial Blood Oxygen Saturation 98.1 H 93.7 L Juan Test ACCEPTAB ACCEPTAB Arterial Blood Gas Puncture Site Right Radial Right Radial Arterial Blood Carboxyhemoglobin 0 0.3 Arterial Blood Methemoglobin 0.4 0.4 Blood Gas A-a O2 Differential 143.1 H 150.2 H Oxyhemoglobin Percent 97.7 93.0 Total Hemoglobin 8.6 L 10.2 L Blood Gas Temperature 37.0 37.0 Blood Gas Respiration Rate 18.0 18.0 Blood Gas Actual Respiration Rate 37 32 Blood Gas Modality MASK - BIPAP MASK - BIPAP FiO2 45.0 40.0 Blood Gas IPAP/EPAP Ratio 14/10 14/10 Blood Gas Critical Value Read Back DO, K R.N Blood Gas Notified Whom ADRIEL AGUIRRE RESEARCH AND DEVELOPMENT SPECIALIST Blood Gas Notified Time 09/15/2016 11:16:30 PM 09/16/2016 10:01:59 AM White Blood Count 10.2 Red Blood Count 2.60 L Hemoglobin 7.8 L Hematocrit 25.1 L Mean Corpuscular Volume 96.5 Mean Corpuscular Hemoglobin 30.0 Mean Corpuscular Hemoglobin Concent 31.1 L Red Cell Distribution Width 14.7 H Platelet Count 365 Mean Platelet Volume 9.6 Neutrophils % 78.8 H Lymphocytes % 10.9 L Monocytes % 8.0 Eosinophils % 1.7 Basophils % 0.2 Nucleated Red Blood Cells % 0.0 Neutrophils # 8.1 H Lymphocytes # 1.1 Monocytes # 0.8 Eosinophils # 0.2 Basophils # 0.0 Nucleated Red Blood Cells # 0.0 Sodium Level 124 L Potassium Level 4.9 Chloride Level 89 L Carbon Dioxide Level 25 Anion Gap 15 Blood Urea Nitrogen 51 H Creatinine 5.30 H Glucose Level 85 Calcium Level 7.9 L Phosphorus Level 6.8 H Magnesium Level 3.0 H Total Bilirubin 0.0 L Direct Bilirubin 0.00 Indirect Bilirubin 0.0 Aspartate Amino Transf (AST/SGOT) 15 Alanine Aminotransferase (ALT/SGPT) 28 Alkaline Phosphatase 107 Troponin I 0.022 Total Protein 6.1 Albumin 2.7 L Globulin 3.40 H Albumin/Globulin Ratio 0.79 Medications Current Medications Amikacin Sulfate (Amikacin Iv Per Pharmacy) AMIKACIN PER PHARMACY NOTE XX ; Start 09/03/16 at 13:30 Ondansetron HCl (Zofran Inj) 4 mg Q6H PRN IV NAUSEA AND/OR VOMITING; Start 09/03 at 14:00 Morphine Sulfate (morphine) 2 mg Q4H PRN IV Pain; Start 09/03/16 at 14:00 Hydralazine HCl (Apresoline) 10 mg Q6H PRN IV SBP>160; Start 4/4/17 at 14:00 Famotidine (Pepcid) 20 mg Q24H PO Last administered on 09/15/16 21:11; Admin Dose 20 MG; Start 09/03/16 at 21:00 Guaifenesin/ Dextromethorphan (Robitussin Dm Liquid Cup) 10 ml Q4H PRN PO COUGH Last administered on 09/13/16 00:07; Admin Dose 10 ML; Start 09/09/16 at 17:30 Acetaminophen/ Hydrocodone Bitart ([place] (10/325)) 1 tab Q4H PRN PO PAIN; Start 09/10/16 at 16:00 Bisacodyl (Dulcolax) 10 mg DAILY PRN PO CONSTIPATION Last administered on 21:36; Admin Dose 10 MG; Start 09/10/16 at 16:00 Naloxone HCl (Narcan) 0.2 mg PRN PRN IV DECREASED REPIRATORY RATE; Start at 16:00 Lactobacillus Acidophilus/ Rhamnosus (Culturelle) 1 cap BID PO Last administered on 09/15/16 21:10; Admin Dose 1 CAP; Start 09/14/16 at 09:00 Senna/Docusate Sodium (Senokot-S) 2 tab HS PO Last administered on 09/15/16 21 :11; Admin Dose 2 TAB; Start 09/13/16 at 21:00 Bisacodyl (Dulcolax Supp) 10 mg Q48H PRN [place] CONSTIPATION; Start 09/13/16 at 13: 30 Epoetin Eligio (Epogen (Esrd)) 3,000 units MoWeFr@17 IV Last administered on 09/14 12:16; Admin Dose 3,000 UNITS; Start 09/14/16 at 09:00 Magnesium Hydroxide (Milk Of Mag) 30 ml BID PO Last administered on 09/15/16 21:10; Admin Dose 30 ML; Start 09/14/16 at 15:00 Guaifenesin (Mucinex) 600 mg BID PO Last administered on 09/15/16 21:11; Admin Dose 600 MG; Start 09/15/16 at 11:30 Levofloxacin (Levaquin) 500 mg Q48H PO Last administered on 09/15/16 21:10; Admin Dose 500 MG; Start 09/15/16 at 20:00 Lorazepam (Ativan) 1 mg Q3 PRN IV ANXIETY Last administered on 09/16/16t 05:24 ; Admin Dose 1 MG; Start 09/15/16 at 22:00 Epoetin Eligio (Epogen (Esrd)) 10,000 units MoWeFr@17 IV ; Start 09/16/16 at 17:00 Assessment/Plan Chief Complaint/Hosp Course Assessment 1. Possible healthcare associated pneumonia with empyema status post decortication of significant volume loss and infiltrates on chest x-ray 2. End-stage renal failure on hemodialysis 3. History of paraplegia 4. Anemia postop Plan 1. Continue current antibiotics improved leukocytosis noted 2. Continue hemodialysis per nephrology 3. Repeat chest CT to evaluate lung parenchyma 4. Consider transfusion 1 unit packed red cells Problems: SAND[facility]OLLEY [facility] Sep 16, 2016 15:33
--- NOTE | 2016-09-16 15:40 | CONS ---
Date/Time of Note Date/Time of Note DATE: 09/16/16 TIME: 15:37 Assessment/Plan Assessment/Plan Chief Complaint/Hosp Course SUBJECTIVE: Awake, SOB, congested, unable to clear secretions, s/p Bipap earlier, no fevers MICROBIOLOGY: Intraoperative cultures preliminary negative. Anaerobic culture was negative. ANTIMICROBIALS: Amikacin, Levaquin INDWELLINGS: AV fistula and chest tube. PHYSICAL EXAMINATION: GENERAL: This is an ill-appearing, elderly man in no distress. HEENT: Head atraumatic, normocephalic. Sclerae anicteric. Buccal mucosa dry. NECK: Supple, midline. CHEST: Rise symmetrical. Breath sounds diminished to bases. HEART: S1, S2. ABDOMEN: Distended, soft. Bowel tones hypoactive. EXTREMITIES: Without cyanosis. ASSESSMENT: 1. Acute resp failure, poss ongoing aspiration 2 to secretion retention 2. Status post video-assisted thoracotomy with total pulmonary decortication on 09/11/2016. 3. Status post urinary tract infection and bacteremia. 4. End-stage renal disease, hemodialysis dependent. 5. Neurogenic bladder. PLAN: Change abx to Vanco and Merrem, suction prn, f/u pulmonary rec-s, CTS follows, guarded, may need to be tx to ICU DW staff Problems: Consultation Date/Type/Reason Admit Date/Time Sep 03, 2016 at 08:14 Initial Consult Date 09/03/16 Type of Consultation: pulmonaryID Referring Provider: Jessica GRIJALVA Exam/Review of Systems Vital Signs Vitals Vital Signs Date Time Temp Pulse Resp B/P Pulse Ox O2 Delivery O2 Flow Rate FiO2 09/16/16 12:45 85 18 09/16/16 11:55 95 40 09/16/16 11:52 98.0 124/66 09/15/16 23:45 2.0 09/15/16 21:00 Non Rebreather Mask Intake and Output 09/15/16 09/15/16 09/16/16 15:00 23:00 07:00 Intake Total 400 ml 350 ml Balance 400 ml 350 ml Results Result Diagram: 09/16/16 0655 09/16/16 0655 Results 24 hrs Laboratory Tests Test 09/15/16 22:45 09/16/16 06:55 09/16/16 09:41 Blood Gas Specimen Source Blood arterial Blood arterial Arterial Blood Date Drawn 09/15/2016 11:00:15 PM 09/16/2016 9:56:01 AM Arterial Blood pH (Temp corrected) 7.357 7.332 L Arterial Blood pCO2 (Temp correct) 45.0 50.4 H Arterial Blood pO2 (Temp corrected) 126.6 H 77.0 L Arterial Blood HCO3 24.7 26.1 H Arterial Blood Base Excess -0.9 -0.2 Arterial Blood Oxygen Saturation 98.1 H 93.7 L Juan Test ACCEPTAB ACCEPTAB Arterial Blood Gas Puncture Site Right Radial Right Radial Arterial Blood Carboxyhemoglobin 0 0.3 Arterial Blood Methemoglobin 0.4 0.4 Blood Gas A-a O2 Differential 143.1 H 150.2 H Oxyhemoglobin Percent 97.7 93.0 Total Hemoglobin 8.6 L 10.2 L Blood Gas Temperature 37.0 37.0 Blood Gas Respiration Rate 18.0 18.0 Blood Gas Actual Respiration Rate 37 32 Blood Gas Modality MASK - BIPAP MASK - BIPAP FiO2 45.0 40.0 Blood Gas IPAP/EPAP Ratio 14/10 14/10 Blood Gas Critical Value Read Back Marina WILDE R.N Blood Gas Notified Whom ADRIEL AGUIRRE SR COMMUNITY MANAGER Blood Gas Notified Time 09/15/2016 11:16:30 PM 09/16/2016 10:01:59 AM White Blood Count 10.2 Red Blood Count 2.60 L Hemoglobin 7.8 L Hematocrit 25.1 L Mean Corpuscular Volume 96.5 Mean Corpuscular Hemoglobin 30.0 Mean Corpuscular Hemoglobin Concent 31.1 L Red Cell Distribution Width 14.7 H Platelet Count 365 Mean Platelet Volume 9.6 Neutrophils % 78.8 H Lymphocytes % 10.9 L Monocytes % 8.0 Eosinophils % 1.7 Basophils % 0.2 Nucleated Red Blood Cells % 0.0 Neutrophils # 8.1 H Lymphocytes # 1.1 Monocytes # 0.8 Eosinophils # 0.2 Basophils # 0.0 Nucleated Red Blood Cells # 0.0 Sodium Level 124 L Potassium Level 4.9 Chloride Level 89 L Carbon Dioxide Level 25 Anion Gap 15 Blood Urea Nitrogen 51 H Creatinine 5.30 H Glucose Level 85 Calcium Level 7.9 L Phosphorus Level 6.8 H Magnesium Level 3.0 H Total Bilirubin 0.0 L Direct Bilirubin 0.00 Indirect Bilirubin 0.0 Aspartate Amino Transf (AST/SGOT) 15 Alanine Aminotransferase (ALT/SGPT) 28 Alkaline Phosphatase 107 Troponin I 0.022 Total Protein 6.1 Albumin 2.7 L Globulin 3.40 H Albumin/Globulin Ratio 0.79 Medications Medications Current Medications Amikacin Sulfate (Amikacin Iv Per Pharmacy) AMIKACIN PER PHARMACY NOTE XX ; Start 09/03/16 at 13:30 Ondansetron HCl (Zofran Inj) 4 mg Q6H PRN IV NAUSEA AND/OR VOMITING; Start 09/03 at 14:00 Morphine Sulfate (morphine) 2 mg Q4H PRN IV Pain; Start 09/03/16 at 14:00 Hydralazine HCl (Apresoline) 10 mg Q6H PRN IV SBP>160; Start 09/03/16 at 14:00 Famotidine (Pepcid) 20 mg Q24H PO Last administered on 09/15/16 21:11; Admin Dose 20 MG; Start 09/03/16 at 21:00 Guaifenesin/ Dextromethorphan (Robitussin Dm Liquid Cup) 10 ml Q4H PRN PO COUGH Last administered on 09/13/16 00:07; Admin Dose 10 ML; Start 09/09/16 at 17:30 Acetaminophen/ Hydrocodone Bitart ([place] (10/325)) 1 tab Q4H PRN PO PAIN; Start 09/10/16 at 16:00 Bisacodyl (Dulcolax) 10 mg DAILY PRN PO CONSTIPATION Last administered on 21:36; Admin Dose 10 MG; Start 09/10/16 at 16:00 Naloxone HCl (Narcan) 0.2 mg PRN PRN IV DECREASED REPIRATORY RATE; Start at 16:00 Lactobacillus Acidophilus/ Rhamnosus (Culturelle) 1 cap BID PO Last administered on 09/15/16 21:10; Admin Dose 1 CAP; Start 09/14/16 at 09:00 Senna/Docusate Sodium (Senokot-S) 2 tab HS PO Last administered on 09/15/16 21 :11; Admin Dose 2 TAB; Start 09/13/16 at 21:00 Bisacodyl (Dulcolax Supp) 10 mg Q48H PRN [place] CONSTIPATION; Start 09/13/16 at 13: 30 Epoetin Eligio (Epogen (Esrd)) 3,000 units MoWeFr@17 IV Last administered on 09/14 12:16; Admin Dose 3,000 UNITS; Start 09/14/16 at 09:00 Magnesium Hydroxide (Milk Of Mag) 30 ml BID PO Last administered on 09/15/16 21:10; Admin Dose 30 ML; Start 09/14/16 at 15:00 Guaifenesin (Mucinex) 600 mg BID PO Last administered on 09/15/16 21:11; Admin Dose 600 MG; Start 09/15/16 at 11:30 Levofloxacin (Levaquin) 500 mg Q48H PO Last administered on 09/15/16 21:10; Admin Dose 500 MG; Start 09/15/16 at 20:00 Lorazepam (Ativan) 1 mg Q3 PRN IV ANXIETY Last administered on 09/16/16 05:24 ; Admin Dose 1 MG; Start 09/15/16 at 22:00 Epoetin Eligio (Epogen (Esrd)) 10,000 units MoWeFr@17 IV ; Start 09/16/16 at 17:00 CELIA CRAWFORD NP Sep 16, 2016 15:40
[2016-09-16] MEDS ORDERED: VANCOMYCIN IV PER PHARMACY XX SCH (16:00)
[2016-09-16] MEDS ORDERED: MEROPENEM 500 MG/100 ML (PMX) 100 ML IVPB SCH (17:00)
[2016-09-16] MEDS ORDERED: EPOETIN 2000 UNITS/1 ML INJ (ESRD) IV SCH (17:00)
[2016-09-16] MEDS ORDERED: VANCOMYCIN 1.25 GM in SOD CHLORIDE 0.9% 250 ML IVPB SCH (18:00)
--- NOTE | 2016-09-16 20:10 | RADRPT ---
PROCEDURE: CT Chest without contrast. CLINICAL INDICATION: extensive left-sided pneumonia TECHNIQUE: CT scan of the chest without contrast was performed on a multidetector high-resolution CT scanner. Coronal and sagittal reformatted images were obtained from the axial source images. The total exam CTDI equals 10.26 mGy and the total exam DLP equals 356.32 mGy-cm. COMPARISON: Chest dated today, earlier in the day. CT examination of the chest dated 09/03/2016. FINDINGS: 2 left chest tubes are seen, with tips and side ports over the pleural space. These are new over int erval since CT dated 09/03/2016. Extensive loculated pleural effusion is seen throughout the left lung with compressive atelectasis versus airspace disease in the partially aerated left lung. Pleural fluid is substantially increased over interval since CT dated 09/03/2016. The left lung is now near completely collapsed and opacified. Likely pneumonia and atelectasis in t he left lung. Degree of collapse and opacification are significantly increased over interval since C T dated 09/03/2016. The trachea and right mainstem bronchus contain fluid, probably mucous. These findings are new in th e trachea and increased in the right mainstem bronchus over interval since CT dated 09/03/2016. The left mainstem bronchus and its branches appear near completely opacified, probably containing mu cous. This is increased over interval since CT dated 09/03/2016. Direct visualization would be of fu rther use. The right lung is well inflated and substantially clear. The mediastinum contains extensive small lymph nodes, larger lymph node measuring up to about 9 x 8 mm. Subcarinal lymph nodes measure up to about 37 x 16 x 14 mm. Otherwise, the mediastinum is unrema rkable without evidence for mass or bulky lymphadenopathy. The vascular structures of the mediastin um are normal in course and caliber. Aortic vascular calcifications and coronary artery calcificati ons are present. The heart size is enlarged, with small amount of pleural fluid. The axillary regions, subpectoral regions, and supraclavicular regions are all unremarkable. The steward rrounding chest wall is unremarkable. Imaging obtained through the upper abdomen reveals 15 mm like ly complex cyst in the subserosal left hepatic lobe, otherwise nonspecific. The surrounding osseous structures are remarkable for degenerative spondylosis of the spine. No osteolytic or osteoblastic lesion is detected. IMPRESSION: 1. Increased loculated left pleural effusion. 2. Increased near complete collapse and opacification of the left lung. 3. New left lung base chest tubes. 4. New mucous in the trachea and increased mucous in the right mainstem bronchus. 5. New near complete opacification of the left mainstem bronchus and its branches, probably by muco us. 6. Direct visualization of left main sprain bronchus and its branches may be of further use. 7. Cardiomegaly and small amount of pleural fluid. RPTAT: [facility] Physician Rosita Date Time Electronically viewed and signed by Physician Rosita on 09/16/2016 20:09 RS/
[2016-09-16] MEDS: EPOETIN 10000 UNITS/1 ML INJ (ESRD) SC SCH (20:35)
--- NOTE | 2016-09-16 20:37 | CONS ---
Date/Time of Note Date/Time of Note DATE: 09/16/16 TIME: 20:32 Assessment/Plan Assessment/Plan Chief Complaint/Hosp Course IMPRESSION: 1. Preoperative evaluation prior to VATS procedure with, at this time, the patient having a EF done this admission revealing a preserved left ventricular ejection fraction and moderate mitral regurgitation and having negative troponins x 3 since admit. Patient has no cardiac contraindication to proceeding to OR for VATS/decortication at this time at moderate risk. Now Post- op s/p VATS/decortication 2. Empyema. 3. End-stage renal disease on hemodialysis. 4. Bacteremia. 5. Urinary tract infection. 6. Paraplegia 7.Hyponatremia 8.Leukocytosis 9.respiratory distress requiring transfer to ICU and initiation of BIPAP-mucous plugging w collapse of L lung 10.anemia Recc: -Tele -Continue abx's and f/u cx data -Follow volume status closely with HD for removal -Continue BIPAP -Bronchodilators -Pulmonary toilet -? need for bronch Problems: Consultation Date/Type/Reason Admit Date/Time Sep 03, 2016 at 08:14 Initial Consult Date 09/03/16 Type of Consultation: Cardiology Reason for Consultation HTN Referring Provider: Jessica GRIJALVA Exam/Review of Systems Vital Signs Vitals Vital Signs Date Time Temp Pulse Resp B/P Pulse Ox O2 Delivery O2 Flow Rate FiO2 09/16/16 17:47 4.0 09/16/16 17:11 80 97 40 09/16/16 16:13 30 09/16/16 15:50 98.3 135/69 09/15/16 21:00 Non Rebreather Mask Intake and Output 09/15/16 09/15/16 09/16/16 15:00 23:00 07:00 Intake Total 400 ml 350 ml Balance 400 ml 350 ml Exam Review of Systems: CONSTITUTIONAL: No fevers, chills. PULMONARY: on BIPAP CARDIOVASCULAR: No chest pain/palpitations GASTROINTESTINAL: No nausea/vomiting. GENITOURINARY: No hematuria/dysuria. MUSCULOSKELETAL: No myagias/arthalgias. PSYCHIATRIC: The patient denies depression. NEUROLOGIC: No weakness Constitutional: alert Psych: no complaints Head: normocephalic ENMT: mucosa pink and moist Neck: jvd, supple Respiratory: diminished breath sounds Cardiovascular: regular rate and rhythm Gastrointestinal: non-tender, soft Extremities: edema Neurological: other (Pasraplegic) Results Result Diagram: 09/16/16 0655 09/16/16 0655 Results 24 hrs Laboratory Tests Test 09/15/16 22:45 09/16/16 06:55 09/16/16 09:41 Blood Gas Specimen Source Blood arterial Blood arterial Arterial Blood Date Drawn 09/15/2016 11:00:15 PM 09/16/2016 9:56:01 AM Arterial Blood pH (Temp corrected) 7.357 7.332 L Arterial Blood pCO2 (Temp correct) 45.0 50.4 H Arterial Blood pO2 (Temp corrected) 126.6 H 77.0 L Arterial Blood HCO3 24.7 26.1 H Arterial Blood Base Excess -0.9 -0.2 Arterial Blood Oxygen Saturation 98.1 H 93.7 L Juan Test ACCEPTAB ACCEPTAB Arterial Blood Gas Puncture Site Right Radial Right Radial Arterial Blood Carboxyhemoglobin 0 0.3 Arterial Blood Methemoglobin 0.4 0.4 Blood Gas A-a O2 Differential 143.1 H 150.2 H Oxyhemoglobin Percent 97.7 93.0 Total Hemoglobin 8.6 L 10.2 L Blood Gas Temperature 37.0 37.0 Blood Gas Respiration Rate 18.0 18.0 Blood Gas Actual Respiration Rate 37 32 Blood Gas Modality MASK - BIPAP MASK - BIPAP FiO2 45.0 40.0 Blood Gas IPAP/EPAP Ratio 14/10 14/10 Blood Gas Critical Value Read Back DO K R.N Blood Gas Notified Whom ADRIEL AGUIRRE [employer] Blood Gas Notified Time 09/15/2016 11:16:30 PM 09/16/2016 10:01:59 AM White Blood Count 10.2 Red Blood Count 2.60 L Hemoglobin 7.8 L Hematocrit 25.1 L Mean Corpuscular Volume 96.5 Mean Corpuscular Hemoglobin 30.0 Mean Corpuscular Hemoglobin Concent 31.1 L Red Cell Distribution Width 14.7 H Platelet Count 365 Mean Platelet Volume 9.6 Neutrophils % 78.8 H Lymphocytes % 10.9 L Monocytes % 8.0 Eosinophils % 1.7 Basophils % 0.2 Nucleated Red Blood Cells % 0.0 Neutrophils # 8.1 H Lymphocytes # 1.1 Monocytes # 0.8 Eosinophils # 0.2 Basophils # 0.0 Nucleated Red Blood Cells # 0.0 Sodium Level 124 L Potassium Level 4.9 Chloride Level 89 L Carbon Dioxide Level 25 Anion Gap 15 Blood Urea Nitrogen 51 H Creatinine 5.30 H Glucose Level 85 Calcium Level 7.9 L Phosphorus Level 6.8 H Magnesium Level 3.0 H Total Bilirubin 0.0 L Direct Bilirubin 0.00 Indirect Bilirubin 0.0 Aspartate Amino Transf (AST/SGOT) 15 Alanine Aminotransferase (ALT/SGPT) 28 Alkaline Phosphatase 107 Troponin I 0.022 Total Protein 6.1 Albumin 2.7 L Globulin 3.40 H Albumin/Globulin Ratio 0.79 Medications Medications Current Medications Ondansetron HCl (Zofran Inj) 4 mg Q6H PRN IV NAUSEA AND/OR VOMITING; Start 09/03 at 14:00 Morphine Sulfate (morphine) 2 mg Q4H PRN IV Pain; Start 09/03/16 at 14:00 Hydralazine HCl (Apresoline) 10 mg Q6H PRN IV SBP>160; Start 09/03/16 at 14:00 Famotidine (Pepcid) 20 mg Q24H PO Last administered on 09/15/16 21:11; Admin Dose 20 MG; Start 09/03/16 at 21:00 Guaifenesin/ Dextromethorphan (Robitussin Dm Liquid Cup) 10 ml Q4H PRN PO COUGH Last administered on 09/13/16 00:07; Admin Dose 10 ML; Start 09/09/16 at 17:30 Acetaminophen/ Hydrocodone Bitart ([place] (10/325)) 1 tab Q4H PRN PO PAIN; Start 09/10/16 at 16:00 Bisacodyl (Dulcolax) 10 mg DAILY PRN PO CONSTIPATION Last administered on 21:36; Admin Dose 10 MG; Start 09/10/16 at 16:00 Naloxone HCl (Narcan) 0.2 mg PRN PRN IV DECREASED REPIRATORY RATE; Start at 16:00 Lactobacillus Acidophilus/ Rhamnosus (Culturelle) 1 cap BID PO Last administered on 09/15/16 21:10; Admin Dose 1 CAP; Start 09/14/16 at 09:00 Senna/Docusate Sodium (Senokot-S) 2 tab HS PO Last administered on 09/15/16 21 :11; Admin Dose 2 TAB; Start 09/13/16 at 21:00 Bisacodyl (Dulcolax Supp) 10 mg Q48H PRN [place] CONSTIPATION; Start 09/13/16 at 13: 30 Magnesium Hydroxide (Milk Of Mag) 30 ml BID PO Last administered on 09/15/16 21:10; Admin Dose 30 ML; Start 09/14/16 at 15:00 Guaifenesin (Mucinex) 600 mg BID PO Last administered on 09/15/16 21:11; Admin Dose 600 MG; Start 09/15/16 at 11:30 Lorazepam 1 mg 1 mg Q3 PRN IV ANXIETY Last administered on 09/16/16 05:24; Admin Dose 1 MG; Start 09/15/16 at 22:00 Vancomycin HCl/ Sodium Chloride (Vancocin/NS) 250 ml @ 83.333 mls/ hr ONCE@18 IVPB ; Start 09/16/16 at 18:00; Stop 09/16/16 at 23:00 Epoetin Eligio 63858 units 10,000 units MoWeFr@17 SC ; Start 09/16/16 at 18:00 Meropenem (Merrem 500 Mg/ 100 ml (Pmx)) 100 ml @ 200 mls/hr Q24H IVPB ; Start 09/17/16 at 17:00 TRISTEN SHAVER Sep 16, 2016 20:37
[2016-09-16] MEDS: FAMOTIDINE 20 MG TAB PO SCH (21:00)
[2016-09-16] MEDS: SENNA/DOCUSATE NA (8.6MG/50MG) TAB PO SCH (21:00)
--- NOTE | 2016-09-16 21:37 | PN ---
Date/Time of Note Date/Time of Note DATE: 09/16/16 TIME: 21:35 Assessment/Plan Lines/Catheters IV Catheter Type (from Nrs): Saline Lock Deutsch in Place (from Nrs): No Assessment/Plan Chief Complaint/Hosp Course Left pleural effusion, possibly empyema, but the patient is clinically improving. Will continue antibiotics. SP Left video-assisted thoracic surgery and decortication CT minimal CXR with opacification of the left side, improved today will repeat CXR will DC CT Discussed with the daughter Problems: Subjective 24 Hr Interval Summary Constitutional: improved Pain Control: mild Exam/Review of Systems Vital Signs Vitals Vital Signs Date Time Temp Pulse Resp B/P Pulse Ox O2 Delivery O2 Flow Rate FiO2 09/16/16 21:19 78 100 40 09/16/16 19:55 34 Non Rebreather Mask 15.0 09/16/16 15:50 98.3 135/69 Intake and Output 09/15/16 09/15/16 09/16/16 15:00 23:00 07:00 Intake Total 400 ml 350 ml Balance 400 ml 350 ml Exam Neck: non-tender, supple Respiratory: clear to auscultation, normal air movement Cardiovascular: nl pulses, regular rate and rhythm Results Result Diagram: 09/16/16 0655 09/16/16 0655 FRANKY PERES MD Sep 16, 2016 21:37
--- NOTE | 2016-09-16 23:06 | RADRPT ---
PROCEDURE: XR Chest. CLINICAL INDICATION: Shortness of breath. Chest tube removal. TECHNIQUE: Portable AP upright view of the chest was obtained. COMPARISON: CT chest 09/16/2016 at 18:45 FINDINGS: The cardiomediastinal silhouette is borderline enlarged. Almost complete consolidation of the left lung is again noted with a trace right basilar subsegmental atelectasis. Diffuse of left pleural ef fusion is again identified blunting of the left costophrenic angle and extending to the left apex. This is unchanged from the prior CT allowing for the different modalities. There is no evidence of pneumothorax. Previously seen left-sided chest tubes have been removed in the interval. The osseou s structures are intact with no evidence for acute abnormality. Calcification of the aortic arch is again noted RPTAT:HJJR IMPRESSION: 1. No change and amount of left pleural space fluid and left lung consolidation compared to the CT from earlier the same day after left-sided chest tube removal allowing for the different modalities. 2. No evidence of pneumothorax. Consider short-term follow-up evaluation. Physician Perlita Date Time Electronically viewed and signed by Physician Perlita on 09/16/2016 23:05 /
[2016-09-17] VITALS (44 sets, daily range): BP systolic 82–151; BP diastolic 45–79; PULSE 67–101; RESP 18–41
[2016-09-17] MEDS: ALBUTEROL/IPRATROPIUM (NEB) 3 ML AMP HHN SCH ×4 (00:12→23:37)
[2016-09-17 06:06] LABS: ADD SCAN DIFF NO
[2016-09-17 06:32] LABS: BASOPHILS % 0.4 % (0.0-2.0); EOSINOPHILS # 0.1 10^3/ul (0.0-0.5); EOSINOPHILS % 1.1 % (0.0-7.0); HEMATOCRIT 26.6 % (42.0-52.0); HEMOGLOBIN 8.2 g/dl (14.0-18.0); LYMPHOCYTES # 0.8 10^3/ul (0.8-2.9); LYMPHOCYTES % 8.1 % (15.0-51.0); MEAN CORPUSCULAR HEMOGLOBIN 30.3 pg (29.0-33.0); MEAN CORPUSCULAR HGB CONC 30.8 g/dl (32.0-37.0); MEAN CORPUSCULAR VOLUME 98.2 fl (82.0-101.0); MEAN PLATELET VOLUME 9.6 fl (7.4-10.4); MONOCYTE # 0.8 10^3/ul (0.3-0.9); MONOCYTES % 8.5 % (0.0-11.0); NEUTROPHIL # 8.1 10^3/ul (1.6-7.5); NEUTROPHILS % 81.3 % (39.0-77.0); PLATELET COUNT 388 10^3/UL (140-415); RED BLOOD COUNT 2.71 10^6/ul (4.70-6.10); RED CELL DISTRIBUTION WIDTH 14.8 % (11.5-14.5); WHITE BLOOD COUNT 9.9 10^3/ul (4.8-10.8)
[2016-09-17 06:37] LABS: MAGNESIUM 2.7 mg/dl (1.7-2.5); PHOSPHORUS 5.6 mg/dl (2.5-4.9)
[2016-09-17 06:38] LABS: POTASSIUM 4.4 mmol/L (3.5-5.1)
[2016-09-17 06:42] LABS: CALCIUM 8.3 mg/dl (8.4-10.2)
[2016-09-17] MEDS: SEVELAMER CARBONATE 0.8 GM PKT PO SCH ×3 (07:35→17:59)
[2016-09-17 07:48] LABS: CREATININE 4.15 mg/dl (0.61-1.24)
[2016-09-17] MEDS: LORAZEPAM 2 MG INJ IV PRN ×2 (08:01→21:38)
[2016-09-17] MEDS: MAGNESIUM HYDROXIDE 30ML CUP PO SCH ×2 (09:00→20:23)
[2016-09-17] MEDS: GUAIFENESIN LA 600 MG TABSR PO SCH (09:00)
[2016-09-17] MEDS: LACTOBACILLUS RHAMNOSUS CAP PO SCH ×2 (09:00→20:23)
--- NOTE | 2016-09-17 09:21 | PN ---
Date/Time of Note Date/Time of Note DATE: 09/17/16 TIME: 09:17 Assessment/Plan VTE Prophylaxis VTE Prophylaxis Intervention: heparin Lines/Catheters IV [facility] Type ([facility] Peripheral IV Urinary Cath still in place: Yes Assessment/Plan Assessment/Plan 1. Acute Hypoxic respiratory failure. 2/2 pneumonia with Empyema as well as pulmonary vascular congestion. Continue supplemental oxygen. Continue inhaled bronchodilators. The patient being followed by Pulmonary. 2. Healthcare associated pneumonia with left lateral and posterior empyema.S/P VATS with left thoracotomy and total pulmonary decortication on 09/11/2016. Continue antibiotics as per infectious diseases. Pulmonary following the patient. 3. s/p Sepsis with ESBL UTI and K.Pneumoniae Bactremia. repeat cultures have been neg. Continue antibiotics as per infectious diseases. 4. Essential hypertension. Blood pressure well controlled. The patient will be continued on p.r.n. antihypertensives. 5. End-stage renal disease on hemodialysis. Hemodialysis as per nephrology. The patient already has a left upper extremity AV fistula in place. 6. Paraplegia. Continue daily catheterization as needed. 7. Normocytic, normochromic anemia. Most probably secondary to underlying ESRD. Continue Epogen. 8. Hyponatremia. Monitor. Nephrology following. 9. Fluid, electrolytes and nutrition. Renal diet. 10. Deep venous thrombosis prophylaxis. Subcutaneous heparin. 11. Gastrointestinal prophylaxis. Histamine 2 receptor blockers. Subjective 24 Hr Interval Summary Free Text/Dictation pt is currently on Bipap Exam/Review of Systems Vital Signs Vitals Vital Signs Date Time Temp Pulse Resp B/P Pulse Ox O2 Delivery O2 Flow Rate FiO2 09/17/16 08:05 97 97 40 09/17/16 07:30 20 09/17/16 07:00 110/67 BIPAP 09/17/16 04:00 98.8 09/16/16 19:55 15.0 Intake and Output 09/16/16 09/16/16 09/17/16 15:00 23:00 07:00 Intake Total 1100 ml 610.000 ml 0 ml Output Total 4800 ml 10 ml 820 ml Balance -3700 ml 600.000 ml -820 ml Exam Constitutional: other (on Bipap, slightly uncomfortablr) Head: atraumatic, normocephalic Eyes: EOMI, PERRL Respiratory: diminished breath sounds Cardiovascular: other (tachycardic with regular rhythm) Gastrointestinal: non-tender, soft Extremities: normal pulses Results Result Diagram: 09/17/16 0525 09/17/16 0525 Results 24 hrs Laboratory Tests Test 09/16/16 09:41 09/17/16 05:25 Blood Gas Specimen Source Blood arterial Arterial Blood Date Drawn 09/16/2016 9:56:01 AM Arterial Blood pH (Temp corrected) 7.332 L Arterial Blood pCO2 (Temp correct) 50.4 H Arterial Blood pO2 (Temp corrected) 77.0 L Arterial Blood HCO3 26.1 H Arterial Blood Base Excess -0.2 Arterial Blood Oxygen Saturation 93.7 L Juan Test ACCEPTAB Arterial Blood Gas Puncture Site Right Radial Arterial Blood Carboxyhemoglobin 0.3 Arterial Blood Methemoglobin 0.4 Blood Gas A-a O2 Differential 150.2 H Oxyhemoglobin Percent 93.0 Total Hemoglobin 10.2 L Blood Gas Temperature 37.0 Blood Gas Respiration Rate 18.0 Blood Gas Actual Respiration Rate 32 Blood Gas Modality MASK - BIPAP FiO2 40.0 Blood Gas IPAP/EPAP Ratio 15/5 Blood Gas Notified Whom Mini AGUIRRE RCP Blood Gas Notified Time 09/16/2016 10:01:59 AM White Blood Count 9.9 Red Blood Count 2.71 L Hemoglobin 8.2 L Hematocrit 26.6 L Mean Corpuscular Volume 98.2 Mean Corpuscular Hemoglobin 30.3 Mean Corpuscular Hemoglobin Concent 30.8 L Red Cell Distribution Width 14.8 H Platelet Count 388 Mean Platelet Volume 9.6 Neutrophils % 81.3 H Lymphocytes % 8.1 L Monocytes % 8.5 Eosinophils % 1.1 Basophils % 0.4 Nucleated Red Blood Cells % 0.0 Neutrophils # 8.1 H Lymphocytes # 0.8 Monocytes # 0.8 Eosinophils # 0.1 Basophils # 0.0 Nucleated Red Blood Cells # 0.0 Sodium Level 132 L Potassium Level 4.4 Chloride Level 93 L Carbon Dioxide Level 25 Anion Gap 18 H Blood Urea Nitrogen 44 H Creatinine 4.15 #H Glucose Level 78 Calcium Level 8.3 L Phosphorus Level 5.6 H Magnesium Level 2.7 H Medications Medications Current Medications Ondansetron HCl (Zofran Inj) 4 mg Q6H PRN IV NAUSEA AND/OR VOMITING; Start 09/03 at 14:00 Morphine Sulfate (morphine) 2 mg Q4H PRN IV Pain; Start 09/03/16 at 14:00 Hydralazine HCl (Apresoline) 10 mg Q6H PRN IV SBP>160; Start 09/03/16 at 14:00 Famotidine (Pepcid) 20 mg Q24H PO Last administered on 09/15/16 21:11; Admin Dose 20 MG; Start 09/03/16 at 21:00 Guaifenesin/ Dextromethorphan (Robitussin Dm Liquid Cup) 10 ml Q4H PRN PO COUGH Last administered on 09/13/16 00:07; Admin Dose 10 ML; Start 09/09/16 at 17:30 Acetaminophen/ Hydrocodone Bitart ([place] (10/325)) 1 tab Q4H PRN PO PAIN; Start 09/10/16 at 16:00 Bisacodyl (Dulcolax) 10 mg DAILY PRN PO CONSTIPATION Last administered on 21:36; Admin Dose 10 MG; Start 09/10/16 at 16:00 Naloxone HCl (Narcan) 0.2 mg PRN PRN IV DECREASED REPIRATORY RATE; Start at 16:00 Lactobacillus Acidophilus/ Rhamnosus (Culturelle) 1 cap BID PO Last administered on 09/15/16 21:10; Admin Dose 1 CAP; Start 09/14/16 at 09:00 Senna/Docusate Sodium (Senokot-S) 2 tab HS PO Last administered on 09/15/16 21 :11; Admin Dose 2 TAB; Start 09/13/16 at 21:00 Bisacodyl (Dulcolax Supp) 10 mg Q48H PRN [place] CONSTIPATION; Start 09/13/16 at 13: 30 Magnesium Hydroxide (Milk Of Mag) 30 ml BID PO Last administered on 09/15/16 21:10; Admin Dose 30 ML; Start 09/14/16 at 15:00 Guaifenesin (Mucinex) 600 mg BID PO Last administered on 09/15/16 21:11; Admin Dose 600 MG; Start 09/15/16 at 11:30 Lorazepam (Ativan) 1 mg Q3 PRN IV ANXIETY Last administered on 09/17/16 08:01 ; Admin Dose 1 MG; Start 09/15/16 at 22:00 Epoetin Eligio 49956 units 10,000 units MoWeFr@17 SC Last administered on t 20:35; Admin Dose 10,000 UNITS; Start 09/16/16 at 18:00 Meropenem (Merrem 500 Mg/ 100 ml (Pmx)) 100 ml @ 200 mls/hr Q24H IVPB ; Start 09/17/16 at 17:00 TORSTEN MOHR MD Sep 17, 2016 09:21
--- NOTE | 2016-09-17 10:29 | CONS ---
Date/Time of Note Date/Time of Note DATE: 09/17/16 TIME: 10:27 Assessment/Plan Assessment/Plan Additional Assessment/Plan 1. Preoperative evaluation prior to VATS procedure with, at this time, the patient having a EF done this admission revealing a preserved left ventricular ejection fraction and moderate mitral regurgitation and having negative troponins x 3 since admit. Patient has no cardiac contraindication to proceeding to OR for VATS/decortication at this time at moderate risk. Now Post- op s/p VATS/decortication - critically ill, BP stable - on HD now 2. Empyema - rx as noted 3. End-stage renal disease on hemodialysis - 2.5L removed 4. Bacteremia - on anti-bx, con't Rx 5. Urinary tract infection. 6. Paraplegia 7.Hyponatremia 8.Leukocytosis 9.respiratory distress requiring transfer to ICU and initiation of BIPAP-mucous plugging w collapse of L lung - better now 10.anemia Consultation Date/Type/Reason Admit Date/Time Sep 03, 2016 at 08:14 Initial Consult Date 09/03/16 Type of Consultation: Cardiology Referring Provider: Jessica GRIJALVA 24 HR Interval Summary Free Text/Dictation Critically ill - now on HD - BP stable ROS: No fever, no chills, no nausea, no vomiting, no diarrhea/constipation No recent weight changes No chest pain, no PND, no orthopnea + SOB No dizziness, blurred vision No thirst, no heat or cold intolerance Exam/Review of Systems Vital Signs Vitals Vital Signs Date Time Temp Pulse Resp B/P Pulse Ox O2 Delivery O2 Flow Rate FiO2 09/17/16 09:55 Nasal Cannula 6.0 09/17/16 09:00 81 41 115/54 100 09/17/16 08:05 40 09/17/16 08:00 98.2 Intake and Output 09/16/16 09/16/16 09/17/16 15:00 23:00 07:00 Intake Total 1100 ml 610.000 ml 0 ml Output Total 4800 ml 10 ml 820 ml Balance -3700 ml 600.000 ml -820 ml Exam General: WN/WD/NAD, AOx 1-2 HEENT: Unicetric/atraumatic/EOMI (does not follow commands) NECK: JVD elevated, no thyromegaly Lymph: no lymphadenopathy HEART: regular with no S3, II/ systolic murmur at apex, PMI L LUNGS: Coarse sounds, post VATS ABD: soft, NT, ND, +BS : Intact Neuro: non focal SKIN: chronic changes EXT: trace edema Results Result Diagram: 09/17/16 0525 09/17/16 0525 Results 24 hrs Laboratory Tests Test 09/17/16 05:25 White Blood Count 9.9 Red Blood Count 2.71 L Hemoglobin 8.2 L Hematocrit 26.6 L Mean Corpuscular Volume 98.2 Mean Corpuscular Hemoglobin 30.3 Mean Corpuscular Hemoglobin Concent 30.8 L Red Cell Distribution Width 14.8 H Platelet Count 388 Mean Platelet Volume 9.6 Neutrophils % 81.3 H Lymphocytes % 8.1 L Monocytes % 8.5 Eosinophils % 1.1 Basophils % 0.4 Nucleated Red Blood Cells % 0.0 Neutrophils # 8.1 H Lymphocytes # 0.8 Monocytes # 0.8 Eosinophils # 0.1 Basophils # 0.0 Nucleated Red Blood Cells # 0.0 Sodium Level 132 L Potassium Level 4.4 Chloride Level 93 L Carbon Dioxide Level 25 Anion Gap 18 H Blood Urea Nitrogen 44 H Creatinine 4.15 #H Glucose Level 78 Calcium Level 8.3 L Phosphorus Level 5.6 H Magnesium Level 2.7 H Medications Medications Current Medications Ondansetron HCl (Zofran Inj) 4 mg Q6H PRN IV NAUSEA AND/OR VOMITING; Start 09/03 at 14:00 Morphine Sulfate (morphine) 2 mg Q4H PRN IV Pain; Start 09/03/16 at 14:00 Hydralazine HCl (Apresoline) 10 mg Q6H PRN IV SBP>160; Start 09/03/16 at 14:00 Famotidine (Pepcid) 20 mg Q24H PO Last administered on 09/15/16t 21:11; Admin Dose 20 MG; Start 09/03/16 at 21:00 Guaifenesin/ Dextromethorphan (Robitussin Dm Liquid Cup) 10 ml Q4H PRN PO COUGH Last administered on 09/13/16 00:07; Admin Dose 10 ML; Start 09/09/16 at 17:30 Acetaminophen/ Hydrocodone Bitart ([place] (10/325)) 1 tab Q4H PRN PO PAIN; Start 09/10/16 at 16:00 Bisacodyl (Dulcolax) 10 mg DAILY PRN PO CONSTIPATION Last administered on 21:36; Admin Dose 10 MG; Start 09/10/16 at 16:00 Naloxone HCl (Narcan) 0.2 mg PRN PRN IV DECREASED REPIRATORY RATE; Start at 16:00 Lactobacillus Acidophilus/ Rhamnosus (Culturelle) 1 cap BID PO Last administered on 09/15/16 21:10; Admin Dose 1 CAP; Start 09/14/16 at 09:00 Senna/Docusate Sodium (Senokot-S) 2 tab HS PO Last administered on 09/15/16 21 :11; Admin Dose 2 TAB; Start 09/13/16 at 21:00 Bisacodyl (Dulcolax Supp) 10 mg Q48H PRN [place] CONSTIPATION; Start 09/13/16 at 13: 30 Magnesium Hydroxide (Milk Of Mag) 30 ml BID PO Last administered on 09/15/16 21:10; Admin Dose 30 ML; Start 09/14/16 at 15:00 Guaifenesin (Mucinex) 600 mg BID PO Last administered on 09/15/16 21:11; Admin Dose 600 MG; Start 09/15/16 at 11:30 Lorazepam (Ativan) 1 mg Q3 PRN IV ANXIETY Last administered on 09/17/16 08:01 ; Admin Dose 1 MG; Start 09/15/16 at 22:00 Epoetin Eligio 54704 units 10,000 units MoWeFr@17 SC Last administered on 20:35; Admin Dose 10,000 UNITS; Start 09/16/16 at 18:00 Meropenem (Merrem 500 Mg/ 100 ml (Pmx)) 100 ml @ 200 mls/hr Q24H IVPB ; Start 09/17/16 at 17:00 SHAHID LACEY MD Sep 17, 2016 10:29
[2016-09-17] MEDS ORDERED: ACETYLCYSTEINE 20% 4 ML VIAL NEB SCH (10:30)
--- NOTE | 2016-09-17 10:57 | CONS ---
Date/Time of Note Date/Time of Note DATE: 09/17/16 TIME: 10:52 Consult Date/Type/Reason Admit Date/Time Sep 03, 2016 at 08:14 Initial Consult Date 09/03/16 Type of Consultation: pulmonary ICU Ordering Provider: Jessica GRIJALVA Subjective Patient transfer to intensive care yesterday for increasing shortness of breath , continue BiPAP overnight. Placed on nasal cannula this morning. Chest x-ray shows improvement in this morning Chest tubes were removed yesterday. Objective Vital Signs Date Time Temp Pulse Resp B/P Pulse Ox O2 Delivery O2 Flow Rate FiO2 09/17/16 10:35 80 18 09/17/16 09:55 Nasal Cannula 6.0 09/17/16 09:00 115/54 100 09/17/16 08:05 40 09/17/16 08:00 98.2 Intake and Output 09/16/16 09/16/16 09/17/16 15:00 23:00 07:00 Intake Total 1100 ml 610.000 ml 0 ml Output Total 4800 ml 10 ml 820 ml Balance -3700 ml 600.000 ml -820 ml Exam GENERAL: Chronically ill appearing gentleman on BiPAP comfortable at rest VITAL SIGNS: per chart NECK: Supple. No JVD or lymphadenopathy. CARDIAC EXAM: S1, S2. No added sounds or murmurs. CHEST: Diminished air entry left lung ABDOMEN: Soft, nontender. No guarding or rebound. EXTREMITIES: No cyanosis, clubbing or edema. NEUROLOGIC: Generalized weakness. Results/Medications Result Diagram: 09/17/16 0525 09/17/16 0525 Results 24 hrs Laboratory Tests Test 09/17/16 05:25 White Blood Count 9.9 Red Blood Count 2.71 L Hemoglobin 8.2 L Hematocrit 26.6 L Mean Corpuscular Volume 98.2 Mean Corpuscular Hemoglobin 30.3 Mean Corpuscular Hemoglobin Concent 30.8 L Red Cell Distribution Width 14.8 H Platelet Count 388 Mean Platelet Volume 9.6 Neutrophils % 81.3 H Lymphocytes % 8.1 L Monocytes % 8.5 Eosinophils % 1.1 Basophils % 0.4 Nucleated Red Blood Cells % 0.0 Neutrophils # 8.1 H Lymphocytes # 0.8 Monocytes # 0.8 Eosinophils # 0.1 Basophils # 0.0 Nucleated Red Blood Cells # 0.0 Sodium Level 132 L Potassium Level 4.4 Chloride Level 93 L Carbon Dioxide Level 25 Anion Gap 18 H Blood Urea Nitrogen 44 H Creatinine 4.15 #H Glucose Level 78 Calcium Level 8.3 L Phosphorus Level 5.6 H Magnesium Level 2.7 H Medications Current Medications Ondansetron HCl (Zofran Inj) 4 mg Q6H PRN IV NAUSEA AND/OR VOMITING; Start 09/03 at 14:00 Morphine Sulfate (morphine) 2 mg Q4H PRN IV Pain; Start 09/03/16 at 14:00 Hydralazine HCl (Apresoline) 10 mg Q6H PRN IV SBP>160; Start 09/03/16 at 14:00 Famotidine (Pepcid) 20 mg Q24H PO Last administered on 09/15/16 21:11; Admin Dose 20 MG; Start 09/03/16 at 21:00 Guaifenesin/ Dextromethorphan (Robitussin Dm Liquid Cup) 10 ml Q4H PRN PO COUGH Last administered on 09/13/16 00:07; Admin Dose 10 ML; Start 09/09/16 at 17:30 Acetaminophen/ Hydrocodone Bitart ([place] (10/325)) 1 tab Q4H PRN PO PAIN; Start 09/10/16 at 16:00 Bisacodyl (Dulcolax) 10 mg DAILY PRN PO CONSTIPATION Last administered on 21:36; Admin Dose 10 MG; Start 09/10/16 at 16:00 Naloxone HCl (Narcan) 0.2 mg PRN PRN IV DECREASED REPIRATORY RATE; Start at 16:00 Lactobacillus Acidophilus/ Rhamnosus (Culturelle) 1 cap BID PO Last administered on 09/15/16 21:10; Admin Dose 1 CAP; Start 09/14/16 at 09:00 Senna/Docusate Sodium (Senokot-S) 2 tab HS PO Last administered on 09/15/16 21 :11; Admin Dose 2 TAB; Start 09/13/16 at 21:00 Bisacodyl (Dulcolax Supp) 10 mg Q48H PRN [place] CONSTIPATION; Start 09/13/16 at 13: 30 Magnesium Hydroxide (Milk Of Mag) 30 ml BID PO Last administered on 09/15/16 21:10; Admin Dose 30 ML; Start 09/14/16 at 15:00 Guaifenesin (Mucinex) 600 mg BID PO Last administered on 09/17/16 09:00; Admin Dose 600 MG; Start 09/15/16 at 11:30 Lorazepam (Ativan) 1 mg Q3 PRN IV ANXIETY Last administered on 09/17/16 08:01 ; Admin Dose 1 MG; Start 09/15/16 at 22:00 Epoetin Eligio 71100 units 10,000 units MoWeFr@17 SC Last administered on 20:35; Admin Dose 10,000 UNITS; Start 09/16/16 at 18:00 Meropenem (Merrem 500 Mg/ 100 ml (Pmx)) 100 ml @ 200 mls/hr Q24H IVPB ; Start 09/17/16 at 17:00 Assessment/Plan Chief Complaint/Hosp Course Assessment 1. Possible healthcare associated pneumonia with empyema status post decortication of significant volume loss and infiltrates on chest x-ray and chest CT. Improved on lung aeration on examination today. 2. End-stage renal failure on hemodialysis 3. History of paraplegia 4. Anemia postop Plan 1. Continue current antibiotics improved leukocytosis noted 2. Continue hemodialysis per nephrology 3. Repeat chest CT to evaluate lung parenchyma 4. Discussed with patient's daughter at bedside patient had expressed wishes about no reintubation or chest compressions. At this point he would rather defer further surgery if needed. Case was discussed with thoracic surgery CT was reviewed and radiology and felt that changes were most likely consistent with atelectasis and possible debris given patient's left main stem bronchus. Given significant hypoxemia bronchoscopy would require intubation and mechanical ventilation which is something he avoided if possible. We'll attempt conservative measures with chest PT and Mucomyst. Change CODE STATUS to DNR/DNI per family and patient's wishes. Problems: SANDI HOLLEY [facility], [facility] Sep 17, 2016 10:56
[2016-09-17] MEDS: ACETYLCYSTEINE 20% 4 ML VIAL NEB SCH ×2 (15:19→23:37)
--- NOTE | 2016-09-17 17:28 | PN ---
DATE: 09/17/2016 SUBJECTIVE: No acute changes overnight. The patient is in ICU, awake, looks comfortable, no fevers . LABORATORY DATA: WBC 9.9, platelets 388, neutrophils 81.3. INDWELLINGS: Left upper extremity AV fistula, chest tube was discontinued. ANTIMICROBIALS: The patient was started on: 1. Meropenem. 2. Vancomycin yesterday. DIAGNOSTICS: Chest x-ray from yesterday revealed no change. PHYSICAL EXAMINATION: GENERAL: This is a fragile, well-developed elderly man who is awake, in no distress. HEENT: Head atraumatic, normocephalic. Sclerae anicteric. Buccal mucosa dry. NECK: Supple, trachea midline. CHEST: Rise symmetrical. Breath sounds diminished to bases. HEART: S1, S2. ABDOMEN: Soft, bowel tones present. EXTREMITIES: Without cyanosis. Bilateral lower extremities wasted. ASSESSMENT: 1. Acute respiratory failure with significant secretion retention, improved. 2. Healthcare-associated pneumonia with empyema status post video-assisted thoracotomy and total pu lmonary decortication on 09/11/2016. 3. Status post Escherichia coli extended-spectrum beta-lactamase urinary tract infection and Klebsi julian pneumoniae on admission. 4. End-stage renal disease, hemodialysis dependent. 5. Neurogenic bladder. PLAN: The patient remains hemodynamically stable. He is DNR status. He is being followed by multi ple consultants. Continue present care, aggressive pulmonary toilet and anti-aspiration measures. Dictated By: CELIA CRAWFORD [employer]ET[employer] INTERN for [employer] Conf#: [id number] DID#: [id number]
[2016-09-17] MEDS: MEROPENEM 500 MG/100 ML (PMX) 100 ML IVPB SCH (17:58)
--- NOTE | 2016-09-17 18:32 | PN ---
Date/Time of Note Date/Time of Note DATE: 09/17/16 TIME: 18:31 Assessment/Plan Lines/Catheters IV Catheter Type (from Nrs): Peripheral IV Deutsch in Place (from Nrs): Yes Assessment/Plan Chief Complaint/Hosp Course Left pleural effusion, possibly empyema, but the patient is clinically improving. Will continue antibiotics. SP Left video-assisted thoracic surgery and decortication CT minimal CXR with opacification of the left side, improved today mostly atelectasis pulm toilet will repeat CXR Discussed with the daughter Problems: Subjective 24 Hr Interval Summary Constitutional: improved Pain Control: mild Exam/Review of Systems Vital Signs Vitals Vital Signs Date Time Temp Pulse Resp B/P Pulse Ox O2 Delivery O2 Flow Rate FiO2 09/17/16 16:15 Nasal Cannula 2.0 09/17/16 16:00 80 09/17/16 16:00 98.4 23 121/56 99 09/17/16 08:40 40 Intake and Output 09/16/16 09/16/16 09/17/16 15:00 23:00 07:00 Intake Total 1100 ml 610.000 ml 0 ml Output Total 4800 ml 10 ml 820 ml Balance -3700 ml 600.000 ml -820 ml Exam ENMT: mucosa pink and moist, nl external ears & nose, nl lips & teeth, nl nasal mucosa & septum Neck: non-tender, supple Respiratory: clear to auscultation, normal air movement Cardiovascular: nl pulses, regular rate and rhythm Results Result Diagram: 09/17/16 0525 09/17/16 0525 FRANKY PERES MD Sep 17, 2016 18:32
--- NOTE | 2016-09-17 19:18 | CONS ---
Date/Time of Note Date/Time of Note DATE: 09/17/16 TIME: 19:18 Assessment/Plan Assessment/Plan Additional Assessment/Plan 1. Acute respiratory failure with significant secretion retention 2. Healthcare-associated pneumonia with empyema status post video-assisted thoracotomy and total pulmonary decortication on 09/11/2016. 3. Status post Escherichia coli extended-spectrum beta-lactamase urinary tract infection and Klebsiella pneumoniae on admission. 4. End-stage renal disease, hemodialysis dependent. 5. Neurogenic bladder 6. Hyponatremia 7. DNR Pt would like to continue Dialysis S/p HD yesterday Will order maintenance HD tomorrow Cont 3x week HD or as needed UF as tolerated Consultation Date/Type/Reason Admit Date/Time Sep 03, 2016 at 08:14 Initial Consult Date 09/03/16 Type of Consultation: renal Referring Provider: Jessica GRIJALVA 24 HR Interval Summary Free Text/Dictation pt is now DNR, ICU status Exam/Review of Systems Vital Signs Vitals Vital Signs Date Time Temp Pulse Resp B/P Pulse Ox O2 Delivery O2 Flow Rate FiO2 09/17/16 18:00 85 24 130/56 99 Nasal Cannula 2.0 09/17/16 16:00 98.4 09/17/16 08:40 40 Intake and Output 09/16/16 09/16/16 09/17/16 15:00 23:00 07:00 Intake Total 1100 ml 610.000 ml 0 ml Output Total 4800 ml 10 ml 820 ml Balance -3700 ml 600.000 ml -820 ml Exam Constitutional: No distress Eyes: EOMI ENMT: mucosa pink and moist Neck: No jvd Respiratory: diminished breath sounds Cardiovascular: regular rate and rhythm, No edema Gastrointestinal: non-tender, soft Neurological: confused, No lethargic Skin: No diaphoresis, No rash or lesions Results Result Diagram: 09/17/16 0525 09/17/16 0525 Results 24 hrs Laboratory Tests Test 09/17/16 05:25 White Blood Count 9.9 Red Blood Count 2.71 L Hemoglobin 8.2 L Hematocrit 26.6 L Mean Corpuscular Volume 98.2 Mean Corpuscular Hemoglobin 30.3 Mean Corpuscular Hemoglobin Concent 30.8 L Red Cell Distribution Width 14.8 H Platelet Count 388 Mean Platelet Volume 9.6 Neutrophils % 81.3 H Lymphocytes % 8.1 L Monocytes % 8.5 Eosinophils % 1.1 Basophils % 0.4 Nucleated Red Blood Cells % 0.0 Neutrophils # 8.1 H Lymphocytes # 0.8 Monocytes # 0.8 Eosinophils # 0.1 Basophils # 0.0 Nucleated Red Blood Cells # 0.0 Sodium Level 132 L Potassium Level 4.4 Chloride Level 93 L Carbon Dioxide Level 25 Anion Gap 18 H Blood Urea Nitrogen 44 H Creatinine 4.15 #H Glucose Level 78 Calcium Level 8.3 L Phosphorus Level 5.6 H Magnesium Level 2.7 H Medications Medications Current Medications Ondansetron HCl (Zofran Inj) 4 mg Q6H PRN IV NAUSEA AND/OR VOMITING; Start 09/03 at 14:00 Morphine Sulfate (morphine) 2 mg Q4H PRN IV Pain; Start 09/03/16 at 14:00 Hydralazine HCl (Apresoline) 10 mg Q6H PRN IV SBP>160; Start 09/03/16 at 14:00 Famotidine (Pepcid) 20 mg Q24H PO Last administered on 09/15/16 21:11; Admin Dose 20 MG; Start 09/03/16 at 21:00 Guaifenesin/ Dextromethorphan (Robitussin Dm Liquid Cup) 10 ml Q4H PRN PO COUGH Last administered on 09/13/16 00:07; Admin Dose 10 ML; Start 09/09/16 at 17:30 Acetaminophen/ Hydrocodone Bitart ([place] (10/325)) 1 tab Q4H PRN PO PAIN; Start 09/10/16 at 16:00 Bisacodyl (Dulcolax) 10 mg DAILY PRN PO CONSTIPATION Last administered on 21:36; Admin Dose 10 MG; Start 09/10/16 at 16:00 Naloxone HCl (Narcan) 0.2 mg PRN PRN IV DECREASED REPIRATORY RATE; Start at 16:00 Lactobacillus Acidophilus/ Rhamnosus (Culturelle) 1 cap BID PO Last administered on 09/15/16 21:10; Admin Dose 1 CAP; Start 09/14/16 at 09:00 Senna/Docusate Sodium (Senokot-S) 2 tab HS PO Last administered on 09/15/16 21 :11; Admin Dose 2 TAB; Start 09/13/16 at 21:00 Bisacodyl (Dulcolax Supp) 10 mg Q48H PRN [place] CONSTIPATION; Start 09/13/16 at 13: 30 Magnesium Hydroxide (Milk Of Mag) 30 ml BID PO Last administered on 09/15/16 21:10; Admin Dose 30 ML; Start 09/14/16 at 15:00 Guaifenesin (Mucinex) 600 mg BID PO Last administered on 09/17/16 09:00; Admin Dose 600 MG; Start 09/15/16 at 11:30 Lorazepam (Ativan) 1 mg Q3 PRN IV ANXIETY Last administered on 09/17/16 08:01 ; Admin Dose 1 MG; Start 09/15/16 at 22:00 Epoetin Eligio 60288 units 10,000 units MoWeFr@17 SC Last administered on 20:35; Admin Dose 10,000 UNITS; Start 09/16/16 at 18:00 Meropenem (Merrem 500 Mg/ 100 ml (Pmx)) 100 ml @ 200 mls/hr Q24H IVPB Last administered on 09/17/16 17:58; Admin Dose 200 MLS/HR; Start 09/17/16 at 17:00 Miscellaneous Information (*Rx Drug Level Order Reminder*) 1 ONCE ONCE XX ; Start 09/18/16 at 05:00; Stop 09/18/16 at 05:01 Procedures Procedures PROCEDURE: XR Chest. CLINICAL INDICATION: Shortness of breath. Chest tube removal. TECHNIQUE: Portable AP upright view of the chest was obtained. COMPARISON: CT chest 09/16/2016 at 18:45 FINDINGS: The cardiomediastinal silhouette is borderline enlarged. Almost complete consolidation of the left lung is again noted with a trace right basilar subsegmental atelectasis. Diffuse of left pleural effusion is again identified blunting of the left costophrenic angle and extending to the left apex. This is unchanged from the prior CT allowing for the different modalities. There is no evidence of pneumothorax. Previously seen left-sided chest tubes have been removed in the interval. The osseous structures are intact with no evidence for acute abnormality. Calcification of the aortic arch is again noted RPTAT:HJJR IMPRESSION: 1. No change and amount of left pleural space fluid and left lung consolidation compared to the CT from earlier the same day after left-sided chest tube removal allowing for the different modalities. 2. No evidence of pneumothorax. Consider short-term follow-up evaluation. Physician Perlita Date Time Electronically viewed and signed by Brannon Shields Physician on 09/16/2016 23:05 MALIA EID MD Sep 17, 2016 19:18
[2016-09-17] MEDS: FAMOTIDINE 20 MG TAB PO SCH (20:23)
[2016-09-17] MEDS: SENNA/DOCUSATE NA (8.6MG/50MG) TAB PO SCH (20:24)
[2016-09-18] VITALS (37 sets, daily range): BP systolic 92–142; BP diastolic 45–81; PULSE 72–98; RESP 20–38
[2016-09-18] MEDS: GUAIFENESIN LA 600 MG TABSR PO SCH ×3 (00:43→20:23)
[2016-09-18 05:54] LABS: ADD SCAN DIFF NO
[2016-09-18 06:02] LABS: BASOPHIL # 0.1 10^3/ul (0.0-0.1); BASOPHILS % 0.7 % (0.0-2.0); EOSINOPHILS # 0.2 10^3/ul (0.0-0.5); EOSINOPHILS % 1.5 % (0.0-7.0); HEMATOCRIT 31.8 % (42.0-52.0); HEMOGLOBIN 9.4 g/dl (14.0-18.0); LYMPHOCYTES # 1.2 10^3/ul (0.8-2.9); MEAN CORPUSCULAR HEMOGLOBIN 29.5 pg (29.0-33.0); MEAN CORPUSCULAR HGB CONC 29.6 g/dl (32.0-37.0); MEAN CORPUSCULAR VOLUME 99.7 fl (82.0-101.0); MEAN PLATELET VOLUME 9.2 fl (7.4-10.4); MONOCYTE # 1.1 10^3/ul (0.3-0.9); MONOCYTES % 9.4 % (0.0-11.0); PLATELET COUNT 468 10^3/UL (140-415); RED BLOOD COUNT 3.19 10^6/ul (4.70-6.10); WHITE BLOOD COUNT 11.5 10^3/ul (4.8-10.8)
[2016-09-18 06:11] LABS: POTASSIUM 3.8 mmol/L (3.5-5.1)
[2016-09-18 06:14] LABS: PHOSPHORUS 5.1 mg/dl (2.5-4.9)
[2016-09-18 06:14] LABS: CALCIUM 8.6 mg/dl (8.4-10.2); CREATININE 3.51 mg/dl (0.61-1.24)
--- NOTE | 2016-09-18 07:22 | PN ---
Date/Time of Note Date/Time of Note DATE: 09/18/16 TIME: 07:21 Assessment/Plan VTE Prophylaxis VTE Prophylaxis Intervention: heparin Lines/Catheters IV Catheter Type (from [facility]): Peripheral IV Urinary Cath still in place: Yes Reason Cath still needed: urinary retention Assessment/Plan Chief Complaint/Hosp Course 1. Acute respiratory failure. Hypoxic. Most probably secondary to underlying healthcare-associated pneumonia/empyema as well as pulmonary vascular congestion. Continue supplemental oxygen. Continue inhaled bronchodilators. The patient being followed by Pulmonary. 2. Healthcare associated pneumonia with left lateral and posterior empyema. Continue antibiotics as per infectious diseases. Pulmonary following the patient. S/P VATS with left thoracotomy and total pulmonary decortication on . 3. Sepsis with underlying gram-negative bacteremia. No evidence of septic shock. Continue antibiotics as per infectious diseases. 4. Essential hypertension. Blood pressure well controlled. The patient will be continued on p.r.n. antihypertensives. 5. End-stage renal disease on hemodialysis. Hemodialysis as per nephrology. The patient already has a left upper extremity AV fistula in place. 6. Paraplegia. Continue daily catheterization as needed. 7. Normocytic, normochromic anemia. Most probably secondary to underlying ESRD. Continue Epogen. 8. Hyponatremia. Monitor. Nephrology following. 9. Fluid, electrolytes and nutrition. Renal diet. 10. Deep venous thrombosis prophylaxis. Subcutaneous heparin. 11. Gastrointestinal prophylaxis. Histamine 2 receptor blockers. PLAN: Continue ICU Care. Poor prognosis. Patient is already a DNR and DNI. Family to meet with thoracic surgeon today. Case discussed with Dr. Farley. Problems: Subjective 24 Hr Interval Summary Free Text/Dictation The patient remains on low flow O2. Exam/Review of Systems Vital Signs Vitals Vital Signs Date Time Temp Pulse Resp B/P Pulse Ox O2 Delivery O2 Flow Rate FiO2 09/18/16 06:01 15.0 09/18/16 06:00 91 33 118/60 100 Non Rebreather 09/18/16 04:00 98.4 09/17/16 08:40 40 Intake and Output 09/17/16 09/17/16 09/18/16 15:00 23:00 07:00 Intake Total 530 ml 300 ml 50 ml Output Total 3105 ml 90 ml 75 ml Balance -2575 ml 210 ml -25 ml Exam GENERAL: This is a 66-year-old male lying in bed in mild to moderate respiratory distress with oxygen via nasal cannula. HEENT: Normocephalic and atraumatic. Eyes: Anicteric sclerae. Conjunctivae clear. ENT: Nasal septum is midline. Oral mucosa is dry. NECK: Supple. No JVD noticed. RESPIRATORY: Bilaterally diminished breath sounds. Use of accessory muscles of respiration. Scattered rhonchi. No wheezing. CARDIAC: Regular rate and rhythm. S1, S2 heard. ABDOMEN: Soft, nontender and nondistended. Bowel sounds positive in all 4 quadrants. GENITOURINARY: No penoscrotal edema. EXTREMITIES: No cyanosis, no clubbing, no edema. Peripheral pulses palpable. NEUROLOGIC: The patient is awake and alert. Has paraplegia. Results Result Diagram: 09/18/16 0530 09/18/16 0540 Results 24 hrs Laboratory Tests Test 09/18/16 05:30 09/18/16 05:40 09/18/16 05:45 White Blood Count 11.5 H Red Blood Count 3.19 L Hemoglobin 9.4 L Hematocrit 31.8 L Mean Corpuscular Volume 99.7 Mean Corpuscular Hemoglobin 29.5 Mean Corpuscular Hemoglobin Concent 29.6 L Red Cell Distribution Width 15.0 H Platelet Count 468 #H Mean Platelet Volume 9.2 Neutrophils % 78.0 H Lymphocytes % 10.0 L Monocytes % 9.4 Eosinophils % 1.5 Basophils % 0.7 Nucleated Red Blood Cells % 0.0 Neutrophils # 9.0 H Lymphocytes # 1.2 Monocytes # 1.1 H Eosinophils # 0.2 Basophils # 0.1 Nucleated Red Blood Cells # 0.0 Sodium Level 140 Potassium Level 3.8 Chloride Level 97 Carbon Dioxide Level 29 Anion Gap 18 H Blood Urea Nitrogen 31 #H Creatinine 3.51 H Glucose Level 102 Calcium Level 8.6 Phosphorus Level 5.1 H Magnesium Level 3.0 H Random Vancomycin Level 12.4 Medications Medications Current Medications Ondansetron HCl (Zofran Inj) 4 mg Q6H PRN IV NAUSEA AND/OR VOMITING; Start 09/03 at 14:00 Morphine Sulfate (morphine) 2 mg Q4H PRN IV Pain; Start 09/03/16 at 14:00 Hydralazine HCl (Apresoline) 10 mg Q6H PRN IV SBP>160; Start 09/03/16 at 14:00 Famotidine (Pepcid) 20 mg Q24H PO Last administered on 09/17/16 20:23; Admin Dose 20 MG; Start 09/03/16 at 21:00 Guaifenesin/ Dextromethorphan (Robitussin Dm Liquid Cup) 10 ml Q4H PRN PO COUGH Last administered on 09/13/16 00:07; Admin Dose 10 ML; Start 09/09/16 at 17:30 Acetaminophen/ Hydrocodone Bitart ([place] (10/325)) 1 tab Q4H PRN PO PAIN; Start 09/10/16 at 16:00 Bisacodyl (Dulcolax) 10 mg DAILY PRN PO CONSTIPATION Last administered on 21:36; Admin Dose 10 MG; Start 09/10/16 at 16:00 Naloxone HCl (Narcan) 0.2 mg PRN PRN IV DECREASED REPIRATORY RATE; Start at 16:00 Lactobacillus Acidophilus/ Rhamnosus (Culturelle) 1 cap BID PO Last administered on 09/17/16 20:23; Admin Dose 1 CAP; Start 09/14/16 at 09:00 Senna/Docusate Sodium (Senokot-S) 2 tab HS PO Last administered on 09/17/16 20 :24; Admin Dose 2 TAB; Start 09/13/16 at 21:00 Bisacodyl (Dulcolax Supp) 10 mg Q48H PRN [place] CONSTIPATION; Start 09/13/16 at 13: 30 Magnesium Hydroxide (Milk Of Mag) 30 ml BID PO Last administered on 09/17/16 20:23; Admin Dose 30 ML; Start 09/14/16 at 15:00 Guaifenesin (Mucinex) 600 mg BID PO Last administered on 09/18/16 00:43; Admin Dose 600 MG; Start 09/15/16 at 11:30 Lorazepam (Ativan) 1 mg Q3 PRN IV ANXIETY Last administered on 09/17/16 21:38 ; Admin Dose 1 MG; Start 09/15/16 at 22:00 Epoetin Eligio 23420 units 10,000 units MoWeFr@17 SC Last administered on 20:35; Admin Dose 10,000 UNITS; Start 09/16/16 at 18:00 Meropenem (Merrem 500 Mg/ 100 ml (Pmx)) 100 ml @ 200 mls/hr Q24H IVPB Last administered on 09/17/16t 17:58; Admin Dose 200 MLS/HR; Start 09/17/16 at 17:00 SHARLA MEZA NP Sep 18, 2016 07:22
[2016-09-18] MEDS: ACETYLCYSTEINE 20% 4 ML VIAL NEB SCH ×2 (08:35→15:33)
[2016-09-18] MEDS: ALBUTEROL/IPRATROPIUM (NEB) 3 ML AMP HHN SCH ×2 (08:35→15:33)
[2016-09-18] MEDS: SEVELAMER CARBONATE 0.8 GM PKT PO SCH ×3 (09:13→17:35)
[2016-09-18] MEDS: MAGNESIUM HYDROXIDE 30ML CUP PO SCH ×2 (09:13→20:23)
[2016-09-18] MEDS: LACTOBACILLUS RHAMNOSUS CAP PO SCH ×2 (09:13→20:23)
--- NOTE | 2016-09-18 09:46 | CONS ---
Date/Time of Note Date/Time of Note DATE: 09/18/16 TIME: 09:44 Assessment/Plan Assessment/Plan Additional Assessment/Plan Assessment recommendations; 1. Patient admitted with shortness of breath discovered to have left-sided empyema status post VATS procedure. 2. End-stage renal disease on hemodialysis. 3. History of hypertension. Continue current treatment. Obtain a follow-up chest x-ray. Consultation Date/Type/Reason Admit Date/Time Sep 03, 2016 at 08:14 Initial Consult Date 09/03/16 Type of Consultation: Pulmonary/critical care Referring Provider: Jessica GRIJALVA 24 HR Interval Summary Free Text/Dictation Patient condition is improving. He is on simple Ventimask and off BiPAP. Remains awake alert. Denies any shortness of breath, chest pain, wheezing. General exam; elderly male, awake alert currently in no distress. Exam/Review of Systems Vital Signs Vitals Vital Signs Date Time Temp Pulse Resp B/P Pulse Ox O2 Delivery O2 Flow Rate FiO2 09/18/16 08:38 99 2.0 09/18/16 08:38 83 30 Nasal Cannula 09/18/16 06:00 118/60 09/18/16 04:00 98.4 09/17/16 08:40 40 Intake and Output 09/17/16 09/17/16 09/18/16 15:00 23:00 07:00 Intake Total 530 ml 300 ml 50 ml Output Total 3105 ml 90 ml 75 ml Balance -2575 ml 210 ml -25 ml Exam HEENT exam is; supple neck, no JVD. No lymphadenopathy. Midline trachea. No thyromegaly. Patient multiple carious teeth. Nipples are equal and reactive to light. Chest examined; diminished breath sounds left lung, right lung is clear to auscultation. Left-sided chest tube has been removed. S1-S2 audible, no murmurs. Regular rhythm. Abdomen examination; soft, nondistended, nontender. No organomegaly. Bowel sounds audible. Extremity exam is; no peripheral edema. [employer] exam; no focal deficit. Results Result Diagram: 09/18/16 0530 09/18/16 0540 Results 24 hrs Laboratory Tests Test 09/18/16 05:30 09/18/16 05:40 09/18/16 05:45 White Blood Count 11.5 H Red Blood Count 3.19 L Hemoglobin 9.4 L Hematocrit 31.8 L Mean Corpuscular Volume 99.7 Mean Corpuscular Hemoglobin 29.5 Mean Corpuscular Hemoglobin Concent 29.6 L Red Cell Distribution Width 15.0 H Platelet Count 468 #H Mean Platelet Volume 9.2 Neutrophils % 78.0 H Lymphocytes % 10.0 L Monocytes % 9.4 Eosinophils % 1.5 Basophils % 0.7 Nucleated Red Blood Cells % 0.0 Neutrophils # 9.0 H Lymphocytes # 1.2 Monocytes # 1.1 H Eosinophils # 0.2 Basophils # 0.1 Nucleated Red Blood Cells # 0.0 Sodium Level 140 Potassium Level 3.8 Chloride Level 97 Carbon Dioxide Level 29 Anion Gap 18 H Blood Urea Nitrogen 31 #H Creatinine 3.51 H Glucose Level 102 Calcium Level 8.6 Phosphorus Level 5.1 H Magnesium Level 3.0 H Random Vancomycin Level 12.4 Medications Medications Current Medications Ondansetron HCl (Zofran Inj) 4 mg Q6H PRN IV NAUSEA AND/OR VOMITING; Start 09/03 at 14:00 Morphine Sulfate (morphine) 2 mg Q4H PRN IV Pain; Start 09/03/16 at 14:00 Hydralazine HCl (Apresoline) 10 mg Q6H PRN IV SBP>160; Start 09/03/16 at 14:00 Famotidine (Pepcid) 20 mg Q24H PO Last administered on 09/17/16 20:23; Admin Dose 20 MG; Start 09/03/16 at 21:00 Guaifenesin/ Dextromethorphan (Robitussin Dm Liquid Cup) 10 ml Q4H PRN PO COUGH Last administered on 09/13/16 00:07; Admin Dose 10 ML; Start 09/09/16 at 17:30 Acetaminophen/ Hydrocodone Bitart ([place] (10/325)) 1 tab Q4H PRN PO PAIN; Start 09/10/16 at 16:00 Bisacodyl (Dulcolax) 10 mg DAILY PRN PO CONSTIPATION Last administered on 21:36; Admin Dose 10 MG; Start 09/10/16 at 16:00 Naloxone HCl (Narcan) 0.2 mg PRN PRN IV DECREASED REPIRATORY RATE; Start at 16:00 Lactobacillus Acidophilus/ Rhamnosus (Culturelle) 1 cap BID PO Last administered on 09/18/16 09:13; Admin Dose 1 CAP; Start 09/14/16 at 09:00 Senna/Docusate Sodium (Senokot-S) 2 tab HS PO Last administered on 09/17/16 20 :24; Admin Dose 2 TAB; Start 09/13/16 at 21:00 Bisacodyl (Dulcolax Supp) 10 mg Q48H PRN [place] CONSTIPATION; Start 09/13/16 at 13: 30 Magnesium Hydroxide (Milk Of Mag) 30 ml BID PO Last administered on 09/18/16 09:13; Admin Dose 30 ML; Start 09/14/16 at 15:00 Guaifenesin (Mucinex) 600 mg BID PO Last administered on 09/18/16 09:13; Admin Dose 600 MG; Start 09/15/16 at 11:30 Lorazepam (Ativan) 1 mg Q3 PRN IV ANXIETY Last administered on 09/17/16 21:38 ; Admin Dose 1 MG; Start 09/15/16 at 22:00 Epoetin Eligio 70594 units 10,000 units MoWeFr@17 SC Last administered on 20:35; Admin Dose 10,000 UNITS; Start 09/16/16 at 18:00 Meropenem (Merrem 500 Mg/ 100 ml (Pmx)) 100 ml @ 200 mls/hr Q24H IVPB Last administered on 09/17/16 17:58; Admin Dose 200 MLS/HR; Start 09/17/16 at 17:00 NELSON VICTOR Sep 18, 2016 09:46
[2016-09-18] MEDS: LORAZEPAM 2 MG INJ IV PRN (12:04)
[2016-09-18] MEDS ORDERED: VANCOMYCIN 1 GM in NS 250 ML IVPB SCH (12:30)
--- NOTE | 2016-09-18 12:44 | RADRPT ---
PROCEDURE: XR Chest. CLINICAL INDICATION: Shortness of breath. TECHNIQUE: Single frontal view. COMPARISON: 09/16/2016. FINDINGS: The right lung is clear. There is extensive consolidation throughout most of the left lung, slightl y worse than seen previously. The heart size is normal. There is calcification in the aorta consistent with atherosclerosis. There is no right pleural effusion. There is a small left pleural effusion. There is no pneumothorax. IMPRESSION: 1. Worse appearance of the left lung with extensive consolidation throughout. 2. No other change from 09/16/2016. RPTAT: QQ .Derek Gómez MD, MD Date Time Electronically viewed and signed by .Derek Gómez MD, on 09/18/2016 12:44 .R/
--- NOTE | 2016-09-18 14:18 | CONS ---
Date/Time of Note Date/Time of Note DATE: 09/18/16 TIME: 14:14 Assessment/Plan Assessment/Plan Chief Complaint/Hosp Course IMPRESSION: 1. Preoperative evaluation prior to VATS procedure with, at this time, the patient having a EF done this admission revealing a preserved left ventricular ejection fraction and moderate mitral regurgitation and having negative troponins x 3 since admit. Patient has no cardiac contraindication to proceeding to OR for VATS/decortication at this time at moderate risk. Now Post- op s/p VATS/decortication 2. Empyema. 3. End-stage renal disease on hemodialysis. 4. Bacteremia. 5. Urinary tract infection. 6. Paraplegia 7.Hyponatremia 8.Leukocytosis 9.respiratory distress requiring transfer to ICU and initiation of BIPAP-mucous plugging w collapse of L lung 10.anemia Recc: -Tele -Continue abx's and f/u cx data -Follow volume status closely with HD for removal as tolerated -Continue BIPAP -Bronchodilators -Pulmonary toilet -Now DNR/DNI -? need for bronch Problems: Consultation Date/Type/Reason Admit Date/Time Sep 03, 2016 at 08:14 Initial Consult Date 09/03/16 Type of Consultation: Cardiology Reason for Consultation sob Referring Provider: Jessica GRIJALVA Exam/Review of Systems Vital Signs Vitals Vital Signs Date Time Temp Pulse Resp B/P Pulse Ox O2 Delivery O2 Flow Rate FiO2 09/18/16 08:38 99 2.0 09/18/16 08:38 83 30 Nasal Cannula 09/18/16 06:00 118/60 09/18/16 04:00 98.4 09/17/16 08:40 40 Intake and Output 09/17/16 09/17/16 09/18/16 15:00 23:00 07:00 Intake Total 530 ml 300 ml 50 ml Output Total 3105 ml 90 ml 75 ml Balance -2575 ml 210 ml -25 ml Exam Review of Systems: CONSTITUTIONAL: No fevers, chills. PULMONARY: No sob CARDIOVASCULAR: No chest pain/palpitations GASTROINTESTINAL: No nausea/vomiting. GENITOURINARY: No hematuria/dysuria. MUSCULOSKELETAL: No myagias/arthalgias. PSYCHIATRIC: The patient denies depression. NEUROLOGIC: lethargic Constitutional: other (sleeping) Head: normocephalic ENMT: mucosa pink and moist Respiratory: diminished breath sounds (L>R) Cardiovascular: regular rate and rhythm Gastrointestinal: non-tender, soft Neurological: other (paraplegic) Results Result Diagram: 09/18/16 0530 09/18/16 0540 Results 24 hrs Laboratory Tests Test 09/18/16 05:30 09/18/16 05:40 09/18/16 05:45 White Blood Count 11.5 H Red Blood Count 3.19 L Hemoglobin 9.4 L Hematocrit 31.8 L Mean Corpuscular Volume 99.7 Mean Corpuscular Hemoglobin 29.5 Mean Corpuscular Hemoglobin Concent 29.6 L Red Cell Distribution Width 15.0 H Platelet Count 468 #H Mean Platelet Volume 9.2 Neutrophils % 78.0 H Lymphocytes % 10.0 L Monocytes % 9.4 Eosinophils % 1.5 Basophils % 0.7 Nucleated Red Blood Cells % 0.0 Neutrophils # 9.0 H Lymphocytes # 1.2 Monocytes # 1.1 H Eosinophils # 0.2 Basophils # 0.1 Nucleated Red Blood Cells # 0.0 Sodium Level 140 Potassium Level 3.8 Chloride Level 97 Carbon Dioxide Level 29 Anion Gap 18 H Blood Urea Nitrogen 31 #H Creatinine 3.51 H Glucose Level 102 Calcium Level 8.6 Phosphorus Level 5.1 H Magnesium Level 3.0 H Random Vancomycin Level 12.4 Medications Medications Current Medications Ondansetron HCl (Zofran Inj) 4 mg Q6H PRN IV NAUSEA AND/OR VOMITING; Start 09/03 at 14:00 Morphine Sulfate (morphine) 2 mg Q4H PRN IV Pain; Start 09/03/16 at 14:00 Hydralazine HCl (Apresoline) 10 mg Q6H PRN IV SBP>160; Start 09/03/16 at 14:00 Famotidine (Pepcid) 20 mg Q24H PO Last administered on 09/17/16 20:23; Admin Dose 20 MG; Start 09/03/16 at 21:00 Guaifenesin/ Dextromethorphan (Robitussin Dm Liquid Cup) 10 ml Q4H PRN PO COUGH Last administered on 09/13/16 00:07; Admin Dose 10 ML; Start 09/09/16 at 17:30 Acetaminophen/ Hydrocodone Bitart ([place] (10/325)) 1 tab Q4H PRN PO PAIN; Start 09/10/16 at 16:00 Bisacodyl (Dulcolax) 10 mg DAILY PRN PO CONSTIPATION Last administered on 21:36; Admin Dose 10 MG; Start 09/10/16 at 16:00 Naloxone HCl (Narcan) 0.2 mg PRN PRN IV DECREASED REPIRATORY RATE; Start at 16:00 Lactobacillus Acidophilus/ Rhamnosus (Culturelle) 1 cap BID PO Last administered on 09/18/16 09:13; Admin Dose 1 CAP; Start 09/14/16 at 09:00 Senna/Docusate Sodium (Senokot-S) 2 tab HS PO Last administered on 09/17/16 20 :24; Admin Dose 2 TAB; Start 09/13/16 at 21:00 Bisacodyl (Dulcolax Supp) 10 mg Q48H PRN [place] CONSTIPATION; Start 09/13/16 at 13: 30 Magnesium Hydroxide (Milk Of Mag) 30 ml BID PO Last administered on 09/18/16 09:13; Admin Dose 30 ML; Start 09/14/16 at 15:00 Guaifenesin (Mucinex) 600 mg BID PO Last administered on 09/18/16 09:13; Admin Dose 600 MG; Start 09/15/16 at 11:30 Lorazepam (Ativan) 1 mg Q3 PRN IV ANXIETY Last administered on 09/18/16 12:04 ; Admin Dose 1 MG; Start 09/15/16 at 22:00 Epoetin Eligio 88914 units 10,000 units MoWeFr@17 SC Last administered on 20:35; Admin Dose 10,000 UNITS; Start 09/16/16 at 18:00 Meropenem 100 ml @ 200 mls/hr Q24H IVPB Last administered on 09/17/16 17:58; Admin Dose 200 MLS/HR; Start 09/17/16 at 17:00 Vancomycin HCl (Vancocin) 250 ml @ 125 mls/hr 1230 IVPB Last administered on 14:05; Admin Dose 125 MLS/HR; Start 09/18/16 at 12:30; Stop 09/18/16 at 23:00 TRISTEN SHAVER Sep 18, 2016 14:18
[2016-09-18] MEDS: EPOETIN 10000 UNITS/1 ML INJ (ESRD) SC SCH (17:00)
--- NOTE | 2016-09-18 17:13 | PN ---
DATE: 09/18/2016 SUBJECTIVE: No events overnight. Patient is on a nonrebreather mask, lethargic. Family at bedside . He is afebrile. WBC 11.5, H and H 9.4 and 31.8, platelets 468, neutrophils 78. INDWELLINGS: Left upper extremity AV fistula. DIAGNOSTICS: Chest x-ray this morning revealed worse appearance of the left lung with extensive con solidation throughout. ANTIMICROBIALS: 1. Vancomycin. 2. Meropenem.. PHYSICAL EXAMINATION: GENERAL: Fragile, elderly man who is on nonrebreather mask. The patient is tachypneic. HEENT: Head atraumatic, normocephalic. Sclerae anicteric. Buccal mucosa dry. NECK: Supple, trachea midline. CHEST: Rise symmetrical with bilateral rhonchi. HEART: S1, S2. ABDOMEN: Soft. Bowel tones present. EXTREMITIES: Without cyanosis. Bilateral lower extremities wasted. ASSESSMENT: 1. Acute respiratory failure. 2. Left-sided empyema status post video-assisted thoracotomy with total pulmonary decortication on 09/11/2016 3. Possible aspiration secondary to significant secretion retention. 5. Paraplegia. 6. End-stage renal disease, hemodialysis dependent. 7. Status post Klebsiella pneumoniae bacteremia and Escherichia coli extended-spectrum beta-lactama se urinary tract infection. PLAN: The patient remains unchanged. He is DNR status. He is being followed by multiple consultan ts pending palliative care evaluation. Prognosis guarded. Dictated By: CELIA CRAWFORD APPLICATION SOFTWARE DEVELOPER for FLAKO ROBERTSON/HERMILA Conf#: [id number] DID#: [id number]
--- NOTE | 2016-09-18 17:49 | CONS ---
Date/Time of Note Date/Time of Note DATE: 09/18/16 TIME: 17:47 Assessment/Plan Assessment/Plan Additional Assessment/Plan 1. Acute respiratory failure with significant secretion retention 2. Healthcare-associated pneumonia with empyema status post video-assisted thoracotomy and total pulmonary decortication on 09/11/2016. 3. Status post Escherichia coli extended-spectrum beta-lactamase urinary tract infection and Klebsiella pneumoniae on admission. 4. End-stage renal disease, hemodialysis dependent. 5. Neurogenic bladder 6. Hyponatremia 7. DNR Possible consideration of comfort care Pt and Family to meet with Dr Vallejo Will order low dose morphine x 1 HD ordered for tomorrow UF as tolerated Consultation Date/Type/Reason Admit Date/Time Sep 03, 2016 at 08:14 Initial Consult Date 09/03/16 Type of Consultation: Renal Referring Provider: Jessica GRIJALVA 24 HR Interval Summary Subjective hx not possible: pt critical status Constitutional: requiring O2 Exam/Review of Systems Vital Signs Vitals Vital Signs Date Time Temp Pulse Resp B/P Pulse Ox O2 Delivery O2 Flow Rate FiO2 09/18/16 16:00 85 09/18/16 15:38 28 100 Nasal Cannula 2.0 09/18/16 15:00 92/49 09/18/16 12:00 98.2 09/17/16 08:40 40 Intake and Output 09/17/16 09/17/16 09/18/16 15:00 23:00 07:00 Intake Total 530 ml 300 ml 50 ml Output Total 3105 ml 90 ml 75 ml Balance -2575 ml 210 ml -25 ml Exam Constitutional: alert, distress, frail Psych: No confusion ENMT: mucosa pink and moist Neck: No jvd Respiratory: clear to auscultation (Rt lung), diminished breath sounds (Left lung) Cardiovascular: regular rate and rhythm Gastrointestinal: non-tender, soft Extremities: No edema, No pitting pedal edema Neurological: lethargic Skin: diaphoresis Results Result Diagram: 09/18/16 0530 09/18/16 0540 Results 24 hrs Laboratory Tests Test 09/18/16 05:30 09/18/16 05:40 09/18/16 05:45 White Blood Count 11.5 H Red Blood Count 3.19 L Hemoglobin 9.4 L Hematocrit 31.8 L Mean Corpuscular Volume 99.7 Mean Corpuscular Hemoglobin 29.5 Mean Corpuscular Hemoglobin Concent 29.6 L Red Cell Distribution Width 15.0 H Platelet Count 468 #H Mean Platelet Volume 9.2 Neutrophils % 78.0 H Lymphocytes % 10.0 L Monocytes % 9.4 Eosinophils % 1.5 Basophils % 0.7 Nucleated Red Blood Cells % 0.0 Neutrophils # 9.0 H Lymphocytes # 1.2 Monocytes # 1.1 H Eosinophils # 0.2 Basophils # 0.1 Nucleated Red Blood Cells # 0.0 Sodium Level 140 Potassium Level 3.8 Chloride Level 97 Carbon Dioxide Level 29 Anion Gap 18 H Blood Urea Nitrogen 31 #H Creatinine 3.51 H Glucose Level 102 Calcium Level 8.6 Phosphorus Level 5.1 H Magnesium Level 3.0 H Random Vancomycin Level 12.4 Medications Medications Current Medications Ondansetron HCl (Zofran Inj) 4 mg Q6H PRN IV NAUSEA AND/OR VOMITING; Start 09/03 at 14:00 Morphine Sulfate (morphine) 2 mg Q4H PRN IV Pain; Start 09/03/16 at 14:00 Hydralazine HCl (Apresoline) 10 mg Q6H PRN IV SBP>160; Start 09/03/16 at 14:00 Famotidine (Pepcid) 20 mg Q24H PO Last administered on 09/17/16 20:23; Admin Dose 20 MG; Start 09/03/16 at 21:00 Guaifenesin/ Dextromethorphan (Robitussin Dm Liquid Cup) 10 ml Q4H PRN PO COUGH Last administered on 09/13/16 00:07; Admin Dose 10 ML; Start 09/09/16 at 17:30 Acetaminophen/ Hydrocodone Bitart ([place] (10/325)) 1 tab Q4H PRN PO PAIN; Start 09/10/16 at 16:00 Bisacodyl (Dulcolax) 10 mg DAILY PRN PO CONSTIPATION Last administered on 21:36; Admin Dose 10 MG; Start 09/10/16 at 16:00 Naloxone HCl (Narcan) 0.2 mg PRN PRN IV DECREASED REPIRATORY RATE; Start at 16:00 Lactobacillus Acidophilus/ Rhamnosus (Culturelle) 1 cap BID PO Last administered on 09/18/16 09:13; Admin Dose 1 CAP; Start 09/14/16 at 09:00 Senna/Docusate Sodium (Senokot-S) 2 tab HS PO Last administered on 09/17/16 20 :24; Admin Dose 2 TAB; Start 09/13/16 at 21:00 Bisacodyl (Dulcolax Supp) 10 mg Q48H PRN [place] CONSTIPATION; Start 09/13/16 at 13: 30 Magnesium Hydroxide (Milk Of Mag) 30 ml BID PO Last administered on 09/18/16 09:13; Admin Dose 30 ML; Start 09/14/16 at 15:00 Guaifenesin (Mucinex) 600 mg BID PO Last administered on 09/18/16 09:13; Admin Dose 600 MG; Start 09/15/16 at 11:30 Lorazepam (Ativan) 1 mg Q3 PRN IV ANXIETY Last administered on 09/18/16 12:04 ; Admin Dose 1 MG; Start 09/15/16 at 22:00 Epoetin Eligio 11108 units 10,000 units MoWeFr@17 SC Last administered on 20:35; Admin Dose 10,000 UNITS; Start 09/16/16 at 18:00 Meropenem 100 ml @ 200 mls/hr Q24H IVPB Last administered on 09/17/16 17:58; Admin Dose 200 MLS/HR; Start 09/17/16 at 17:00 Vancomycin HCl (Vancocin) 250 ml @ 125 mls/hr 1230 IVPB Last administered on 14:05; Admin Dose 125 MLS/HR; Start 09/18/16 at 12:30; Stop 09/18/16 at 23:00 Procedures Procedures PROCEDURE: XR Chest. CLINICAL INDICATION: Shortness of breath. TECHNIQUE: Single frontal view. COMPARISON: 09/16/2016. FINDINGS: The right lung is clear. There is extensive consolidation throughout most of the left lung, slightly worse than seen previously. The heart size is normal. There is calcification in the aorta consistent with atherosclerosis. There is no right pleural effusion. There is a small left pleural effusion. There is no pneumothorax. IMPRESSION: 1. Worse appearance of the left lung with extensive consolidation throughout. 2. No other change from 09/16/2016. RPTAT: QQ .Derek Gómez MD, Date Time Electronically viewed and signed by .Derek Gómez MD, MD on 09/18/2016 12:44 MALIA EID MD Sep 18, 2016 17:49
[2016-09-18] MEDS ORDERED: morphine 2 MG INJ IV ONE (17:51)
[2016-09-18] MEDS: MEROPENEM 500 MG/100 ML (PMX) 100 ML IVPB SCH (18:28)
--- NOTE | 2016-09-18 18:34 | PN ---
Date/Time of Note Date/Time of Note DATE: 09/18/16 TIME: 18:33 Assessment/Plan Lines/Catheters IV Catheter Type (from Nrs): Peripheral IV Deutsch in Place (from Nrs): Yes Assessment/Plan Chief Complaint/Hosp Course Left pleural effusion, possibly empyema, but the patient is clinically improving. Will continue antibiotics. SP Left video-assisted thoracic surgery and decortication CT minimal CXR with opacification of the left side, improved today mostly atelectasis may need to be intubated for pulm toilet Discussed with the daughter and other family Problems: Subjective 24 Hr Interval Summary Constitutional: improved Pain Control: mild Exam/Review of Systems Vital Signs Vitals Vital Signs Date Time Temp Pulse Resp B/P Pulse Ox O2 Delivery O2 Flow Rate FiO2 09/18/16 16:00 85 09/18/16 15:38 28 100 Nasal Cannula 2.0 09/18/16 15:00 92/49 09/18/16 12:00 98.2 09/17/16 08:40 40 Intake and Output 09/17/16 09/17/16 09/18/16 15:00 23:00 07:00 Intake Total 530 ml 300 ml 50 ml Output Total 3105 ml 90 ml 75 ml Balance -2575 ml 210 ml -25 ml Exam Respiratory: clear to auscultation, normal air movement Cardiovascular: nl pulses, regular rate and rhythm Gastrointestinal: nl liver, spleen, non-tender, soft Results Result Diagram: 09/18/16 0530 09/18/16 0540 FRANKY PERES MD Sep 18, 2016 18:34
[2016-09-18] MEDS: SENNA/DOCUSATE NA (8.6MG/50MG) TAB PO SCH (20:23)
[2016-09-18] MEDS: FAMOTIDINE 20 MG TAB PO SCH (20:23)
[2016-09-19] VITALS (24 sets, daily range): BP systolic 87–128; BP diastolic 44–74; PULSE 70–94; RESP 15–37
[2016-09-19] MEDS: morphine 2 MG INJ IV PRN ×3 (03:00→22:30)
--- NOTE | 2016-09-19 07:11 | PN ---
Date/Time of Note Date/Time of Note DATE: 09/19/16 TIME: 07:10 Assessment/Plan VTE Prophylaxis VTE Prophylaxis Intervention: heparin Lines/Catheters IV [facility] Type [facility]from [facility] Peripheral IV Urinary Cath still in place: Yes Reason Cath still needed: other (indicate) Assessment/Plan Chief Complaint/Hosp Course 1. Acute respiratory failure. Hypoxic. Most probably secondary to underlying healthcare-associated pneumonia/empyema as well as pulmonary vascular congestion. Continue supplemental oxygen. Continue inhaled bronchodilators. The patient being followed by Pulmonary. 2. Healthcare associated pneumonia with left lateral and posterior empyema. Continue antibiotics as per infectious diseases. Pulmonary following the patient. S/P VATS with left thoracotomy and total pulmonary decortication on . 3. Sepsis with underlying gram-negative bacteremia. No evidence of septic shock. Continue antibiotics as per infectious diseases. 4. Essential hypertension. Blood pressure well controlled. The patient will be continued on p.r.n. antihypertensives. 5. End-stage renal disease on hemodialysis. Hemodialysis as per nephrology. The patient already has a left upper extremity AV fistula in place. 6. Paraplegia. Continue daily catheterization as needed. 7. Normocytic, normochromic anemia. Most probably secondary to underlying ESRD. Continue Epogen. 8. Hyponatremia. Monitor. Nephrology following. 9. Fluid, electrolytes and nutrition. Renal diet. 10. Deep venous thrombosis prophylaxis. Subcutaneous heparin. 11. Gastrointestinal prophylaxis. Histamine 2 receptor blockers. PLAN: Patient wants to remain comfortable. Palliative care physician following. Awaiting final decisions. Case discussed with Dr. Farley. Discussed the plan of care with palliative care physician and to the family who was at the bedside Problems: Subjective 24 Hr Interval Summary Free Text/Dictation The patient was seen by thoracic surgeon yesterday and recommended oral intubation. However, the patient declined any intubation. The patient wants to be comfortable. Palliative care physician following. Exam/Review of Systems Vital Signs Vitals Vital Signs Date Time Temp Pulse Resp B/P Pulse Ox O2 Delivery O2 Flow Rate FiO2 09/19/16 06:00 83 30 114/52 100 Non Rebreather 15.0 09/19/16 04:35 100 09/19/16 00:00 98.0 Intake and Output 09/18/16 09/18/16 09/19/16 15:00 23:00 07:00 Intake Total 400 ml Output Total 50 ml 60 ml 90 ml Balance -50 ml 340 ml -90 ml Exam GENERAL: This is a 66-year-old male lying in bed in mild to moderate respiratory distress with oxygen via nasal cannula. HEENT: Normocephalic and atraumatic. Eyes: Anicteric sclerae. Conjunctivae clear. ENT: Nasal septum is midline. Oral mucosa is dry. NECK: Supple. No JVD noticed. RESPIRATORY: Bilaterally diminished breath sounds. Use of accessory muscles of respiration. Scattered rhonchi. No wheezing. CARDIAC: Regular rate and rhythm. S1, S2 heard. ABDOMEN: Soft, nontender and nondistended. Bowel sounds positive in all 4 quadrants. GENITOURINARY: No penoscrotal edema. EXTREMITIES: No cyanosis, no clubbing, no edema. Peripheral pulses palpable. NEUROLOGIC: The patient is somnolent. Has paraplegia. Results Result Diagram: 09/18/16 0530 09/18/16 0540 Medications Medications Current Medications Ondansetron HCl (Zofran Inj) 4 mg Q6H PRN IV NAUSEA AND/OR VOMITING; Start 09/03 at 14:00 Morphine Sulfate (morphine) 2 mg Q4H PRN IV Pain Last administered on 06:59; Admin Dose 2 MG; Start 09/03/16 at 14:00 Hydralazine HCl (Apresoline) 10 mg Q6H PRN IV SBP>160; Start 09/03/16 at 14:00 Famotidine (Pepcid) 20 mg Q24H PO Last administered on 09/18/16 20:23; Admin Dose 20 MG; Start 09/03/16 at 21:00 Guaifenesin/ Dextromethorphan (Robitussin Dm Liquid Cup) 10 ml Q4H PRN PO COUGH Last administered on 09/13/16 00:07; Admin Dose 10 ML; Start 09/09/16 at 17:30 Acetaminophen/ Hydrocodone Bitart ([place] (10/325)) 1 tab Q4H PRN PO PAIN; Start 09/10/16 at 16:00 Bisacodyl (Dulcolax) 10 mg DAILY PRN PO CONSTIPATION Last administered on 21:36; Admin Dose 10 MG; Start 09/10/16 at 16:00 Naloxone HCl (Narcan) 0.2 mg PRN PRN IV DECREASED REPIRATORY RATE; Start at 16:00 Lactobacillus Acidophilus/ Rhamnosus (Culturelle) 1 cap BID PO Last administered on 09/18/16 20:23; Admin Dose 1 CAP; Start 09/14/16 at 09:00 Senna/Docusate Sodium (Senokot-S) 2 tab HS PO Last administered on 09/18/16 20 :23; Admin Dose 2 TAB; Start 09/13/16 at 21:00 Bisacodyl (Dulcolax Supp) 10 mg Q48H PRN [place] CONSTIPATION; Start 09/13/16 at 13: 30 Magnesium Hydroxide (Milk Of Mag) 30 ml BID PO Last administered on 09/18/16 20:23; Admin Dose 30 ML; Start 09/14/16 at 15:00 Guaifenesin (Mucinex) 600 mg BID PO Last administered on 09/18/16 20:23; Admin Dose 600 MG; Start 09/15/16 at 11:30 Lorazepam 1 mg 1 mg Q3 PRN IV ANXIETY Last administered on 09/18/16 12:04; Admin Dose 1 MG; Start 09/15/16 at 22:00 Meropenem (Merrem 500 Mg/ 100 ml (Pmx)) 100 ml @ 200 mls/hr Q24H IVPB Last administered on 09/18/16 18:28; Admin Dose 200 MLS/HR; Start 09/17/16 at 17:00 Epoetin Eligio (Epogen (Esrd)) 10,000 units TuThSa@17 SC ; Start 09/19/16 at 17:00 SHARLA MEZA NP Sep 19, 2016 07:11
[2016-09-19] MEDS: SEVELAMER CARBONATE 0.8 GM PKT PO SCH ×3 (07:35→20:13)
[2016-09-19 07:42] LABS: ADD SCAN DIFF NO
[2016-09-19 07:52] LABS: BASOPHIL # 0.1 10^3/ul (0.0-0.1); BASOPHILS % 0.5 % (0.0-2.0); EOSINOPHILS # 0.1 10^3/ul (0.0-0.5); HEMATOCRIT 25.8 % (42.0-52.0); HEMOGLOBIN 7.6 g/dl (14.0-18.0); LYMPHOCYTES % 7.7 % (15.0-51.0); MEAN CORPUSCULAR HGB CONC 29.5 g/dl (32.0-37.0); MEAN PLATELET VOLUME 9.3 fl (7.4-10.4); MONOCYTE # 1.1 10^3/ul (0.3-0.9); MONOCYTES % 8.6 % (0.0-11.0); NEUTROPHIL # 10.8 10^3/ul (1.6-7.5); NEUTROPHILS % 81.7 % (39.0-77.0); PLATELET COUNT 482 10^3/UL (140-415); RED BLOOD COUNT 2.53 10^6/ul (4.70-6.10); WHITE BLOOD COUNT 13.2 10^3/ul (4.8-10.8)
[2016-09-19] MEDS: ALBUTEROL/IPRATROPIUM (NEB) 3 ML AMP HHN SCH ×4 (07:53→23:14)
[2016-09-19 08:02] LABS: CALCIUM 8.3 mg/dl (8.4-10.2); CREATININE 4.22 mg/dl (0.61-1.24); POTASSIUM 5.3 mmol/L (3.5-5.1)
[2016-09-19] MEDS: ACETYLCYSTEINE 20% 4 ML VIAL NEB SCH ×4 (08:04→23:14)
[2016-09-19 08:15] LABS: MAGNESIUM 3.5 mg/dl (1.7-2.5); PHOSPHORUS 6.6 mg/dl (2.5-4.9)
[2016-09-19] MEDS: LORAZEPAM 2 MG INJ IV PRN ×2 (08:46→16:47)
[2016-09-19] MEDS: MAGNESIUM HYDROXIDE 30ML CUP PO SCH ×2 (09:00→20:13)
[2016-09-19] MEDS: LACTOBACILLUS RHAMNOSUS CAP PO SCH ×2 (09:00→20:13)
[2016-09-19] MEDS: GUAIFENESIN LA 600 MG TABSR PO SCH ×2 (09:00→20:13)
--- NOTE | 2016-09-19 10:02 | CONS ---
Date/Time of Note Date/Time of Note DATE: 09/19/16 TIME: 09:59 Assessment/Plan Assessment/Plan Additional Assessment/Plan Chest x-ray was reviewed from yesterday afternoon which is showing complete white out of the left lung. Assessment recommendations; 1. Patient admitted for empyema involving the left lung status post decortication. 2. Complete whiteout of the left lung likely some element of atelectasis. 3. End-stage renal disease on hemodialysis. 4. Anemia. Continue current treatment. Patient likely would need to be intubated. I will have a discussion with the patient himself regarding that. Meanwhile transfuse 1 unit packed RBC. Consultation Date/Type/Reason Admit Date/Time Sep 03, 2016 at 08:14 Initial Consult Date 09/03/16 Type of Consultation: Pulmonary/critical care Referring Provider: Jessica GRIJALVA 24 HR Interval Summary Free Text/Dictation Patient condition remains tenuous at best. Still requiring 100% nonrebreather mask for O2 saturation maintenance. Patient however is adamant about being DNR and DO NOT INTUBATE. General exam; elderly male, awake and alert. Appears anxious. Exam/Review of Systems Vital Signs Vitals Vital Signs Date Time Temp Pulse Resp B/P Pulse Ox O2 Delivery O2 Flow Rate FiO2 09/19/16 08:00 82 09/19/16 07:54 38 100 Non Rebreather Mask 15.0 100 09/19/16 06:00 114/52 09/19/16 00:00 98.0 Intake and Output 09/18/16 09/18/16 09/19/16 15:00 23:00 07:00 Intake Total 400 ml Output Total 50 ml 60 ml 90 ml Balance -50 ml 340 ml -90 ml Exam HEENT exam is; supple neck, no JVD. No lymphadenopathy. Midline trachea. No thyromegaly. Patient had multiple carious teeth. Pupils are small bilaterally. Chest examined; diminished breath sounds entire left lung. Right and is clear to auscultation. S1-S2 audible, no murmurs. Regular rhythm. Abdomen examination; soft, nondistended. No organomegaly. Bowel sounds audible. Extremity exam is; no peripheral edema. BALLASTER examination; no focal deficit. Results Result Diagram: 09/19/16 0715 09/19/16 0715 Results 24 hrs Laboratory Tests Test 09/19/16 07:15 White Blood Count 13.2 H Red Blood Count 2.53 #L Hemoglobin 7.6 L Hematocrit 25.8 L Mean Corpuscular Volume 102.0 H Mean Corpuscular Hemoglobin 30.0 Mean Corpuscular Hemoglobin Concent 29.5 L Red Cell Distribution Width 15.0 H Platelet Count 482 H Mean Platelet Volume 9.3 Neutrophils % 81.7 H Lymphocytes % 7.7 L Monocytes % 8.6 Eosinophils % 1.0 Basophils % 0.5 Nucleated Red Blood Cells % 0.0 Neutrophils # 10.8 H Lymphocytes # 1.0 Monocytes # 1.1 H Eosinophils # 0.1 Basophils # 0.1 Nucleated Red Blood Cells # 0.0 Sodium Level 132 L Potassium Level 5.3 H Chloride Level 98 Carbon Dioxide Level 27 Anion Gap 12 Blood Urea Nitrogen 42 #H Creatinine 4.22 H Glucose Level 77 Calcium Level 8.3 L Phosphorus Level 6.6 H Magnesium Level 3.5 H Medications Medications Current Medications Ondansetron HCl (Zofran Inj) 4 mg Q6H PRN IV NAUSEA AND/OR VOMITING; Start 09/03 at 14:00 Morphine Sulfate (morphine) 2 mg Q4H PRN IV Pain Last administered on 06:59; Admin Dose 2 MG; Start 09/03/16 at 14:00 Hydralazine HCl (Apresoline) 10 mg Q6H PRN IV SBP>160; Start 09/03/16 at 14:00 Famotidine (Pepcid) 20 mg Q24H PO Last administered on 09/18/16 20:23; Admin Dose 20 MG; Start 09/03/16 at 21:00 Guaifenesin/ Dextromethorphan (Robitussin Dm Liquid Cup) 10 ml Q4H PRN PO COUGH Last administered on 09/13/16 00:07; Admin Dose 10 ML; Start 09/09/16 at 17:30 Acetaminophen/ Hydrocodone Bitart ([place] (10/325)) 1 tab Q4H PRN PO PAIN; Start 09/10/16 at 16:00 Bisacodyl (Dulcolax) 10 mg DAILY PRN PO CONSTIPATION Last administered on 21:36; Admin Dose 10 MG; Start 09/10/16 at 16:00 Naloxone HCl (Narcan) 0.2 mg PRN PRN IV DECREASED REPIRATORY RATE; Start at 16:00 Lactobacillus Acidophilus/ Rhamnosus (Culturelle) 1 cap BID PO Last administered on 09/18/16 20:23; Admin Dose 1 CAP; Start 09/14/16 at 09:00 Senna/Docusate Sodium (Senokot-S) 2 tab HS PO Last administered on 09/18/16 20 :23; Admin Dose 2 TAB; Start 09/13/16 at 21:00 Bisacodyl (Dulcolax Supp) 10 mg Q48H PRN [place] CONSTIPATION; Start 09/13/16 at 13: 30 Magnesium Hydroxide (Milk Of Mag) 30 ml BID PO Last administered on 09/18/16 20:23; Admin Dose 30 ML; Start 09/14/16 at 15:00 Guaifenesin (Mucinex) 600 mg BID PO Last administered on 09/18/16 20:23; Admin Dose 600 MG; Start 09/15/16 at 11:30 Lorazepam 1 mg 1 mg Q3 PRN IV ANXIETY Last administered on 09/19/16 08:46; Admin Dose 1 MG; Start 09/15/16 at 22:00 Meropenem (Merrem 500 Mg/ 100 ml (Pmx)) 100 ml @ 200 mls/hr Q24H IVPB Last administered on 09/18/16 18:28; Admin Dose 200 MLS/HR; Start 09/17/16 at 17:00 Epoetin Eligio (Epogen (Esrd)) 10,000 units TuThSa@17 SC ; Start 09/19/16 at 17:00 NELSON VICTOR Sep 19, 2016 10:02
--- NOTE | 2016-09-19 11:36 | PN ---
DATE: 09/19/2016 PALLIATIVE CARE FOLLOWUP NOTE Mr. Sands is a 66-year-old gentleman who was admitted to [facility] on 09/02/2016 , at that time admitted with sepsis syndrome. The patient at that time was in respiratory distress, with saturations in the 80s at that time, and required BiPAP. He was admitted. This gentleman als o had a past medical history of end-stage renal disease, on dialysis, hypertension, congestive heart failure, mitral regurgitation and a past history of prior hospitalization for pneumonia. This hosp italization has been very william, with secretion retention, healthcare-associated pneumonia, temporar y mental status changes for a period of time, but now the patient has cleared. I was asked to speak to family members and establish ongoing care, as well as goals of care, and thereafter speak to hank burciaga and the patient most importantly on what he would want to do and where. MEDICATIONS: Please refer to reconciliation sheets. ALLERGIES: BACLOFEN. MAJOR MEDICAL PROBLEMS IN THE PAST: Extensive, but primarily as per history of present illness. SOCIAL HISTORY: The patient lives at home with his family. There is no history of alcohol or drug ab use. FAMILY HISTORY: Noncontributory towards this hospitalization. REVIEW OF SYSTEMS: A 12-point review of systems was unremarkable except as per history of present i llness. PHYSICAL EXAMINATION: Has been completed and shows: VITAL SIGNS: Blood pressure 114/52, pulse of 82 and regular, respirations of 26, 100% saturation on 15 liters. HEENT: Normocephalic and atraumatic. Anicteric, acyanotic on examination. CHEST: Distant inspiratory and expiratory breath sounds. EXTREMITIES: Without clubbing, cyanosis, or edema. NEUROLOGICAL EXAMINATION: He is oriented x3. Cranial nerves II through XII are grossly intact. Mo tor and sensory findings are grossly within normal limits. DISCUSSION AND PALLIATIVE CARE CONCERNS: First of all participants were the entire family, some 13 f amily members, brothers and sisters and extended family members. They all participated and they wer e all in the decision-making process also. Understanding on family members was very clear, understa nding of his underlying serious medical problems was very clear also. He states that he has lived a long life, but he was very uncomfortable on dialysis and at this time he is so uncomfortable that he does not want to accept this quality of life and wants his life to end. In my opinion, he certainl y can make those decisions on his own behalf. I have spoken to his primary home care aide, Fer Crespo NP, who also believes the same. Strength, weaknesses, cultural preferences and communication were covered with family members, who are definitely in agreement with allowing him to make decisio ns on his own. For physical examination, please refer to the above goals of care. Is to: 1. Allow the patient to make his own decisions. 2. Family and patient request hospice care and at home, and today if possible. Estimated prognosis is poor. I did tell the family members based on my clinical evaluation only, I believe that he probably will pass away within the next 2 weeks, but hopefully he will have more rosa e to spend with his family. His PPS is less than 10%. There are no pain issues at this time. The patient is short of breath and I will attend to that prior to the patient being discharged, and I wooten ve assured the family members that he will be comfortable with hospice care at home and that they sp ecialize in taking care of these types of physical complaints. Psychological, social issues and spi ritual issues have been addressed with family members also. There are no ethical issues. There are no surrogates, as the patient can make decisions on his own. I will address a POLST prior to the p atient being discharged. His code status has been changed prior to my consultation and the patient is a DO NOT RESUSCITATE. I certainly agree with this. Discharge planning from a palliative care [facility] will be done today. Dictated By: AUDELIA SALAMANCA MD, LP/HERMILA Conf#: [id number] DID#: [id number]
--- NOTE | 2016-09-19 11:41 | CONS ---
Date/Time of Note Date/Time of Note DATE: 09/19/16 TIME: 11:35 Assessment/Plan Assessment/Plan Chief Complaint/Hosp Course IMPRESSION: 1. Preoperative evaluation prior to VATS procedure with, at this time, the patient having a EF done this admission revealing a preserved left ventricular ejection fraction and moderate mitral regurgitation and having negative troponins x 3 since admit. Patient has no cardiac contraindication to proceeding to OR for VATS/decortication at this time at moderate risk. Now Post- op s/p VATS/decortication 2. Empyema. 3. End-stage renal disease on hemodialysis. 4. Bacteremia. 5. Urinary tract infection. 6. Paraplegia 7.Hyponatremia 8.Leukocytosis 9.respiratory distress requiring transfer to ICU and initiation of BIPAP-mucous plugging w collapse of L lung 10.anemia 11.Encephalopathy Recc: -Tele -Continue abx's and f/u cx data -Follow volume status closely with HD for removal as tolerated -Continue BIPAP -Bronchodilators -Pulmonary toilet -Now DNR/DNI with ongoing family discussion for direction of care Problems: Consultation Date/Type/Reason Admit Date/Time Sep 03, 2016 at 08:14 Initial Consult Date 09/03/16 Type of Consultation: Cardiology Reason for Consultation CHF Referring Provider: Jessica GRIJALVA Exam/Review of Systems Vital Signs Vitals Vital Signs Date Time Temp Pulse Resp B/P Pulse Ox O2 Delivery O2 Flow Rate FiO2 09/19/16 08:30 Nasal Cannula 09/19/16 08:00 82 09/19/16 07:54 38 100 15.0 100 09/19/16 06:00 114/52 09/19/16 00:00 98.0 Intake and Output 09/18/16 09/18/16 09/19/16 15:00 23:00 07:00 Intake Total 400 ml Output Total 50 ml 60 ml 90 ml Balance -50 ml 340 ml -90 ml Exam Review of Systems: CONSTITUTIONAL: No fevers, chills. PULMONARY: resp distress CARDIOVASCULAR: No chest pain/palpitations GASTROINTESTINAL: No nausea/vomiting. GENITOURINARY: No hematuria/dysuria. MUSCULOSKELETAL: No myagias/arthalgias. PSYCHIATRIC: The patient denies depression. NEUROLOGIC: lethargic Constitutional: alert, oriented Psych: no complaints Head: normocephalic ENMT: mucosa pink and moist Neck: jvd (9 cm water), supple Respiratory: diminished breath sounds Cardiovascular: regular rate and rhythm Gastrointestinal: non-tender, soft Musculoskeletal: muscle tone (normal) Extremities: edema (none) Neurological: other (No focal deficits) Results Result Diagram: 09/19/1615 09/19/1615 Results 24 hrs Laboratory Tests Test 09/19/16 07:15 White Blood Count 13.2 H Red Blood Count 2.53 #L Hemoglobin 7.6 L Hematocrit 25.8 L Mean Corpuscular Volume 102.0 H Mean Corpuscular Hemoglobin 30.0 Mean Corpuscular Hemoglobin Concent 29.5 L Red Cell Distribution Width 15.0 H Platelet Count 482 H Mean Platelet Volume 9.3 Neutrophils % 81.7 H Lymphocytes % 7.7 L Monocytes % 8.6 Eosinophils % 1.0 Basophils % 0.5 Nucleated Red Blood Cells % 0.0 Neutrophils # 10.8 H Lymphocytes # 1.0 Monocytes # 1.1 H Eosinophils # 0.1 Basophils # 0.1 Nucleated Red Blood Cells # 0.0 Sodium Level 132 L Potassium Level 5.3 H Chloride Level 98 Carbon Dioxide Level 27 Anion Gap 12 Blood Urea Nitrogen 42 #H Creatinine 4.22 H Glucose Level 77 Calcium Level 8.3 L Phosphorus Level 6.6 H Magnesium Level 3.5 H Medications Medications Current Medications Ondansetron HCl (Zofran Inj) 4 mg Q6H PRN IV NAUSEA AND/OR VOMITING; Start 09/03 at 14:00 Morphine Sulfate (morphine) 2 mg Q4H PRN IV Pain Last administered on 06:59; Admin Dose 2 MG; Start 09/03/16 at 14:00 Hydralazine HCl (Apresoline) 10 mg Q6H PRN IV SBP>160; Start 09/03/16 at 14:00 Famotidine (Pepcid) 20 mg Q24H PO Last administered on 09/18/16 20:23; Admin Dose 20 MG; Start 09/03/16 at 21:00 Guaifenesin/ Dextromethorphan (Robitussin Dm Liquid Cup) 10 ml Q4H PRN PO COUGH Last administered on 09/13/16 00:07; Admin Dose 10 ML; Start 09/09/16 at 17:30 Acetaminophen/ Hydrocodone Bitart ([place] (10/325)) 1 tab Q4H PRN PO PAIN; Start 09/10/16 at 16:00 Bisacodyl (Dulcolax) 10 mg DAILY PRN PO CONSTIPATION Last administered on 21:36; Admin Dose 10 MG; Start 09/10/16 at 16:00 Naloxone HCl (Narcan) 0.2 mg PRN PRN IV DECREASED REPIRATORY RATE; Start at 16:00 Lactobacillus Acidophilus/ Rhamnosus (Culturelle) 1 cap BID PO Last administered on 09/18/16 20:23; Admin Dose 1 CAP; Start 09/14/16 at 09:00 Senna/Docusate Sodium (Senokot-S) 2 tab HS PO Last administered on 09/18/16 20 :23; Admin Dose 2 TAB; Start 09/13/16 at 21:00 Bisacodyl (Dulcolax Supp) 10 mg Q48H PRN [place] CONSTIPATION; Start 09/13/16 at 13: 30 Magnesium Hydroxide (Milk Of Mag) 30 ml BID PO Last administered on 09/18/16 20:23; Admin Dose 30 ML; Start 09/14/16 at 15:00 Guaifenesin (Mucinex) 600 mg BID PO Last administered on 09/18/16 20:23; Admin Dose 600 MG; Start 09/15/16 at 11:30 Lorazepam 1 mg 1 mg Q3 PRN IV ANXIETY Last administered on 09/19/16 08:46; Admin Dose 1 MG; Start 09/15/16 at 22:00 Meropenem (Merrem 500 Mg/ 100 ml (Pmx)) 100 ml @ 200 mls/hr Q24H IVPB Last administered on 09/18/16 18:28; Admin Dose 200 MLS/HR; Start 09/17/16 at 17:00 Epoetin Eligio (Epogen (Esrd)) 10,000 units TuThSa@17 SC ; Start 09/19/16 at 17:00 TRISTEN SHAVER Sep 19, 2016 11:41
--- NOTE | 2016-09-19 14:38 | PN ---
DATE: 09/19/2016 INFECTIOUS DISEASE PROGRESS NOTE SUBJECTIVE: No events. The patient is lying comfortably in bed. He is on nonrebreather. WBC toda y 13.2, platelets 482, neutrophils 81.7. VITAL SIGNS: Temperature 98, pulse 83, respirations 30, blood pressure 114/52, saturation 100 on 15 liters. INDWELLINGS: Left upper extremity AV fistula. ANTIMICROBIALS: 1. Meropenem. 2. Vancomycin. PHYSICAL EXAMINATION: GENERAL: Chronically ill-appearing, elderly man who is in no distress. HEENT: Head atraumatic, normocephalic. Sclerae anicteric. Buccal mucosa dry. NECK: Supple, trachea midline. CHEST: Rise symmetrical. Breath sounds with scattered rhonchi. HEART: S1, S2. ABDOMEN: Soft, bowel tones present. EXTREMITIES: No cyanosis. ASSESSMENT: 1. Acute respiratory failure. 2. Empyema with left lower lobe pneumonia, status post pulmonary decortication on 09/11/2016. 3. Possible aspiration event secondary to significant secretion retention. 4. End-stage renal disease, hemodialysis dependent. 5. Status post Klebsiella pneumoniae bacteremia, likely secondary to #2. 6. Status post Escherichia coli extended-spectrum beta-lactamase urinary tract infection. 7. Paraplegia. PLAN: The patient remains unchanged. Continue present care, anti-aspiration measures. Follow antoinette mmendations of consultants. The patient is being followed by palliative care team. Dictated By: CELIA CRAWFORD PROBATION SUPERVISOR for FLAKO ROBERTSON/NTS Conf#: [id number] DID#: [id number]
[2016-09-19] MEDS: MEROPENEM 500 MG/100 ML (PMX) 100 ML IVPB SCH (16:58)
[2016-09-19] MEDS ORDERED: EPOETIN 10000 UNITS/1 ML INJ (ESRD) SC SCH (17:00)
[2016-09-19] MEDS: FAMOTIDINE 20 MG TAB PO SCH (20:13)
[2016-09-19] MEDS: SENNA/DOCUSATE NA (8.6MG/50MG) TAB PO SCH (20:14)
[2016-09-20] MEDS: morphine 2 MG INJ IV PRN ×2 (02:44→07:33)
[2016-09-20 05:24] LABS: ADD SCAN DIFF NO
[2016-09-20 05:36] LABS: BASOPHIL # 0.1 10^3/ul (0.0-0.1); BASOPHILS % 0.3 % (0.0-2.0); EOSINOPHILS # 0.1 10^3/ul (0.0-0.5); EOSINOPHILS % 0.2 % (0.0-7.0); HEMATOCRIT 31.4 % (42.0-52.0); HEMOGLOBIN 9.1 g/dl (14.0-18.0); LYMPHOCYTES # 0.7 10^3/ul (0.8-2.9); MEAN CORPUSCULAR HEMOGLOBIN 29.7 pg (29.0-33.0); MEAN CORPUSCULAR VOLUME 102.6 fl (82.0-101.0); MEAN PLATELET VOLUME 9.2 fl (7.4-10.4); MONOCYTE # 1.3 10^3/ul (0.3-0.9); MONOCYTES % 6.1 % (0.0-11.0); NEUTROPHIL # 19.5 10^3/ul (1.6-7.5); NEUTROPHILS % 89.5 % (39.0-77.0); PLATELET COUNT 508 10^3/UL (140-415); RED BLOOD COUNT 3.06 10^6/ul (4.70-6.10); RED CELL DISTRIBUTION WIDTH 15.1 % (11.5-14.5); WHITE BLOOD COUNT 21.8 10^3/ul (4.8-10.8)
[2016-09-20 05:41] LABS: POTASSIUM 5.9 mmol/L (3.5-5.1)
[2016-09-20 05:45] LABS: CALCIUM 8.6 mg/dl (8.4-10.2)
[2016-09-20 05:54] LABS: CREATININE 5.05 mg/dl (0.61-1.24)
[2016-09-20 06:05] LABS: MAGNESIUM 4.1 mg/dl (1.7-2.5); PHOSPHORUS 8.2 mg/dl (2.5-4.9)
--- NOTE | 2016-09-20 07:01 | CONS ---
Date/Time of Note Date/Time of Note DATE: 09/20/16 TIME: 07:01 Consultation Date/Type/Reason Admit Date/Time Sep 03, 2016 at 08:14 Initial Consult Date 09/03/16 Type of Consultation: Renal Referring Provider: Jessica GRIJALVA Exam/Review of Systems Vital Signs Vitals Vital Signs Date Time Temp Pulse Resp B/P Pulse Ox O2 Delivery O2 Flow Rate FiO2 09/19/16 22:25 97.9 82 18 108/56 100 09/19/16 22:00 Non Rebreather 15.0 09/19/16 07:54 100 Intake and Output 09/19/16 09/19/16 09/20/16 15:00 23:00 07:00 Intake Total 100 ml Output Total 55 ml 23 ml 200 ml Balance -55 ml 77 ml -200 ml Results Result Diagram: 09/20/16 0446 09/20/16 0450 Results 24 hrs Laboratory Tests Test 09/19/16 07:15 09/20/16 04:46 09/20/16 04:50 White Blood Count 13.2 H 21.8 #H Red Blood Count 2.53 #L 3.06 #L Hemoglobin 7.6 L 9.1 L Hematocrit 25.8 L 31.4 #L Mean Corpuscular Volume 102.0 H 102.6 H Mean Corpuscular Hemoglobin 30.0 29.7 Mean Corpuscular Hemoglobin Concent 29.5 L 29.0 L Red Cell Distribution Width 15.0 H 15.1 H Platelet Count 482 H 508 H Mean Platelet Volume 9.3 9.2 Neutrophils % 81.7 H 89.5 H Lymphocytes % 7.7 L 3.0 L Monocytes % 8.6 6.1 Eosinophils % 1.0 0.2 Basophils % 0.5 0.3 Nucleated Red Blood Cells % 0.0 0.0 Neutrophils # 10.8 H 19.5 H Lymphocytes # 1.0 0.7 L Monocytes # 1.1 H 1.3 H Eosinophils # 0.1 0.1 Basophils # 0.1 0.1 Nucleated Red Blood Cells # 0.0 0.0 Sodium Level 132 L 136 Potassium Level 5.3 H 5.9 H Chloride Level 98 95 L Carbon Dioxide Level 27 27 Anion Gap 12 20 #H Blood Urea Nitrogen 42 #H 56 H Creatinine 4.22 H 5.05 H Glucose Level 77 69 L Calcium Level 8.3 L 8.6 Phosphorus Level 6.6 H 8.2 H Magnesium Level 3.5 H 4.1 H Medications Medications Current Medications Ondansetron HCl (Zofran Inj) 4 mg Q6H PRN IV NAUSEA AND/OR VOMITING; Start 09/03 at 14:00 Morphine Sulfate (morphine) 2 mg Q4H PRN IV Pain Last administered on 02:44; Admin Dose 2 MG; Start 09/03/16 at 14:00 Hydralazine HCl (Apresoline) 10 mg Q6H PRN IV SBP>160; Start 09/03/16 at 14:00 Famotidine (Pepcid) 20 mg Q24H PO Last administered on 09/18/16 20:23; Admin Dose 20 MG; Start 09/03/16 at 21:00 Guaifenesin/ Dextromethorphan (Robitussin Dm Liquid Cup) 10 ml Q4H PRN PO COUGH Last administered on 09/13/16 00:07; Admin Dose 10 ML; Start 09/09/16 at 17:30 Acetaminophen/ Hydrocodone Bitart ([place] (10/325)) 1 tab Q4H PRN PO PAIN; Start 09/10/16 at 16:00 Bisacodyl (Dulcolax) 10 mg DAILY PRN PO CONSTIPATION Last administered on 21:36; Admin Dose 10 MG; Start 09/10/16 at 16:00 Naloxone HCl (Narcan) 0.2 mg PRN PRN IV DECREASED REPIRATORY RATE; Start at 16:00 Lactobacillus Acidophilus/ Rhamnosus (Culturelle) 1 cap BID PO Last administered on 09/18/16 20:23; Admin Dose 1 CAP; Start 09/14/16 at 09:00 Senna/Docusate Sodium (Senokot-S) 2 tab HS PO Last administered on 09/18/16 20 :23; Admin Dose 2 TAB; Start 09/13/16 at 21:00 Bisacodyl (Dulcolax Supp) 10 mg Q48H PRN [place] CONSTIPATION; Start 09/13/16 at 13: 30 Magnesium Hydroxide (Milk Of Mag) 30 ml BID PO Last administered on 09/18/16 20:23; Admin Dose 30 ML; Start 09/14/16 at 15:00 Guaifenesin (Mucinex) 600 mg BID PO Last administered on 09/18/16 20:23; Admin Dose 600 MG; Start 09/15/16 at 11:30 Lorazepam 1 mg 1 mg Q3 PRN IV ANXIETY Last administered on 09/19/16 16:47; Admin Dose 1 MG; Start 09/15/16 at 22:00 Meropenem (Merrem 500 Mg/ 100 ml (Pmx)) 100 ml @ 200 mls/hr Q24H IVPB Last administered on 09/19/16 16:58; Admin Dose 200 MLS/HR; Start 09/17/16 at 17:00 Epoetin Eligio (Epogen (Esrd)) 10,000 units TuThSa@17 SC ; Start 09/19/16 at 17:00 MALIA EID MD Sep 20, 2016 07:01
[2016-09-20] MEDS: ALBUTEROL/IPRATROPIUM (NEB) 3 ML AMP HHN SCH (08:00)
[2016-09-20] MEDS: ACETYLCYSTEINE 20% 4 ML VIAL NEB SCH (08:00)
[2016-09-20] MEDS: SEVELAMER CARBONATE 0.8 GM PKT PO SCH (08:15)
[2016-09-20] MEDS: MAGNESIUM HYDROXIDE 30ML CUP PO SCH (08:43)
[2016-09-20] MEDS: LACTOBACILLUS RHAMNOSUS CAP PO SCH (08:43)
[2016-09-20] MEDS: GUAIFENESIN LA 600 MG TABSR PO SCH (08:43)
[2016-09-20 09:22] VITALS: BP 90/52; PULSE 78; RESP 25
--- NOTE | 2016-09-20 10:58 | EN ---
Date/Time of Note Date/Time of Note DATE: 09/20/16 TIME: 10:53 Event Note Medicine Medicine Event Note Note Patient was found to have no spontaneous breathing. No audible heart sounds or breath sounds. Pupils fixed and dilated. No response to painful stimuli. No palpable pulses. The patient was declared on 09/20/2016 at 10:50 AM. SHARLA MEZA NP Sep 20, 2016 10:57
--- NOTE | 2016-09-20 11:02 | CONS ---
Date/Time of Note Date/Time of Note DATE: 09/20/16 TIME: 11:00 Assessment/Plan Assessment/Plan Chief Complaint/Hosp Course IMPRESSION: 1. Preoperative evaluation prior to VATS procedure with, at this time, the patient having a EF done this admission revealing a preserved left ventricular ejection fraction and moderate mitral regurgitation and having negative troponins x 3 since admit. Patient has no cardiac contraindication to proceeding to OR for VATS/decortication at this time at moderate risk. Now Post- op s/p VATS/decortication 2. Empyema. 3. End-stage renal disease on hemodialysis. 4. Bacteremia. 5. Urinary tract infection. 6. Paraplegia 7.Hyponatremia 8.Leukocytosis 9.respiratory distress requiring transfer to ICU and initiation of BIPAP-mucous plugging w collapse of L lung 10.anemia 11.Encephalopathy Recc: -Tele -Now DNR/DNI and to be made comfort measures -Will sign off Problems: Consultation Date/Type/Reason Admit Date/Time Sep 03, 2016 at 08:14 Initial Consult Date 09/03/16 Type of Consultation: Cardiology Reason for Consultation HTN/abnl ecg Referring Provider: Jessica GRIJALVA Exam/Review of Systems Vital Signs Vitals Vital Signs Date Time Temp Pulse Resp B/P Pulse Ox O2 Delivery O2 Flow Rate FiO2 09/20/16 09:22 78 25 90/52 90 Non Rebreather 15.0 09/19/16 22:25 97.9 09/19/16 07:54 100 Intake and Output 09/19/16 09/19/16 09/20/16 15:00 23:00 07:00 Intake Total 100 ml Output Total 55 ml 23 ml 200 ml Balance -55 ml 77 ml -200 ml Exam Review of Systems: CONSTITUTIONAL: No fevers, chills. PULMONARY: sob CARDIOVASCULAR: No obvious chest pain/palpitations GASTROINTESTINAL: No nausea/vomiting. GENITOURINARY: No hematuria/dysuria. MUSCULOSKELETAL: No myagias/arthalgias. PSYCHIATRIC: The patient denies depression. NEUROLOGIC: encephalopathy/lethargic Constitutional: other (encephalopathic) Head: normocephalic ENMT: mucosa pink and moist Neck: jvd (9 cm water), supple Respiratory: diminished breath sounds (at bases/B) Cardiovascular: regular rate and rhythm Gastrointestinal: non-tender, soft Extremities: other (paraplegic) Results Result Diagram: 09/20/16 0446 09/20/16 0450 Results 24 hrs Laboratory Tests Test 09/20/16 04:46 09/20/16 04:50 White Blood Count 21.8 #H Red Blood Count 3.06 #L Hemoglobin 9.1 L Hematocrit 31.4 #L Mean Corpuscular Volume 102.6 H Mean Corpuscular Hemoglobin 29.7 Mean Corpuscular Hemoglobin Concent 29.0 L Red Cell Distribution Width 15.1 H Platelet Count 508 H Mean Platelet Volume 9.2 Neutrophils % 89.5 H Lymphocytes % 3.0 L Monocytes % 6.1 Eosinophils % 0.2 Basophils % 0.3 Nucleated Red Blood Cells % 0.0 Neutrophils # 19.5 H Lymphocytes # 0.7 L Monocytes # 1.3 H Eosinophils # 0.1 Basophils # 0.1 Nucleated Red Blood Cells # 0.0 Sodium Level 136 Potassium Level 5.9 H Chloride Level 95 L Carbon Dioxide Level 27 Anion Gap 20 #H Blood Urea Nitrogen 56 H Creatinine 5.05 H Glucose Level 69 L Calcium Level 8.6 Phosphorus Level 8.2 H Magnesium Level 4.1 H Medications Medications Current Medications Ondansetron HCl (Zofran Inj) 4 mg Q6H PRN IV NAUSEA AND/OR VOMITING; Start 09/03 at 14:00 Morphine Sulfate (morphine) 2 mg Q4H PRN IV Pain Last administered on 07:33; Admin Dose 2 MG; Start 09/03/16 at 14:00 Hydralazine HCl (Apresoline) 10 mg Q6H PRN IV SBP>160; Start 09/03/16 at 14:00 Famotidine (Pepcid) 20 mg Q24H PO Last administered on 09/18/16 20:23; Admin Dose 20 MG; Start 09/03/16 at 21:00 Guaifenesin/ Dextromethorphan (Robitussin Dm Liquid Cup) 10 ml Q4H PRN PO COUGH Last administered on 09/13/16 00:07; Admin Dose 10 ML; Start 09/09/16 at 17:30 Acetaminophen/ Hydrocodone Bitart ([place] (10/325)) 1 tab Q4H PRN PO PAIN; Start 09/10/16 at 16:00 Bisacodyl (Dulcolax) 10 mg DAILY PRN PO CONSTIPATION Last administered on 21:36; Admin Dose 10 MG; Start 09/10/16 at 16:00 Naloxone HCl (Narcan) 0.2 mg PRN PRN IV DECREASED REPIRATORY RATE; Start at 16:00 Lactobacillus Acidophilus/ Rhamnosus (Culturelle) 1 cap BID PO Last administered on 09/18/16 20:23; Admin Dose 1 CAP; Start 09/14/16 at 09:00 Senna/Docusate Sodium (Senokot-S) 2 tab HS PO Last administered on 09/18/16 20 :23; Admin Dose 2 TAB; Start 09/13/16 at 21:00 Bisacodyl (Dulcolax Supp) 10 mg Q48H PRN AL CONSTIPATION; Start 09/13/16 at 13: 30 Magnesium Hydroxide (Milk Of Mag) 30 ml BID PO Last administered on 09/18/16 20:23; Admin Dose 30 ML; Start 09/14/16 at 15:00 Guaifenesin (Mucinex) 600 mg BID PO Last administered on 09/18/16 20:23; Admin Dose 600 MG; Start 09/15/16 at 11:30 Lorazepam 1 mg 1 mg Q3 PRN IV ANXIETY Last administered on 09/19/16 16:47; Admin Dose 1 MG; Start 09/15/16 at 22:00 Meropenem (Merrem 500 Mg/ 100 ml (Pmx)) 100 ml @ 200 mls/hr Q24H IVPB Last administered on 09/19/16 16:58; Admin Dose 200 MLS/HR; Start 09/17/16 at 17:00 Epoetin Eligio (Epogen (Esrd)) 10,000 units TuThSa@17 SC ; Start 09/19/16 at 17:00 TRISTEN SHAVER Sep 20, 2016 11:02
== END 2016-09-20 10:50 | disposition expired | DRG 853 ==
LOC: E/R 15:41 → MS4 09-03 08:14 → ICU 09-11 20:27 → MS4 09-12 15:37 → ICU 09-16 19:06 → MS2 09-19 22:15
PROVIDERS: ADMIT Family Medicine; ATTEND Family Medicine
PROC: 05PY03Z Removal of Infusion Device from Upper Vein, Open Approach (ICD-10-PCS; 2016-09-02)
PROC: 5A09357 Assistance with Respiratory Ventilation, Less than 24 Consecutive Hours, Continuous Positive Airway Pressure (ICD-10-PCS; 2016-09-02)
PROC: 5A1D60Z (ICD-10-PCS; 2016-09-08)
PROC: 0BJQ4ZZ Inspection of Pleura, Percutaneous Endoscopic Approach (ICD-10-PCS; 2016-09-11)
PROC: 30233N1 Transfusion of Nonautologous Red Blood Cells into Peripheral Vein, Percutaneous Approach (ICD-10-PCS; 2016-09-11)
PROC: 0BDP0ZZ Extraction of Left Pleura, Open Approach (ICD-10-PCS; principal; 2016-09-11 12:00)
DX: A41.59 Other Gram-negative sepsis (principal); J96.01 Acute respiratory failure with hypoxia; J86.9 Pyothorax without fistula; G93.40 Encephalopathy, unspecified; N18.6 End stage renal disease; J18.9 Pneumonia, unspecified organism; T17.590A Other foreign object in bronchus causing asphyxiation, initial encounter; I12.0 Hypertensive chronic kidney disease with stage 5 chronic kidney disease or end stage renal disease; G82.20 Paraplegia, unspecified; J98.11 Atelectasis; N39.0 Urinary tract infection, site not specified; E87.1 Hypo-osmolality and hyponatremia; E87.5 Hyperkalemia; N31.8 Other neuromuscular dysfunction of bladder; D63.1 Anemia in chronic kidney disease; I34.0 Nonrheumatic mitral (valve) insufficiency; Z99.2 Dependence on renal dialysis; E83.9 Disorder of mineral metabolism, unspecified; Z66 Do not resuscitate; B96.1 Klebsiella pneumoniae [K. pneumoniae] as the cause of diseases classified elsewhere; X58.XXXA Exposure to other specified factors, initial encounter; Y92.238 Other place in hospital as the place of occurrence of the external cause; Z51.5 Encounter for palliative care
CPT/HCPCS: 36415; 36430; 36600; 71010; 71250; 74000; 80048; 80053; 80061; 80202; 81001; 81003; 82550; 82553; 82803; 82962; 83036; 83605; 83690; 83735; 84100; 84132; 84439; 84443; 84484; 85014; 85018; 85025; 85610; 85730; 86850; 86900; 86901; 86920; 87040; 87070; 87075; 87081; 87086; 88307; 90935; 93005; 93306; 93970; 94640; 94660; 94664; 96374; 96375; 97162; J1940; A4310; J0278; J0886; J1170; J1644; J2060; J2185; J2250; J2270; J2310; J2405; J2543; J3010; J3370; J3480; J7050; P9016